=== PATIENT | female | born 1975 | race Caucasian/White ===

== ENCOUNTER 2017-08-02 00:35 | Emergency (ER) | payer OTHER ==
[~2017-08-02] VITALS: Ht 162.6 cm; Wt 72.6 kg
[2017-08-02] MEDS: HYDROMORPHONE 1MG/1ML INJ IV STA (01:41)
[2017-08-02] MEDS: PANTOPRAZOLE 40 MG 10ML VIAL IV STA (01:41)
[2017-08-02] MEDS: SODIUM CHLORIDE 0.9% 1000ML 1,000 ML IV STA (01:42)
[2017-08-02 01:43] LABS: INR 0.99; PROTHROMBIN TIME 12.3 seconds (11.9-14.5)
[2017-08-02 01:44] LABS: PARTIAL THROMBOPLASTIN TIME 30.9 seconds (23.8-35.5)
[2017-08-02 01:48] LABS: BILIRUBIN,URINE NEGATIVE (NEGATIVE); CLARITY,URINE SL CLOUDY (CLEAR); COLOR,URINE YELLOW (YELLOW); KETONES,URINE NEGATIVE (NEGATIVE); LEUKOCYTE ESTERASE ,URINE 1+ (NEGATIVE); NITRITE,URINE NEGATIVE (NEGATIVE); PROTEIN,URINE DIPSTICK 1+ (NEGATIVE); URINE UROBILINOGEN 0.2 mg/dL (0.2 - 1)
[2017-08-02 01:51] LABS: ALANINE AMINOTRANSFERASE 8 IU/L (0-55); ALKALINE PHOSPHATASE 107 IU/L (40-150); ANION GAP 16.9 mmol/L (8-16); BLOOD UREA NITROGEN 15 mg/dL (7-26); BUN/CREATININE RATIO 15 (6-25); CALCIUM 9.6 mg/dL (8.4-10.2); CARBON DIOXIDE 22 mmol/L (22-29); CHLORIDE 105 mmol/L (98-107); CREATINE KINASE 44 IU/L (29-168); CREATININE, SERUM 0.99 mg/dL (0.57-1.11); EST GLOMERULAR FILTRATION RATE > 60 ML/MIN (60-); GLUCOSE 89 mg/dL (74-118); MAGNESIUM 1.9 MG/DL (1.3-2.1); POTASSIUM 3.9 mmol/L (3.5-5.1); SODIUM 140 mmol/L (136-145)
[2017-08-02 01:58] LABS: BASOPHILS # (AUTO) 0.1 (0.0-0.1); BASOPHILS % 0.6 % (0.0-1.0); EOSINOPHILS # (AUTO) 0.7 (0.0-0.4); EOSINOPHILS % 5.2 % (0.0-6.0); HEMATOCRIT 45.6 % (34.2-44.1); HEMOGLOBIN 15.6 g/dL (12.0-16.0); LYMPHOCYTES # (AUTO) 4.2 (1.0-3.2); LYMPHOCYTES % 31.2 % (18.0-39.1); MEAN CORPUSCULAR HGB CONC 34.2 g/dL (31-35); MEAN CORPUSCULAR VOLUME 90.7 fL (81-99); MONOCYTES # (AUTO) 0.9 (0.2-0.8); MONOCYTES % 6.7 % (4.4-11.3); NEUTROPHILS # (AUTO) 7.5 (2.1-6.9); NEUTROPHILS % 55.5 % (38.7-80.0); PLATELET COUNT 198 x10e3/uL (140-360); RED BLOOD COUNT 5.03 x10e6/uL (3.6-5.1); RED CELL DISTRIBUTION WIDTH 13.2 % (11.7-14.4)
[2017-08-02 02:03] LABS: BACTERIA,URINE RARE /HPF; EPITHELIAL CELLS,URINE MANY /LPF; RBC,URINE 0-5 /HPF (0-5); TRANSITIONAL EPI CELLS,URINE FEW; WBC,URINE (MAN) 21-50 /HPF (0-5)
[2017-08-02 02:48] LABS: CLARITY,URINE CLEAR (CLEAR); COLOR,URINE YELLOW (YELLOW)
[2017-08-02 02:49] LABS: BILIRUBIN,URINE NEGATIVE (NEGATIVE); KETONES,URINE NEGATIVE (NEGATIVE); LEUKOCYTE ESTERASE ,URINE TRACE (NEGATIVE); NITRITE,URINE NEGATIVE (NEGATIVE); PROTEIN,URINE DIPSTICK TRACE (NEGATIVE); URINE UROBILINOGEN 0.2 mg/dL (0.2 - 1)
[2017-08-02 02:50] LABS: AMPHETAMINES SCREEN,URINE NEGATIVE (NEGATIVE); BENZODIAZEPINES SCREEN,URINE POSITIVE (NEGATIVE); PHENCYCLIDINE SCREEN,URINE NEGATIVE (NEGATIVE)
[2017-08-02 03:02] LABS: BACTERIA,URINE RARE /HPF; EPITHELIAL CELLS,URINE RARE /LPF; RBC,URINE 0-5 /HPF (0-5); WBC,URINE (MAN) 0-5 /HPF (0-5)
--- NOTE | 2017-08-02 03:36 | Diagnostic Imaging Report ---
EXAM: CT Abdomen and Pelvis WITHOUT contrast INDICATION: Flank pain, renal stone. COMPARISON: None. TECHNIQUE: Abdomen and pelvis were scanned utilizing a multidetector helical scanner from the lung base to the pubic symphysis without administration of IV contrast. Absence of intravenous contrast decreases sensitivity for detection of focal lesions and vascular pathology. Coronal and sagittal reformations were obtained. Stone protocol is performed. IV CONTRAST: None. ORAL CONTRAST: None RADIATION DOSE: Total DLP: 594.59 mGy*cm Estimated effective dose: (DLP x 0.015 x size factor) mSv COMPLICATIONS: None FINDINGS: LINES and TUBES: None. LOWER THORAX: Multiple calcified granulomas are noted in the right lung base HEPATOBILIARY: No focal hepatic lesions. No biliary ductal dilation. GALLBLADDER: There are cholecystectomy clips. SPLEEN: No splenomegaly. PANCREAS: No focal masses or ductal dilatation. ADRENALS: No adrenal nodules KIDNEYS/URETERS: No hydronephrosis. No cystic or solid mass lesions. Multiple small stones noted in the bilateral renal collecting systems, the largest measuring 4 mm in the right upper renal collecting system. GI TRACT: No abnormal distention, wall thickening, or evidence of bowel obstruction. There are diverticula within the colon without evidence of diverticulitis. There are post surgical changes of appendectomy. Postsurgical changes noted in the epigastrium compatible with bariatric surgery. PELVIC ORGANS/BLADDER: There are postop changes of hysterectomy and bilateral oophorectomies. LYMPH NODES: No lymphadenopathy. VESSELS: There is mild atherosclerotic disease in the aorta and major arterial branches. PERITONEUM / RETROPERITONEUM: No free air or fluid. BONES: Unremarkable. SOFT TISSUES: Unremarkable. IMPRESSION: 1. Bilateral nephrolithiasis without evidence of hydronephrosis. Signed by: Dr. Wellington Rivas M.D. on 08/02/2017 3:32 AM
== END 2017-08-02 04:59 | disposition home or self-care (01) ==
LOC: ER 00:35
DX: S39.012A Strain of muscle, fascia and tendon of lower back, initial encounter (principal); M27.2 Inflammatory conditions of jaws; G89.29 Other chronic pain; K21.9 Gastro-esophageal reflux disease without esophagitis; F41.8 Other specified anxiety disorders; G62.9 Polyneuropathy, unspecified; Z79.891 Long term (current) use of opiate analgesic; Z88.2 Allergy status to sulfonamides; Z88.1 Allergy status to other antibiotic agents; Z88.8 Allergy status to other drugs, medicaments and biological substances; X58.XXXA Exposure to other specified factors, initial encounter
CPT/HCPCS: 36415; 74176; 80053; 80307; 81001; 82550; 82553; 83735; 84484; 85025; 85610; 85730; 87086; 99284; J1170; J7030

== ENCOUNTER 2019-06-20 13:37 | Emergency (ER) | payer OTHER ==
[~2019-06-20] VITALS: Ht 162.6 cm; Wt 101.2 kg
--- OUTSIDE RECORDS SUMMARY | 2019-06-20 13:44 | XMS REPORT | Summary of Care ---
Author Author [facility] - [facility] Organization [facility] - Health Address Unknown Phone Unavailable Care Team Providers Care Glaze Handler Name Role Phone Pcp, Patient Does Not Have A PCP Reason for Visit * Reason Comments Pain * Auth/Cert Referred By Contact Referred To Contact Status Reason Specialty Diagnoses / Procedures [facility] [address] [place] [id number] Emergency Medicine Encounter Details Care Team Description Date Type Department Rebeka Velazquez FNP [address] [place] [phone] 11/05/2018 Emergency [facility] [address] [place] [id number] Allergies Comments Active Allergy Reactions Severity Noted Date Avocado Hives 07/27/2018 Venlafaxine Hcl Other - See 05/04/2015 comments Erythromycin Rash 05/04/2015 Tapentadol Hallucination 05/04/2015 s Sulfa (Sulfonamide Rash 05/04/2015 Antibiotics) Tramadol Hallucination 05/04/2015 s Vancomycin Other - See 05/04/2015 comments Bupropion Hcl Other - See 05/04/2015 comments Hydrocodone Bitartrate Rash 07/26/2018 Bupropion Hcl (Smoking Rash 07/26/2018 Deter) documented as of this encounter (statuses as of 11/05/2018) Medications End Date Status Medication Sig Dispensed Refills Start Date Active pantoprazole (PROTONIX) Take 40 mg by 0 40 mg EC tablet mouth 2 (two) times daily. Active losartan-hydrochlorothiaz Take 1 Tab by 0 destiny (HYZAAR) 50-12.5 mg mouth daily. per tablet Active SERTraline (ZOLOFT) 100 Take 100 mg 0 mg tablet by mouth daily. Active gabapentin (NEURONTIN) Take 600 mg 0 600 mg tablet by mouth 4 (four) times daily. Active oxyCODONE (OXYCONTIN) 15 Take by 0 mg TR12 mouth. Active oxyCODONE (OXYCONTIN) 15 Take by 0 mg TR12 mouth. Active Biotin (APPEAREX) 2,500 Take 2 Tabs 0 mcg Tab by mouth daily. Active busPIRone 10 mg tablet Take 10 mg by 0 mouth 3 (three) times daily. Active cyclobenzaprine HCl Take by 0 (FLEXERIL ORAL) mouth. Active atorvastatin calcium Take by 0 (LIPITOR ORAL) mouth. Active aripiprazole (ABILIFY Take by 0 ORAL) mouth. Active ondansetron (ZOFRAN ODT Take by 0 ORAL) mouth. Active zolpidem tartrate (AMBIEN Take by 0 ORAL) mouth. Active diazepam (VALIUM ORAL) Take by 0 mouth. Active hydromorphone HCl Take by 0 (DILAUDID ORAL) mouth. documented as of this encounter (statuses as of 11/05/2018) Active Problems Problem Noted Date Abdominal pain 07/26/2018 Dysphagia 07/26/2018 GERD (gastroesophageal reflux disease) 07/26/2018 Anxiety 07/26/2018 Depression 07/26/2018 HTN (hypertension) 07/26/2018 Obesity (BMI 30-39.9) 07/26/2018 documented as of this encounter (statuses as of 11/05/2018) Social History Date Tobacco Use Types Packs/Day Years Used Current Every Day Smoker Cigarettes 1 30 Drinks/Week oz/Week Comments Alcohol Use 0 Standard drinks or equivalent 0.0 Not Asked Sex Assigned at Date Recorded Not on file Industry Job Start Date Occupation Not on file Not on file Not on file Travel End Travel History Travel Start No recent travel history available. documented as of this encounter Last Filed Vital Signs Reading Time Taken Comments Vital Sign 136/95 11/05/2018 2:58 PM CDT Blood Pressure 102 11/05/2018 2:58 PM CDT Pulse 36.1 C (96.9 F) 11/05/2018 2:58 PM CDT Temperature 18 11/05/2018 2:58 PM CDT Respiratory Rate 96% 11/05/2018 2:58 PM CDT Oxygen Saturation - - Inhaled Oxygen Concentration 84.4 kg (186 lb) 11/05/2018 2:57 PM CDT Weight - - Height 31.93 07/26/2018 1:45 PM CDT Body Mass Index documented in this encounter Plan of Treatment Health Maintenance Due Date Last Done Comments PNEUMOCOCCAL 0-64 YEARS 07/29/1979 COMBINED SERIES (1 of 1 - PPSV23) DTaP,Tdap,and Td Vaccines 1992 (1 - Tdap) PAP SMEAR 1994 MAMMOGRAM 2013 INFLUENZA VACCINE 12/09/2018 02/27/2017 documented as of this encounter Results Not on filedocumented in this encounter Insurance Type Payer Benefit Subscriber ID Effective Phone Address Plan / Dates Group [id number] [id number] Present documented as of this encounter
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
--- OUTSIDE RECORDS SUMMARY | 2019-06-20 13:45 | XMS REPORT | Summary of Care ---
Author Author [facility] - Health Organization [facility] - Health Address Unknown Phone Unavailable Care Team Providers Care Private Sector Executive Name Role Phone Stephanie Sumner MD PCP Reason for Referral * (Routine) Referred By Contact Referred To Contact Status Reason Specialty Diagnoses / Procedures Cash Durbin MD [address] [place] [address] New Request IM-GASTROENTEROL Diagnoses OGY Dysphagia, unspecified type P rocedures Discharge Follow-Up: Specialty Service IM-GASTROENTEROLOG Y; 2 Weeks * (Routine) Referred By Contact Referred To Contact Status Reason Specialty Diagnoses / Procedures Aziza Garcia, CLOUD CONSULTANT [address] [place] [address] Stephanie Sumner MD [address] [place] [address] New Request Diagnoses Dysphagia, unspecified type P rocedures Discharge Follow-up: PCP STEPHANIE SUMNER; 2 Weeks * Radiology Services (STAT) Referred By Contact Referred To Contact Status Reason Specialty Diagnoses / Procedures Pam Gonzales, CARLY [address] [place] [id number] New Request Diagnostic Diagnoses Radiology Other chest pain P rocedures XR NECK SOFT TISSUE * Radiology Services (STAT) Referred By Contact Referred To Contact Status Reason Specialty Diagnoses / Procedures Pam Gonzales, CARLY [address] [place] [phone] New Request Diagnostic Diagnoses Radiology Other chest pain P rocedures Chest 2 Views * Radiology Services (STAT) Referred By Contact Referred To Contact Status Reason Specialty Diagnoses / Procedures Pam Gonzales, CARLY [address] [place] [id number] New Request Diagnostic Diagnoses Radiology Other chest pain P rocedures XR NECK SOFT TISSUE * Radiology Services (STAT) Referred By Contact Referred To Contact Status Reason Specialty Diagnoses / Procedures Pam Gonzales, CARLY [address] [address] New Request Diagnostic Diagnoses Radiology Other chest pain P rocedures Chest 2 Views Reason for Visit * Reason Comments Abdominal Pain * Auth/Cert Referred By Contact Referred To Contact Status Reason Specialty Diagnoses / Procedures [facility] Emergency Dept [address] [place] [id number] Emergency Medicine Encounter Details Care Team Description Date Type Department Pam Gonzales, CARLY [address] [place] [address] [phone] Spencer Esquivel MD [address] [place] [address] Dysphagia 11/17/2018 [facility] - Medicine[facility]Surgery [facility] 7B 11/19/2018 [address] [place] [address] Allergies Comments Active Allergy Reactions Severity Noted Date Avocado Hives 07/27/2018 Venlafaxine Hcl Other - See 05/04/2015 comments Erythromycin Rash 05/04/2015 Tapentadol Hallucination 05/04/2015 s Sulfa (Sulfonamide Rash 05/04/2015 Antibiotics) Ketorolac Rash 11/05/2018 Tramadol Hallucination 05/04/2015 s Vancomycin Other - See 05/04/2015 comments Bupropion Hcl Other - See 05/04/2015 comments Hydrocodone Bitartrate Rash 07/26/2018 Bupropion Hcl (Smoking Rash 07/26/2018 Deter) documented as of this encounter (statuses as of 11/19/2018) Medications End Date Status Medication Sig Dispensed [...] HCl Take by 0 (DILAUDID ORAL) mouth. 11/21/2018 Active fluconazole 200 mg Take 1 tablet 1 tablet 0 tabletIndications: by mouth 9 Dysphagia, unspecified daily for 1 type dose. 11/26/2018 Active sucralfate 100 mg/mL Take 10 mL by 280 mL 0 suspensionIndications: mouth before 9 Dysphagia, unspecified meals and at type bedtime for 7 days. 11/19/2018 Discontinued oxyCODONE (OXYCONTIN) 15 Take by 0 mg TR12 mouth. documented as of this encounter (statuses as of 11/19/2018) Active Problems Problem Noted Date Abdominal pain 07/26/2018 Dysphagia 07/26/2018 GERD (gastroesophageal reflux disease) 07/26/2018 Anxiety 07/26/2018 Depression 07/26/2018 HTN (hypertension) 07/26/2018 Obesity (BMI 30-39.9) 07/26/2018 documented as of this encounter (statuses as of 11/19/2018) Social History Date Tobacco Use Types Packs/Day [...] Signs Reading Time Taken Comments Vital Sign 117/75 11/19/2018 11:34 AM CDT Blood Pressure 67 11/19/2018 11:34 AM CDT Pulse 36.7 C (98 F) 11/19/2018 11:34 AM CDT Temperature 18 11/19/2018 11:34 AM CDT Respiratory Rate 99% 11/19/2018 11:34 AM CDT Oxygen Saturation - - Inhaled Oxygen Concentration 97.5 kg (215 lb) 11/17/2018 2:58 PM CDT Weight 162.6 cm (5' 4") 11/17/2018 2:58 PM CDT Height 36.9 11/17/2018 2:58 PM CDT Body Mass Index documented in this encounter Progress Notes * Yelena Taylor FNP - 11/19/2018 12:50 PM CDT Gastroenterology Progress Note Subjective: Nadiya Gustafson is 43 year old female who was admitted with dysphagia and sensatio n of foreign body in esophagus. S/P EGD with no evidence of foreign body or food bolus. Gastritis and esophagitis seen. She is resting in bed. Tolerating diet well. C/o some nausea. Denies any further complaints. Plans to DC home soon. Objective: BP 117/75 | Pulse 67 | Temp 36.7 C (98 F) (Skin) | Resp 18 | Ht 5' 4" (1 .626 m) | Wt 215 lb (97.5 kg) | SpO2 99% | BMI 36.90 kg/m Physical Exam: Physical Exam Constitutional: She is oriented to person, place, and time. She appears well-dev eloped and well-nourished. HENT: Head: Normocephalic and atraumatic. Eyes: Conjunctivae are normal. No scleral icterus. Cardiovascular: Normal rate. Pulmonary/Chest: Effort normal. Abdominal: Soft. Bowel sounds are normal. She exhibits no distension. There is n o tenderness. Musculoskeletal: Normal range of motion. Neurological: She is alert and oriented to person, place, and time. Skin: Skin is warm and dry. Psychiatric: She has a normal mood and affect. Her behavior is normal. I/O: Intake/Output Summary (Last 24 hours) at 11/19/2018 1250 Last data filed at 11/19/2018 0800 Gross per 24 hour Intake 720 ml Output Net 720 ml Labs/Diagnostic Data/ Imaging: Recent Results (from the past 48 hour(s)) Basic Metabolic Panel (NA, K, CL, CO2, GLUCOSE, BUN, CREATININE, CA) Collection Time: 11/17/18 3:34 PM Result Value Ref Range NA 138 135 - 145 mmol/L K 4.8 3.5 - 5.0 mmol/L CL 101 98 - 108 mmol/L CO2 TOTAL 27 23 - 31 mmol/L AGAP 10 2 - 16 BUN 12 7 - 23 mg/dL GLUCOSE 82 70 - 110 mg/dL CREATININE 0.80 0.50 - 1.04 mg/dL CALCIUM 9.8 8.6 - 10.6 mg/dL eGFR Calculation (Non-) 77.6 mL/min/1.73m2 eGFR Calculation () 94.0 mL/min/1.73m2 Troponin I Collection Time: 11/17/18 3:34 PM Result Value Ref Range TROPONIN I 0.000 <=0.034 ng/mL aPTT Collection Time: 11/17/18 3:34 PM Result Value Ref Range APTT Patient 29 26 - 36 Seconds Prothrombin Time (PT) / INR Collection Time: 11/17/18 3:34 PM Result Value Ref Range PROTIME PATIENT 10.0 (L) 10.1 - 12.6 Seconds INR 0.9 CBC WITH DIFFERENTIAL Collection Time: 11/17/18 3:34 PM Result Value Ref Range WBC 11.85 (H) 4.30 - 11.10 10*3/L RBC 4.75 3.93 - 5.25 10*6/L HGB 15.1 (H) 11.6 - 15.0 g/dL HCT 43.0 35.7 - 45.2 % MCV 90.5 80.6 - 95.5 fL MCH 31.8 25.9 - 32.8 pg MCHC 35.1 31.6 - 35.1 g/dL RDW-SD 40.8 39.0 - 49.9 fL RDW-CV 12.4 12.0 - 15.5 % PLT 214 166 - 358 10*3/L MPV 9.9 9.5 - 12.9 fL NRBC/100 WBC 0.0 0.0 - 10.0 /100 WBCs NRBC x10^3 <0.01 10*3/L GRAN MAT (NEUT) % 62.8 % IMM GRAN % 0.30 % LYMPH % 26.1 % MONO % 7.0 % EOS % 3.2 % BASO % 0.6 % GRAN MAT x10^3(ANC) 7.44 (H) 1.88 - 7.09 10*3/uL IMM GRAN x10^3 0.04 0.00 - 0.06 10*3/uL LYMPH x10^3 3.09 1.32 - 3.29 10*3/uL MONO x10^3 0.83 0.33 - 0.92 10*3/uL EOS x10^3 0.38 0.03 - 0.39 10*3/uL BASO x10^3 0.07 0.01 - 0.07 10*3/uL Chest 2 Views Result Date: 11/17/2018 No acute cardiopulmonary process. No radiopaque foreign body identified. Xr Neck Soft Tissue Result Date: 11/17/2018 No radiopaque foreign body identified. Soft tissue thickening in the base of the epiglottis and in the aryepiglottic folds. This could be related to swallowing motion, but supraglottitis could be in the differential. RL: [id number] AFC: [id number] Assessment/Plan: 1. Dysphagia - s/p EGD with gastritis and possible candidal esophagitis - f/u on biopsy results - PPI - GERD diet as tolerated 2. N/V - improved - PRN antiemetics OK to DC from GI point of view on PPI. Follow up in [address] Durbin. * Latonya Willard SW - 11/19/2018 12:28 PM CDT Care Management Social Functional Assessment Patient Name: Nadiya Gustafson Age: [age] year old Sex: female N Previous admit date: N/A Current diagnosis and co-morbidities: Dysphagia Chest pain Readmission Questions: Was patient discharged from any acute care hospital within the last 30 days: No Social Functional Assessment: Primary language spoken/preferred: Citizen Of [place] Mental Status: Alert & Oriented to Person,Place & Time Information given by: Self Patient's support system: Spouse Name and number of support system: Woody Gustafson [phone] Primary Magazine Designer: Self MPOA: Yes Name and relation to patient (e.g. Luz Taylor, daughter): Woody Gustafson [phone] spouse Living Arrangement: Home Persons living in home: Self;Spouse Barriers to returning home: None Baseline functional status- ambulation: Independent Functional status-baseline personal care: Independent Baseline functional status- driving: Independent Baseline functional status- grocery shopping: Independent Functional status-baseline housekeeping: Independent Functional status-baseline meal prep: Independent Current functional status same as prior: Yes Do you have a PCP?: Yes Name of PCP: Dr. Sumner [employer] Health Care Agency: No Provider Services: No DME Company: No Equipment: None Hemodialysis: No Funding Resources: [facility] where meds are filled: Other Other pharmacy: [facility] Anticipated services prior to disharge: Continue Medical Eval Expected mode of discharge transportation: Personal vehicle Additional Recommendations for DC: vehicle parked in truck Additional info required for discharge planning: No needs identified Recommended discharge plan: Home PLAN: Patient to return home when medically ready. Her vehicle parked in lot. Spouse is retired SFA Complete: Social Functional Assessment complete: Yes Alcohol Use Screening (AUDIT-C) Did patient elect to have resources provided: No Role of Care Management explained. Latonya Willard PAPER MAKING MACHINE OPERATOR Traveling Repair Accountant [phone] office [phone] cell * Maxim Espinoza RN - 11/18/2018 3:12 PM CDT CARE MANAGEMENT ADMISSION CHANGED TO OBSERVATION After reviewing this case with the [facility] [employer] and UR Committee it has been de termined that this case does not meet medical necessity guidelines for an inpati ent admission. I concur that this case should be changed to outpatient observati on. Maxim Espinoza RN,BSN Utilization Review F: [phone] * Fiorella Gomez MD - 11/18/2018 12:52 PM CDT CLS Progress Note Date of Service: 11/18/2018 12:52 Chief Complaint: Abdominal pain Dysphagia SUBJECTIVE and ROS General: no fever CV: no chest pain Respiratory: no shortness of breath GI: no abdominal pain, difficulty swallowing : no tenderness Skin: no itching PHYSICAL EXAM: Vitals: 11/18/18 0400 11/18/18 0611 11/18/18 0651 11/18/18 1055 BP: 127/85 (!) 139/95 119/78 109/76 Pulse: 66 67 66 69 Resp: 20 16 17 18 Temp: 36 C (96.8 F) 35.8 C (96.5 F) 36.7 C (98 F) TempSrc: Tympanic Skin Skin SpO2: 98% 98% 97% Weight: Height: O2 Sat: SpO2 readings for the past 24 hrs: SpO2 11/17/18 1458 98 % 11/17/18 1500 98 % 11/17/18 1515 95 % 11/17/18 1923 96 % 11/17/18 1955 96 % 11/17/18 2000 96 % 11/17/18 2005 94 % 11/17/18 2100 99 % 11/18/18 0000 95 % 11/18/18 0400 98 % 11/18/18 0651 98 % 11/18/18 1055 97 % Intake/Output Summary (Last 24 hours) at 11/18/2018 1252 Last data filed at 11/18/2018 1000 Gross per 24 hour Intake 865 ml Output Net 865 ml General: alert and oriented; no apparent distress, no confusion HEENT: pupils equal, round; extraocular movements intact; oropharynx clear; mois t mucous membranes Lungs: clear to auscultation bilaterally, no crackles, no wheezes, cough is stro ng and effective Cardio: regular rate and rhythm, no murmurs, no gallops Abdomen: soft; non-tender; non-distended; normoactive bowel sounds Extremities: no cyanosis, clubbing or edema, no deformities LABS/IMAGING - reviewed, pertinent results as below: Recent Results (from the past 48 hour(s)) Basic Metabolic Panel (NA, K, CL, CO2, GLUCOSE, BUN, CREATININE, CA) Collection Time: 11/17/18 3:34 PM Result Value Ref Range NA 138 135 - 145 mmol/L K 4.8 3.5 - 5.0 mmol/L CL 101 98 - 108 mmol/L CO2 TOTAL 27 23 - 31 mmol/L AGAP 10 2 - 16 BUN 12 7 - 23 mg/dL GLUCOSE 82 70 - 110 mg/dL CREATININE 0.80 0.50 - 1.04 mg/dL CALCIUM 9.8 8.6 - 10.6 mg/dL eGFR Calculation (Non-) 77.6 mL/min/1.73m2 eGFR Calculation () 94.0 mL/min/1.73m2 Troponin I Collection Time: 11/17/18 3:34 PM Result Value Ref Range TROPONIN I 0.000 <=0.034 ng/mL aPTT Collection Time: 11/17/18 3:34 PM Result Value Ref Range APTT Patient 29 26 - 36 Seconds Prothrombin Time (PT) / INR Collection Time: 11/17/18 3:34 PM Result Value Ref Range PROTIME PATIENT 10.0 (L) 10.1 - 12.6 Seconds INR 0.9 CBC WITH DIFFERENTIAL Collection Time: 11/17/18 3:34 PM Result Value Ref Range WBC 11.85 (H) 4.30 - 11.10 10*3/L RBC 4.75 3.93 - 5.25 10*6/L HGB 15.1 (H) 11.6 - 15.0 g/dL HCT 43.0 35.7 - 45.2 % MCV 90.5 80.6 - 95.5 fL MCH 31.8 25.9 - 32.8 pg MCHC 35.1 31.6 - 35.1 g/dL RDW-SD 40.8 39.0 - 49.9 fL RDW-CV 12.4 12.0 - 15.5 % PLT 214 166 - 358 10*3/L MPV 9.9 9.5 - 12.9 fL NRBC/100 WBC 0.0 0.0 - 10.0 /100 WBCs NRBC x10^3 <0.01 10*3/L GRAN MAT (NEUT) % 62.8 % IMM GRAN % 0.30 % LYMPH % 26.1 % MONO % 7.0 % EOS % 3.2 % BASO % 0.6 % GRAN MAT x10^3(ANC) 7.44 (H) 1.88 - 7.09 10*3/uL IMM GRAN x10^3 0.04 0.00 - 0.06 10*3/uL LYMPH x10^3 3.09 1.32 - 3.29 10*3/uL MONO x10^3 0.83 0.33 - 0.92 10*3/uL EOS x10^3 0.38 0.03 - 0.39 10*3/uL BASO x10^3 0.07 0.01 - 0.07 10*3/uL Chest 2 Views Result Date: 11/17/2018 No acute cardiopulmonary process. No radiopaque foreign body identified. Xr Neck Soft Tissue Result Date: 11/17/2018 No radiopaque foreign body identified. Soft tissue thickening in the base of the epiglottis and in the aryepiglottic folds. This could be related to swallowing motion, but supraglottitis could be in the differential. RL: [id number] AFC: [id number] CURRENT MEDICATIONS - reviewed. Current Facility-Administered Medications Medication Dose Route Frequency Last Rate Last Dose HYDROmorphone (DILAUDID) injection 2 mg 2 mg Slow IV Push Q3HPRN ARIPiprazole (ABILIFY) tablet 10 mg 10 mg Oral DAILY 10 mg at 11/18/18 08 15 atorvastatin (LIPITOR) tablet 20 mg 20 mg Oral QHS busPIRone (BUSPAR) tablet 10 mg 10 mg Oral TID 10 mg at 11/18/18 0815 fluconazole (DIFLUCAN) tablet 200 mg 200 mg Oral DAILY 200 mg at 11/18/18 0816 gabapentin (NEURONTIN) tablet 600 mg 600 mg Oral QID 600 mg at 11/18/18 1 119 NaCl 0.9% (NS) IV infusion 1,000 mL 1,000 mL IV Infusion CONTINUOUS 125 mL/ hr at 11/18/18 0134 1,000 mL at 11/18/18 0134 ondansetron (ZOFRAN (PF)) injection 4 mg 4 mg Slow IV Push Q6HPRN oxyCODONE CR (oxyCONTIN CR) 12 hr tablet 20 mg 20 mg Oral Q12H 20 mg at 0 11/18/18 0816 pantoprazole (PROTONIX) EC tablet 40 mg 40 mg Oral BID 40 mg at 11/18/18 0815 SERTraline (ZOLOFT) tablet 100 mg 100 mg Oral DAILY 100 mg at 11/18/18 08 15 sucralfate (CARAFATE) 100 mg/mL suspension 1,000 mg 1 g Oral AC+HS 1,000 mg at 11/18/18 1119 ASSESSMENT/PLAN Nadiya Gustafson is a 43 year old female admitted to the hospital with: Dysphagia Esophagitis Obesity Chronic pain syndrome PLAN: S/P EGD. GI recommendation will be followed Will advance diet and watch patient response Biopsy is pending Low caloric diet Dilaudid increased DVT prophylaxis BS 100-180 Fiorella Gomez MD [phone] documented in this encounter Plan of Treatment Date/Time Name Type Priority Associated Diagnoses 11/17/2018 7:46 PM CDT SURGICAL PATHOLOGY EXAM LAB STAT Order Schedule Name Type Priority Associated Diagnoses ONCE for 1 Occurrences starting 11/17/2018, 1 completed SURGICAL PATHOLOGY EXAM LAB Routine Health Maintenance Due Date Last Done Comments PNEUMOCOCCAL 0-64 YEARS 07/29/1979 COMBINED SERIES (1 of 1 - PPSV23) DTaP,Tdap,and Td Vaccines 1992 (1 - Tdap) PAP SMEAR 1994 MAMMOGRAM 2013 INFLUENZA VACCINE 12/09/2018 02/27/2017 documented as of this encounter Procedures Comments Procedure Name Priority Date/Time Associated Diagnosis ESOPHAGOGASTRODUODENOSCOP Level 1 A 11/17/2018 POSSIBLE CANDIDIA, NO Y (within 2 7:28 PM CDT FOREIGN BODY, S/P GASTRIC hours) SLEEVE, GASTRITIS EGD (ENDO) Routine 11/17/2018 7:27 PM CDT XR NECK SOFT TISSUE STAT 11/17/2018 Other chest pain 5:51 PM CDT XR CHEST 2 VW STAT 11/17/2018 Other chest pain 5:51 PM CDT CBC WITH DIFFERENTIAL STAT 11/17/2018 Other chest pain 3:34 PM CDT ACTIVATED PARTIAL STAT 11/17/2018 Other chest pain THRMPLAS FRANK 3:34 PM CDT PROTHROMBIN TIME / INR STAT 11/17/2018 Other chest pain 3:34 PM CDT CBC WITH DIFF Routine 11/17/2018 Other chest pain 3:34 PM CDT BASIC METABOLIC PANEL STAT 11/17/2018 Other chest pain (NA, K, CL, CO2, GLUCOSE, 3:34 PM CDT BUN, CREATININE, CA) TROPONIN I STAT 11/17/2018 Other chest pain 3:34 PM CDT EKG-12 LEAD STAT 11/17/2018 3:33 PM CDT documented in this encounter Results * XR NECK SOFT TISSUE (11/17/2018 5:51 PM CDT) Specimen Impressions Performed At No radiopaque foreign body identified. PACS/VR/DOSE Soft tissue thickening in the base of the epiglottis and in the aryepiglottic folds. This could be related to swallowing motion, but supraglottitis could be in the differential. RL: 460 AFC: [id number] Narrative Performed At Ordering physician: PMA JOHNSON PACS/VR/DOSE INDICATION: Swallowed foreign body COMPARISON: None FINDINGS: AP and lateral soft tissue views of neck. No radiopaque foreign body is appreciated. There is apparent thickening of the base of the epiglottis and the aryepiglottic folds. Procedure Note [facility], Radiant Results Inft User - 11/17/2018 9:23 PM CDT Ordering physician: PAM JOHNSON INDICATION: Swallowed foreign body COMPARISON: None FINDINGS: AP and lateral soft tissue views of neck. No radiopaque foreign body is appreciated. There is apparent thickening of the base of the epiglottis and the aryepiglottic folds. IMPRESSION No radiopaque foreign body identified. Soft tissue thickening in the base of the epiglottis and in the aryepiglottic folds. This could be related to swallowing motion, but supraglottitis could be in the differential. RL: 460 AFC: [id number] Performing Organization Address City/State/Zipcode Phone Number PACS/VR/DOSE * Chest 2 Views (11/17/2018 5:51 PM CDT) Specimen Impressions Performed At No acute cardiopulmonary process. No radiopaque foreign body identified. PACS/VR/DOSE Narrative Performed At * * * * * * * * ORIGINAL REPORT * * * * * * * * PACS/VR/DOSE XR CHEST 2 VW HISTORY: chest pain; Potential swallowed F/B COMPARISON: None available. FINDINGS: Cardiomediastinal silhouette is of normal size and morphology. Trachea is not abnormally deviated. Lungs are adequately inflated. Linear opacities in the right perihilar region and left lung base likely represent atelectasis. No confluent consolidation is identified. No radiopaque foreign body is identified. Cholecystectomy clips are noted over the right upper quadrant. Nonspecific gas is noted in the small bowel within the upper abdomen. Procedure Note [facility], Radiant Results Inft User - 11/17/2018 6:03 PM CDT * * * * * * * * ORIGINAL REPORT * * * * * * * * XR CHEST 2 VW HISTORY: chest pain; Potential swallowed F/B COMPARISON: None available. FINDINGS: Cardiomediastinal silhouette is of normal size and morphology. Trachea is not abnormally deviated. Lungs are adequately inflated. Linear opacities in the right perihilar region and left lung base likely represent atelectasis. No confluent consolidation is identified. No radiopaque foreign body is identified. Cholecystectomy clips are noted over the right upper quadrant. Nonspecific gas is noted in the small bowel within the upper abdomen. IMPRESSION No acute cardiopulmonary process. No radiopaque foreign body identified. Performing Organization Address City/State/Zipcode Phone Number PACS/VR/DOSE * CBC WITH DIFFERENTIAL (11/17/2018 3:34 PM CDT) WBC 11.85 (H) 4.30 - 11.10 [facility]L [facility] RBC 4.75 3.93 - 5.25 10*6/L [facility] HGB 15.1 (H) 11.6 - 15.0 g/dL [facility] HCT 43.0 35.7 - 45.2 % [facility] MCV 90.5 80.6 - 95.5 fL [facility] MCH 31.8 25.9 - 32.8 pg [facility] MCHC 35.1 31.6 - 35.1 g/dL [facility] RDW-SD 40.8 39.0 - 49.9 fL [facility] RDW-CV 12.4 12.0 - 15.5 % [facility] PLT 214 166 - 358 10*3/L [facility] MPV 9.9 9.5 - 12.9 fL [facility] NRBC/100 WBC 0.0 0.0 - 10.0 /100 WBCs [facility] NRBC x10^3 <0.01 10*3/L [facility] GRAN MAT (NEUT) 62.8 % [facility] % [facility] IMM GRAN % 0.30 % [facility] LYMPH % 26.1 % [facility] MONO % 7.0 % [facility] EOS % 3.2 % [facility] BASO % 0.6 % [facility] GRAN MAT 7.44 (H) 1.88 - 7.09 10*3/uL [facility] x10^3(ANC) [facility] IMM GRAN x10^3 0.04 0.00 - 0.06 10*3/uL [facility] LYMPH x10^3 3.09 1.32 - 3.29 10*3/uL [facility] MONO x10^3 0.83 0.33 - 0.92 10*3/uL [facility] EOS x10^3 0.38 0.03 - 0.39 10*3/uL [facility] BASO x10^3 0.07 0.01 - 0.07 10*3/uL [facility] Specimen Blood - LINE, VENOUS Performing Organization Address City/State/Zipcode Phone Number [facility] CLIA: [id number], [address] [place] [address] [facility] * Prothrombin Time (PT) / INR (11/17/2018 3:34 PM CDT) PROTIME PATIENT 10.0 (L) 10.1 - 12.6 Seconds [facility] INR 0.9Comment: Normal INR <1.1; [facility] Warfarin Therapeutic range 2.0 [facility] to 3.0 or 2.5 to 3.5, [facility] depending upon the indications. Specimen Blood - LINE, VENOUS Performing Organization Address [facility] Phone Number [facility] CLIA: [id number], [address] [place] [address] [facility] * aPTT (11/17/2018 3:34 PM CDT) Pathologist [facility] APTT Patient 29 26 - 36 Seconds [facility] Specimen Blood - LINE, VENOUS Performing Organization Address [facility] Phone Number [facility] CLIA: [id number], [address] [place] [address] [facility] * Troponin I (11/17/2018 3:34 PM CDT) [facility] TROPONIN I 0.000 <=0.034 ng/mL [facility] Specimen Blood - LINE, VENOUS Narrative Performed At Equal or Less than 0.034 ng/ml---Normal [facility] Note: Cardiac troponin begins to rise 3-4 hours after the onset of ischemia. [facility] Repeat in 4-6 hours if the sample was drawn within 3-4 hours of the onset of the [place] symptom and found normal. Between 0.035 and 0.120 ng/mL--- Borderline. Questionable myocardial injury or necrosis Note: Serial measurement may be necessary to confirm or exclude the diagnosis of myocardial injury or necrosis; Clinical correlation (symptoms, EKGs, imaging studies, and others) required; Repeat in 4-6 hours if clinically indicated. Equal or Higher than 0.121 ng/mL---Abnormal. Myocardial Injury or Necrosis Likely Biotin has been reported to cause a negative bias, interpret results relative to patient's use of biotin. Performing Organization Address [facility] [facility] Phone Number [facility] CLIA: [id number], [address] [place] [address] [facility] * Basic Metabolic Panel (NA, K, CL, CO2, GLUCOSE, BUN, CREATININE, CA) (11/17/2018 3:34 PM CDT) NA 138 135 - 145 mmol/L [facility] K 4.8Comment: Slight hemolysis 3.5 - 5.0 mmol/L [facility] CL 101 98 - 108 mmol/L [facility] CO2 TOTAL 27 23 - 31 mmol/L [facility] AGAP 10 2 - 16 [facility] BUN 12Comment: Slight hemolysis 7 - 23 mg/dL [facility] GLUCOSE 82 70 - 110 mg/dL [facility] CREATININE 0.80 0.50 - 1.04 mg/dL [facility] CALCIUM 9.8 8.6 - 10.6 mg/dL [facility] eGFR 77.6 mL/min/1.73m2 [facility] Calculation [facility] eGFR 94.0 mL/min/1.73m2 [facility] Calculation [facility] ([facility]) Specimen Blood - LINE, VENOUS Narrative Performed At Association of Glomerular Filtration Rate (GFR) and Staging of Kidney Disease* [facility] + + + + [facility] | GFR (mL/min/1.73 m2)| With Kidney Damage|Without Kidney Damage CAMPUS + + + + |>90|Stage one| Normal + + + + |60-89|Stage two| Decreased GFR + + + + |30-59|Stage three| Stage three + + + + |15-29|Stage four | Stage four + + + + |<15 (or dialysis)|Stage five | Stage five + + + + *Each stage assumes the associated GFR level has been in effect for at least three months.Stages 1 to 5, with or without kidney disease, indicate chronic kidney disease. Notes: Determination of stages one and two (with eGFR >59mL/min/1.73 m2) requires estimation of kidney damage for at least three months as defined by structural or functional abnormalities of the kidney, manifested by either: Pathological abnormalities or Markers of kidney damage (including abnormalities in the composition of the blood or urine or abnormalities in imaging tests). Performing Organization Address City/State/Zipcode Phone Number [facility] CLIA: [id number], [address] [place] [address] [facility] documented in this encounter Visit Diagnoses Diagnosis Chest pain, unspecified type Dysphagia, unspecified type documented in this encounter Administered Medications Action Date Dose Rate Site Medication Order MAR Action 11/19/2018 8:08 AM CDT 10 mg ARIPiprazole (ABILIFY) tablet 10 mg Given 10 mg, Oral, DAILY, First dose on Mon11/18/18 at 0900, Until Discontinued 10 mg Given 11/18/2018 8:15 AM CDT 11/18/2018 8:35 PM CDT 20 mg atorvastatin (LIPITOR) tablet 20 mg Given 20 mg, Oral, QHS, First dose on Mon11/18/18 at 2100, Until Discontinued 11/19/2018 8:08 AM CDT 10 mg busPIRone (BUSPAR) tablet 10 mg Given 10 mg, Oral, TID, First dose on [facility] 11/17/18 at 2000, Until Discontinued, Routine 10 mg Given 11/18/2018 8:35 PM CDT 10 mg Given 11/18/2018 2:40 PM CDT 11/19/2018 8:08 AM CDT 200 mg fluconazole (DIFLUCAN) tablet 200 mg Given 200 mg, Oral, DAILY, 3 doses, First dose on Mon11/18/18 at 0900, Last dose on Mon11/20/18 at 0900, YOLANDA, Reason for Anti-Infective: Documented Infection, Documented Infection Site: Skin / Soft Tissue, Duration of Therapy: Other (see Comments) 200 mg Given 11/18/2018 8:16 AM CDT 11/19/2018 12:58 PM CDT 600 mg gabapentin (NEURONTIN) tablet 600 mg Given 600 mg, Oral, QID, First dose on [facility] 11/17/18 at 2000, Until Discontinued, Routine 600 mg Given 11/19/2018 8:08 AM CDT 600 mg Given 11/18/2018 8:35 PM CDT 11/19/2018 8:08 AM CDT 2 mg HYDROmorphone (DILAUDID) injection 2 mg Given 2 mg, Slow IV Push, Q3HPRN, Starting Mon11/19/18 at 0315, Until Mon11/20/18 at 0314, Routine, Pain (scale 7-10), Use approved by (Faculty): CLC PROVIDER 2 mg Given 11/19/2018 3:17 AM CDT 11/18/2018 1:34 AM CDT 1,000 mL 125 mL/hr NaCl 0.9% (NS) IV infusion 1,000 mL New Bag at 125 mL/hr, IV Infusion, CONTINUOUS, Starting 11/17/18 at 1745, Until Discontinued, Routine 11/18/2018 8:11 PM CDT 4 mg ondansetron (ZOFRAN (PF)) injection 4 mg Given 4 mg, Slow IV Push, Q6HPRN, Starting 11/17/18 at 1740, Until Discontinued, Routine, Nausea and Vomiting (N/V) 11/19/2018 8:08 AM CDT 20 mg oxyCODONE CR (oxyCONTIN CR) 12 hr tablet Given 20 mg 20 mg, Oral, Q12H, First dose on 11/17/18 at 2000, Until Discontinued, 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 Restricted medication: RAMONA BRANNON EMRAN 20 mg Given 11/18/2018 8:35 PM CDT 20 mg Given 11/18/2018 8:16 AM CDT 11/19/2018 8:08 AM CDT 40 mg pantoprazole (PROTONIX) EC tablet 40 mg Given 40 mg, Oral, BID, First dose on 11/17/18 at 2000, Until Discontinued, Routine 40 mg Given 11/18/2018 8:35 PM CDT 40 mg Given 11/18/2018 8:15 AM CDT 11/19/2018 8:08 AM CDT 100 mg SERTraline (ZOLOFT) tablet 100 mg Given 100 mg, Oral, DAILY, First dose on 11/18/18 at 0900, Until Discontinued, Routine 100 mg Given 11/18/2018 8:15 AM CDT 11/19/2018 12:58 PM CDT 1,000 mg sucralfate (CARAFATE) 100 mg/mL Given suspension 1,000 mg 1,000 mg (1 g), Oral, AC+HS, First dose on 11/17/18 at 2100, Until Discontinued, Routine 1,000 mg Given 11/19/2018 8:08 AM CDT 1,000 mg Given 11/18/2018 8:35 PM CDT Action Date Dose Rate Site Medication Order MAR Action 11/17/2018 3:45 PM CDT 20 mg famotidine (PEPCID (PF)) injection 20 mg Given 20 mg, Slow IV Push, ONCE, 1 dose, 11/17/18 at 1645, YOLANDA 11/17/2018 4:59 PM CDT 25 mcg FENTanyl PF (SUBLIMAZE (PF)) injection Given 25 mcg 25 mcg, Slow IV Push, ONCE, 1 dose, 11/17/18 at 1800, STAT 11/17/2018 6:27 PM CDT 1 mg HYDROmorphone (DILAUDID) injection 1 mg Given 1 mg, Slow IV Push, Q4HPRN, Starting 11/17/18 at 1741, Until 11/17/18 at 1903, Routine, Pain (scale 7-10), Use approved by (Faculty): CLC PROVIDER 11/17/2018 10:19 PM CDT 1 mg HYDROmorphone (DILAUDID) injection 1 mg Given 1 mg, Slow IV Push, Q4HPRN, Starting 11/17/18 at 2230, Until 11/18/18 at 0118, Routine, Pain (scale 7-10), Use approved by (Faculty): CLC PROVIDER 11/18/2018 11:20 AM CDT 1 mg HYDROmorphone (DILAUDID) injection 1 mg Given 1 mg, Slow IV Push, Q3HPRN, Starting 11/18/18 at 0130, Until 11/18/18 at 1251, Routine, Pain (scale 7-10), Use approved by (Faculty): CLC PROVIDER 1 mg Given 11/18/2018 8:16 AM CDT 1 mg Given 11/18/2018 4:50 AM CDT 11/19/2018 12:17 AM CDT 2 mg HYDROmorphone (DILAUDID) injection 2 mg Given 2 mg, Slow IV Push, Q3HPRN, Starting 11/18/18 at 1250, Until 11/19/18 at 0129, Routine, Pain (scale 7-10), Use approved by (Faculty): CLC PROVIDER 2 mg Given 11/18/2018 9:05 PM CDT 2 mg Given 11/18/2018 5:57 PM CDT 11/17/2018 3:45 PM CDT 1,000 mL 999 mL/hr NaCl 0.9% (NS) bolus infusion 1,000 mL New Bag at 999 mL/hr, 1,000 mL, IV Infusion, ONCE, 1 dose, 11/17/18 at 1545, YOLANDA 11/17/2018 3:45 PM CDT 4 mg ondansetron (ZOFRAN (PF)) injection 4 mg Given 4 mg, Slow IV Push, ONCE, 1 dose, 11/17/18 at 1645, YOLANDA documented in this encounter Insurance Type Payer Benefit Subscriber ID Effective Phone Address Plan / Dates Group [id number] 2018- [employer] Present documented as of this encounter
--- OUTSIDE RECORDS SUMMARY | 2019-06-20 13:45 | XMS REPORT | Summary of Care ---
Author Author [facility] Organization [facility] Address Unknown Phone Unavailable Care Team Providers Care Barmaid Name Role Phone Stephanie Campa MD PCP Reason for Visit * Reason Comments Dental Problem * Auth/Cert Referred By Contact Referred To Contact Status Reason Specialty Diagnoses / Procedures [facility] Emergency Dept [address] [place] [address] Emergency Medicine Encounter Details Care Team Description Date Type Department Taina Yates, HERMAN [address] [facility] [address] [place] [address] Dental caries (Primary Dx); Chronic dental infection 11/05/2018 Emergency [facility] Department [address] [place] [address] Allergies Comments Active Allergy Reactions Severity Noted [...] HCl Take by 0 (DILAUDID ORAL) mouth. 11/15/2018 Active amoxicillin-clavulanate Take 1 tablet 20 tablet 0 875-125 mg per by mouth 9 tabletIndications: every 12 Chronic dental infection (twelve) hours for 10 days. documented as of this encounter (statuses as [...] Signs Reading Time Taken Comments Vital Sign 137/86 11/05/2018 7:30 PM CDT Blood Pressure 75 11/05/2018 7:30 PM CDT Pulse 36.7 C (98 F) 11/05/2018 7:30 PM CDT Temperature 16 11/05/2018 7:30 PM CDT Respiratory Rate 97% 11/05/2018 7:30 PM CDT Oxygen Saturation - - Inhaled Oxygen Concentration 100.2 kg (221 lb) 11/05/2018 5:27 PM CDT Weight 162.6 cm (5' 4") 11/05/2018 5:27 PM CDT Height 37.93 11/05/2018 5:27 PM CDT Body Mass Index documented in this encounter Discharge Instructions * Instructions* Cuauhtemoc Sharp, RN - 11/05/2018 Pt to take prescribed meds as directed. Patient to f/u with Maxofacial surgeon, patient verbalized understanding. * Attachments The following attachments cannot be sent through Care Everywhere.* Dental Cavity ([place]) * Tooth Decay, Understanding ([place]) * Abscess, Antibiotic Treatment Only ([place]) documented in this encounter Plan of Treatment Health Maintenance Due Date Last Done Comments PNEUMOCOCCAL 0-64 YEARS 07/29/1979 COMBINED SERIES (1 of 1 - PPSV23) DTaP,Tdap,and Td Vaccines 1992 (1 - Tdap) PAP SMEAR 1994 MAMMOGRAM 2013 INFLUENZA VACCINE 12/09/2018 02/27/2017 documented as of this encounter Procedures Comments Procedure Name Priority Date/Time Associated Diagnosis EXTRA TUBE URINE CULTURE STAT 11/05/2018 6:04 PM CDT URINALYSIS STAT 11/05/2018 Dental caries 6:04 PM CDT CBC WITH DIFFERENTIAL STAT 11/05/2018 Dental caries 5:55 PM CDT EXTRA TUBE LT. BLUE STAT 11/05/2018 5:55 PM CDT CBC WITH DIFF Routine 11/05/2018 Dental caries 5:55 PM CDT BASIC METABOLIC PANEL STAT 11/05/2018 Dental caries (NA, K, CL, CO2, GLUCOSE, 5:55 PM CDT BUN, CREATININE, CA) documented in this encounter Results * EXTRA TUBE URINE CULTURE (11/05/2018 6:04 PM CDT) Specimen Urine - URINE, CLEAN CATCH Performing Organization Address City/State/Zipcode Phone Number [facility] CLIA: [id number], [address] [place] [address] [facility] * Urinalysis (11/05/2018 6:04 PM CDT) APPEARANCE Clear Clear [facility] COLOR Straw (A) Yellow [facility] PH 7.0 4.8 - 8.0 [facility] SP GRAVITY 1.004 1.003 - 1.030 [facility] GLU U QUAL Normal Normal [facility] BLOOD Negative Negative [facility] KETONES Negative Negative [facility] PROTEIN Negative Negative [facility] UROBILIN Normal Normal [facility] BILIRUBIN Negative Negative [facility] NITRITE Negative Negative [facility] LEUK ANGELI 75/uL (A) Negative [facility] RBC/HPF 2 0 - 3 HPF [facility] WBC/HPF 7 (H) 0 - 5 HPF [facility] BACTERIA Negative Negative [facility] SQ EPITH 2 <=2 HPF [facility] Specimen Urine - URINE, CLEAN CATCH Performing Organization Address City/[facility]/Zipcode Phone Number [facility] CLIA: [id number], [address] [place] [address] [facility] * EXTRA TUBE LT. BLUE (11/05/2018 5:55 PM CDT) Specimen Blood Performing Organization Address City/[facility] Phone Number [facility] CLIA: [id number], [address] [place] [address] [facility] * CBC WITH DIFFERENTIAL (11/05/2018 5:55 PM CDT) WBC 12.40 (H) 4.30 - 11.10 [facility] 10*3/L [facility] RBC 4.48 3.93 - 5.25 10*6/L [facility] HGB 14.4 11.6 - 15.0 g/dL [facility] HCT 41.7 35.7 - 45.2 % [facility] MCV 93.1 80.6 - 95.5 fL [facility] MCH 32.1 25.9 - 32.8 pg [facility] MCHC 34.5 31.6 - 35.1 g/dL [facility] RDW-SD 42.6 39.0 - 49.9 fL [facility] RDW-CV 12.8 12.0 - 15.5 % [facility] PLT 188 166 - 358 10*3/L [facility] MPV 9.7 9.5 - 12.9 fL [facility] NRBC/100 WBC 0.0 0.0 - 10.0 /100 WBCs [facility] NRBC x10^3 <0.01 10*3/L [facility] GRAN MAT (NEUT) 60.2 % [facility] % [facility] IMM GRAN % 0.20 % [facility] LYMPH % 28.9 % [facility] MONO % 7.6 % [facility] EOS % 2.7 % [facility] BASO % 0.4 % [facility] GRAN MAT 7.47 (H) 1.88 - 7.09 10*3/uL [facility] x10^3(ANC) [facility] IMM GRAN x10^3 0.03 0.00 - 0.06 10*3/uL [facility] LYMPH x10^3 3.58 (H) 1.32 - 3.29 10*3/uL [facility] MONO x10^3 0.94 (H) 0.33 - 0.92 10*3/uL [facility] EOS x10^3 0.33 0.03 - 0.39 10*3/uL [facility] BASO x10^3 0.05 0.01 - 0.07 10*3/uL [facility] Specimen Blood - ARM, RIGHT Performing Organization Address City/State/Zipcode Phone Number [facility] CLIA: [id number], [address] [place] [address] [facility] * Basic Metabolic Panel (NA, K, CL, CO2, GLUCOSE, BUN, CREATININE, CA) (11/05/2018 5:55 PM CDT) NA 140 135 - 145 mmol/L [facility] K 4.2 3.5 - 5.0 mmol/L [facility] CL 105 98 - 108 mmol/L [facility] CO2 TOTAL 27 23 - 31 mmol/L [facility] AGAP 8 2 - 16 [facility] BUN 10 7 - 23 mg/dL [facility] GLUCOSE 83 70 - 110 mg/dL [facility] CREATININE 0.85 0.50 - 1.04 mg/dL [facility] CALCIUM 9.6 8.6 - 10.6 mg/dL [facility] eGFR 72.3 mL/min/1.73m2 [facility] Calculation [facility] ([facility]) eGFR 87.7 mL/min/1.73m2 [facility] Calculation [facility] ([facility]) Specimen Blood - ARM, RIGHT Narrative Performed At Association of Glomerular Filtration Rate (GFR) and Staging of Kidney Disease* [facility] + + + + [facility] | GFR (mL/min/1.73 m2)| With Kidney Damage|Without [...] tests). Performing Organization Address City/State/Zipcode Phone Number [facility] CLIA: [id number], [address] [place] [address] [facility] documented in this encounter Visit Diagnoses Diagnosis Dental caries - Primary Unspecified dental caries Chronic dental infection Chronic periodontitis, unspecified documented in this encounter Administered Medications Action Date Dose Rate Site Medication Order MAR Action 11/05/2018 6:04 PM CDT 600 mg clindamycin in d5w (CLEOCIN) 600 mg/50 Given mL Piggyback 600 mg 600 mg, IV Piggyback, ONCE, 1 dose, Mon11/05/18 at 1845, 50 mL, Reason for Anti-Infective: Empiric Therapy for Suspected Infection, Empiric Therapy Site: [facility], Duration of therapy: 72 hours, production team member approving Restricted medication: TAINA YATES 11/05/2018 7:10 PM CDT 12.5 mcg FENTanyl PF (SUBLIMAZE (PF)) injection Given 12.5 mcg 12.5 mcg, Slow IV Push, ONCE, 1 dose, Mon11/05/18 at 2015, STAT 11/05/2018 6:03 PM CDT 1 mg HYDROmorphone (DILAUDID) injection 1 mg Given 1 mg, Slow IV Push, ONCE, 1 dose, Mon11/05/18 at 1845, YOLANDA, Use approved by (Faculty): CLC PROVIDER 11/05/2018 6:03 PM CDT 1,000 mL 999 mL/hr NaCl 0.9% (NS) bolus infusion 1,000 mL New Bag at 999 mL/hr, 1,000 mL, IV Infusion, ONCE, 1 dose, Mon11/05/18 at 1745, YOLANDA documented in this encounter Insurance Type Payer Benefit Subscriber ID Effective Phone Address Plan / Dates Group [id number] 2018- [place] Present documented as of this encounter
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
--- OUTSIDE RECORDS SUMMARY | 2019-06-20 13:46 | XMS REPORT ---
Author Author Admin, Makaweli Organization Unknown Address Unknown Phone Unavailable PROBLEMS Condition Status Date Provider Notes Screening for lipid disorder active Andrea Meeks Encounter for therapeutic drug monitoring active Andrea Clemente Constantino DEPRESSIVE DISORDER, MAJOR, RECURRENT EPISODE, PARTIAL REMISSION active GeoavnyChyna Meeks DEPRESSIVE DISORDER, UNSPECIFIED completed - Andrea Clemente Constantino ANXIETY DISORDER, UNSPECIFIED active Chyna Jennings ENCOUNTERS Date Type Provider Location Encounter Diagnosis - Ambulatory Encounter Andrea Valderramaijos GeovanyChyna Bautista [facility] UNK - Ambulatory Encounter Andrea Valderramaijrenée Clemente Constantino [facility] UNK - Ambulatory Encounter Andrea Valderramaijrenée Clemente Constantino [facility] UNK - Ambulatory Encounter Andrea Valderramaijrenée Clemente Constantino [facility] UNK - Ambulatory Encounter Andrea Clemente Constantino Cooper [facility] Encounter for therapeutic drug monitoringScreening for lipid disorder - Ambulatory Encounter Andrea Valderramaijos GeovanyChyna Lee [facility] UNK - Ambulatory Encounter Andrea Valderramaijos GeovanyChyna Meeks [facility] UNK - Ambulatory Encounter Andrea Valderramaijos GeovanyChyna Bautista [facility] UNK - Ambulatory Encounter Andrea Clemente Constantino GeovanyChyna Meeks [facility] UNK - Ambulatory Encounter Andrea Meeks [facility] UNK - Ambulatory Encounter Andrea Meeks [facility] UNK - Ambulatory Encounter Andrea Bautista [facility] UNK - Ambulatory Encounter Andrea Bautista [facility] UNK - Ambulatory Encounter Andrea Meeks [facility] UNK - Ambulatory Encounter Andrea Rivers [facility] UNK - Ambulatory Encounter Elise Bueno [facility] UNK - Ambulatory Encounter Andrea Bautista [facility] UNK - Ambulatory Encounter Andrea Meeks [facility] UNK - Ambulatory Encounter Andrea Ochoa [facility] UNK - Ambulatory Encounter Andrea Sullivan [facility] UNK - Ambulatory Encounter Andrea Meeks [facility] UNK - Ambulatory Encounter Andrea Bautista [facility] DEPRESSIVE DISORDER, UNSPECIFIED - Ambulatory Encounter Andrea Cooper [facility] UNK - Ambulatory Encounter Chyna Jennings [facility] UNK - Ambulatory Encounter Andrea Meeks [facility]K - Ambulatory Encounter Andrea Valderramaijrenée Clemente Constantino Hitch[facility] UNK - Ambulatory Encounter Andrea Valderramaijos Andrea Valderramaijos [facility] UNK - Ambulatory Encounter Andrea Valderramaijos GeovanyChyna Meeks [facility] UNK - Ambulatory Encounter Andrea Valderramaijrenée Valderramaijos Elsy Rivers [facility] DEPRESSIVE DISORDER, MAJOR, RECURRENT EPISODE, PARTIAL REMISSION - Ambulatory Encounter Chyna Jassoabecandace Jennings [facility] UNK - Ambulatory Encounter Elsy Rivers [facility] UNK - Ambulatory Encounter Chyna Jassoabel Jennings Stormy Lee [facility] UNK - Ambulatory Encounter Chyna Jassoabecandace Rayooz [facility] ANXIETY DISORDER, UNSPECIFIEDDEPRESSIVE DISORDER, UNSPECIFIED - Ambulatory Encounter Jenniffer Soto [facility] UNK VITAL SIGNS No [...] 26 y/o son. Not homeless. Born in [facility]. City: [place]. State: [place]. Pt lives in [place], in a home with son (26) and . Unemployed. Highest education level: obtained GED after dropping out senior year. 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 Supported by [...] " home/family situation, assessment Pt lives in [place], in a home with son (26) and [...] 26 y/o son. Not homeless. Born in [facility]. City: [place]. State: [place]. Pt lives in [place], in a home with son (26) and . Unemployed. Highest education level: obtained GED after dropping out senior year. 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 Supported by [...] 36) Not homeless. Born in [place]. City: [place]. State: [place]. pt lives in [place], in a home with son (26) and . Unemployed. Highest education level: obtained GED. Pt shared, she enjoys going to the beach and swimming Chyna Jennings " home/family situation, assessment pt lives in [place], in a home with son (26) and [...] assessment, motor activity normal gait, normal posture Anrdea Meeks " behavior (mental status exam) appropriate, [...] status assessment, sensorium alert, attentive, clear Geovany Ocnstantino " affect (mental status exam) congruent, euthymic, [...] " mood (mental status exam) anxious, sad Geovayn Constantino " mental status assessment, speech activity [...] With Differential/Platelet Est Patient Exp Problem - 59798 Est Patient Exp Problem - 19746 Est Patient Exp Problem - 89916 Est Patient Exp Problem - 09140 Est Patient Exp Problem - 90236 Est Patient Detailed - 69561 Est Patient Exp Problem - 35314 Est Patient Exp Problem - 21424 Psychotherapy 45 (38-52*) min - 86233 (with patient and/or family member) Diagnostic evaluation with medical - 85457 Psychotherapy 45 (38-52*) min - 23549 (with patient and/or family member) Diagnostic evaluation (no medical) - 97968 HISTORY OF PROCEDURES Procedure Date Procedure Name Provider Procedure Notes Status Psychotherapy 45 (38-52*) min - 70567 (with patient and/or family member) Chyna Jennings completed Diagnostic evaluation with medical - 48673 Andrea Meeks completed Psychotherapy 45 (38-52*) min - 72417 (with patient and/or family member) Chyna Jennings completed Diagnostic evaluation (no medical) - 82129 Chyna Jennings completed GOALS No Information Available HEALTH CONCERNS No Information Available
--- OUTSIDE RECORDS SUMMARY | 2019-06-20 13:46 | XMS REPORT ---
[facility] Address Unknown Phone Unavailable Care Team Providers Care Superintendent Production Name Role Phone Bailey MORENO Unavailable Unavailable Payers Payer Name Policy Type Policy Number Effective Date Expiration Date Problems This patient has no known problems. Allergies, Adverse Reactions, Alerts Allergy Name Allergy Type Status Severity Reaction(s) Onset Date Inactive Date Treating Clinician Comments lithium DA Active SV 2019-03-04 00:00:00 oxycodone DA Active SV 2018-02-02 00:00:00 NSAIDS (Non-Steroidal Anti-Inflamma DA Active U 2017-12-19 00:00:00 Sulfa (Sulfonamide Antibiotics) DA Active U 2017-12-19 00:00:00 erythromycin base DA Active U 2017-12-19 00:00:00 tramadol DA Active U 2017-12-19 00:00:00 venlafaxine DA Active U 2017-12-19 00:00:00 bupropion DA Active U 2017-12-19 00:00:00 vancomycin DA Active U 2017-12-19 00:00:00 tapentadol DA Active U 2017-12-19 00:00:00 morphine DA Active KS 2017-12-19 00:00:00 NSAIDS (Non-Steroidal Anti-Inflamma DA Active U 2017-10-10 00:00:00 Sulfa (Sulfonamide Antibiotics) DA Active U 2017-10-10 00:00:00 morphine DA Active KS 2017-10-10 00:00:00 erythromycin base DA Active U 2017-10-10 00:00:00 tramadol DA Active U 2017-10-10 00:00:00 venlafaxine DA Active U 2017-10-10 00:00:00 bupropion DA Active U 2017-10-10 00:00:00 vancomycin DA Active U 2017-10-10 00:00:00 tapentadol DA Active U 2017-10-10 00:00:00 Medications This patient has no known medications. Encounters Start Date/Time End Date/Time Encounter Type Admission Type Attending [facility] Facility Care Department Encounter ID 2019-06-06 16:31:00 2019-06-06 16:31:00 Emergency E MHNE MHNE [id number] 2019-05-31 10:43:00 2019-05-31 10:43:00 Emergency E MHNE MHNE 7505 2019-05-07 11:12:00 2019-05-07 11:12:00 Emergency E MHNE MHNE 7504 2018-08-13 11:17:00 2018-08-13 11:17:00 Emergency E MHNE MHNE [id number] Results Test Description Test Time Test Comments Text Results Atomic Results Result Comments PROTHROMBIN TIME 2018-06-25 22:57:00 PROTHROMBIN TIME PATIENT (test code=PTP) 11.2 SECONDS 9.3-12.9 INTERNATIONAL NORMAL RATIO (test code=INR) 1.0 0.8-1.2 TARGET INR BY INDICATION Indication INR1. Prophylaxis of venous thrombosis 2.0 - 3.0 (orthopedic surgery), Prophylaxis of venous thrombosis (other than high-risk surgery), Treatment of Deep Vein Thrombosis/Pulmonary Embolism, Prevention of systemic embolism - Tissue heart valves, Acute Myocardial Infarction (to prevent systemic embolism), Valvular heart disease, Atrial Fibrillation, Bileaflet mechanical valve in aortic position.2. Mechanical prosthetic valves (high risk), 2.5 - 3.5 Presence of Lupus Anticoagulant or Antiphospholipid Antibodies, Prevention of systemic embolism - Acute Myocardial Infarction (to prevent recurrent infarct). THROMBOPLASTIN TIME [id number] 22:57:00* Test Item Value Reference Range Comments THROMBOPLASTIN TIME PARTIAL (test code=PTT) 37.0 Seconds 25.0-39.5 Therapeutic Range: 61.8-83.8 Sec Effective 05/08/2013 BASIC METABOLIC [id number] 22:52:00* Test Item Value Reference Range Comments SODIUM (test code=NA) 138 mEq/L 134-147 POTASSIUM (test code=K) 3.9 mEq/L 3.4-5.0 CHLORIDE (test code=CL) 108 mEq/L 100-108 CARBON DIOXIDE (test code=CO2) 25 mEq/L 21-33 ANION GAP (test code=GAP) 9 0-20 GLUCOSE (test code=GLU) 85 mg/dL 70-110 BLOOD UREA NITROGEN (test code=BUN) 10 mg/dL 7-18 GLOMERULAR FILTRATION RATE (test code=GFR) 68.0 95-105 Units of measure=ml/min/1.73 m2 CREATININE (test code=CREAT) 0.9 mg/dL 0.6-1.3 CALCIUM (test code=CA) 9.1 mg/dL 8.0-10.5 [id number] 22:52:00* Test Item Value Reference Range Comments TROPONIN-I (test code=TROPI) < 0.015 ng/mL 0.000-0.045 Negative: <=0.045 Positive: >=0.046 Correlation with serial results, other cardiac markers andclinical findings is necessary to determine the clinicalsignificance of this result. Results using different methodologies should not be comparedto one another as quantitative results may vary by method. CBC W/O [id number] 22:37:00* Test Item Value Reference Range Comments WHITE BLOOD CELL (test code=WBC) 12.81 x10 3/uL 4.5-11.0 RED BLOOD CELL (test code=RBC) 4.84 x10 6/uL 3.54-5.02 HEMOGLOBIN (test code=HGB) 14.7 g/dL 11.0-15.0 HEMATOCRIT (test code=HCT) 43.8 % 33.0-45.0 MEAN CELL VOLUME (test code=MCV) 90.5 fL 81.0-99.0 MEAN CELL HGB (test code=MCH) 30.4 pg 27.0-33.0 MEAN CELL HGB CONCETRATION (test code=MCHC) 33.6 g/dL 33.0-37.0 RED CELL DISTRIBUTION WIDTH CV (test code=RDW) 12.0 % 11.5-14.5 RED CELL DISTRIBUTION WIDTH SD (test code=RDW-SD) 39.6 fL 37.0-54.0 PLATELET COUNT (test code=PLT) 206 x10 3/uL 150-400 MEAN PLATELET VOLUME (test code=MPV) 9.9 fL 7.0-9.0 - CT HEAD/BRAIN W/O [id number] 20:41:00 Name: MEGGAN KEYES : 1975 Age/S: 42 / F [address] [facility] Unit #: [id number] Loc: [place] [address] Phys: Ty Rain MD Acct: [id number] Dis Date: Status: REG ER PHONE #: [phone] Exam Date: 06/25/20181927 FAX #: [phone] Reason: studdering speech, recent fall with head strike Report Has Been Amended EXAMS: CPT CODE: [id number] CT HEAD/BRAIN W/O CONT 84533 Addendum - 06/25/2018 SIGNED 06/25/2018 ADDENDUM: [id number] CT/CTHDBRWO Addendum CT imaging performed at this location utilizes radiation dose optimization techniques which include one or more of the following: Automated exposure control Adjustment of the MAA and/or KUB according to patient size Use of degenerative reconstruction technique at 2041 Reported and signed by: Mmae Hernandez M.D. Report Study: - CT HEAD/BRAIN W/O CONT 06/25/2018 6:38 PM Ordering Physician: Ty Rain MD Clinical Indication: Difficulty speaking. Recent fall with head strike. Comparison: MRI of the brain dated 05/11/[address] brain without contrast dated May 10, 2018 TECHNIQUE: CT images are obtained from the foramen magnum to the vertex on a multidetector CT. Sagittal and coronal reformats are acquired. CT radiation dose DLP: 420 mGy-cm. FINDINGS: Ventricles, sulci and basal cisterns are within normal limits for age. The joy-white junction is intact. No encephalomalacic changes are seen. There is no evidence for intracranial mass, mass effect or extra-axial fluid collection. There is no evidence for intracranial hemorrhage. The skull is intact. Visualized paranasal sinuses are clear. Mastoid air cells are clear. Orbital structures are grossly unremarkable. PAGE 1 Signed Report (CONTINUED) Name: MEGGAN KEYES : 1975 Age/S: 42 / F [address] [place] [address] Unit #: [id number] Loc: [place] [address] Phys: Ty Rain MD Acct: [id number] Dis Date: Status: REG ER PHONE #: [phone] Exam Date: 06/25/20181927 FAX #: [phone] Reason: studdering speech, recent fall with head strike Report Has Been Amended EXAMS: CPT CODE: [id number] CT HEAD/BRAIN W/O CONT 68274 <Continued> IMPRESSION: Normal computed tomography scan of the brain without contrast. SL: JOSÉ ANTONIO at 194 Reported and signed by: Mame Hernandez M.D. CC: Stephanie Campa MD; Ty Rain MD Technologist:RT Ladonna(R) CTDI: DLP: Trnscb Date/Time: 06/25/2018 (1940) Georgiana Orig Print D/T: S: 06/25/2018 (1943) CTDI: DLP: PAGE 2 Signed Report - CT HEAD/BRAIN W/O [id number] 19:41:00 Name: MEGGAN KEYES : 1975 Age/S: 42 / F [address] [place] [address] Unit #: [id number] Loc: [place] [address] Phys: Ty Rain MD Acct: [id number] Dis Date: Status: REG ER PHONE #: [phone] Exam Date: 06/25/20181927 FAX #: [phone] Reason: studdering speech, recent fall with head strike EXAMS: CPT CODE: [id number] CT HEAD/BRAIN W/O CONT 45826 Study: - CT HEAD/BRAIN W/O CONT 06/25/2018 6:38 PM Ordering Physician: Ty Rain MD Clinical Indication: Difficulty speaking. Recent fall with head strike. Comparison: MRI of the brain dated 05/11/[address] brain without contrast dated May 10, 2018 TECHNIQUE: CT images are obtained from the foramen magnum to the vertex on a multidetector CT. Sagittal and coronal reformats are acquired. CT radiation dose DLP: 420 mGy-cm. FINDINGS: Ventricles, sulci and basal cisterns are within normal limits for age. The joy-white junction is intact. No encephalomalacic changes are seen. There is no evidence for intracranial mass, mass effect or extra-axial fluid collection. There is no evidence for intracranial hemorrhage. The skull is intact. Visualized paranasal sinuses are clear. Mastoid air cells are clear. Orbital structures are grossly unremarkable. IMPRESSION: Normal computed tomography scan of the brain without contrast. SL: JOSÉ ANTONIO at 1940 Reported and signed by: Mame Hernandez M.D. CC: Stephanie Campa MD; Ty Rain MD Technologist:Fracisco Walden, RT(R) CTDI: DLP: Trnscb Date/Time: 06/25/2018 (1940) [email or web address] Orig Print D/T: S: 06/25/2018 (1943) CTDI : DLP: PAGE 1 Signed Report - XR CHEST 1 [id number] 19:24:00 FAX: Stephanie Campa MD [phone] [place]: St: REG FAX: Ty Rain MD [phone] Name: MEGGAN KEYES [place] : 1975 Age/S: 42/F [address] [place] [address] Unit #: [id number] Loc: [place] [address] Phys: Ty Rain MD Acct: [id number] Dis Date: Status: REG ER PHONE #: [phone] Exam Date: 06/25/2018 190 FAX #: [phone] Reason: studdering speech, re cent fall with head strike EXAMS: CPT CODE: [id number] XR CHEST 1 V 76053 Clinical Indication: studdering speech, recent fall with head st rike Comparison: Chest x-ray March 13, 2018 FINDINGS: The frontal chest radiograph shows normal lung volumes. No inte rstitial or airspace opacities are seen. No pleural effusions are present . No pneumothorax is seen. The heart is normal in size. The trach ea is midline. There are no clinically significant osseous abnorm alities noted. IMPRESSION: No chest radiographic eviden ce of acute cardiopulmonary disease. SL: [id number] at 1924 Reported and signed by: Piter Rosenthal M.D. CC: Stephanie Campa MD; Ty Rain MD Technologist: Kelly lebron, RT(R) Trnscrd Date/Time/By: 06/25/2018 (0 944) : By: Francis.LNV Orig Print D/T: S: 06/25/2018 (1926) PAGE 1 Signed Report - MRI BRAIN WO/W [id number] 13:11:00 FAX: Stephanie Campa MD [phone] [place]: St: [facility] FAX: Andrea Mobley I [phone] FAX: Latonya Millan [phone] Name: BABARTIMOJACKLIBBY Braden [facility] : 1975 Age/S: 42/F [address] [place] [address] Unit #: [id number] Loc: [place] [place] [address] Phys: Latonya Rodriguez MD Acct: [id number] Dis Date: Status: ADM IN PHONE #: [phone] Exam Date: 05/11/2018 1235 FAX #: [phone] Reason: transient word finding difficulty EXAMS: CPT CODE: [id number] MR I BRAIN WO/W CONT 67607 Study: - MRI BRAIN WO/W CONT 05/11/2018 11:22 AM Patient Name: MEGGAN KEYES MR : [id number] : 1975; Age: 42 years y/o Female Ordering Phys ician: Latonya Cohen MD Clinical Indication: transient word finding difficulty Comparison: May 10, 2018 CT head TECHNIQUE: TECHNIQUE: Multiplanar precontrast and postcontrast MRI of the brain was performed on a 1.5 Belkis magnet. Contrast: Dotarem 18 mL FINDINGS: BRAIN PARENCHYMA: Gen eral: The brain volume and ventricle size are appropriate for age. Ventricles: Normal size and appearance. Enhancement: No abnormal enhancement. Acute Findings: No evidence of acute intracranial hem orrhage, mass, mass effect, midline shift, or extra-axial fluid collection . Diffusion Weighted Images: No evidence of restricted diffusion t o suggest acute or subacute ischemia. Gradient Images: No ab normal hypointense signal to suggest old hemorrhage. Midline Structures: The pituitary gland, corpus callosum, and remaining midline s tructures are normal. VASCULATURE: Arterial: The major intracranial arterial flow voids are present. Venous: The dural venous si nus flow voids are grossly normal. PARANASAL SINUSES: The visualiz ed portions of the paranasal sinuses PAGE 1 Signed Re port (CONTINUED) FAX: Stephanie Campa MD [place]: St: ADM FAX: Andrea Mobley I [phone] FAX : Latonya Millan [phone] Name: MEGGAN KEYES [facility] : 1975 Age/S: 42/F [address] [place] [address] Unit #: [id number] Loc: [place] [address] Phys: Latonya Rodriguez MD Acct: [id number] Dis Date: Status: ADM IN PHONE #: [phone] Exam Date: 05/11 1235 FAX #: [phone] Reason: transient word finding difficulty EXAMS: CPT CODE: [id number] MRI BRAIN WO/W CONT 705 53 <Continued> are clear. MASTOIDS: Clear. SOFT TISSUES AND ORBITS: The visualized portions are normal. IMPRESSION: Normal precontrast and postcontrast MRI of the brain without stroke, hemorrhage, mass, or mass effect. SL: [id number] at 1311 Reported and signed by: Bon Johnson M.D. CC: Stephanie Campa MD; Andrea Stacy MD; Latonya Cohen MD Technologist: Landon Monaco RT(R)(CT)(MR) Trnprrd Date/Time/By: 05/11/2018 (9081) : By: [email or web address] Orig Print D/T: S: 05/11/2018 (2830) PAGE 2 Signed Report [id number] 15:12:00* Test Item Value Reference Range Comments GLUBED (test code=GLUBED) 88 MG/DL 70-110 Performed by certified utility operator at [facility] BASIC METABOLIC [id number] 13:36:00* Test Item Value Reference Range Comments SODIUM (test code=NA) 138 mEq/L 134-147 POTASSIUM (test code=K) 3.8 mEq/L 3.4-5.0 CHLORIDE (test code=CL) 106 mEq/L 100-108 CARBON DIOXIDE (test code=CO2) 27 mEq/L 21-33 ANION GAP (test code=GAP) 9 0-20 GLUCOSE (test code=GLU) 86 mg/dL 70-110 BLOOD UREA NITROGEN (test code=BUN) 10 mg/dL 7-18 GLOMERULAR FILTRATION RATE (test code=GFR) 68.0 95-105 Units of measure=ml/min/1.73 m2 CREATININE (test code=CREAT) 0.9 mg/dL 0.6-1.3 CALCIUM (test code=CA) 8.8 mg/dL 8.0-10.5 [id number] 13:36:00* Test Item Value Reference Range Comments TROPONIN-I (test code=TROPI) < 0.015 ng/mL 0.000-0.045 Negative: <=0.045 Positive: >=0.046 Correlation with serial results, other cardiac markers andclinical findings is necessary to determine the clinicalsignificance of this result. Results using different methodologies should not be comparedto one another as quantitative results may vary by method. PROTHROMBIN [id number] 13:20:00* Test Item Value Reference Range Comments PROTHROMBIN TIME PATIENT (test code=PTP) 11.8 SECONDS 9.3-12.9 INTERNATIONAL NORMAL RATIO (test code=INR) 1.1 0.8-1.2 TARGET INR BY INDICATION Indication INR1. Prophylaxis of venous thrombosis 2.0 - 3.0 (orthopedic surgery), Prophylaxis of venous thrombosis (other than high-risk surgery), Treatment of Deep Vein Thrombosis/Pulmonary Embolism, Prevention of systemic embolism - Tissue heart valves, Acute Myocardial Infarction (to prevent systemic embolism), Valvular heart disease, Atrial Fibrillation, Bileaflet mechanical valve in aortic position.2. Mechanical prosthetic valves (high risk), 2.5 - 3.5 Presence of Lupus Anticoagulant or Antiphospholipid Antibodies, Prevention of systemic embolism - Acute Myocardial Infarction (to prevent recurrent infarct). THROMBOPLASTIN TIME [id number] 13:20:00* Test Item Value Reference Range Comments THROMBOPLASTIN TIME PARTIAL (test code=PTT) 37.0 Seconds 25.0-39.5 Therapeutic Range: 61.8-83.8 Sec Effective 05/08/2013 - CT HEAD/BRAIN W/O [id number] 13:19:00 Name[facility] [place] [place] [facility] 1975 Age/S: 42 / F [address] [place] [address] Unit #: [id number] Loc: [place] [address] Phys: Jun Mendez Acct: [id number] Dis Date: Status: REG ER PHONE #: [phone] Exam Date: 05/10/2018 1305 FAX #: [phone] Reason: CODE NEURO - EXPRESSIVE APHASIA INTERMIT, LKW 0 EXAMS: CPT CODE: [id number] CT HEAD/BRAIN W/O CONT 14033 STUDY: - CT HEAD/BRAIN W/O CONT 05/10/2018 12:56 PM Ordering Physician: Jun Mendez DO Patient Name: MEGGAN KEYES MR: [id number] : 1975; Age: 42 years y/o Female Clinical Indication: CODE NEURO - EXPRESSIVE APHASIA INTERMIT, LKW 0800 Comparison: March 13, 2018 TECHNIQUE: Multiple contiguous transaxial noncontrast CT images were obtained through the head. Coronal and sagittal reformatted images were prepared. DOSE: CT imaging performed at this location utilizes radiation dose optimization technique which includes one or more of the followin) Automated exposure control; 2) Adjustment of the mA and/or kV according to patient's size; 3) Use of iterative reconstruction techniques. DLP (mGy- cm): 420 FINDINGS: The brain volume is appropriate for age. No evidence of acute intracranial hemorrhage, mass lesion, mass effect, midline shift, or extra-axial fluid collection. The lateral ventricles, third ventricle, fourth ventricle, and basilar c isterns are appropriate for degree of atrophy present. The visualized portions of the paranasal sinuses are clear. Mastoids are clear. IMPRESSION: No acute intracranial abnormality. If there is further concern for intracranial pa thology or acute stroke, further assessment with an MRI of the brain vannessa uld be considered. Code Neuro findings were communicated to Jun Mendez DO on 05/10/2018 1:17 PM. PAGE 1 Signed Report (CONTINUED) Name: LINK KEYES [facility] : 1975 Age/S: 42 / F [address] [place] [address] Unit #: [id number] Loc: [place] [address] Phys: Jun Mendez DO Acct: [id number] Dis Date: Status: REG ER PHONE #: [phone] Exam Date: 05/10/2018 1304 FAX #: [phone] Reason: CODE NEURO - EXPRESSIVE APHASIA INTERMIT, LKW 0 EXAMS: CPT CODE: [id number] CT HEAD/BRAIN W/O CONT 73457 <Continued> SL: [id number] at 1319 Reported and signed by: Ramon Garcia D.O. CC: Stephanie Campa MD; Jun Mendez DO Technologist:RT Raimundo(R)(CT); Lima Gaytan CTDI: DLP: Trnscb Date/Time: 05/10/2018 (4152) [email or web address] Orig Print D/T: S: 05/10/2018 (0748) CTDI: DLP: PAGE 2 Signed Report PROTHROMBIN [id number] 13:18:00* Test Item Value Reference Range Comments PROTHROMBIN TIME PATIENT (test code=PTP) 11.8 SECONDS 9.3-12.9 INTERNATIONAL NORMAL RATIO (test code=INR) 1.1 0.8-1.2 TARGET INR BY INDICATION Indication INR1. Prophylaxis of venous thrombosis 2.0 - 3.0 (orthopedic surgery), Prophylaxis of venous thrombosis (other than high-risk surgery), Treatment of Deep Vein Thrombosis/Pulmonary Embolism, Prevention of systemic embolism - Tissue heart valves, Acute Myocardial Infarction (to prevent systemic embolism), Valvular heart disease, Atrial Fibrillation, Bileaflet mechanical valve in aortic position.2. Mechanical prosthetic valves (high risk), 2.5 - 3.5 Presence of Lupus Anticoagulant or Antiphospholipid Antibodies, Prevention of systemic embolism - Acute Myocardial Infarction (to prevent recurrent infarct). THROMBOPLASTIN TIME [id number] 13:18:00* Test Item Value Reference Range Comments THROMBOPLASTIN TIME PARTIAL (test code=PTT) Seconds 25.0-39.5 CBC W/O [id number] 13:13:00* Test Item Value Reference Range Comments WHITE BLOOD CELL (test code=WBC) 10.41 x10 3/uL 4.5-11.0 RED BLOOD CELL (test code=RBC) 5.31 x10 6/uL 3.54-5.02 HEMOGLOBIN (test code=HGB) 16.5 g/dL 11.0-15.0 HEMATOCRIT (test code=HCT) 48.6 % 33.0-45.0 MEAN CELL VOLUME (test code=MCV) 91.5 fL 81.0-99.0 MEAN CELL HGB (test code=MCH) 31.1 pg 27.0-33.0 MEAN CELL HGB CONCETRATION (test code=MCHC) 34.0 g/dL 33.0-37.0 RED CELL DISTRIBUTION WIDTH CV (test code=RDW) 12.4 % 11.5-14.5 RED CELL DISTRIBUTION WIDTH SD (test code=RDW-SD) 41.2 fL 37.0-54.0 PLATELET COUNT (test code=PLT) 243 x10 3/uL 150-400 MEAN PLATELET VOLUME (test code=MPV) 9.6 fL 7.0-9.0 CT ABDOMEN/PELVIS WO [place] [address] Patient Name: MEGGAN KEYES MR #: [id number] : 1975 Age/Sex: 42/F Req #: [id number] Adm Physician: Ordered by: ANTONIA MORENO MD Report #: [id number] Location: ER Room/Bed: Procedure: [id number] CT/CT ABDOMEN/PELVIS WO Exam Da te: 08/02/17 Exam Time: 0141 REPORT STATUS: Sig rj EXAM: CT Abdomen and Pelvis WITHOUT contrast INDICATION: Flank pain, renal stone. COMPARISON: None. TECHNIQUE: Abdomen and pelvis were scanned ut ilizing a multidetector helical scanner from the lung base to the pubic symphy sis without administration of IV contrast. Absence of intravenous contrast dec reases sensitivity for detection of focal lesions and vascular pathology. Judah nal and sagittal reformations were obtained. Stone protocol is performed. IV CONTRAST: None. ORAL CONTRAST: None RAD IATION DOSE: Total DLP: 594.59 mGy*cm Estimated effective dose: ( DLP x 0.015 x size factor) mSv COMPLICATIONS: None FINDINGS: LINES and TUBES: None. LOWER THORAX: Multiple calcified granulomas are noted in the right lung base HEPATOBILIARY: No focal hepatic lesions. No biliary ductal dilation. GALLBLADDER: There are cholecystectomy clips. SPLEEN: No splenomegaly. PANCREAS: No focal masses or ductal d ilatation. ADRENALS: No adrenal nodules KIDNEYS/URETERS: No hyd ronephrosis. No cystic or solid mass lesions. Multiple small stones noted in the bilateral renal collecting systems, the largest measuring 4 mm in the righ t upper renal collecting system. GI TRACT: No abnormal distention, wall thi ckening, or evidence of bowel obstruction. There are diverticula within the c olon without evidence of diverticulitis. There are post surgical changes of a ppendectomy. Postsurgical changes noted in the epigastrium compatible with bar iatric surgery. PELVIC ORGANS/BLADDER: There are postop changes of hysterec carlos and bilateral oophorectomies. LYMPH NODES: No lymphadenopathy. VESSELS: There is mild atherosclerotic disease in the aorta and major arterial branches. PERITONEUM / RETROPERITONEUM: No free air or fluid. BONES: Unremarkable. SOFT TISSUES: Unremarkable. IMPRESSION: 1 . Bilateral nephrolithiasis without evidence of hydronephrosis. Signed by: Dr. Wellington Rivas M.D. on 08/02/2017 3:32 AM Dictated By: WELLINGTON BARRIENTOS MD 1 Tra nscribed By: RADHA on 08/02/17331 COPY TO: ANTONIA MORENO MD
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
--- OUTSIDE RECORDS SUMMARY | 2019-06-20 13:47 | XMS REPORT | Summary of Care ---
Author Author [facility] - Health Organization [facility] - Health Address Unknown Phone Unavailable Care Team Providers Care Greenhouse Instructor Name Role Phone Wil Bustamante PCP Encounter Details Care Team Description Date Type Department Doctor Unassigned, [place] [address] [place] [id number] 05/02/2019 Orders Only [address] [address] Allergies Comments Active Allergy Reactions Severity Noted Date Avocado Hives High 07/27/2018 Venlafaxine Hcl Rash High 05/04/2015 Erythromycin Rash High 05/04/2015 [place] Rash 03/10/2019 Tapentadol Hallucination High 05/04/2015 s Sulfa (Sulfonamide Rash High 05/04/2015 Antibiotics) Ketorolac Hallucination High 11/05/2018 s Tramadol Hallucination High 05/04/2015 s Vancomycin Rash High 05/04/2015 Bupropion Hcl Rash High 05/04/2015 Hydrocodone Bitartrate Rash High 07/26/2018 Bupropion Hcl (Smoking Rash High 07/26/2018 Deter) documented as of this encounter (statuses as of 05/22/2019) Medications End Date Status Medication Sig Dispensed Refills Start Date Active pantoprazole (PROTONIX) Take 40 mg by 0 40 mg EC tablet mouth 2 (two) times daily. Active SERTraline (ZOLOFT) 100 Take 100 mg 0 mg tablet by mouth daily. Active gabapentin (NEURONTIN) Take 800 mg 0 600 mg tablet by mouth 4 (four) times daily. Active Biotin (APPEAREX) 2,500 Take 2 Tabs 0 mcg Tab by mouth daily. Active busPIRone 10 mg tablet Take 10 mg by 0 mouth 3 (three) times daily. Active ondansetron (ZOFRAN ODT Take 8 mg by 0 ORAL) mouth 3 (three) times daily as needed for Nausea and Vomiting (N/V). Active zolpidem tartrate (AMBIEN Take 10 mg by 0 ORAL) mouth. Active oxyCODONE CR (OXYCONTIN) Take 40 mg by 0 40 mg 12 hr tablet mouth every 12 (twelve) hours. Active brexpiprazole (REXULTI) 1 Take 3 mg by 0 mg Tab mouth daily. Active clonazePAM (KLONOPIN) 1 Take 2 mg by 0 mg tablet mouth daily. Active morphine IR 15 mg tablet Take 15 mg by 0 mouth as needed for Pain (scale 7-10) (every 6 hours PRN). Active lisinopril 10 mg tablet Take 10 mg by 0 mouth daily. Active vilazodone (VIIBRYD) 40 Take 40 mg by 0 mg tablet mouth daily. Active topiramate (TROKENDI XR) Take by 0 50 mg Cp24 mouth. Active HYDROcodone-acetaminophen Take 1 tablet 5 tablet 0 10-325 mg by mouth 9 tabletIndications: every 6 (six) Abdominal pain, hours as unspecified abdominal needed for location Pain (scale 4-6). documented as of this encounter (statuses as of 05/22/2019) Active Problems Problem Noted Date Nausea & vomiting 03/09/2019 Vomiting 03/08/2019 Hematemesis 03/08/2019 Abdominal pain 07/26/2018 Dysphagia 07/26/2018 GERD (gastroesophageal reflux disease) 07/26/2018 Anxiety 07/26/2018 Depression 07/26/2018 HTN (hypertension) 07/26/2018 Obesity (BMI 30-39.9) 07/26/2018 documented as of this encounter (statuses as of 05/22/2019) Immunizations Name Administration Dates Next Due Influenza Virus Vaccine - 02/07/2018 Whole Influenza Virus Vaccine 03/10/2019 Quad .5 mL IM 6+ MO documented as of this encounter Social History Date Tobacco Use Types Packs/Day Years Used Current Some Day Smoker Cigarettes 1 30 Smokeless Tobacco: Never Used Comments: quit january 20, 2019 Drinks/Week oz/Week Comments Alcohol Use 0 Standard drinks or equivalent 4-5 Glasses of wine 4.0 - 5.0 Yes Education Answer Date Recorded What is the highest level of school you have Associate degree: academic 03/08/2019 completed or the highest degree you have received? program Food Insecurity Answer Date Recorded Within the past 12 months, you worried that your Never true 03/08/2019 food would run out before you got money to buy more. Within the past 12 months, the food you bought Never true 03/08/2019 just didn't last and you didn't have money to get more. Transportation Needs Answer Date Recorded In the past 12 months, has lack of transportation No 03/08/2019 kept you from medical appointments or from getting medications? In the past 12 months, has lack of transportation No 03/08/2019 kept you from meetings, work, or getting things needed for daily living? Sex Assigned at Date Recorded Not on file Industry Job Start Date Occupation Not on file Not on file Not on file Travel End Travel History Travel Start No recent travel history available. 

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
--- OUTSIDE RECORDS SUMMARY | 2019-06-20 13:48 | XMS REPORT ---
Author Author Admin, [place] Organization Unknown Address Unknown Phone Unavailable PROBLEMS [...] Encounter Diagnosis - Ambulatory Encounter Andrea Meeks [facility] UNK - Ambulatory Encounter Andrea Bautista [facility] UNK - Ambulatory Encounter Myla Dickerson [facility] UNK - Ambulatory Encounter Elsy Rivers [facility] UNK - Ambulatory Encounter Andrea Meeks [facility] UNK - Ambulatory Encounter Andrea Rivers [facility] UNK - Ambulatory Encounter Andrea Bautista [facility] INSOMNIA DISORDER, OTHER SPECIFIED - Ambulatory Encounter Andrea Meeks Link[facility]izabeth [facility] UNK - Ambulatory Encounter Andrea Knightza [facility] UNK - Amb[facility] - [facility] - [facility] - Ambulatory Encounter Andrea Cooper [facility] Encounter for therapeutic drug monitoringScreening for lipid disorder - Ambulatory Encounter Andrea [facility] UNK - Ambulatory Encounter [facility]K - Ambulatory Encounter Andrea Bautista [facility] UNK - Ambulatory Encounter [facility] UNK - Ambulatory Encounter [facility] UNK - Ambulatory Encounter [facility] UNK - Ambulatory Encounter Andrea Bautista [facility] UNK - Ambulatory Encounter Andrea Bautista [facility] UNK - Ambulatory Encounter [facility] UNK - Ambulatory Encounter Andrea Rivers [facility] UNK - Ambulatory Encounter Elise Bueno [facility] UNK - Ambulatory Encounter Andrea Bautista [facility] UNK - Ambulatory Encounter GeovanyChyna Meeks [facility] UNK - Ambulatory [facility] En[facility] GeovanyChyna Sullivan [facility] UNK - Ambulatory Encounter Andrea Meeks [facility] UNK - Ambulatory Encounter GeovanyChyna Bautista [facility] DEPRESSIVE DISORDER, UNSPECIFIED - Ambulatory Encounter GeovanyChyna Cooper [facility] UNK - Ambulatory Encounter Chyna Jennings [facility] UNK - [facility]K - Ambulatory Encounter Andrea Hitchcock [facility] UNK - Ambulatory Encounter Andrea Meeks [facility] UNK - Ambulatory Encounter Andrea Meeks [facility] UNK - Ambulatory Encounter Andrea Rivers [facility] DEPRESSIVE DISORDER, MAJOR, RECURRENT EPISODE, PARTIAL REMISSION - Ambulatory Encounter [facility] - Ambulatory Encounter Elsy Rivers [facility] UNK - Ambulatory Encounter Chyna Lee [facility] UNK - Ambulatory Encounter Chyna Barbosa [facility] ANXIETY DISORDER, UNSPECIFIEDDEPRESSIVE DISORDER, UNSPECIFIED - Ambulatory Encounter Jenniffer Soto [facility] UNK VITAL SIGNS Date Observation Value Provider method used to obtain blood pressure automatic Tomas Bautista " Blood Pressure Position 01 sitting Tomas Bautista " blood pressure, site #1 left arm Tomas Bautista " blood pressure, diastolic 86 mm[Hg] Tomas Bautista " blood pressure, systolic 126 mm[Hg] Tomas Knightza " pulse rate E&M 84 /min Tomas Bautista " weight E&M 228 lbs. Tomas Fentongoza " weight in kilograms E&M 103.64 kg Tomas Bautista " height E&M 64 [in_i] Tomas Bautista " height in centimeters E&M 162.56 cm Tomas Bautista method used to obtain blood pressure automatic Tomas Fentongoza " Blood Pressure Position 01 sitting Tomas Bautista " blood pressure, site #1 left arm Tomas Bautista " blood pressure, diastolic 85 mm[Hg] Tomas Fentongoza " blood pressure, systolic 126 mm[Hg] Tomas Fentongoza " pulse rate E&M 83 /min Tomas Fentongoza " weight E&M 224.40 lbs. Tomas Fentongoza " weight in kilograms E&M 102 kg Tomas Knightza " height E&M 64 [in_i] Tomas Fentongoza " height in centimeters E&M 162.56 cm Tomas Bautista method used to obtain blood pressure automatic Tomas Fentongoza " Blood Pressure Position 01 sitting Tomas Lily " blood pressure, site #1 left arm Tomas Lily " blood pressure, diastolic 86 mm[Hg] Tomas Knightza " blood pressure, systolic 138 mm[Hg] Tomas Fentongoza " pulse rate E&M 94 /min Tomas Fentongoza " weight E&M 217 lbs. Tomas Fentongoza " weight in kilograms E&M 98.64 kg Tomas Knightza " height E&M 64 [in_i] Tomas Bautista [...] " blood pressure, systolic 102 mm[Hg] Tomas Bautista " pulse rate E&M 98 /min Tomas Knightza " weight E&M 215 lbs. Tomas Knightza " weight in kilograms E&M 97.73 kg Tomas Bautista " height E&M 64 [in_i] Tomas Knightza " height in centimeters E&M 162.56 cm Tomas Knightza method used to obtain blood pressure automatic Tomas Fentongoza " Blood Pressure Position 01 sitting Tomas Bautista " blood pressure, site #1 left arm Tomas Bautista " blood pressure, diastolic 75 mm[Hg] Tomas Bautista " blood pressure, systolic 113 mm[Hg] Tomas Bautista " pulse rate E&M 82 /min Tomas Bautista " weight E&M 215 lbs. Tomas Bautista " weight in kilograms E&M 97.73 kg Tomas Bautista " height E&M 64 [in_i] Tomas Bautista " height in centimeters E&M 162.56 cm Tomas Bautista method used to obtain blood pressure automatic Elsycindy Rivers " Blood Pressure Position 01 sitting Elsycindy Rivers " blood pressure, site #1 left arm Elsycindy Rivers " blood pressure, diastolic 90 mm[Hg] Elsy [...] arm Tomas Bautista " blood pressure, diastolic 91 mm[Hg] [...] used to obtain blood pressure automatic Elsy Rivers " Blood Pressure Position 01 sitting Elsy Rivers " blood pressure, site #1 left arm Elsy Rivers " blood pressure, diastolic 107 mm[Hg] Elsy Silvestre " blood pressure, systolic 143 mm[Hg] Elsy Silvestre " pulse rate E&M 98 /min Elsy Rivers " weight E&M 192.80 lbs. Elsy Silvestre " weight in kilograms E&M 87.64 kg Elsy Silvestre " height in centimeters E&M 162.56 cm Elsy Silvestre " height E&M 64 [in_i] Elsy Silvestre ALLERGIES Allergy Name Onset Date Reaction Criticality [...] Interpretation Location blood glucose, random 92 mg/dL GeovanyChyna Meeks HISTORY OF IMMUNIZATIONS No Information Available HISTORY OF MEDICATION USE Medication Instructions Dates Provider Comments ATIVAN 2 MG ORAL TABLET Take 1 tablet by mouth daily as needed for anxiety. Andrea Clemente Constantino ROZEREM 8 MG ORAL TABLET Take 1 tablet by mouth at bedtime as needed for sleep. Andrea Clemente Constantino LUNESTA 2 MG ORAL TABLET Take 1 tablet by mouth at bedtime as needed for sleep. - Andrea Clemente Constnatino VALIUM 10 MG ORAL TABLET Take 1 tablet by mouth daily as needed for anxiety. - Andrea Clemente Constantino VIIBRYD 40 MG ORAL TABLET Take 1 [...] son. Not homeless. Born in [place]. City: [place]. State: [place]. Pt lives in [place], in a home with son (26) and . Unemployed. Highest education level: obtained GED after dropping out senior year. 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 Supported by . Pt shared, she enjoys going to the [place] and swimming. Arrested after marital issues with [...] " home/family situation, assessment Pt lives in [place], in a home with son (26) and [...] son. Not homeless. Born in [place]. City: [place]. State: [place]. Pt lives in [place], in a home with son (26) and . Unemployed. Highest education level: obtained GED after dropping out senior year. 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 Supported by [...] sister (41, 38) Not homeless. Born in [facility]. City: [place]. State: [place]. pt lives in [place], in a home with son (26) and . Unemployed. Highest education level: obtained GED. Pt shared, she enjoys going to the beach and swimming Chyna Jennings" home/family situation, assessment pt lives in [place], in a home with son (26) and [...] status assessment, process able to abstract, goal-directed, Andrea Meeks" mental status assessment, sensorium alert, attentive, clear Andrea Meeks" affect (mental status exam) congruent, normal intensity, normal range Andrea Meeks" mood (mental status exam) anxious, sad, worried Andrea Meeks" mental status assessment, speech activity normal flow, normal pace, normal pressure, normal rate, normal tone, normal volume, spontaneous, - Andrea Meeks" mental status assessment, motor activity normal gait, normal posture Geovany Constantino " behavior (mental status exam) appropriate, cooperative, eye contact varied, polite, responsive, tearful, Andrea Meeks " mental appearance (mental status exam) adequate hygiene, appropriate dress, looks like stated age, neat, casual, tainted blonde hair, tearful, make up appropriate, tearful Andrea Meeks mental status assessment, judgment good Myla Correiaarnau De Loukanis " insight (mental status exam) good Myla Corre[place] " Mental Status Exam: intelligence adequate fund of information, intact memory processes, oriented to person, oriented to place, oriented to time, oriented to situation, oriented to reality Myla [place] " hallucinations none Myla Percresencionau [place]is " thought content (mental status exam) (E&M) lucid Myla Masoodcresencionau [place]is " mental status assessment, process able to abstract, goal-directed, Myla Masoodcresencionamaciel De Loukanis " mental status assessment, sensorium alert, attentive, clear Myla [place] " affect (mental status exam) congruent, normal intensity, normal range Myla [place] " mood (mental status exam) anxious, sad, worried Myla [place] " mental status assessment, speech activity normal flow, normal pace, normal pressure, normal rate, normal tone, normal volume, spontaneous, - Myla [place] " mental status assessment, motor activity normal gait, normal posture Myla [place] " behavior (mental status exam) appropriate, cooperative, eye contact varied, polite, responsive, tearful, Myla [place] " mental appearance (mental status exam) adequate hygiene, appropriate dress, looks like stated age, neat, casual, tainted blonde hair, tearful, make up appropriate. Myla [place] mental status assessment, judgment good Andrea Meeks" [...] Constantino " mood (mental status exam) anxious, sad, worried Geovany Constantino " mental status assessment, speech activity normal flow, normal pace, normal pressure, normal rate, normal tone, normal volume, spontaneous, - Geovany Constantino " mental status assessment, motor activity normal gait, normal posture Geovany Constantino " behavior (mental status exam) appropriate, cooperative, good eye contact, polite, responsive, tearful, sits in chair Geovany Constantino " mental appearance (mental status [...] polite, responsive, tearful, sits in chair Andrea Clemente Constantino " mental appearance (mental status exam) adequate hygiene, appropriate dress, looks like stated age, neat, casual, tainted blonde hair, glasses Geovany Constantino mental status assessment, judgment good Andrea Meeks " insight (mental status exam) good Andrea Meeks " Mental Status Exam: intelligence adequate fund of information, intact memory processes, oriented to person, oriented to place, oriented to time, oriented to situation, oriented to reality Andrea Valderramaijos " hallucinations none GeovanyChyna Moreos " thought [...] oriented to situation, oriented to reality Andrea Valderramaijos " hallucinations none Andrea Valderramaijos " thought [...] exam) congruent, normal intensity, normal range, constricted Andrea Moreos " mood (mental status exam) [...] " insight (mental status exam) good Andrea Clemente Constantino " Mental Status Exam: intelligence adequate [...] " mood (mental status exam) anxious, worried Andrea Moreos " mental status assessment, [...] " insight (mental status exam) good Andrea Clemente Constantino " Mental Status Exam: intelligence adequate [...] congruent, euthymic, normal intensity, normal range Andrea Meeks " mood (mental status exam) anxious Andrea [...] adequate hygiene, appropriate dress, looks like stated alessandra, marietta Jennings mental status assessment, judgment good [...] With Differential/Platelet Est Patient Exp Problem - 34659 Family Psychotherapy w/ Patient - 45035 Est Patient Exp Problem - 48433 Est Patient Exp Problem - 92985 Est Patient Exp Problem - 34292 Est Patient Exp Problem - 58562 Est Patient Exp Problem - 80060 Est Patient Exp Problem - 23733 Est Patient Detailed - 87921 Est Patient Exp Problem - 51950 Est Patient Exp Problem - 86872 Psychotherapy 45 (38-52*) min - 83012 (with patient and/or family member) Diagnostic evaluation with medical - 71050 Psychotherapy 45 (38-52*) min - 57645 (with patient and/or family member) Diagnostic evaluation (no medical) - 39106 HISTORY OF PROCEDURES Procedure Date Procedure Name Provider Procedure Notes Status Family Psychotherapy w/ Patient - 60030 Myla Dickerson completed Psychotherapy 45 (38-52*) min - 95350 (with patient and/or family member) Chyna Jennings completed Diagnostic evaluation with medical - 56660 Andrea Meeks completed Psychotherapy 45 (38-52*) min - 42681 (with patient and/or family member) Chyna Jennings completed Diagnostic evaluation (no medical) - 43997 Chyna Jennings completed GOALS No Information Available HEALTH CONCERNS No Information Available
[2019-06-20] MEDS ORDERED: ONDANSETRON HCL INJ 2MG/ML 2ML 2 MG/ML VIAL IV STA (13:54)
[2019-06-20] MEDS ORDERED: SODIUM CHLORIDE 0.9% 1000ML 1,000 ML IV STA (13:54)
[2019-06-20 14:25] LABS: BASOPHILS # (AUTO) 0.1 (0.0-0.1); BASOPHILS % 0.5 % (0.0-1.0); EOSINOPHILS # (AUTO) 0.5 (0.0-0.4); EOSINOPHILS % 4.4 % (0.0-6.0); HEMATOCRIT 42.5 % (34.2-44.1); HEMOGLOBIN 14.3 g/dL (12.0-16.0); LYMPHOCYTES # (AUTO) 2.7 (1.0-3.2); LYMPHOCYTES % 25.8 % (18.0-39.1); MEAN CORPUSCULAR HEMOGLOBIN 31.6 pg (28-32); MEAN CORPUSCULAR HGB CONC 33.6 g/dL (31-35); MEAN CORPUSCULAR VOLUME 93.8 fL (81-99); MONOCYTES # (AUTO) 0.9 (0.2-0.8); MONOCYTES % 8.5 % (4.4-11.3); NEUTROPHILS # (AUTO) 6.3 (2.1-6.9); NEUTROPHILS % 60.6 % (38.7-80.0); PLATELET COUNT 206 x10e3/uL (140-360); RED BLOOD COUNT 4.53 x10e6/uL (3.6-5.1); RED CELL DISTRIBUTION WIDTH 13.4 % (11.7-14.4)
[2019-06-20 14:33] LABS: BILIRUBIN,URINE NEGATIVE (NEGATIVE); CLARITY,URINE CLEAR (CLEAR); COLOR,URINE YELLOW (YELLOW); KETONES,URINE NEGATIVE (NEGATIVE); LEUKOCYTE ESTERASE ,URINE TRACE (NEGATIVE); NITRITE,URINE NEGATIVE (NEGATIVE); PROTEIN,URINE DIPSTICK NEGATIVE (NEGATIVE); URINE UROBILINOGEN 0.2 mg/dL (0.2 - 1)
[2019-06-20] MEDS ORDERED: PANTOPRAZOLE 40 MG 10ML VIAL IV NR (14:45)
[2019-06-20 14:52] LABS: BACTERIA,URINE RARE /HPF; EPITHELIAL CELLS,URINE MODERATE /LPF; WBC,URINE (MAN) 0-5 /HPF (0-5)
[2019-06-20 14:52] LABS: ALBUMIN 4.2 g/dL (3.5-5.0); ALBUMIN/GLOBULIN RATIO 1.1 (0.8-2.0); ANION GAP 10.7 mmol/L (8-16); CALCIUM 9.9 mg/dL (8.4-10.2); CREATININE, SERUM 1.04 mg/dL (0.57-1.11); POTASSIUM 3.7 mmol/L (3.5-5.1)
[2019-06-20] MEDS ORDERED: DIATRIZOATE MEGL/DIATRIZOA SOD 30 ML BTL PO ONE (15:04)
[2019-06-20] MEDS ORDERED: IOPAMIDOL 370 MG/ML 200 ML INFUS..BTL INJ ONE (15:04)
[2019-06-20] MEDS ORDERED: SODIUM CHLORIDE 0.9% 50ML 50 ML ONE (15:04)
--- NOTE | 2019-06-20 15:51 | Diagnostic Imaging Report ---
EXAM: CT Abdomen and Pelvis WITH contrast INDICATION: Abdominal pain COMPARISON: None. TECHNIQUE: Abdomen and pelvis were scanned utilizing a multidetector helical scanner from the lung base to the pubic symphysis after administration of IV contrast. Coronal and sagittal reformations were obtained. Routine protocol was performed. Scan was performed when during portal venous phase. IV CONTRAST: 100 mL of Isovue 370 ORAL CONTRAST: Water COMPLICATIONS: None RADIATION DOSE: Total DLP: 870 mGy*cm Estimated effective dose: (DLP x 0.015 x size factor) mSv CTDIvol has been reviewed. It is below the limits set by the Radiation Protocol Committee (RPC). Dose modulation, iterative reconstruction, and/or weight based adjustment of the mA/kV was utilized to reduce the radiation dose to as low as reasonably achievable. FINDINGS: LINES and TUBES: None. LOWER THORAX: Small calcified pulmonary granulomas and thoracic lymph nodes. No pleural effusion. HEPATOBILIARY: Mild fatty infiltration of the liver. No focal hepatic lesions. No biliary ductal dilation. GALLBLADDER: Surgically absent. SPLEEN: No splenomegaly. PANCREAS: No focal masses or ductal dilatation. ADRENALS: No adrenal nodules KIDNEYS/URETERS: Kidneys enhance symmetrically. No hydronephrosis. No cystic or solid mass lesions. Several small bilateral intrarenal calculi, largest 4 mm. GI TRACT: No abnormal distention, wall thickening, or evidence of bowel obstruction. Gastric sleeve surgical change. Appendix is surgically absent. PELVIC ORGANS/BLADDER: The uterus is surgically absent. The urinary bladder is partially decompressed. LYMPH NODES: No lymphadenopathy. VESSELS: There is mild atherosclerotic disease in the aorta and major arterial branches. PERITONEUM / RETROPERITONEUM: No free air or fluid. BONES: Unremarkable. SOFT TISSUES: Right gluteal muscular lipoma. IMPRESSION: 1. No acute abdominal or pelvic abnormality. 2. Gastric sleeve surgical change with appropriate appearance. 3. Small bilateral nonobstructing intrarenal calculi. Signed by: Virgilio Gabriel MD on 06/20/2019 3:48 PM
[2019-06-20 16:12] VITALS: BP 129/54
== END 2019-06-20 16:22 | disposition home or self-care (01) ==
LOC: ER 13:37
DX: R10.13 Epigastric pain (principal); R10.12 Left upper quadrant pain; R11.2 Nausea with vomiting, unspecified; I10 Essential (primary) hypertension; E78.5 Hyperlipidemia, unspecified; Z87.19 Personal history of other diseases of the digestive system
CPT/HCPCS: 36415; 74177; 80053; 81001; 83690; 85025; 99284; C9113; J2405; J7030; Q9967

== ENCOUNTER 2019-08-19 05:15 | Inpatient (IN) | payer OTHER ==
[2019-08-15 10:42] LABS: BASOPHILS % 0.4 % (0.0-1.0); EOSINOPHILS # (AUTO) 0.3 (0.0-0.4); EOSINOPHILS % 2.5 % (0.0-6.0); HEMATOCRIT 46.7 % (34.2-44.1); HEMOGLOBIN 15.8 g/dL (12.0-16.0); LYMPHOCYTES # (AUTO) 2.8 (1.0-3.2); LYMPHOCYTES % 24.8 % (18.0-39.1); MEAN CORPUSCULAR HEMOGLOBIN 31.3 pg (28-32); MEAN CORPUSCULAR HGB CONC 33.8 g/dL (31-35); MEAN CORPUSCULAR VOLUME 92.7 fL (81-99); MONOCYTES # (AUTO) 0.9 (0.2-0.8); MONOCYTES % 7.5 % (4.4-11.3); NEUTROPHILS # (AUTO) 7.3 (2.1-6.9); NEUTROPHILS % 64.4 % (38.7-80.0); PLATELET COUNT 188 x10e3/uL (140-360); RED BLOOD COUNT 5.04 x10e6/uL (3.6-5.1); RED CELL DISTRIBUTION WIDTH 13.1 % (11.7-14.4)
--- NOTE | 2019-08-15 11:12 | Diagnostic Imaging Report ---
EXAMINATION: CHEST 2 VIEWS INDICATION: Pre-operative COMPARISON: None FINDINGS: LINES/TUBES:None LUNGS:The lungs are well-inflated. No focal consolidation or pulmonary edema. PLEURA:No pleural effusion or pneumothorax. MEDIASTINUM:The cardiomediastinal silhouette appears normal in size and shape. BONES/SOFT TISSUES:No acute osseous injury. ABDOMEN:No free air under the diaphragm. Status post cholecystectomy. IMPRESSION: No focal pneumonia or pulmonary edema. Signed by: Maribell Pelaez MD on 08/15/2019 11:08 AM
[~2019-08-19] VITALS: Ht 162.6 cm; Wt 102.1 kg
[~2019-08-19 05:15] MED LIST: AMBIEN10 MG PO; ATIVAN0.5 MG PO; BUSPIRONE HCL5 MG PO; DILAUDID2 MG PO; GABAPENTIN400 MG PO; LISINOPRIL10 MG PO; OXYCONTIN20 MG PO; PANTOPRAZOLE SO40 MG PO; REXULTI3 MG PO; VYBRID PO
--- OUTSIDE RECORDS SUMMARY | 2019-08-19 05:25 | XMS REPORT | Clinical Summary ---
Author Author [facility] Organization [place] [facility] Address Unknown Phone Unavailable Care Team Providers Care Correspondence Coordinator Name Role Phone Wil Bustamante MD PCP Allergies Comments Active Allergy Reactions Severity Noted Date Venlafaxine 08/28/2017 Erythromycin 08/28/2017 Morphine 08/28/2017 Nsaids (Non-Steroidal 08/28/2017 Anti-Inflammatory Drug) Tapentadol 08/28/2017 Sulfa (Sulfonamide 08/28/2017 Antibiotics) Tramadol 08/28/2017 Vancomycin 08/28/2017 Bupropion Hcl 08/28/2017 Bupropion Hcl (Smoking 08/28/2017 Deter) Medications End Date Status Medication Sig Dispensed Refills Start Date Active busPIRone (BUSPAR) 10 MG Take 1 tablet 0 08/25 / tablet by mouth 2 8 (two) times a day. Active hydromorPHONE (DILAUDID) Take 1 tablet 0 08/25 8 MG tablet by mouth 8 every 4 (four) hours as needed. Active sertraline (ZOLOFT) 100 Take 100 mg 3 08/24/ 201 MG tablet by mouth 8 daily. Active zolpidem (AMBIEN) 10 mg Take 10 mg by 0 08/23/ tablet mouth nightly 8 as needed. Active oxyCODone (OxyCONTIN) 40 Take 40 mg by 0 MG 12 hr tablet mouth every 12 (twelve) hours. Active pantoprazole (PROTONIX) Take 40 mg by 0 40 MG EC tablet mouth daily. Active gabapentin (NEURONTIN) Take 600 mg 0 600 mg tablet by mouth 3 (three) times a day. 08/30/2018 sennosides-docusate Take 1 tablet 30 tablet 0 05/2 sodium (SENOKOT-S) 8.6-50 by mouth 2 8 mg per tablet (two) times a day as needed for constipation. Active Problems Problem Noted Date Left upper quadrant pain 08/28/2017 Social History Date Tobacco Use Types Packs/Day Years Used Never Smoker Smokeless Tobacco: Never Used Sex Assigned at Date Recorded Not on file Industry Job Start Date Occupation Not on file Not on file Not on file Travel End Travel History Travel Start No recent travel history available. 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
--- OUTSIDE RECORDS SUMMARY | 2019-08-19 05:27 | XMS REPORT ---
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 Physics Technician Name Role Phone Wil Bustamante CP Unavailable Allergies No Known Allergies Problems Problem Type Condition Code Onset Dates Condition Statu s Problem Granuloma and granuloma-like lesions of oral mucosa K1 3.4 Active Problem Other specified abnormal immunological findings in ser um R76.8 Active Problem Osteomyelitis, unspecified M86.9 A ctive Problem Pain in right shoulder M25.511 Activ e Problem Infection and inflammatory r eaction due to internal fixation device of spine, subsequent encounter T84.63XD Active Problem Epigastric pain R10.13 Active Problem Adjustment disorder with anxiety F43.22 Active Problem Encounter for screening mammogram for ma lignant neoplasm of breast Z12.31 Active Problem Methicillin susceptible Stap hylococcus aureus infection as the cause of diseases classified elsewhere B95.61 Active Problem 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 0 Active Problem Other chronic pain G89.29 Active Problem Other depressive episodes F32.8 Ac tive Problem Insomnia, unspecified G47.00 Active Problem Abnormal immunological finding in serum, unspecified R 76.9 Active Medications No Known Medications Results No Known Results Summary Purpose [employer] Submission
--- OUTSIDE RECORDS SUMMARY | 2019-08-19 05:27 | XMS REPORT ---
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 Survey Workers Supervisor Name Role Phone Wil Bustamante Unavailable Allergies, Adverse Reactions, Alerts Substance Reaction Event Type NSAIDS cant take anything with NSAIDS d/t gastr ic sleeve Drug Allergy Erythromycin rash Drug Allergy Sulfa rash Drug Allergy Tapentadol HCl headaches and hallucinations Drug Allerg y Zyban rash Drug Allergy Wellbutrin rash Drug Allergy Vancomycin HCl rash Drug Allergy Tramadol HCl headaches and hallucinations Drug Allerg y Effexor rash Drug Allergy Problems Problem Type Condition Code Onset Dates Condition Statu s Assessment Gastro-esophageal reflux disease with esophagitis K21. 0 Active Assessment Insomnia, unspecified G47.00 Active Problem Gastro-esophageal reflux disease with esophagitis K21. 0 Active Assessment Other depressive episodes F32.8 Ac tive Problem Personal history of nicotine dependence Z87.891 Active Problem Abnormal results of liver function studies R94.5 Active Problem Other chronic pain G89.29 Active Problem Insomnia, unspecified G47.00 Active Problem Other depressive episodes F32.8 Ac tive Problem Cough R05 Active Problem Osteomyelitis, unspecified M86.9 A ctive Problem Calculus of kidney N20.0 Active Problem Granuloma and granuloma-like lesions of oral mucosa K1 3.4 Active Problem Radiculopathy, lumbar region M54.16 Active Problem Acute embolism and thrombosi s of unspecified deep veins of unspecified lower extremity I82.409 Active Problem Bariatric surgery status Z98.84 Act keila Problem Other abnormality of red blood cells R71.8 Active Problem Encounter for general adult medical exam ination with abnormal findings Z00.01 Active Problem Encounter for screening mammogram for ma lignant neoplasm of breast Z12.31 Active Problem Other specified abnormal immunological findings in ser um R76.8 Active Problem Secondary polycythemia D75.1 Activ e Problem Abnormal immunological finding in serum, unspecified R 76.9 Active Problem Radiculopathy, cervical region M54.12 Active Problem Radiculopathy, cervical region M54.12 Active Problem Essential (primary) hypertension I10 Active Problem Carpal tunnel syndrome, unspecified upper limb G56.00 Active Problem Infection and inflammatory r eaction due to internal fixation device of spine, subsequent encounter T84.63XD Active Problem Methicillin susceptible Stap hylococcus aureus infection as the cause of diseases classified elsewhere B95.61 Active Problem Adjustment disorder with anxiety F43.22 Active Problem 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 Problem Acute bronchitis, unspecified J20.9 Active Problem Shortness of breath R06.02 Active Problem Pain in right shoulder M25.511 Activ e Problem Epigastric pain R10.13 Active Medications Medication Code System Code Instructions Start Date End Date Status Dosage Zofran ODT [facility] 30714407230 8 MG Orally every 8 hours as needed for nausea Dec 02, 2016 Active as directed Biotin [facility] 13508898687 5000 MCG Orally Once a day A ctive 1 capsule Chewable [facility] 48057368134 Orally Act keila not defined Gabapentin [facility] 54870769849 600 MG Orally Three times a day Feb 082014 Active 1 tablet Sertraline HCl [facility] 81374270517 100 MG Orally daily A ctive take 1 tablet daily OxyContin [facility] [address]-04 40 MG Orally every 12 hrs Active 1 tablet Zolpidem Tartrate [facility] 98017991971 10 mg Orally Once a day Active 1 tablet at bedtime as needed Clonazepam [facility] 64473745740 0.5 MG Orally once a day as needed Active 1 tablet Ativan [facility] 12197167739 2 MG Orally as directed Acti ve 1 tablet as needed Pantoprazole Sodium [facility] 21856957918 40 mg Orally daily Active take 1 tablet daily Multivitamins [facility] 25405948255 Orally twice a day (bid) Active 1 tablet Dilaudid [facility] [address]-16 Active not defin ed Chantix [facility] [address]-68 1MG Orally Twice a day Act keila TAKE 1 TABLET TWICE A DAY OxyCODONE HCl ER [facility] [address]-42 15 MG Orally as needed (prn) Active 1 tablet Vital Signs Date/Time: May 04, 2017 BMI 32.45 Index Weight 195 lbs Blood Pressure Systolic 120 mm Hg Respiratory Rate 16 /min Cardiac Monitoring Heart Rate 71 /min Temperature 98.0 F Blood Pressure Diastolic 80 mm Hg Results No Known Results Summary Purpose [employer] Submission
--- OUTSIDE RECORDS SUMMARY | 2019-08-19 05:27 | XMS REPORT ---
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 Carbide Tool Die Maker Name Role Phone Wil Bustamante CP Unavailable [...]
--- OUTSIDE RECORDS SUMMARY | 2019-08-19 05:27 | XMS REPORT ---
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 Cook Specialty Foreign Food Name Role Phone Wil Bustamante CP Unavailable [...]
--- OUTSIDE RECORDS SUMMARY | 2019-08-19 05:27 | XMS REPORT ---
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 Name Role Phone Wil Bustamante CP Unavailable Allergies No Known Allergies Problems Problem Type Condition Code Onset Dates Condition Statu s Problem Abnormal immunological finding in serum, unspecified R 76.9 Active Problem Osteomyelitis, unspecified M86.9 A ctive Problem Granuloma and granuloma-like lesions of oral mucosa K1 3.4 Active Problem Infection and inflammatory r eaction due to internal fixation device of spine, subsequent encounter T84.63XD Active Problem Methicillin susceptible Stap hylococcus aureus infection as the cause of diseases classified elsewhere B95.61 Active Problem Pain in right shoulder M25.511 Activ e Problem Encounter for screening mammogram for ma lignant neoplasm of breast Z12.31 Active Problem Other specified abnormal immunological findings in ser um R76.8 Active Problem 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 0 Active Problem Other chronic pain G89.29 Active Problem Other depressive episodes F32.8 Ac tive Medications No Known Medications Results No Known Results Summary Purpose [employer] Submission
--- OUTSIDE RECORDS SUMMARY | 2019-08-19 05:27 | XMS REPORT | Continuity of Care Document ---
Author Author Delphine Hitsbook MEGGAN Hines Kartela Address Unknown Phone Unavailable Care Team Providers Care Manager Provider Relations Name Role Phone [employer] Unavailable Un available Problems Problem Status Onset Date Classification Date Reported Comments Source Nausea & vomiting Active 03/09/2019 05/22/2019 [facility] Vomiting Active 03/08/2019 05/22/2019 [facility] Hematemesis Active 03/08/2019 05/22/2019 [facility] Abdominal pain Active 07/26/2018 05/22/2019 [facility] Dysphagia Active 07/26/2018 05/22/2019 [facility] GERD (gastroesophageal reflux disease) Active 07/26/2018 05/22/2019 [facility] Anxiety Active 07/26/2018 05/22/2019 [facility] Depression Active 07/26/2018 05/22/2019 [facility] HTN (hypertension) Active 07/26/2018 05/22/2019 [facility] Obesity (BMI 30-39.9) Active 07/26/2018 05/22/2019 [facility] Granuloma and granuloma-like lesions of oral mucosa Active Problem 07/19/2019 [facility] Other specified abnormal immunological f indings in serum Active Prob deepa 07/19/2019 [facility] Osteomyelitis, unspecified Act keila Problem 01/2020 [facility] Pain in right shoulder Active Problem 03/20/2019 [facility] Infection and inflammatory reaction due to internal fixation device of spine, subsequent encounter Active Problem 07/19/2019 [facility] Epigastric pain Active Problem 03/20/2019 [facility] Adjustment disorder with anxiety Active Problem 01/2020 [facility] Encounter for screening mammogram for ma lignant neoplasm of breast Active Prob deepa 07/19/2019 [facility] Methicillin susceptible Staphylococcus a ureus infection as the cause of diseases classified elsewhere Active Problem 07/19/2019 [facility] Alveolitis of jaws Active Problem 07/19/2019 [facility] Abnormal results of liver function studies Active Problem 07/19/2019 [facility] Personal history of nicotine dependence Active Problem 07/19/2019 [facility] Gastro-esophageal reflux disease with esophagitis Active Problem 07/19/2019 [facility] Other chronic pain Active Problem 07/19/2019 [facility] Other depressive episodes Acti ve Problem 01/2020 [facility] Insomnia, unspecified Active Problem 07/19/2019 [facility] Abnormal immunological finding in serum, unspecified Active Problem 07/19/2019 [facility] Radiculopathy, cervical region Active Problem 01/2020 [facility] Carpal tunnel syndrome, unspecified upper limb Active Problem 07/19/2019 [facility] Other abnormality of red blood cells Active Problem 01/2020 [facility] Essential (primary) hypertension Active Problem 01/2020 [facility] Carpal tunnel syndrome, bilateral upper limbs Active Problem 07/19/2019 [facility] Transient cerebral ischemic attack, unspecified Active Problem 07/19/2019 [facility] Aphasia Active Problem 07/19/2019 [facility] Secondary polycythemia Active Problem 07/19/2019 [facility] Encounter for general adult medical exam ination with abnormal findings Active Prob deepa 07/19/2019 [facility] Other visual disturbances Acti ve Problem 01/2020 [facility] Other intervertebral disc displacement, lumbar region Active Problem 07/19/2019 [facility] Shortness of breath Active Problem 03/20/2019 [facility] Cough Active Problem 03/20/2019 [facility] Acute bronchitis, unspecified Active Problem 02/2019 [facility] Bariatric surgery status Active Problem 07/19/2019 [facility] Acute embolism and thrombosis of unspeci fied deep veins of unspecified lower extremity Active Problem 07/19/2019 [facility] Radiculopathy, lumbar region A ctive Problem 01/2020 [facility] Calculus of kidney Active Problem 07/19/2019 [facility] Chronic pain syndrome Active Problem 01/23/2016 [facility] HTN Active Problem 01/23/2016 [facility] Encounter for gynecological examination (general) (routine) without abnormal findings Active Problem 01/23/2016 [facility] Bronchitis, not specified as acute or chronic Active Problem 01/23/2016 [facility] Fibromyalgia Active Problem 01/23/2016 [facility] MIRA Positive - Other and unspecified non specific immunological findings Active Prob deepa 01/23/2016 [facility] Nonspecific elevation of levels of trans aminase or lactic acid dehydrogenase (LDH) Active Problem 01/23/2016 [facility] Pain in joint, multiple sites Active Problem [facility] mouth ulcer Other and unspecified diseas es of the oral soft tissues Active Prob deepa 01/23/2016 [facility] Nausea Active Problem 01/23/2016 [facility] Right upper quadrant pain Acti ve Problem [facility] Hepatomegaly, not elsewhere classified Active Diagnosis 07/22/2015 [facility] Unspecified open wound of right little f lv without damage to nail, sequela Active Problem 07/19/2019 [facility] Acute vaginitis Active Problem 03/20/2019 [facility] Nondisplaced unspecified fracture of lef t lesser toe(s), initial encounter for closed fracture Active Problem 07/19/2019 [facility] Dental caries Active 11/06/2018 [facility] Chronic dental infection Active 11/06/2018 [facility] Chest pain, unspecified type A ctive 11/19/2018 [facility] Dysphagia, unspecified type Ac tive 11/19/2018 [facility] Medications Medication Details Route Status Patient Instructions Ordering Provider Order Date Source HYDROcodone-acetaminophen 10-325 mg tablet Take 1 tablet by mouth every 6 (six) hours as needed for Pain (scale 4-6). Oral Active 03/10/2019 [facility] fluconazole 200 mg tablet Take 1 tablet by mouth daily for 1 dose. Oral Active 11/20/2018 [facility] oxyCODONE (OXYCONTIN) 15 mg TR12 Take by mouth. Oral No Longer Active 11/19/2018 [facility] sucralfate 100 mg/mL suspension Take 10 mL by mouth before meals and at bedtime for 7 days. Oral Active 11/19/2018 [facility] amoxicillin-clavulanate 875-125 mg per tablet Take 1 tablet by mouth every 12 (twelve) hours for 10 days. Oral Active 11/05/2018 [facility] BusPIRone HCl 1 tablet Orally Active 7.5 MG Orally Twice a d ay Amer 06/05/2017 [facility] Clindamycin HCl 1 capsule Orally Active 300 MG Orally every 8 h rs Amer 06/05/2017 [facility] Lidocaine Viscous 1 teaspoon Mouth/Throat Active 2 % Mouth/Throat every six to eight hours Amer 03/29/2017 [facility] Zofran ODT as directed Orally Active 8 MG Orally every 8 shakila rs as needed for nausea Amer 12/02/2016 [facility] Keflex 1 capsule Orally Active 500 MG Orally Twice a d ay Amer 03/21/2016 [facility] Zofran 1 tablet Orally Active 8 MG Orally every 8 shakila rs as needed Johnny 06/12/2015 [facility] Chantix 1 tablet Orally Active 1 MG Orally Twice a day Amer 05/04/2015 [facility] Amoxicillin 1 tablet Orally Active 500 mg Orally every 12 hrs Nseir 04/13/2015 [facility] ProAir HFA 2 puffs as needed Inhalation Active 108 (90 Base) MCG/ACT Inhalation every 4-6 hrs as needed for persistant cough Nseir 03/27/2015 [facility] Gabapentin 1 tablet Orally Active 400 MG Orally Three janel es a day Amer 02/19/2015 [facility] Gabapentin 1 tablet Orally Active 600 MG Orally four time s a day Amer 02/19/2015 [facility] Gabapentin 1 tablet Orally Active 600 MG Orally Three janel es a day Johnny 02/19/2015 [facility] Gabapentin 1 tablet Orally Active 300 MG Orally Three janel es a day Amer 02/19/2015 [facility] Losartan Potassium-HCTZ 1 tabl et Orally Active 50-12.5 MG Orally Once a day Amer 12/30/2014 [facility] Zolpidem Tartrate 1 tablet at bedtime as needed Orally Active 10 mg Orally Once a day [facility] OxyCODONE HCl ER 1 tablet Orally Active 15 MG Orally as needed (prn) [facility] Biotin 1 capsule Orally Active 5000 MCG Orally Once a day [facility] Pantoprazole Sodium 1 tablet Orally Active 40 MG Orally Once a day [facility] Dilaudid not defined NA Active [facility] Clonazepam 1 tablet Orally Active 0.5 MG Orally as needed (prn) [facility] OxyContin 1 tablet Orally Active 20 MG Orally every 12 h rs [facility] Chewable [facility] not de fined Orally Active Orally [facility] Sertraline HCl take 1 tablet d aily Orally Active 100 MG Orally daily [facility] Zolpidem Tartrate 1 tablet at bedtime as needed Orally Active 10 MG Orally Once a day [facility] Pantoprazole Sodium TAKE 1 TAB LET DAILY NA Active 40 MG [facility] Multivitamins 1 tablet Orally Active Orally twice a day (bid ) [facility] Clonazepam 1 tablet Orally Active 0.5 MG Orally bid as ne eded for anxiety [facility] Sertraline HCl take 1 tablet d aily Orally Active 100 MG Orally daily [facility] OxyContin 1 tablet Orally Active 30 MG Orally every 12 h rs [facility] Multivitamins 1 tablet Orally Active Orally twice a day (bid ) [facility] Pantoprazole Sodium take 1 tab let daily Orally Active 40 mg Orally daily [facility] Chewable [facility] not de fined Orally Active Orally [facility] Biotin 1 capsule Orally Active 5000 MCG Orally Once a day [facility] Chantix TAKE 1 TABLET TWICE A DAY NA Active 1M G [facility] OxyContin 1 tablet Orally Active 40 MG Orally every 12 h rs [facility] Ativan 1 tablet as needed Orally Active 2 MG Orally as directed [facility] Dilaudid not defined NA Active [facility] Chantix TAKE 1 TABLET TWICE A DAY Orally Active 1MG Orally Twice a day [facility] BusPIRone HCl 1 tablet Orally Active 7.5 MG Orally Twice a d ay [facility] OxyContin 1 tablet Orally Active 40 MG Orally every 12 h rs [facility] Zoloft 1 tablet Orally Active 50 mg Orally Once a day [facility] OxyCODONE HCl ER 1 tablet Orally Active 15 MG Orally every 12 h rs [facility] Progesterone Unknown Externally Active 1000 MG/60GM Externally [facility] Oxycodone HCl 1 tablet as need ed Orally Active 15 MG Orally twice a day (bid) [facility] OxyContin 1 tablet Orally Active 15 MG Orally every [address] [facility] Motrin Unknown Orally Active [address] [facility] ProAir HFA INHALE 2 PUFFS BY M OUTH EVERY 4 TO 6 HOUR NEEDED FOR PERSISTANT COUGH FOR 30 DAYS NA Active 108 (90 Base) MCG/ACT [facility] Progesterone Unknown Externally Active 1000 MG/60GM Externally [facility] Sertraline HCl TAKE 1 TABLET D AILY NA Active 50 MG [facility] Sertraline HCl TAKE 1 TABLET D AILY NA Active [address] [facility] Losartan Potassium-HCTZ TAKE 1 TABLET DAILY NA Active 50 /12.[address] [facility] Amoxicillin 1 capsule Orally Active 500 MG Orally every [address] [facility] Sertraline HCl 1 tablet by mouth Active 100MG by mouth daily [facility] pantoprazole (PROTONIX) 40 mg EC tablet Take 40 mg by mouth 2 (two) times daily. Oral Active [facility] losartan-hydrochlorothiazide (HYZAAR) 50 -12.5 mg per tablet Take 1 Tab by mouth daily. Ora l Active [facility] SERTraline (ZOLOFT) 100 mg tablet Take 100 mg by mouth daily. Oral Active [facility] gabapentin (NEURONTIN) 600 mg tablet Take 800 mg by mouth 4 (four) times daily. Oral Active [facility] oxyCODONE (OXYCONTIN) 15 mg TR12 Take by mouth. Oral Active [facility] Biotin (APPEAREX) 2,500 mcg Tab Take 2 Tabs by mouth daily. Oral Active [facility] busPIRone 10 mg tablet Take 10 mg by mouth 3 (three) times daily. Oral Active [facility] cyclobenzaprine HCl (FLEXERIL ORAL) Take by mouth. Oral Active [facility] atorvastatin calcium (LIPITOR ORAL) Take by mouth. Oral Active [facility] aripiprazole (ABILIFY ORAL) Ta ke by mouth. Oral Active [facility] h ondansetron (ZOFRAN ODT ORAL) Take 8 mg by mouth 3 (three) times daily as needed for Nausea and Vomiting (N/V). [facility] zolpidem tartrate (AMBIEN ORAL) Take 10 mg by mouth. Oral Active [facility] diazepam (VALIUM ORAL) Take b y mouth. Oral [facility] hydromorphone HCl (DILAUDID ORAL) Take by mouth. Oral Active [facility] oxyCODONE CR (OXYCONTIN) 40 mg 12 hr tablet Take 40 mg by mouth every 12 (twelve) hours. Oral Active [facility] brexpiprazole (REXULTI) 1 mg Tab Take 3 mg by mouth daily. Oral Active [facility] clonazePAM (KLONOPIN) 1 mg tablet Take 2 mg by mouth daily. Oral Active [facility] morphine IR 15 mg tablet Take 15 mg by mouth as needed for Pain (scale 7-10) (every 6 hours PRN). Oral Active [facility] lisinopril 10 mg tablet Take 1 0 mg by mouth daily. Oral Active [facility] vilazodone (VIIBRYD) 40 mg tablet Take 40 mg by mouth daily. Oral Active [facility] topiramate (TROKENDI XR) 50 mg Cp24 Take by mouth. Oral Active [facility] Allergies, Adverse Reactions, Alerts Substance Category Reaction Severity Reaction type Status Date Reported Comments Source Erythromycin Rash High Propensity to adverse leyda ctions Active 05/04/2015 [facility] Venlafaxine Hcl Other - See comments Propensity to adverse reactions Active 05/04/2015 [facility] Tapentadol Hallucinations High Propensity to adverse leyda ctions Active 05/04/2015 [facility] Sulfa (Sulfonamide Antibiotics) Rash High Pr opensity to adverse reactions Active 05/04/2015 [facility] Tramadol [place] llucinations High Propensity to adverse leyda ctions Active 05/04/2015 [facility] Vancomycin Rash High Propensity to adverse leyda ctions Active 05/04/2015 [facility] Bupropion Hcl Rash High Propensity to adverse leyda ctions Active 05/04/2015 [facility] Morphine Adverse Reaction rash Adverse Reaction Active 02/22/2016 [facility] NSAIDS Adverse Reaction cant take anything with NSAIDS d/t gastric sleeve Adverse Reaction Active 05/04/2017 [facility] Sulfa Adverse Reaction rash Adverse Reaction Active 05/04/2017 [facility] Tapentadol HCl Adverse Reaction headaches and hallucinations Adverse Reaction Active 08/25/2017 [facility] Zyban Adverse Reaction rash Adverse Reaction Active 08/25/2017 [facility] Wellbutrin Adverse Reaction rash Adverse Reaction Active 08/25/2017 [facility] Vancomycin HCl Adverse Reaction rash Adverse Reaction Active 08/25/2017 [facility] Tramadol HCl Adverse Reaction headaches and hallucinations Adverse Reaction Active 08/25/2017 [facility] Effexor Adverse Reaction rash Adverse Reaction Active 08/25/2017 [facility] Hydrocodone Bitartrate Rash High Propensity to adverse leyda ctions Active 07/26/2018 [facility] Bupropion Hcl (Smoking Deter) Rash High Propensity to adverse reactions Active 07/26/2018 [facility] Avocado Hiv es Propensity to adverse reacti ons Active 07/27/2018 [facility] Ketorolac H allucinations High Propensity to adverse leyda ctions Active 11/05/2018 [facility] Maguayo Germain h Propensity to adverse reacti ons Active 03/10/2019 [facility] Immunizations Immunization Date Given Site Status Last Updated Comments Source Influenza Virus Vaccine Quad .5 mL IM 6+ MO 03/10/2019 completed [facility] Influenza Virus Vaccine - Whole 02/07/2018 completed [facility] Results Order Name Results Value Reference Range Date Interpretation Comments Source Chest 2 Views <p> </p><p>No ac eagle cardiopulmonary process. No radiopaque foreign body identified.</p><p> </p><p> </p> No acute cardiopulmonary process. No radiopaque foreign body identified. 11/17/2018 [facility] Chest 2 Views <p>* * * * * * * * ORIGINAL REPORT * * * * * * * *</p><p>XR CHEST 2 VW</p><p> </p><p>HISTORY: chest pain; Potential swallowed F/B</p><p> </p><p>COMPARISON: None available.</p><p> </p><p>FINDINGS :</p><p> </p><p>Cardiomediastinal silhouette is of normal size and morphology. Trachea is</p><p>not abnormally deviated.</p><p> </p><p>Lungs are adequately inflated. Linear opacities in the right perihilar</p><p>region and left lung bas e likely represent atelectasis. No confluent</p><p>consolidation is identified.</p><p> </p><p>No radiopaque foreign body is identified. Cholecystectomy clips are noted</p><p>over the right upper quadrant. Nonspecific gas is noted in the small bowel</p><p>within the upper abdomen.</p><p> </p> * * * * * * * * ORIGINAL REPORT * * * * * * * *XR CHEST 2 VW HISTORY: chest pain; Potential swallowed F/B COMPARISON: None available. FINDINGS: Cardiomediastinal silhouette is of normal size and morphology. Trachea isnot abnormally deviated. Lungs are adequately inflated. Linear opacities in the right perihilarregion and left lung base likely represent atelectasis. No confluentconsolidation is ident ified. No radiopaque foreign body is identified. Cholecystectomy clips are notedover the right upper quadrant. Nonspecific gas is noted in the small bowelwithin the upper abdomen. 11/17/2018 [facility] Chest 2 Views <p styleCode="he ader">[facility], Radiant Results Inft User - 11/17/2018 6:03 PM CDT</p><p><span>* * * * * * * * ORIGINAL REPORT * * * * * * * *</span>
<span>XR CHEST 2 VW</span>

<span>HISTORY: chest pain; Potential swallowed F/B</span>

<span>COMPARISON: None available.</span>

<span>FINDINGS:&am p;lt;/span>

<span>Cardiomediastinal silhouette is of normal size and morphology. Trachea </span><span>is</span>
<span>not abnormally deviated.</span>

<span>Lungs are adequately inflated. Linear opacities in the right perihilar</span>
<span>region and left lung base likely represent atelectasis. No confluent</span>
<span>consolidation is identified.</span>

<span>No radiopaque foreign body is identified. Cholecystectomy clips are </span><span>noted</span>
<span>over the right upper quadrant. Nonspecific gas is noted in the small </span><span>bowel</span>
<span>within the upper abdomen.</span>

<span>IMPRESSION</span>

<span>No acute cardiopulmonary process. No radiopaque foreign body identified.</span>

</p> [facility], Radiant Results Inft User - 2018 6:03 PM CDT* * * * * * * * [...] cardiopulmonary process. No radiopaque foreign body identified. 11/17/2018 [facility] h Troponin I TROPONIN I 0.000 <=0.034 11/17/2018 [facility] Troponin I <p>Equal or Less th an 0.034 ng/ml---Normal</p><p>Note: Cardiac troponin begins to rise 3-4 hours after the onset of ischemia. Repeat in 4-6 hours if the sample was drawn within 3-4 hours of the onset of the symptom and found normal. </p><p> </p><p>Between 0.035 and 0.120 ng/mL--- Borderline. Questionable myocardial injury or necrosis</p><p>Note: Serial measurement may be necessary to confirm or exclude the diagnosis of myocardial injury or necrosis; Clinical correlation (symptoms, EKGs, imaging studies, and others) required; Repeat in 4-6 hours if clinically indicated.</p><p> </p><p>Equal or Higher than 0.121 ng/mL---Abnormal. Myocardial Injury or Necrosis Likely </p><p>Biotin has been reported to cause a negative bias, interpret results relative to patient's use of biotin. </p><p></p> Equal or Less than 0.034 ng/ml---NormalNote: Cardiac troponin begins to rise 3-4 hours after the onset of ischemia. Repeat in 4-6 hours if the sample was drawn within 3-4 hours of the onset of the symptom and found normal. Between 0.035 and 0.120 ng/mL--- Borderline. Questionable myocardial injury or necrosisNote: Serial measurement may be necessary to confirm or exclude the diagnosis of myocardial injury or necrosis; Clinical correlation (symptoms, EKGs, imaging studies, and others) required; Repeat in 4-6 hours if clinically indicated. Equal or Higher than 0.121 ng/mL---Abnormal. Myocardial Injury or Necrosis Likely Biotin has been reported to cause a negative bias, interpret results relative to patient's use of biotin. 11/17/2018 [facility] Troponin I Lab Interpretation Elsy l 11/17/2018 [facility] Basic Metabolic Panel (NA, K, CL, CO2, G LUCOSE, BUN, CREATININE, CA) NA 138 135 - 145 11/17/2018 [facility] Basic Metabolic Panel (NA, K, CL, CO2, G LUCOSE, BUN, CREATININE, CA) K 4.8 3.5 - 5 11/17/2018 Slight hemolysis [facility] Basic Metabolic Panel (NA, K, CL, CO2, G LUCOSE, BUN, CREATININE, CA) CL 101 98 - 108 11/17/2018 [facility] Basic Metabolic Panel (NA, K, CL, CO2, G LUCOSE, BUN, CREATININE, CA) CO2 TOTAL 27 23 - 31 11/17/2018 [facility] Basic Metabolic Panel (NA, K, CL, CO2, G LUCOSE, BUN, CREATININE, CA) AGAP 10 2 - 16 11/17/2018 [facility] Basic Metabolic Panel (NA, K, CL, CO2, G LUCOSE, BUN, CREATININE, CA) BUN 12 7 - 23 11/17/2018 Slight hemolysis [facility] Basic Metabolic Panel (NA, K, CL, CO2, G LUCOSE, BUN, CREATININE, CA) GLUCOSE 82 70 - 110 11/17/2018 [facility] Basic Metabolic Panel (NA, K, CL, CO2, G LUCOSE, BUN, CREATININE, CA) CREATININE 0.80 0.5 - 1.04 11/17/2018 [facility] Basic Metabolic Panel (NA, K, CL, CO2, G LUCOSE, BUN, CREATININE, CA) CALCIUM 9.8 8.6 - 10.6 11/17/2018 [facility] Basic Metabolic Panel (NA, K, CL, CO2, G LUCOSE, BUN, CREATININE, CA) eGFR Calculation (Non-) 77.6 mL/min/1.73m2 11/17/2018 [facility] Basic Metabolic Panel (NA, K, CL, CO2, G LUCOSE, BUN, CREATININE, CA) eGFR Calculation () 94.0 mL/min/1.73m2 11/17/2018 [facility] Basic Metabolic Panel (NA, K, CL, CO2, G LUCOSE, BUN, CREATININE, CA) <p>Association of Glomerular Filtration Rate (GFR) and Staging of Kidney Disease*</p><p>+ + + -------+</p><p>| GFR (mL/min/1.73 m2)| With Kidney Damage|Without Kidney Damage</p><p>+ + + -----+</p><p>|>90|Stage one| Normal</p><p>+ + + -----+</p><p>|60-89|Stage two| Decreased GFR </p><p>+ + + + </p><p>|30-59|Stage three| Stage three </p><p>+ + + + </p><p>|15-29|Stage four | Stage four</p&am p;gt;<p>+ + + +</p><p>|<15 (or dialysis)|Stage five | Stage five</p>& lt;p>+ + + +</ p><p>*Each stage assumes the associated GFR level has been in effect for at least three months.Stages 1 to 5, with or without kidney disease, indicate chronic kidney disease.</p><p>Notes: Determination of stages one and two (with eGFR >59mL/min/1.73 m2) requires estimation of kidney damage for at least three months as defined by structural or functional abnormalities of the kidney, manifested by either:</p><p>Pathological abnormalities or Markers of kidney damage (including abnormalities in the composition of the blood or urine or abnormalities in imaging tests). </p> Association of Glomerular Filtration Rat e (GFR) and Staging of Kidney Disease*+ + + +| GFR (mL/min/1.73 m2)| With Kidney Damage|Without Kidney Damage+ + + +| >90|Stage one| Normal+ + + +| 60-89|Stage two| Decreased GFR + + + +|30-59| Stage three| Stage three + + + +|15-29| Stage four | Stage four+ + + +|+- + + +*Each stage assumes the associated GFR level has been in effect for at least three months.Stages 1 to 5, with or without kidney disease, indicate chronic kidney disease.Notes: Determination of stages one and two (with eGFR >59mL/min/1.73 m2) requires estimation of kidney damage for at least three months as defined by structural or functional abnormalities of the kidney, manifested by either:Pathological abnormalities or Markers of kidney damage (including abnormalities in the composition of the blood or urine or abnormalities in imaging tests). 11/17/2018 [facility] aPTT <td ID="[id number] ez8Dkfm">APTT Patient</td><td>29</td><td>26 - 36 Seconds</td><td>[facility]</td><td ID="[id number]"/> 29 26 - 36 11/17/2018 [facility] aPTT Lab Interpretation Normal 11/17/2018 [facility] Prothrombin Time (PT) / INR <t d ID="[id number]">PROTIME PATIENT</td><td><span style="flagData">10.0</span><span style="flagData"> (L)</span></td><td>10.1 - 12.6 Seconds</td><td>[facility]</td><td ID="[id number]"/> 10.0 10.1 - 12.6 11/17/2018 [facility] Prothrombin Time (PT) / INR <t d ID="[id number]">INR</td><td><span>0.9</span><span style="allIndent"><span style="cellHeader">Comment: </span><span ID="[id number]">Normal INR <1.1; Warfarin Therapeutic range 2.0 to 3.0 or 2.5 to 3.5, depending upon the indications.</span></span></td><td> </td><td>[facility]</td><td ID="[id number]"/> 0.9 11/17/2018 Normal INR <1.1; Warfarin Therapeutic range 2.0 to 3.0 or 2.5 to 3.5, depending upon the indications. [facility] Prothrombin Time (PT) / INR Lab Inte rpretation Abnormal 11/17/2018 [facility] CBC WITH DIFFERENTIAL <td ID="[id number]">WBC</td><td><span style="flagData">11.85</span><span style="flagData"> (H)</span></td><td>4.30 - 11.10 10*3/L</td><td>[facility]</td><td ID="[id number]"/> 11.85 4.30 - 11.68889 11/17/2018 [facility] CBC WITH DIFFERENTIAL <td ID="[id number]">RBC</td><td>4.75</td><td>3.93 - 5.25 10*6/L</td>< td>[facility]</td><td ID="[id number]"/> 4.75 3.93 - 5.72354 11/17/2018 [facility] CBC WITH DIFFERENTIAL <td ID="[id number]">HGB</td><td><span style="flagData">15.1</span><span style="flagData"> (H)</span></td><td>11.6 - 15.0 g/dL</td><td>[facility]</td><td ID="[id number]"/> 15.1 11.6 - 15 11/17/2018 [facility] CBC WITH DIFFERENTIAL <td ID="[id number]">HCT</td><td>43.0</td><td>35.7 - 45.2 %</td><td>[facility]</td><td ID="[id number]"/> 43.0 35.7 - 45.2 11/17/2018 [facility] CBC WITH DIFFERENTIAL <td ID="[id number]">MCV</td><td>90.5</td><td>80.6 - 95.5 fL</td><td>[facility]</td><td ID="[id number]"/> 90.5 80.6 - 95.5 11/17/2018 [facility] CBC WITH DIFFERENTIAL <td ID="[id number]">MCH</td><td>31.8</td><td>25.9 - 32.8 pg</td><td>[facility]</td><td ID="[id number]"/> 31.8 25.9 - 32.8 11/17/2018 [facility] CBC WITH DIFFERENTIAL <td ID="[id number]">MCHC</td><td>35.1</td><td>31.6 - 35.1 g/dL</td><td>[facility]</td><td ID="[id number]"/> 35.1 31.6 - 35.1 11/17/2018 [facility] CBC WITH DIFFERENTIAL <td ID="[id number]">RDW-SD</td><td>40.8</td><td>39.0 - 49.9 fL</td><td>[facility]</td><td ID="[id number]"/> 40.8 39 - 49.9 11/17/2018 [facility] CBC WITH DIFFERENTIAL <td ID="[id number]">RDW-CV</td><td>12.4</td><td>12.0 - 15.5 %</td><td>[facility]</td><td ID="[id number]"/> 12.4 12 - 15.5 11/17/2018 [facility] CBC WITH DIFFERENTIAL <td ID="[id number]">PLT</td><td>214</td><td>166 - 358 10*3/L</td><td >[facility]</td><td ID="[id number]"/> 214 166 - [id number] 11/17/2018 [facility] CBC WITH DIFFERENTIAL <td ID="[id number]">MPV</td><td>9.9</td><td>9.5 - 12.9 fL</td><td>[facility]</td><td ID="[id number]"/> 9.9 9.5 - 12.9 11/17/2018 [facility] CBC WITH DIFFERENTIAL NRBC/100 WBC 0.0 0.0 - 10.0100 11/17/2018 [facility] CBC WITH DIFFERENTIAL NRBC x10^3 <0.01 10*3/L 11/17/2018 [facility] CBC WITH DIFFERENTIAL <td ID="[id number]">GRAN MAT (NEUT) %</td><td>62.8</td><td>%</td><td>[facility]</td><td ID="[id number]"/> 62.8 11/17/2018 [facility] CBC WITH DIFFERENTIAL IMM GRAN % 0.30 11/17/2018 [facility] CBC WITH DIFFERENTIAL <td ID="[id number]">LYMPH %</td><td>26.1</td><td>%</td><td>[facility]</td><td ID="[id number]"/> 26.1 11/17/2018 [facility] CBC WITH DIFFERENTIAL <td ID="[id number]">MONO %</td><td>7.0</td><td>%</td><td>[facility]</td><td ID="[id number]"/> 7.0 11/17/2018 [facility] CBC WITH DIFFERENTIAL <td ID="[id number]">EOS %</td><td>3.2</td><td>%</td><td>[facility]</td><td ID="[id number]"/> 3.2 11/17/2018 [facility] CBC WITH DIFFERENTIAL <td ID="[id number]">BASO %</td><td>0.6</td><td>%</td><td>[facility]</td><td ID="[id number]"/> 0.6 11/17/2018 [facility] CBC WITH DIFFERENTIAL GRAN MAT x10^3 (ANC) 7.44 1.88 - 7.09 11/17/2018 [facility] CBC WITH DIFFERENTIAL IMM GRAN x10^3 0.04 0 - 0.06 11/17/2018 [facility] CBC WITH DIFFERENTIAL <td ID="[id number]">LYMPH x10^3</td><td>3.09</td><td>1.32 - 3.29 10*3/uL</td><td>[facility]</td><td ID="[id number]"/> 3.09 1.32 - 3.29 11/17/2018 [facility] CBC WITH DIFFERENTIAL <td ID="[id number]">MONO x10^3</td><td>0.83</td><td>0.33 - 0.92 10*3/uL</td><td>[facility]</td><td ID="[id number]"/> 0.83 0.33 - 0.92 11/17/2018 [facility] CBC WITH DIFFERENTIAL <td ID="[id number]">EOS x10^3</td><td>0.38</td><td>0.03 - 0.39 10*3/uL</td><td>[facility]</td><td ID="[id number]"/> 0.38 0.03 - 0.39 11/17/2018 [facility] CBC WITH DIFFERENTIAL <td ID="[id number]">BASO x10^3</td><td>0.07</td><td>0.01 - 0.07 10*3/uL</td><td>[facility]</td><td ID="[id number]"/> 0.07 0.01 - 0.07 11/17/2018 [facility] CBC WITH DIFFERENTIAL Lab Interpreta tion Abnormal 11/17/2018 [facility] Urinalysis APPEARANCE Clear Clear 11/05/2018 [facility] Urinalysis COLOR Straw Yellow 11/05/2018 [facility] Urinalysis PH 7.0 4.8 - 8.0 11/05/2018 [facility] Urinalysis SP GRAVITY 1.004 1.003 - 1.030 11/05/2018 [facility] Urinalysis GLU U QUAL Normal Normal 11/05/2018 [facility] Urinalysis BLOOD Negative Negative 11/05/2018 [facility] Urinalysis KETONES Negative Negative 11/05/2018 [facility] Urinalysis <td ID="[id number]">PROTEIN</td><td>Negative</td><td>Negative</td><td> [facility]</td><td ID="[id number]"/> Negative Negative 11/05/2018 [facility] Urinalysis UROBILIN Normal Normal 11/05/2018 [facility] Urinalysis BILIRUBIN Negative Negative 11/05/2018 [facility] Urinalysis NITRITE Negative Negative 11/05/2018 [facility] Urinalysis LEUK ANGELI 75/uL Negative 11/05/2018 [facility] Urinalysis RBC/HPF 2 0 - 3 11/05/2018 [facility] Urinalysis WBC/HPF 7 0 - 5 11/05/2018 [facility] Urinalysis BACTERIA Negative Negative 11/05/2018 [facility] Urinalysis SQ EPITH 2 <=2 HPF 11/05/2018 [facility] Urinalysis Lab Interpretation Abnor mal 11/05/2018 [facility] Basic Metabolic Panel (NA, K, CL, CO2, G LUCOSE, BUN, CREATININE, CA) NA 140 135 - 145 11/05/2018 [facility] Basic Metabolic Panel (NA, K, CL, CO2, G LUCOSE, BUN, CREATININE, CA) K 4.2 3.5 - 5 11/05/2018 [facility] Basic Metabolic Panel (NA, K, CL, CO2, G LUCOSE, BUN, CREATININE, CA) CL 105 98 - 108 11/05/2018 [facility] Basic Metabolic Panel (NA, K, CL, CO2, G LUCOSE, BUN, CREATININE, CA) CO2 TOTAL 27 23 - 31 11/05/2018 [facility] Basic Metabolic Panel (NA, K, CL, CO2, G LUCOSE, BUN, CREATININE, CA) AGAP 8 2 - 16 11/05/2018 [facility] Basic Metabolic Panel (NA, K, CL, CO2, G LUCOSE, BUN, CREATININE, CA) BUN 10 7 - 23 11/05/2018 [facility] Basic Metabolic Panel (NA, K, CL, CO2, G LUCOSE, BUN, CREATININE, CA) GLUCOSE 83 70 - 110 11/05/2018 [facility] Basic Metabolic Panel (NA, K, CL, CO2, G LUCOSE, BUN, CREATININE, CA) CREATININE 0.85 0.5 - 1.04 11/05/2018 [facility] Basic Metabolic Panel (NA, K, CL, CO2, G LUCOSE, BUN, CREATININE, CA) CALCIUM 9.6 8.6 - 10.6 11/05/2018 [facility] Basic Metabolic Panel (NA, K, CL, CO2, G LUCOSE, BUN, CREATININE, CA) eGFR Calculation (Non-) 72.3 mL/min/1.73m2 11/05/2018 [facility] Basic Metabolic Panel (NA, K, CL, CO2, G LUCOSE, BUN, CREATININE, CA) eGFR Calculation () 87.7 mL/min/1.73m2 11/05/2018 [facility] Basic Metabolic Panel (NA, K, CL, CO2, G LUCOSE, BUN, CREATININE, CA) <p>Association of Glomerular Filtration Rate (GFR) and Staging of Kidney Disease*</p><p>+ + + -------+</p><p>| GFR (mL/min/1.73 m2)| With Kidney Damage|Without Kidney Damage</p><p>+ + + -----+</p><p>|>90|Stage one| Normal</p><p>+ + + -----+</p><p>|60-89|Stage two| Decreased GFR </p><p>+ + + + </p><p>|30-59|Stage three| Stage three </p><p>+ + + + </p><p>|15-29|Stage four | Stage four</p&am p;gt;<p>+ + + +</p><p>|<15 (or dialysis)|Stage five | Stage five</p>& lt;p>+ + + +</ p><p>*Each stage assumes the associated GFR level has been in effect for at least three months.Stages 1 to 5, with or without kidney disease, indicate chronic kidney disease.</p><p>Notes: Determination of stages one and two (with eGFR >59mL/min/1.73 m2) requires estimation of kidney damage for at least three months as defined by structural or functional abnormalities of the kidney, manifested by either:</p><p>Pathological abnormalities or Markers of kidney damage (including abnormalities in the composition of the blood or urine or abnormalities in imaging tests). </p> Association of Glomerular Filtration Rat e (GFR) and Staging of Kidney Disease*+ + + +| GFR (mL/min/1.73 m2)| With Kidney Damage|Without Kidney Damage+ + + +| >90|Stage one| Normal+ + + +| 60-89|Stage two| Decreased GFR + + + +|30-59| Stage three| Stage three + + + +|15-29| Stage four | Stage four+ + + +|+- + + +*Each stage assumes the associated GFR level has been in effect for at least three months.Stages 1 to 5, with or without kidney disease, indicate chronic kidney disease.Notes: Determination of stages one and two (with eGFR >59mL/min/1.73 m2) requires estimation of kidney damage for at least three months as defined by structural or functional abnormalities of the kidney, manifested by either:Pathological abnormalities or Markers of kidney damage (including abnormalities in the composition of the blood or urine or abnormalities in imaging tests). 11/05/2018 [facility] CBC WITH DIFFERENTIAL <td ID="[id number]">WBC</td><td><span style="flagData">12.40</span><span style="flagData"> (H)</span></td><td>4.30 - 11.10 10*3/L</td><td>[facility]</td><td ID="[id number]"/> 12.40 4.30 - 11.49571 11/05/2018 [facility] CBC WITH DIFFERENTIAL <td ID="[id number]">RBC</td><td>4.48</td><td>3.93 - 5.25 10*6/L</td>< td>[facility]</td><td ID="[id number]"/> 4.48 3.93 - 5.16633 11/05/2018 [facility] CBC WITH DIFFERENTIAL <td ID="[id number]">HGB</td><td>14.4</td><td>11.6 - 15.0 g/dL</td><td>[facility]</td><td ID="[id number]"/> 14.4 11.6 - 15 11/05/2018 [facility] CBC WITH DIFFERENTIAL <td ID="[id number]">HCT</td><td>41.7</td><td>35.7 - 45.2 %</td><td>[facility]</td><td ID="[id number]"/> 41.7 35.7 - 45.2 11/05/2018 [facility] CBC WITH DIFFERENTIAL <td ID="[id number]">MCV</td><td>93.1</td><td>80.6 - 95.5 fL</td><td>[facility]</td><td ID="[id number]"/> 93.1 80.6 - 95.5 11/05/2018 [facility] CBC WITH DIFFERENTIAL <td ID="[id number]">MCH</td><td>32.1</td><td>25.9 - 32.8 pg</td><td>[facility]</td><td ID="[id number]"/> 32.1 25.9 - 32.8 11/05/2018 [facility] CBC WITH DIFFERENTIAL <td ID="[id number]">MCHC</td><td>34.5</td><td>31.6 - 35.1 g/dL</td><td>[facility]</td><td ID="[id number]"/> 34.5 31.6 - 35.1 11/05/2018 [facility] CBC WITH DIFFERENTIAL <td ID="[id number]">RDW-SD</td><td>42.6</td><td>39.0 - 49.9 fL</td><td>[facility]</td><td ID="[id number]"/> 42.6 39 - 49.9 11/05/2018 [facility] CBC WITH DIFFERENTIAL <td ID="[id number]">RDW-CV</td><td>12.8</td><td>12.0 - 15.5 %</td><td>[facility]</td><td ID="[id number]"/> 12.8 12 - 15.5 11/05/2018 [facility] CBC WITH DIFFERENTIAL <td ID="[id number]">PLT</td><td>188</td><td>166 - 358 10*3/L</td><td >[facility]</td><td ID="[id number]"/> 188 166 - 572712 11/05/2018 [facility] CBC WITH DIFFERENTIAL <td ID="[id number]">MPV</td><td>9.7</td><td>9.5 - 12.9 fL</td><td>[facility]</td><td ID="[id number]"/> 9.7 9.5 - 12.9 11/05/2018 [facility] CBC WITH DIFFERENTIAL NRBC/100 WBC 0.0 0.0 - 10.0100 11/05/2018 [facility] CBC WITH DIFFERENTIAL NRBC x10^3 <0.01 10*3/L 11/05/2018 [facility] CBC WITH DIFFERENTIAL <td ID="[id number]">GRAN MAT (NEUT) %</td><td>60.2</td><td>%</td><td>[facility]</td><td ID="[id number]"/> 60.2 11/05/2018 [facility] CBC WITH DIFFERENTIAL IMM GRAN % 0.20 11/05/2018 [facility] CBC WITH DIFFERENTIAL <td ID="[id number]">LYMPH %</td><td>28.9</td><td>%</td><td>[facility]</td><td ID="[id number]"/> 28.9 11/05/2018 [facility] CBC WITH DIFFERENTIAL <td ID="[id number]">MONO %</td><td>7.6</td><td>%</td><td>[facility]</td><td ID="[id number]"/> 7.6 11/05/2018 [facility] CBC WITH DIFFERENTIAL <td ID="[id number]">EOS %</td><td>2.7</td><td>%</td><td>[facility]</td><td ID="[id number]"/> 2.7 11/05/2018 [facility] CBC WITH DIFFERENTIAL <td ID="[id number]">BASO %</td><td>0.4</td><td>%</td><td>[facility]</td><td ID="[id number]"/> 0.4 11/05/2018 [facility] CBC WITH DIFFERENTIAL GRAN MAT x10^3 (ANC) 7.47 1.88 - 7.09 11/05/2018 [facility]alt [facility] CBC WITH DIFFERENTIAL IMM GRAN x10^3 0.03 0 - 0.06 11/05/2018 [facility] CBC WITH DIFFERENTIAL <td ID="[id number]">LYMPH x10^3</td><td><span style="flagData">3.58</span><span style="flagData"> (H)</span></td><td>1.32 - 3.29 10*3/uL</td><td>[facility]</td><td ID="[id number]"/> 3.58 1.32 - 3.29 11/05/2018 [facility] CBC WITH DIFFERENTIAL <td ID="[id number]">MONO x10^3</td><td><span style="flagData">0.94</span><span style="flagData"> (H)</span></td><td>0.33 - 0.92 10*3/uL</td><td>[facility]</td><td ID="[id number]"/> 0.94 0.33 - 0.92 11/05/2018 [facility] CBC WITH DIFFERENTIAL <td ID="[id number]">EOS x10^3</td><td>0.33</td><td>0.03 - 0.39 10*3/uL</td><td>[facility]</td><td ID="[id number]"/> 0.33 0.03 - 0.39 11/05/2018 [facility] CBC WITH DIFFERENTIAL <td ID="[id number]">BASO x10^3</td><td>0.05</td><td>0.01 - 0.07 10*3/uL</td><td>[facility]</td><td ID="[id number]"/> 0.05 0.01 - 0.07 11/05/2018 [facility] CBC WITH DIFFERENTIAL Lab Interpreta tion Abnormal 11/05/2018 [facility] Pathology Reports No Data Provided for This Section Diagnostic Reports Report Value Date Source XR NECK SOFT TISSUE No radiop aque foreign body identified. Soft tissue thickening in the base of the epiglottis and in thearyepiglottic folds. This could be related to swallowing motion, butsupraglottitis could be in the differential. RL: 460 AFC: [id number] physician: PAM JOHNSON INDICATION: Swallowed foreign body COMPARISON: None FINDINGS: AP and lateral soft tissue views of neck. No radiopaque foreignbody is appreciated. There is apparent thickening of the base of theepiglottis and the aryepiglottic folds. [facility] Inft User - 11/17/2018 9:23 PM CDTOrdering physician: PAM JOHNSON INDICATION: Swallowed foreign body [...] could be in the differential. RL: 460 AF: [id number] 11/18/2018 [facility] Consultation Notes No Data Provided for This Section Discharge Summaries No Data Provided for This Section History and Physicals No Data Provided for This Section Vital Signs Vital Sign Value Date Comments Source Systolic (mm Hg) 117 11/19/2018 [facility] Diastolic (mm Hg) 75 11/19/2018 [facility] Heart Rate 67 11/19/2018 [facility] Temperature Oral (F) 36.67 Lucia 11/19/2018 [facility] Respitory Rate 18 11/19/2018 [facility] Height 162.6 cm 11/17/2018 [facility] Weight 97.523 11/17/2018 [facility] Systolic (mm Hg) 137 11/06/2018 [facility] Diastolic (mm Hg) 86 11/06/2018 [facility] Heart Rate 75 11/06/2018 [facility] Temperature Oral (F) 36.67 Lucia 11/06/2018 [facility] Respitory Rate 16 11/06/2018 [facility] Height 162.6 cm 11/05/2018 [facility] Weight 100.245 11/05/2018 [facility] Systolic (mm Hg) 136 11/05/2018 [facility] Diastolic (mm Hg) 95 11/05/2018 [facility] Heart Rate 102 11/05/2018 [facility] Temperature Oral (F) 36.06 Lucia 11/05/2018 [facility] Respitory Rate 18 11/05/2018 [facility] Weight 84.369 11/05/2018 [facility] Weight 191 08/25/2017 [facility] Systolic (mm Hg) 122 08/25/2017 [facility] Respitory Rate 16 08/25/2017 [facility] Heart Rate 99 08/25/2017 [facility] Temperature Oral (F) 97.8 F 08/25/2017 [facility] Diastolic (mm Hg) 80 08/25/2017 [facility] Weight 194 07/21/2017 [facility] Systolic (mm Hg) 122 07/21/2017 [facility] Respitory Rate 16 07/21/2017 [facility] Heart Rate 77 07/21/2017 [facility] Temperature Oral (F) 98.1 F 07/21/2017 [facility] Diastolic (mm Hg) 80 07/21/2017 [facility] Weight 198 06/05/2017 [facility] Systolic (mm Hg) 120 06/05/2017 [facility] Respitory Rate 16 06/05/2017 [facility] Heart Rate 73 06/05/2017 [facility] Temperature Oral (F) 98.0 F 06/05/2017 [facility] Diastolic (mm Hg) 80 06/05/2017 [facility] Weight 195 05/04/2017 [facility] Systolic (mm Hg) 120 05/04/2017 [facility] Respitory Rate 16 05/04/2017 [facility] Heart Rate 71 05/04/2017 [facility] Temperature Oral (F) 98.0 F 05/04/2017 [facility] Diastolic (mm Hg) 80 05/04/2017 [facility] Weight 198 03/14/2017 [facility] Systolic (mm Hg) 120 03/14/2017 [facility] Respitory Rate 16 03/14/2017 [facility] Heart Rate 72 03/14/2017 [facility] Temperature Oral (F) 98.5 F 03/14/2017 [facility] Diastolic (mm Hg) 70 03/14/2017 [facility] Weight 201 12/02/2016 [facility] Systolic (mm Hg) 112 12/02/2016 [facility] Respitory Rate 16 12/02/2016 [facility] Heart Rate 77 12/02/2016 [facility] Temperature Oral (F) 97.9 F 12/02/2016 [facility] Diastolic (mm Hg) 64 12/02/2016 [facility] Weight 195 08/22/2016 [facility] Systolic (mm Hg) 110 08/22/2016 [facility] Respitory Rate 16 08/22/2016 [facility] Heart Rate 81 08/22/2016 [facility] Temperature Oral (F) 98.1 F 08/22/2016 [facility] Diastolic (mm Hg) 75 08/22/2016 [facility] Weight 191 08/05/2016 [facility] Systolic (mm Hg) 120 08/05/2016 [facility] Respitory Rate 16 08/05/2016 [facility] Heart Rate 74 08/05/2016 [facility] Temperature Oral (F) 97.9 F 08/05/2016 [facility] Diastolic (mm Hg) 85 08/05/2016 [facility] Weight 177 05/05/2016 [facility] Systolic (mm Hg) 115 05/05/2016 [facility] Respitory Rate 16 05/05/2016 [facility] Heart Rate 72 05/05/2016 [facility] Temperature Oral (F) 97.9 F 05/05/2016 [facility] Diastolic (mm Hg) 81 05/05/2016 [facility] Weight 178 04/18/2016 [facility] Systolic (mm Hg) 122 04/18/2016 [facility] Respitory Rate 16 04/18/2016 [facility] Heart Rate 62 04/18/2016 [facility] Temperature Oral (F) 97.5 F 04/18/2016 [facility] Diastolic (mm Hg) 82 04/18/2016 [facility] Weight 188 03/21/2016 [facility] Systolic (mm Hg) 127 03/21/2016 [facility] Respitory Rate 16 03/21/2016 [facility] Heart Rate 67 03/21/2016 [facility] Temperature Oral (F) 98.1 F 03/21/2016 [facility] Diastolic (mm Hg) 92 03/21/2016 [facility] Weight 189.6 02/22/2016 [facility] Systolic (mm Hg) 113 02/22/2016 [facility] Respitory Rate 16 02/22/2016 [facility] Heart Rate 66 02/22/2016 [facility] Temperature Oral (F) 98.2 F 02/22/2016 [facility] [facility] Diastolic (mm Hg) 86 02/22/2016 [facility] Weight 194 02/03/2016 [facility] Systolic (mm Hg) 118 02/03/2016 [facility] Respitory Rate 16 02/03/2016 [facility] Heart Rate 90 02/03/2016 [facility] Temperature Oral (F) 98.6 F 02/03/2016 [facility] Diastolic (mm Hg) 80 02/03/2016 [facility] Weight 222 11/04/2015 [facility] Height 65 0 11/04/2015 [facility] Systolic (mm Hg) 112 11/04/2015 [facility] Respitory Rate 16 11/04/2015 [facility] Heart Rate 79 11/04/2015 [facility] Temperature Oral (F) 96.8 F 11/04/2015 [facility] Diastolic (mm Hg) 84 11/04/2015 [facility] Weight 225 07/16/2015 [facility] Height 65 0 07/16/2015 [facility] Systolic (mm Hg) 120 07/16/2015 [facility] Respitory Rate 16 07/16/2015 [facility] Heart Rate 79 07/16/2015 [facility] Temperature Oral (F) 97.8 F 07/16/2015 [facility] Diastolic (mm Hg) 82 07/16/2015 [facility] Weight 230 07/14/2015 [facility] Height 65 0 07/14/2015 [facility] Systolic (mm Hg) 125 07/14/2015 [facility] Respitory Rate 16 07/14/2015 [facility] Heart Rate 84 07/14/2015 [facility] Temperature Oral (F) 98.2 F 07/14/2015 [facility] Diastolic (mm Hg) 81 07/14/2015 [facility] Weight 225 06/12/2015 [facility] Height 65 0 06/12/2015 [facility] Systolic (mm Hg) 128 06/12/2015 [facility] Respitory Rate 16 06/12/2015 [facility] Heart Rate 99 06/12/2015 [facility] Temperature Oral (F) 97.9 F 06/12/2015 [facility] Diastolic (mm Hg) 86 06/12/2015 [facility] Encounters Location Location Details Encounter Type Encounter Number Reason For Visit Attending Provider ADM Date DC Date Status Source [facility] Referred by Dr Bustamante disease of oral soft tissue [id number] 11/24/2014 11/24/2014 [facility] by [facility] Bustamante disease of oral soft tissue [id number] 11/24/2014 11/24/2014 [facility] Bustamante disease of oral soft tissue [id number] 11/24/2014 11/24/2014 [facility] Bustamante disease of oral soft tissue [id number] 11/24/2014 11/24/2014 [facility] Bustamante disease of oral soft tissue [id number] 11/24/2014 11/24/2014 [facility] Bustamante disease of oral soft tissue [id number] 11/24/2014 11/24/2014 [facility] by [facility] Bustamante disease of oral soft tissue [id number] 11/24/2014 11/24/2014 [facility] by [facility] Bustamante disease of oral soft tissue [id number] 11/24/2014 11/24/2014 [facility] by [facility] Bustamante disease of oral soft tissue [id number] 11/24/2014 11/24/2014 [facility] by [facility] Bustamante disease of oral soft tissue [id number] 11/24/2014 11/24/2014 [facility] Bustamante disease of oral soft tissue [id number] 11/24/2014 11/24/2014 [facility] Bustamante disease of oral soft tissue [id number] 11/24/2014 11/24/2014 [facility] by [facility] Bustamante disease of oral soft tissue [id number] 11/24/2014 11/24/2014 [facility] by [facility] Bustamante disease of oral soft tissue [id number] 11/24/2014 11/24/2014 [facility] Bustamante disease of oral soft tissue [id number] 11/24/2014 11/24/2014 [facility] by [facility] Bustamante disease of oral soft tissue [id number] 11/24/2014 11/24/2014 [facility] Bustamante disease of oral soft tissue [id number] 11/24/2014 11/24/2014 [facility] by [facility] Bustamante disease of oral soft tissue [id number] 11/24/2014 11/24/2014 [facility] Bustamante disease of oral soft tissue [id number] 11/24/2014 11/24/2014 [facility] Bustamante disease of oral soft tissue [id number] 11/24/2014 11/24/2014 [facility] Bustamante disease of oral soft tissue [id number] 11/24/2014 11/24/2014 [facility] Bustamante disease of oral soft tissue [id number] 11/24/2014 11/24/2014 [facility] by [facility] Bustamante disease of oral soft tissue [id number] 11/24/2014 11/24/2014 [facility] by [facility] Bustamante disease of oral soft tissue [id number] 11/24/2014 11/24/2014 [facility] Bust[facility] disease of oral soft tissue [id number] 11/24/2014 11/24/2014 [facility] Bust[facility] disease of oral soft tissue [id number] 11/24/2014 11/24/2014 [facility] Bust[facility]ante disease of oral soft tissue [id number] 11/24/2014 11/24/2014 [facility]erred by [facility] Bust[facility]ante disease of oral soft tissue [id number] 11/24/2014 11/24/2014 [facility]erred by [facility] Bustamante disease of oral soft tissue [id number] 11/24/2014 11/24/2014 [facility]erred by [facility] Bust[facility]ante disease of oral soft tissue [id number] 11/24/2014 11/24/2014 [facility]erred by [facility] Bustamante disease of oral soft tissue [id number] 11/24/2014 11/24/2014 [facility]erred by [facility] Bust[facility] disease of oral soft tissue [id number] 11/24/2014 11/24/2014 [facility]erred by [facility] Bustamante disease of oral soft tissue [id number] 11/24/2014 11/24/2014 [facility]erred by [facility] Bust[facility]ante disease of oral soft tissue [id number] 11/24/2014 11/24/2014 [facility]erred by [facility] Bust[facility]ante disease of oral soft tissue [id number] 11/24/2014 11/24/2014 [facility]erred by Dr Bust[facility] disease of oral soft tissue [id number] 11/24/2014 11/24/2014 [facility] Needs referral [id number] 11/25/19 15 11/24/2014 [facility] Needs referral [id number] 11/25/19 15 11/24/2014 [facility] Needs referral [id number] 11/25/19 15 11/24/2014 [facility] Needs referral [id number] 11/25/19 15 11/24/2014 [facility] Needs referral [id number] 11/25/19 15 11/24/2014 [facility] Needs referral [id number] 11/25/19 15 11/24/2014 [facility] Needs referral [id number] 11/25/19 15 11/24/2014 [facility] Needs referral [id number] 11/25/19 15 11/24/2014 [facility] Needs referral [id number] 11/25/19 15 11/24/2014 [facility] Needs referral [id number] 11/25/19 15 11/24/2014 [facility] Needs referral [id number] 11/25/19 15 11/24/2014 [facility] Needs referral [id number] 11/25/19 15 11/24/2014 [facility] Needs referral [id number] 11/25/19 15 11/24/2014 [facility] Needs referral [id number] 11/25/19 15 11/24/2014 [facility] Needs referral [id number] 11/25/19 15 11/24/2014 [facility] Needs referral [id number] 11/25/19 15 11/24/2014 [facility] Needs referral [id number] 11/25/19 15 11/24/2014 [facility] Needs referral [id number] 11/25/19 15 11/24/2014 [facility] Needs referral [id number] 11/25/19 15 11/24/2014 [facility] Needs referral [id number] 11/25/19 15 11/24/2014 [facility] Needs referral [id number] 11/25/19 15 11/24/2014 [facility] Needs referral [id number] 11/25/19 15 11/24/2014 [facility] Needs referral [id number] 11/25/19 15 11/24/2014 [facility] Needs referral [id number] 11/25/19 15 11/24/2014 [facility] Needs referral [id number] 11/25/19 15 11/24/2014 [facility] Needs referral [id number] 11/25/19 15 11/24/2014 [facility] Needs referral [id number] 11/25/19 15 11/24/2014 [facility] Needs referral [id number] 11/25/19 15 11/24/2014 [facility] Needs referral [id number] 11/25/19 15 11/24/2014 [facility] Needs referral [id number] 11/25/19 15 11/24/2014 [facility] Needs referral [id number] 11/25/19 15 11/24/2014 [facility] Needs referral [id number] 11/25/19 15 11/24/2014 [facility] Needs referral [id number] 11/25/19 15 11/24/2014 [facility] Needs referral [id number] 11/25/19 15 11/24/2014 [facility] Needs referral [id number] 11/25/19 15 11/24/2014 [facility] Needs referral [id number] 11/25/1911/24/2014 [facility] talk about referrals [id number] 11/28/2014 11/28/2014 [facility] talk about referrals [id number] 11/28/2014 11/28/2014 [facility] talk about referrals [id number] 11/28/2014 11/28/2014 [facility] talk about referrals [id number] 11/28/2014 11/28/2014 [facility] talk about referrals [id number] 11/28/2014 11/28/2014 [facility] talk about referrals [id number] 11/28/2014 11/28/2014 [facility] talk about referrals [id number] 11/28/2014 11/28/2014 [facility] talk about referrals [id number] 11/28/2014 11/28/2014 [facility] talk about referrals [id number] 11/28/2014 11/28/2014 [facility] talk about referrals [id number] 11/28/2014 11/28/2014 [facility] talk about referrals [id number] 11/28/2014 11/28/2014 [facility] talk about referrals [id number] 11/28/2014 11/28/2014 [facility] talk about referrals [id number] 11/28/2014 11/28/2014 [facility] talk about referrals [id number] 11/28/2014 11/28/2014 [facility] talk about referrals [id number] 11/28/2014 11/28/2014 [facility] talk about referrals [id number] 11/28/2014 11/28/2014 [facility] talk about referrals [id number] 11/28/2014 11/28/2014 [facility] talk about referrals [id number] 11/28/2014 11/28/2014 [facility] talk about referrals [id number] 11/28/2014 11/28/2014 [facility] talk about referrals [id number] 11/28/2014 11/28/2014 [facility] talk about referrals [id number] 11/28/2014 11/28/2014 [facility] talk about referrals [id number] 11/28/2014 11/28/2014 [facility] talk about referrals [id number] 11/28/2014 11/28/2014 [facility] talk about referrals [id number] 11/28/2014 11/28/2014 [facility] talk about referrals [id number] 11/28/2014 11/28/2014 [facility] talk about referrals [id number] 11/28/2014 11/28/2014 [facility] talk about referrals [id number] 11/28/2014 11/28/2014 [facility] talk about referrals [id number] 11/28/2014 11/28/2014 [facility] talk about referrals [id number] 11/28/2014 11/28/2014 [facility] talk about referrals [id number] 11/28/2014 11/28/2014 [facility] talk about referrals [id number] 11/28/2014 11/28/2014 [facility] talk about referrals [id number] 11/28/2014 11/28/2014 [facility] talk about referrals [id number] 11/28/2014 11/28/2014 [facility] talk about referrals [id number] 11/28/2014 11/28/2014 [facility] talk about referrals [id number] 11/28/2014 11/28/2014 [facility] talk about referrals [id number] 11/28/2014 11/28/2014 [facility] Approval On (Percocet 10-325 MG Tablet) Urgent [id number] 11/28/2014 11/28/2014 [facility] Approval On (Percocet 10-325 MG Tablet) Urgent [id number] 11/28/2014 11/28/2014 [facility]val On (Percocet 10-325 MG Tablet) Urgent [id number] 11/28/2014 11/28/2014 [facility] Approval On (Percocet 10-325 MG Tablet) Urgent [id number] 11/28/2014 11/28/2014 [facility] Approval On (Percocet 10-325 MG Tablet) Urgent [id number] 11/28/2014 11/28/2014 [facility]val On (Percocet 10-325 MG Tablet) Urgent [id number] 11/28/2014 11/28/2014 [facility] Approval On (Percocet 10-325 MG Tablet) Urgent [id number] 11/28/2014 11/28/2014 [facility]val On (Percocet 10-325 MG Tablet) Urgent [id number] 11/28/2014 11/28/2014 [facility]val On (Percocet 10-325 MG Tablet) Urgent [id number] 11/28/2014 11/28/2014 [facility] Approval On (Percocet 10-325 MG Tablet) Urgent [id number] 11/28/2014 11/28/2014 [facility]val On (Percocet 10-325 MG Tablet) Urgent [id number] 11/28/2014 11/28/2014 [facility]val On (Percocet 10-325 MG Tablet) Urgent [id number] 11/28/2014 11/28/2014 [facility]val On (Percocet 10-325 MG Tablet) Urgent [id number] 11/28/2014 11/28/2014 [facility]val On (Percocet 10-325 MG Tablet) Urgent [id number] 11/28/2014 11/28/2014 [facility]val On (Percocet 10-325 MG Tablet) Urgent [id number] 11/28/2014 11/28/2014 [facility] On (Percocet 10-325 MG Tablet) Urgent [id number] 11/28/2014 11/28/2014 [facility]val On (Percocet 10-325 MG Tablet) Urgent [id number] 11/28/2014 11/28/2014 [facility]val On (Percocet 10-325 MG Tablet) Urgent [id number] 11/28/2014 11/28/2014 [facility]val On (Percocet 10-325 MG Tablet) Urgent [id number] 11/28/2014 11/28/2014 [facility]val On (Percocet 10-325 MG Tablet) Urgent [id number] 11/28/2014 11/28/2014 [facility]val On (Percocet 10-325 MG Tablet) Urgent [id number] 11/28/2014 11/28/2014 [facility]val On (Percocet 10-325 MG Tablet) Urgent [id number] 11/28/2014 11/28/2014 [facility]val On (Percocet 10-325 MG Tablet) Urgent [id number] 11/28/2014 11/28/2014 [facility] On (Percocet 10-325 MG Tablet) Urgent [id number] 11/28/2014 11/28/2014 [facility]val On (Percocet 10-325 MG Tablet) Urgent [id number] 11/28/2014 11/28/2014 [facility] On (Percocet 10-325 MG Tablet) Urgent [id number] 11/28/2014 11/28/2014 [facility] On (Percocet 10-325 MG Tablet) Urgent [id number] 11/28/2014 11/28/2014 [facility] On (Percocet 10-325 MG Tablet) Urgent [id number] 11/28/2014 11/28/2014 [facility] On (Percocet 10-325 MG Tablet) Urgent [id number] 11/28/2014 11/28/2014 [facility] On (Percocet 10-325 MG Tablet) Urgent [id number] 11/28/2014 11/28/2014 [facility] On (Percocet 10-325 MG Tablet) Urgent [id number] 11/28/2014 11/28/2014 [facility] On (Percocet 10-325 MG Tablet) Urgent [id number] 11/28/2014 11/28/2014 [facility] On (Percocet 10-325 MG Tablet) Urgent [id number] 11/28/2014 11/28/2014 [facility] On (Percocet 10-325 MG Tablet) Urgent [id number] 11/28/2014 11/28/2014 [facility] Approval On (Percocet 10-325 MG Tablet) Urgent [id number] 11/28/2014 11/28/2014 [facility] Approval On (Percocet 10-325 MG Tablet) Urgent [id number] 11/28/2014 11/28/2014 [facility] Medical Records [id number] 12/19/19 15 12/18/2014 [facility] Records [id number] 12/19/1912/18/2014 [facility] Records [id number] 12/19/19 15 12/18/2014 [facility] Records [id number] 12/19/19 15 12/18/2014 [facility] [id number] 12/19/19 15 12/18/2014 [facility] [id number] 12/19/19 15 12/18/2014 [facility] [id number] 12/19/19 15 12/18/2014 [facility] [id number] 12/19/19 15 12/18/2014 [facility] [id number] 12/19/19 15 12/18/2014 [facility] [id number] 12/19/19 15 12/18/2014 [facility] [id number] 12/19/19 15 12/18/2014 [facility] [id number] 12/19/19 15 12/18/2014 [facility] [id number] 12/19/19 15 12/18/2014 [facility] [id number] 12/19/19 15 12/18/2014 [facility] [id number] 12/19/19 15 12/18/2014 [facility] [id number] 12/19/19 15 12/18/2014 [facility] [id number] 12/19/19 15 12/18/2014 [facility] [id number] 12/19/19 15 12/18/2014 [facility] [id number] 12/19/19 15 12/18/2014 [facility] [id number] 12/19/19 15 12/18/2014 [facility] [id number] 12/19/19 15 12/18/2014 [facility] [id number] 12/19/19 15 12/18/2014 [facility] [id number] 12/19/19 15 12/18/2014 [facility] [id number] 12/19/19 15 12/18/2014 [facility] [id number] 12/19/19 15 12/18/2014 [facility] [id number] 12/19/19 15 12/18/2014 [facility] [id number] 12/19/19 15 12/18/2014 [facility] [id number] 12/19/19 15 12/18/2014 [facility] [id number] 12/19/19 15 12/18/2014 [facility] [id number] 12/19/19 15 12/18/2014 [facility] [id number] 12/19/19 15 12/18/2014 [facility] [id number] 12/19/19 15 12/18/2014 [facility] [id number] 12/19/19 15 12/18/2014 [facility] [id number] 12/19/19 15 12/18/2014 [facility] [id number] 12/19/19 15 12/18/2014 [facility] [id number] 12/19/19 15 12/18/2014 [facility] Infection in face [id number] 12/18/2014 12/18/2014 [facility]fection in face [id number] 12/18/2014 12/18/2014 [facility] in face [id number] 12/18/2014 12/18/2014 [facility]fection in face [id number] 12/18/2014 12/18/2014 [facility]fection in face [id number] 12/18/2014 12/18/2014 [facility]fection in face [id number] 12/18/2014 12/18/2014 [facility]fection in face [id number] 12/18/2014 12/18/2014 [facility]fection in face [id number] 12/18/2014 12/18/2014 [facility] Infection in face [id number] 12/18/2014 12/18/2014 [facility]fection in face [id number] 12/18/2014 12/18/2014 [facility]fection in face [id number] 12/18/2014 12/18/2014 [facility]fection in face [id number] 12/18/2014 12/18/2014 [facility]fection in face [id number] 12/18/2014 12/18/2014 [facility]fection in face [id number] 12/18/2014 12/18/2014 [facility]fection in face [id number] 12/18/2014 12/18/2014 [facility]fection in face [id number] 12/18/2014 12/18/2014 [facility]fection in face [id number] 12/18/2014 12/18/2014 [facility] Infection in face [id number] 12/18/2014 12/18/2014 [facility] Infection in face [id number] 12/18/2014 12/18/2014 [facility]fection in face [id number] 12/18/2014 12/18/2014 [facility] Infection in face [id number] 12/18/2014 12/18/2014 [facility] Infection in face [id number] 12/18/2014 12/18/2014 [facility] Infection in face [id number] 12/18/2014 12/18/2014 [facility]fection in face [id number] 12/18/2014 12/18/2014 [facility]fection in face [id number] 12/18/2014 12/18/2014 [facility]fection in face [id number] 12/18/2014 12/18/2014 [facility]fection in face [id number] 12/18/2014 12/18/2014 [facility]fection in face [id number] 12/18/2014 12/18/2014 [facility]fection in face [id number] 12/18/2014 12/18/2014 [facility]fection in face [id number] 12/18/2014 12/18/2014 [facility]fection in face [id number] 12/18/2014 12/18/2014 [facility]fection in face [id number] 12/18/2014 12/18/2014 [facility]fection in face [id number] 12/18/2014 12/18/2014 [facility]fection in face [id number] 12/18/2014 12/18/2014 [facility]fection in face [id number] 12/18/2014 12/18/2014 [facility]fection in face [id number] 12/18/2014 12/18/2014 [facility] Walk in: Mouth ulcers [id number] 01/08/20 15 01/07/2015 [facility]: Mouth ulcers [id number] 01/08/20 15 01/07/2015 [facility] in: Mouth ulcers [id number] 01/08/20 15 01/07/2015 [facility]: Mouth ulcers [id number] 01/08/20 15 01/07/2015 [facility]: Mouth ulcers [id number] 01/08/20 15 01/07/2015 [facility] in: Mouth ulcers [id number] 01/08/20 15 01/07/2015 [facility] in: Mouth ulcers [id number] 01/08/20 15 01/07/2015 [facility] in: Mouth ulcers [id number] 01/08/20 15 01/07/2015 [facility] in: Mouth ulcers [id number] 01/08/20 15 01/07/2015 [facility] in: Mouth ulcers [id number] 01/08/20 15 01/07/2015 [facility] in: Mouth ulcers [id number] 01/08/20 15 01/07/2015 [facility] in: Mouth ulcers [id number] 01/08/20 15 01/07/2015 [facility] in: Mouth ulcers [id number] 01/08/20 15 01/07/2015 [facility] in: Mouth ulcers [id number] 01/08/20 15 01/07/2015 [facility] in: Mouth ulcers [id number] 01/08/20 15 01/07/2015 [facility] in: Mouth ulcers [id number] 01/08/20 15 01/07/2015 [facility] in: Mouth ulcers [id number] 01/08/20 15 01/07/2015 [facility] in: Mouth ulcers [id number] 01/08/20 15 01/07/2015 [facility] in: Mouth ulcers [id number] 01/08/20 15 01/07/2015 [facility] in: Mouth ulcers [id number] 01/08/20 15 01/07/2015 [facility] in: Mouth ulcers [id number] 01/08/20 15 01/07/2015 [facility] in: Mouth ulcers [id number] 01/08/20 15 01/07/2015 [facility] in: Mouth ulcers [id number] 01/08/20 15 01/07/2015 [facility] in: Mouth ulcers [id number] 01/08/20 15 01/07/2015 [facility] in: Mouth ulcers [id number] 01/08/20 15 01/07/2015 [facility] in: Mouth ulcers [id number] 01/08/20 15 01/07/2015 [facility] in: Mouth ulcers [id number] 01/08/20 15 01/07/2015 [facility] in: Mouth ulcers [id number] 01/08/20 15 01/07/2015 [facility] in: Mouth ulcers [id number] 01/08/20 15 01/07/2015 [facility] in: Mouth ulcers [id number] 01/08/20 15 01/07/2015 [facility] in: Mouth ulcers [id number] 01/08/20 15 01/07/2015 [facility] in: Mouth ulcers [id number] 01/08/20 15 01/07/2015 [facility] in: Mouth ulcers [id number] 01/08/20 15 01/07/2015 [facility] in: Mouth ulcers [id number] 01/08/20 15 01/07/2015 [facility]: Mouth ulcers [id number] 01/08/20 15 01/07/2015 [facility]: Mouth ulcers [id number] 01/08/20 15 01/07/2015 [facility] [id number] 01/08/20 15 01/07/2015 [facility] [id number] 01/08/20 15 01/07/2015 [facility] [id number] 01/08/20 15 01/07/2015 [facility] [id number] 01/08/20 15 01/07/2015 [facility] [id number] 01/08/20 15 01/07/2015 [facility] [id number] 01/08/20 15 01/07/2015 [facility] [id number] 01/08/20 15 01/07/2015 [facility] [id number] 01/08/20 15 01/07/2015 [facility] [id number] 01/08/20 15 01/07/2015 [facility] [id number] 01/08/20 15 01/07/2015 [facility] [id number] 01/08/20 15 01/07/2015 [facility] [id number] 01/08/20 15 01/07/2015 [facility] [id number] 01/08/20 15 01/07/2015 [facility] [id number] 01/08/20 15 01/07/2015 [facility] [id number] 01/08/20 15 01/07/2015 [facility] [id number] 01/08/20 15 01/07/2015 [facility] [id number] 01/08/20 15 01/07/2015 [facility] [id number] 01/08/20 15 01/07/2015 [facility] [id number] 01/08/20 15 01/07/2015 [facility] [id number] 01/08/20 15 01/07/2015 [facility] [id number] 01/08/20 15 01/07/2015 [facility] [id number] 01/08/20 15 01/07/2015 [facility] [id number] 01/08/20 15 01/07/2015 [facility] [id number] 01/08/20 15 01/07/2015 [facility] [id number] 01/08/20 15 01/07/2015 [facility] [id number] 01/08/20 15 01/07/2015 [facility] [id number] 01/08/20 15 01/07/2015 [facility] [id number] 01/08/20 15 01/07/2015 [facility] [id number] 01/08/20 15 01/07/2015 [facility] [id number] 01/08/20 15 01/07/2015 [facility] [id number] 01/08/20 15 01/07/2015 [facility] [id number] 01/08/20 15 01/07/2015 [facility] [id number] 01/08/20 15 01/07/2015 [facility] [id number] 01/08/20 15 01/07/2015 [facility] [id number] 01/08/20 15 01/07/2015 [facility] [id number] 01/08/20 15 01/07/2015 [facility] Jo Ann Oconnell [id number] 01/08/2015 01/08/2015 [facility] Dr[facility] Jo Ann Oconnell [id number] 01/08/2015 01/08/2015 [facility] - [facility] Jo Ann Oconnell [id number] 01/08/2015 01/08/2015 [facility] - Dr[facility] Jo Ann Oconnell [id number] 01/08/2015 01/08/2015 [facility] - [facility] Jo Ann Oconnell [id number] 01/08/2015 01/08/2015 [facility] - Dr[facility] Jo Ann Oconnell [id number] 01/08/2015 01/08/2015 [facility] - Dr[facility] Jo Ann Oconnell [id number] 01/08/2015 01/08/2015 [facility] - [facility] Jo Ann Oconnell [id number] 01/08/2015 01/08/2015 [facility] - [facility] Jo Ann Oconnell [id number] 01/08/2015 01/08/2015 [facility] - [facility] Jo Ann Oconnell [id number] 01/08/2015 01/08/2015 [facility] - [facility] Jo Ann Oconnell [id number] 01/08/2015 01/08/2015 [facility] - Dr[facility] Jo Ann Oconnell [id number] 01/08/2015 01/08/2015 [facility] - [facility] Jo Ann Oconnell [id number] 01/08/2015 01/08/2015 [facility] - Dr[facility] Jo Ann Oconnell [id number] 01/08/2015 01/08/2015 [facility] - [facility] Jo Ann Oconnell [id number] 01/08/2015 01/08/2015 [facility] - [facility] Jo Ann Oconnell [id number] 01/08/2015 01/08/2015 [facility] - [facility] Jo Ann Oconnell [id number] 01/08/2015 01/08/2015 [facility] - [facility] Jo Ann Oconnell [id number] 01/08/2015 01/08/2015 [facility] - [facility] Jo Ann Oconnell [id number] 01/08/2015 01/08/2015 [facility] - [facility] Jo Ann Oconnell [id number] 01/08/2015 01/08/2015 [facility] - [facility] Jo Ann Oconnell [id number] 01/08/2015 01/08/2015 [facility] - [facility] Jo Ann Oconnell [id number] 01/08/2015 01/08/2015 [facility] - [facility] Jo Ann Oconnell [id number] 01/08/2015 01/08/2015 [facility] - [facility] Jo Ann Oconnell [id number] 01/08/2015 01/08/2015 [facility] - [facility] Jo Ann Oconnell [id number] 01/08/2015 01/08/2015 [facility] - [facility] Jo Ann Oconnell [id number] 01/08/2015 01/08/2015 [facility] - [facility] Jo Ann Oconnell [id number] 01/08/2015 01/08/2015 [facility] - [facility] Jo Ann Oconnell [id number] 01/08/2015 01/08/2015 [facility] - [facility] Jo Ann Oconnell [id number] 01/08/2015 01/08/2015 [facility] - [facility] Jo Ann Oconnell [id number] 01/08/2015 01/08/2015 [facility] - [facility] Jo Ann Oconnell [id number] 01/08/2015 01/08/2015 [facility] - [facility] Jo Ann Oconnell [id number] 01/08/2015 01/08/2015 [facility] - [facility] Jo Ann Oconnell [id number] 01/08/2015 01/08/2015 [facility] - [facility]. Jo Ann Oconnell [id number] 01/08/2015 01/08/2015 [facility] - Dr. J oAnn Oconnell [id number] 01/08/2015 01/08/2015 [facility] - [facility] Jo Ann Oconnell [id number] 01/08/2015 01/08/2015 [facility] f/u [id number] 01/15/20 15 01/14/2015 [facility] [id number] 01/15/20 15 01/14/2015 [facility] [id number] 01/15/20 15 01/14/2015 [facility] [id number] 01/15/20 15 01/14/2015 [facility]/u [id number] 01/15/20 15 01/14/2015 [facility] [id number] 01/15/20 15 01/14/2015 [facility] [id number] 01/15/20 15 01/14/2015 [facility] [id number] 01/15/20 15 01/14/2015 [facility] [id number] 01/15/20 15 01/14/2015 [facility] [id number] 01/15/20 15 01/14/2015 [facility] [id number] 01/15/20 15 01/14/2015 [facility] [id number] 01/15/20 15 01/14/2015 [facility] [id number] 01/15/20 15 01/14/2015 [facility]/u [id number] 01/15/20 15 01/14/2015 [facility] [id number] 01/15/20 15 01/14/2015 [facility] [id number] 01/15/20 15 01/14/2015 [facility]/u [id number] 01/15/20 15 01/14/2015 [facility] [id number] 01/15/20 15 01/14/2015 [facility] [id number] 01/15/20 15 01/14/2015 [facility] [id number] 01/15/20 15 01/14/2015 [facility] [id number] 01/15/20 15 01/14/2015 [facility] [id number] 01/15/20 15 01/14/2015 [facility] [id number] 01/15/20 15 01/14/2015 [facility] [id number] 01/15/20 15 01/14/2015 [facility] [id number] 01/15/20 15 01/14/2015 [facility] f/u [id number] 01/15/20 15 01/14/2015 [facility] f/u [id number] 01/15/20 15 01/14/2015 [facility] f/u [id number] 01/15/20 15 01/14/2015 [facility] f/u [id number] 01/15/20 15 01/14/2015 [facility] f/u [id number] 01/15/20 15 01/14/2015 [facility] f/u [id number] 01/15/20 15 01/14/2015 [facility] f/u [id number] 01/15/20 15 01/14/2015 [facility] f/u [id number] 01/15/20 15 01/14/2015 [facility] f/u [id number] 01/15/20 15 01/14/2015 [facility] f/u [id number] 01/15/20 15 01/14/2015 [facility] f/u [id number] 01/15/20 15 01/14/2015 [facility] Mammo / Breast US Order [id number] 01/19/2015 01/19/2015 [facility]ammo / Breast US Order [id number] 01/19/2015 01/19/2015 [facility] Mammo / Breast US Order [id number] 01/19/2015 01/19/2015 [facility] Mammo / Breast US Order [id number] 01/19/2015 01/19/2015 [facility] Mammo / Breast US Order [id number] 01/19/2015 01/19/2015 [facility] Mammo / Breast US Order [id number] 01/19/2015 01/19/2015 [facility] Mammo / Breast US Order [id number] 01/19/2015 01/19/2015 [facility] Mammo / Breast US Order [id number] 01/19/2015 01/19/2015 [facility] Mammo / Breast US Order [id number] 01/19/2015 01/19/2015 [facility] Mammo / Breast US Order [id number] 01/19/2015 01/19/2015 [facility] Mammo / Breast US Order [id number] 01/19/2015 01/19/2015 [facility] Mammo / Breast US Order [id number] 01/19/2015 01/19/2015 [facility] Mammo / Breast US Order [id number] 01/19/2015 01/19/2015 [facility] Mammo / Breast US Order [id number] 01/19/2015 01/19/2015 [facility] Mammo / Breast US Order [id number] 01/19/2015 01/19/2015 [facility] Mammo / Breast US Order [id number] 01/19/2015 01/19/2015 [facility] Mammo / Breast US Order [id number] 01/19/2015 01/19/2015 [facility] Mammo / Breast US Order [id number] 01/19/2015 01/19/2015 [facility] Mammo / Breast US Order [id number] 01/19/2015 01/19/2015 [facility] Mammo / Breast US Order [id number] 01/19/2015 01/19/2015 [facility] Mammo / Breast US Order [id number] 01/19/2015 01/19/2015 [facility]ammo / Breast US Order [id number] 01/19/2015 01/19/2015 [facility] Mammo / Breast US Order [id number] 01/19/2015 01/19/2015 [facility] Mammo / Breast US Order [id number] 01/19/2015 01/19/2015 [facility] Mammo / Breast US Order [id number] 01/19/2015 01/19/2015 [facility] Mammo / Breast US Order [id number] 01/19/2015 01/19/2015 [facility] Mammo / Breast US Order [id number] 01/19/2015 01/19/2015 [facility] Mammo / Breast US Order [id number] 01/19/2015 01/19/2015 [facility] Mammo / Breast US Order [id number] 01/19/2015 01/19/2015 [facility] Mammo / Breast US Order [id number] 01/19/2015 01/19/2015 [facility]ammo / Breast US Order [id number] 01/19/2015 01/19/2015 [facility] Mammo / Breast US Order [id number] 01/19/2015 01/19/2015 [facility] Mammo / Breast US Order [id number] 01/19/2015 01/19/2015 [facility] Mammo / Breast US Order [id number] 01/19/2015 01/19/2015 [facility] Mammo / Breast US Order [id number] 01/19/2015 01/19/2015 [facility] Mammo / Breast US Order [id number] 01/19/2015 01/19/2015 [facility] 4 week follow up [id number] 02/05/20 15 02/04/2015 [facility] 4 week follow up [id number] 02/05/20 15 02/04/2015 [facility] 4 week follow up [id number] 02/05/20 15 02/04/2015 [facility] 4 week follow up [id number] 02/05/20 15 02/04/2015 [facility] 4 week follow up [id number] 02/05/20 15 02/04/2015 [facility] 4 week follow up [id number] 02/05/20 15 02/04/2015 [facility] 4 week follow up [id number] 02/05/20 15 02/04/2015 [facility] 4 week follow up [id number] 02/05/20 15 02/04/2015 [facility] 4 week follow up [id number] 02/05/20 15 02/04/2015 [facility] 4 week follow up [id number] 02/05/20 15 02/04/2015 [facility] 4 week follow up [id number] 02/05/20 15 02/04/2015 [facility] 4 week follow up [id number] 02/05/20 15 02/04/2015 [facility] 4 week follow up [id number] 02/05/20 15 02/04/2015 [facility] 4 week follow up [id number] 02/05/20 15 02/04/2015 [facility] 4 week follow up [id number] 02/05/20 15 02/04/2015 [facility] 4 week follow up [id number] 02/05/20 15 02/04/2015 [facility] 4 week follow up [id number] 02/05/20 15 02/04/2015 [facility] 4 week follow up [id number] 02/05/20 15 02/04/2015 [facility] 4 week follow up [id number] 02/05/20 15 02/04/2015 [facility] 4 week follow up [id number] 02/05/20 15 02/04/2015 [facility] 4 week follow up [id number] 02/05/20 15 02/04/2015 [facility] 4 week follow up [id number] 02/05/20 15 02/04/2015 [facility] 4 week follow up [id number] 02/05/20 15 02/04/2015 [facility] 4 week follow up [id number] 02/05/20 15 02/04/2015 [facility] 4 week follow up [id number] 02/05/20 15 02/04/2015 [facility] 4 week follow up [id number] 02/05/20 15 02/04/2015 [facility] 4 week follow up [id number] 02/05/20 15 02/04/2015 [facility] 4 week follow up [id number] 02/05/20 15 02/04/2015 [facility] 4 week follow up [id number] 02/05/20 15 02/04/2015 [facility] 4 week follow up [id number] 02/05/20 15 02/04/2015 [facility] 4 week follow up [id number] 02/05/20 15 02/04/2015 [facility] 4 week follow up [id number] 02/05/20 15 02/04/2015 [facility] 4 week follow up [id number] 02/05/20 15 02/04/2015 [facility] 4 week follow up [id number] 02/05/20 15 02/04/2015 [facility] 4 week follow up [id number] 02/05/20 15 02/04/2015 [facility] 4 week follow up [id number] 02/05/20 15 02/04/2015 [facility] Referral Questions [id number] 02/06/20 15 02/05/2015 [facility] Referral Questions [id number] 02/06/20 15 02/05/2015 [facility] Referral Questions [id number] 02/06/20 15 02/05/2015 [facility] Referral Questions [id number] 02/06/20 15 02/05/2015 [facility] Referral Questions [id number] 02/06/20 15 02/05/2015 [facility] Referral Questions [id number] 02/06/20 15 02/05/2015 [facility] Referral Questions [id number] 02/06/20 15 02/05/2015 [facility] Referral Questions [id number] 02/06/20 15 02/05/2015 [facility] Referral Questions [id number] 02/06/20 15 02/05/2015 [facility] Referral Questions [id number] 02/06/20 15 02/05/2015 [facility] Referral Questions [id number] 02/06/20 15 02/05/2015 [facility] Referral Questions [id number] 02/06/20 15 02/05/2015 [facility] Referral Questions [id number] 02/06/20 15 02/05/2015 [facility] Referral Questions [id number] 02/06/20 15 02/05/2015 [facility] Referral Questions [id number] 02/06/20 15 02/05/2015 [facility] Referral Questions [id number] 02/06/20 15 02/05/2015 [facility] Referral Questions [id number] 02/06/20 15 02/05/2015 [facility] Referral Questions [id number] 02/06/20 15 02/05/2015 [facility] Referral Questions [id number] 02/06/20 15 02/05/2015 [facility] Referral Questions [id number] 02/06/20 15 02/05/2015 [facility] Referral Questions [id number] 02/06/20 15 02/05/2015 [facility] Referral Questions [id number] 02/06/20 15 02/05/2015 [facility] Referral Questions [id number] 02/06/20 15 02/05/2015 [facility] Referral Questions [id number] 02/06/20 15 02/05/2015 [facility] Referral Questions [id number] 02/06/20 15 02/05/2015 [facility] Referral Questions [id number] 02/06/20 15 02/05/2015 [facility] Referral Questions [id number] 02/06/20 15 02/05/2015 [facility] Referral Questions [id number] 02/06/20 15 02/05/2015 [facility] Referral Questions [id number] 02/06/20 15 02/05/2015 [facility] Referral Questions [id number] 02/06/20 15 02/05/2015 [facility] Referral Questions [id number] 02/06/20 15 02/05/2015 [facility] Referral Questions [id number] 02/06/20 15 02/05/2015 [facility] Referral Questions [id number] 02/06/20 15 02/05/2015 [facility] Referral Questions [id number] 02/06/20 15 02/05/2015 [facility] Referral Questions [id number] 02/06/20 15 02/05/2015 [facility] Referral Questions [id number] 02/06/20 15 02/05/2015 [facility] Medication/Referral [id number] 02/09/2015 02/09/2015 [facility] Medication/Referral [id number] 02/09/2015 02/09/2015 [facility] Medication/Referral [id number] 02/09/2015 02/09/2015 [facility] Medication/Referral [id number] 02/09/2015 02/09/2015 [facility] Medication/Referral [id number] 02/09/2015 02/09/2015 [facility] Medication/Referral [id number] 02/09/2015 02/09/2015 [facility] Medication/Referral [id number] 02/09/2015 02/09/2015 [facility] Medication/Referral [id number] 02/09/2015 02/09/2015 [facility] Medication/Referral [id number] 02/09/2015 02/09/2015 [facility] Medication/Referral [id number] 02/09/2015 02/09/2015 [facility] Medication/Referral [id number] 02/09/2015 02/09/2015 [facility] Medication/Referral [id number] 02/09/2015 02/09/2015 [facility] Medication/Referral [id number] 02/09/2015 02/09/2015 [facility] Medication/Referral [id number] 02/09/2015 02/09/2015 [facility] Medication/Referral [id number] 02/09/2015 02/09/2015 [facility] Medication/Referral [id number] 02/09/2015 02/09/2015 [facility] Medication/Referral [id number] 02/09/2015 02/09/2015 [facility] Medication/Referral [id number] 02/09/2015 02/09/2015 [facility] Medication/Referral [id number] 02/09/2015 02/09/2015 [facility] Medication/Referral [id number] 02/09/2015 02/09/2015 [facility] Medication/Referral [id number] 02/09/2015 02/09/2015 [facility] Medication/Referral [id number] 02/09/2015 02/09/2015 [facility] Medication/Referral [id number] 02/09/2015 02/09/2015 [facility] Medication/Referral [id number] 02/09/2015 02/09/2015 [facility] Medication/Referral [id number] 02/09/2015 02/09/2015 [facility] Medication/Referral [id number] 02/09/2015 02/09/2015 [facility] Medication/Referral [id number] 02/09/2015 02/09/2015 [facility] Medication/Referral [id number] 02/09/2015 02/09/2015 [facility] Medication/Referral [id number] 02/09/2015 02/09/2015 [facility] Medication/Referral [id number] 02/09/2015 02/09/2015 [facility] Medication/Referral [id number] 02/09/2015 02/09/2015 [facility] Medication/Referral [id number] 02/09/2015 02/09/2015 [facility] Medication/Referral [id number] 02/09/2015 02/09/2015 [facility] Medication/Referral [id number] 02/09/2015 02/09/2015 [facility] Medication/Referral [id number] 02/09/2015 02/09/2015 [facility] Medication/Referral [id number] 02/09/2015 02/09/2015 [facility] 4 Wk Follow-Up [id number] 02/20/20 15 02/19/2015 [facility] 4 Wk Follow-Up [id number] 02/20/20 15 02/19/2015 [facility] 4 Wk Follow-Up [id number] 02/20/20 15 02/19/2015 [facility] 4 Wk Follow-Up [id number] 02/20/20 15 02/19/2015 [facility] 4 Wk Follow-Up [id number] 02/20/20 15 02/19/2015 [facility] 4 Wk Follow-Up [id number] 02/20/20 15 02/19/2015 [facility] 4 Wk Follow-Up [id number] 02/20/20 15 02/19/2015 [facility] 4 Wk Follow-Up [id number] 02/20/20 15 02/19/2015 [facility] 4 Wk Follow-Up [id number] 02/20/20 15 02/19/2015 [facility] 4 Wk Follow-Up [id number] 02/20/20 15 02/19/2015 [facility] 4 Wk Follow-Up [id number] 02/20/20 15 02/19/2015 [facility] Follow-Up [id number] 02/20/20 15 02/19/2015 [facility] Follow-Up [id number] 02/20/20 15 02/19/2015 [facility] Follow-Up [id number] 02/20/20 15 02/19/2015 [facility] Follow-Up [id number] 02/20/20 15 02/19/2015 [facility] Follow-Up [id number] 02/20/20 15 02/19/2015 [facility] Follow[facility]Up [id number] 02/20/20 15 02/19/2015 [facility] Follow[facility]Up [id number] 02/20/20 15 02/19/2015 [facility] Follow-Up [id number] 02/20/20 15 02/19/2015 [facility] Follow-Up [id number] 02/20/20 15 02/19/2015 [facility] Follow-Up [id number] 02/20/20 15 02/19/2015 [facility] Follow-Up [id number] 02/20/20 15 02/19/2015 [facility] Follow-Up [id number] 02/20/20 15 02/19/2015 [facility] Follow-Up [id number] 02/20/20 15 02/19/2015 [facility] Follow-Up [id number] 02/20/20 15 02/19/2015 [facility] Follow-Up [id number] 02/20/20 15 02/19/2015 [facility] Follow-Up [id number] 02/20/20 15 02/19/2015 [facility] Follow-Up [id number] 02/20/20 15 02/19/2015 [facility] Follow-Up [id number] 02/20/20 15 02/19/2015 [facility] Follow-Up [id number] 02/20/20 15 02/19/2015 [facility] Follow-Up [id number] 02/20/20 15 02/19/2015 [facility] Follow-Up [id number] 02/20/20 15 02/19/2015 [facility] Follow-Up [id number] 02/20/20 15 02/19/2015 [facility] Follow-Up [id number] 02/20/20 15 02/19/2015 [facility] Follow-Up [id number] 02/20/20 15 02/19/2015 [facility] 4 Wk Follow-Up [id number] 02/20/20 15 02/19/2015 [facility] bacterial in bone [id number] 02/26/2015 02/26/2015 [facility] bacterial in bone [id number] 02/26/2015 02/26/2015 [facility] bacterial in bone [id number] 02/26/2015 02/26/2015 [facility] bone [id number] 02/26/2015 02/26/2015 [facility] bacterial in bone [id number] 02/26/2015 02/26/2015 [facility] bacterial in bone [id number] 02/26/2015 02/26/2015 [facility] bone [id number] 02/26/2015 02/26/2015 [facility] bacterial in bone [id number] 02/26/2015 02/26/2015 [facility] bacterial in bone [id number] 02/26/2015 02/26/2015 [facility] bacterial in bone [id number] 02/26/2015 02/26/2015 [facility] in bone [id number] 02/26/2015 02/26/2015 [facility] in bone [id number] 02/26/2015 02/26/2015 [facility] bacterial in bone [id number] 02/26/2015 02/26/2015 [facility] bone [id number] 02/26/2015 02/26/2015 [facility] in bone [id number] 02/26/2015 02/26/2015 [facility] in bone [id number] 02/26/2015 02/26/2015 [facility] bacterial in bone [id number] 02/26/2015 02/26/2015 [facility] in bone [id number] 02/26/2015 02/26/2015 [facility] in bone [id number]-[id number] 02/26/2015 02/26/2015 [facility] in bone [id number] 02/26/2015 02/26/2015 [facility] bacterial in bone [id number] 02/26/2015 02/26/2015 [facility] in bone [id number] 02/26/2015 02/26/2015 [facility] bone [id number] 02/26/2015 02/26/2015 [facility] bone [id number] 02/26/2015 02/26/2015 [facility] bone [id number] 02/26/2015 02/26/2015 [facility] bacterial in bone [id number] 02/26/2015 02/26/2015 [facility] bacterial in bone [id number] 02/26/2015 02/26/2015 [facility] in bone [id number] 02/26/2015 02/26/2015 [facility] in bone [id number] 02/26/2015 02/26/2015 [facility] bacterial in bone [id number] 02/26/2015 02/26/2015 [facility] in bone [id number] 02/26/2015 02/26/2015 [facility] in bone [id number] 02/26/2015 02/26/2015 [facility] in bone [id number] 02/26/2015 02/26/2015 [facility] in bone [id number] 02/26/2015 02/26/2015 [facility] in bone [id number] 02/26/2015 02/26/2015 [facility] in bone [id number] 02/26/2015 02/26/2015 [facility] Unknown [id number] 02/27/20 15 02/26/2015 [facility] [id number] 02/27/20 15 02/26/2015 [facility] [id number] 02/27/20 15 02/26/2015 [facility] [id number] 02/27/20 15 02/26/2015 [facility] [id number] 02/27/20 15 02/26/2015 [facility] [id number] 02/27/20 15 02/26/2015 [facility] [id number] 02/27/20 15 02/26/2015 [facility] [id number] 02/27/20 15 02/26/2015 [facility] [id number] 02/27/20 15 02/26/2015 [facility] [id number] 02/27/20 15 02/26/2015 [facility] [id number] 02/27/20 15 02/26/2015 [facility] [id number] 02/27/20 15 02/26/2015 [facility] [id number] 02/27/20 15 02/26/2015 [facility] [id number] 02/27/20 15 02/26/2015 [facility] [id number] 02/27/20 15 02/26/2015 [facility] [id number] 02/27/20 15 02/26/2015 [facility] [id number] 02/27/20 15 02/26/2015 [facility] [id number] 02/27/20 15 02/26/2015 [facility] [id number] 02/27/20 15 02/26/2015 [facility] [id number] 02/27/20 15 02/26/2015 [facility] [id number] 02/27/20 15 02/26/2015 [facility] [id number] 02/27/20 15 02/26/2015 [facility] [id number] 02/27/20 15 02/26/2015 [facility] [id number] 02/27/20 15 02/26/2015 [facility] [id number] 02/27/20 15 02/26/2015 [facility] [id number] 02/27/20 15 02/26/2015 [facility] [id number] 02/27/20 15 02/26/2015 [facility] [id number] 02/27/20 15 02/26/2015 [facility] [id number] 02/27/20 15 02/26/2015 [facility] [id number] 02/27/20 15 02/26/2015 [facility] [id number] 02/27/20 15 02/26/2015 [facility] [id number] 02/27/20 15 02/26/2015 [facility] [id number] 02/27/20 15 02/26/2015 [facility] [id number] 02/27/20 15 02/26/2015 [facility] [id number] 02/27/20 15 02/26/2015 [facility] [id number] 02/27/20 15 02/26/2015 [facility] Infusion [id number] 02/27/20 15 02/26/2015 [facility] Infusion [id number] 02/27/20 15 02/26/2015 [facility] Infusion [id number] 02/27/20 15 02/26/2015 [facility] Infusion [id number] 02/27/20 15 02/26/2015 [facility] Infusion [id number] 02/27/20 15 02/26/2015 [facility] Infusion [id number] 02/27/20 15 02/26/2015 [facility] Infusion [id number] 02/27/20 15 02/26/2015 [facility] Infusion [id number] 02/27/20 15 02/26/2015 [facility] Infusion [id number] 02/27/20 15 02/26/2015 [facility] Infusion [id number] 02/27/20 15 02/26/2015 [facility] Infusion [id number] 02/27/20 15 02/26/2015 [facility] Infusion [id number] 02/27/20 15 02/26/2015 [facility] Infusion [id number] 02/27/20 15 02/26/2015 [facility] Infusion [id number] 02/27/20 15 02/26/2015 [facility] Infusion [id number] 02/27/20 15 02/26/2015 [facility] Infusion [id number] 02/27/20 15 02/26/2015 [facility] Infusion [id number] 02/27/20 15 02/26/2015 [facility] Infusion [id number] 02/27/20 15 02/26/2015 [facility] Infusion [id number] 02/27/20 15 02/26/2015 [facility] Infusion [id number] 02/27/20 15 02/26/2015 [facility] Infusion [id number] 02/27/20 15 02/26/2015 [facility] Infusion [id number] 02/27/20 15 02/26/2015 [facility] Infusion [id number] 02/27/20 15 02/26/2015 [facility] Infusion [id number] 02/27/20 15 02/26/2015 [facility] Infusion [id number] 02/27/20 15 02/26/2015 [facility] Infusion [id number] 02/27/20 15 02/26/2015 [facility] Infusion [id number] 02/27/20 15 02/26/2015 [facility] Infusion [id number] 02/27/20 15 02/26/2015 [facility] Infusion [id number] 02/27/20 15 02/26/2015 [facility] Infusion [id number] 02/27/20 15 02/26/2015 [facility] Infusion [id number] 02/27/20 15 02/26/2015 [facility] Infusion [id number] 02/27/20 15 02/26/2015 [facility] Infusion [id number] 02/27/20 15 02/26/2015 [facility] Infusion [id number] 02/27/20 15 02/26/2015 [facility] Infusion [id number] 02/27/20 15 02/26/2015 [facility] Infusion [id number] 02/27/20 15 02/26/2015 [facility] IV MEDS ORDER [id number] 03/02/20 15 03/02/2015 [facility] ORDER [id number] 03/02/20 15 03/02/2015 [facility] ORDER [id number] 03/02/20 15 03/02/2015 [facility] ORDER [id number] 03/02/20 15 03/02/2015 [facility] ORDER [id number] 03/02/20 15 03/02/2015 [facility] ORDER [id number] 03/02/20 15 03/02/2015 [facility] ORDER [id number] 03/02/20 15 03/02/2015 [facility] ORDER [id number] 03/02/20 15 03/02/2015 [facility] ORDER [id number] 03/02/20 15 03/02/2015 [facility] ORDER [id number] 03/02/20 15 03/02/2015 [facility] ORDER [id number] 03/02/20 15 03/02/2015 [facility] ORDER [id number] 03/02/20 15 03/02/2015 [facility] ORDER [id number] 03/02/20 15 03/02/2015 [facility] ORDER [id number] 03/02/20 15 03/02/2015 [facility] ORDER [id number] 03/02/20 15 03/02/2015 [facility] ORDER [id number] 03/02/20 15 03/02/2015 [facility] ORDER [id number] 03/02/20 15 03/02/2015 [facility] ORDER [id number] 03/02/20 15 03/02/2015 [facility] ORDER [id number] 03/02/20 15 03/02/2015 [facility] ORDER [id number] 03/02/20 15 03/02/2015 [facility] ORDER [id number] 03/02/20 15 03/02/2015 [facility] ORDER [id number] 03/02/20 15 03/02/2015 [facility] ORDER [id number] 03/02/20 15 03/02/2015 [facility] ORDER [id number] 03/02/20 15 03/02/2015 [facility] ORDER [id number] 03/02/20 15 03/02/2015 [facility] ORDER [id number] 03/02/20 15 03/02/2015 [facility] ORDER [id number] 03/02/20 15 03/02/2015 [facility] MED[facility] ORDER [id number] 03/02/20 15 03/02/2015 [facility] ORDER [id number] 03/02/20 15 03/02/2015 [facility] ORDER [id number] 03/02/20 15 03/02/2015 [facility] ORDER [id number] 03/02/20 15 03/02/2015 [facility] ORDER [id number] 03/02/20 15 03/02/2015 [facility] ORDER [id number] 03/02/20 15 03/02/2015 [facility] ORDER [id number] 03/02/20 15 03/02/2015 [facility] ORDER [id number] 03/02/20 15 03/02/2015 [facility] ORDER [id number] 03/02/20 15 03/02/2015 [facility] Medication Refill Request [id number] 03/02/2015 03/02/2015 [facility] Medication Refill Request [id number] 03/02/2015 03/02/2015 [facility] Specialties Medication Refill Request [id number] 03/02/2015 03/02/2015 [facility] Medication Refill Request [id number] 03/02/2015 03/02/2015 [facility] Medication Refill Request [id number] 03/02/2015 03/02/2015 [facility] Specialties Medication Refill Request [id number] 03/02/2015 03/02/2015 [facility]ication Refill Request [id number] 03/02/2015 03/02/2015 [facility] Medication Refill Request [id number] 03/02/2015 03/02/2015 [facility] Medication Refill Request [id number] 03/02/2015 03/02/2015 [facility] Medication Refill Request [id number] 03/02/2015 03/02/2015 [facility] Medication Refill Request [id number] 03/02/2015 03/02/2015 [facility] Medication Refill Request [id number] 03/02/2015 03/02/2015 [facility] Medication Refill Request [id number] 03/02/2015 03/02/2015 [facility] Medication Refill Request [id number] 03/02/2015 03/02/2015 [facility] Medication Refill Request [id number] 03/02/2015 03/02/2015 [facility] Medication Refill Request [id number] 03/02/2015 03/02/2015 [facility] Medication Refill Request [id number] 03/02/2015 03/02/2015 [facility] Medication Refill Request [id number] 03/02/2015 03/02/2015 [facility] Medication Refill Request [id number] 03/02/2015 03/02/2015 [facility] Medication Refill Request [id number] 03/02/2015 03/02/2015 [facility] Specialties Medication Refill Request [id number] 03/02/2015 03/02/2015 [facility] Medication Refill Request [id number] 03/02/2015 03/02/2015 [facility] Specialties Medication Refill Request [id number] 03/02/2015 03/02/2015 [facility] Specialties Medication Refill Request [id number] 03/02/2015 03/02/2015 [facility] Med[facility] Refill Request [id number] 03/02/2015 03/02/2015 [facility] Specialties Medication Refill Request [id number] 03/02/2015 03/02/2015 [facility] Specialties Medication Refill Request [id number] 03/02/2015 03/02/2015 [facility] Specialties Medication Refill Request [id number] 03/02/2015 03/02/2015 [facility] Specialties Medication Refill Request [id number] 03/02/2015 03/02/2015 [facility] Refill Request [id number] 03/02/2015 03/02/2015 [facility] Refill Request [id number] 03/02/2015 03/02/2015 [facility] Refill Request [id number] 03/02/2015 03/02/2015 [facility] Request [id number] 03/02/2015 03/02/2015 [facility] Request [id number] 03/02/2015 03/02/2015 [facility] Request [id number] 03/02/2015 03/02/2015 [facility] Request [id number] 03/02/2015 03/02/2015 [facility] Unknown [id number] 03/04/20 15 03/04/2015 [facility] [id number] 03/04/20 15 03/04/2015 [facility] [id number] 03/04/20 15 03/04/2015 [facility] [id number] 03/04/20 15 03/04/2015 [facility] [id number] 03/04/20 15 03/04/2015 [facility] [id number] 03/04/20 15 03/04/2015 [facility] [id number] 03/04/20 15 03/04/2015 [facility] [id number] 03/04/20 15 03/04/2015 [facility] [id number] 03/04/20 15 03/04/2015 [facility] [id number] 03/04/20 15 03/04/2015 [facility] [id number] 03/04/20 15 03/04/2015 [facility] [id number] 03/04/20 15 03/04/2015 [facility] [id number] 03/04/20 15 03/04/2015 [facility] [id number] 03/04/20 15 03/04/2015 [facility] [id number] 03/04/20 15 03/04/2015 [facility] [id number] 03/04/20 15 03/04/2015 [facility] [id number] 03/04/20 15 03/04/2015 [facility] [id number] 03/04/20 15 03/04/2015 [facility] [id number] 03/04/20 15 03/04/2015 [facility] [id number] 03/04/20 15 03/04/2015 [facility] [id number] 03/04/20 15 03/04/2015 [facility] [id number] 03/04/20 15 03/04/2015 [facility] [id number] 03/04/20 15 03/04/2015 [facility] [id number] 03/04/20 15 03/04/2015 [facility] [id number] 03/04/20 15 03/04/2015 [facility] [id number] 03/04/20 15 03/04/2015 [facility] [id number] 03/04/20 15 03/04/2015 [facility] [id number] 03/04/20 15 03/04/2015 [facility] [id number] 03/04/20 15 03/04/2015 [facility] [id number] 03/04/20 15 03/04/2015 [facility] [id number] 03/04/20 15 03/04/2015 [facility] [id number] 03/04/20 15 03/04/2015 [facility] [id number] 03/04/20 15 03/04/2015 [facility] [id number] 03/04/20 15 03/04/2015 [facility] [id number] 03/04/20 15 03/04/2015 [facility] [id number] 03/04/20 15 03/04/2015 [facility]/ IV [facility] [phone] [id number] 03/16/2015 03/16/2015 [facility] [phone] [id number] 03/16/2015 03/16/2015 [facility] [phone] [id number] 03/16/2015 03/16/2015 [facility] [phone] [id number] 03/16/2015 03/16/2015 [facility] [phone] [id number] 03/16/2015 03/16/2015 [facility] [phone] [id number] 03/16/2015 03/16/2015 [facility] [phone] [id number] 03/16/2015 03/16/2015 [facility] [phone] [id number] 03/16/2015 03/16/2015 [facility] IV FROM [facility] [phone] [id number] 03/16/2015 03/16/2015 [facility] IV FROM [facility] [phone] [id number] 03/16/2015 03/16/2015 [facility] IV [facility] [phone] [id number] 03/16/2015 03/16/2015 [facility] [phone] [id number] 03/16/2015 03/16/2015 [facility] IV FROM [facility] [phone] [id number] 03/16/2015 03/16/2015 [facility] IV [facility] [phone] [id number] 03/16/2015 03/16/2015 [facility] [phone] [id number] 03/16/2015 03/16/2015 [facility] IV [facility] [phone] [id number] 03/16/2015 03/16/2015 [facility] [phone] [id number] 03/16/2015 03/16/2015 [facility] [phone] [id number] 03/16/2015 03/16/2015 [facility] [phone] [id number] 03/16/2015 03/16/2015 [facility] [phone] [id number] 03/16/2015 03/16/2015 [facility] [phone] [id number] 03/16/2015 03/16/2015 [facility] [phone] [id number] 03/16/2015 03/16/2015 [facility] [phone] [id number] 03/16/2015 03/16/2015 [facility] [phone] [id number] 03/16/2015 03/16/2015 [facility] [phone] [id number] 03/16/2015 03/16/2015 [facility] [phone] [id number] 03/16/2015 03/16/2015 [facility] [phone] [id number] 03/16/2015 03/16/2015 [facility] IV [facility] [phone] [id number] 03/16/2015 03/16/2015 [facility] [phone] [id number] 03/16/2015 03/16/2015 [facility] [phone] [id number] 03/16/2015 03/16/2015 [facility] [phone] [id number] 03/16/2015 03/16/2015 [facility] [phone] [id number] 03/16/2015 03/16/2015 [facility] [phone] [id number] 03/16/2015 03/16/2015 [facility] [phone] [id number] 03/16/2015 03/16/2015 [facility] [phone] [id number] 03/16/2015 03/16/2015 [facility] IV [facility] [phone] [id number] 03/16/2015 03/16/2015 [facility] Possible Bronchitis [id number] 03/27/20 15 03/27/2015 [facility] Possible Bronchitis [id number] 03/27/20 15 03/27/2015 [facility] Possible Bronchitis [id number] 03/27/20 15 03/27/2015 [facility] Possible Bronchitis [id number] 03/27/20 15 03/27/2015 [facility] Possible Bronchitis [id number] 03/27/20 15 03/27/2015 [facility] Possible Bronchitis [id number] 03/27/20 15 03/27/2015 [facility] Possible Bronchitis [id number] 03/27/20 15 03/27/2015 [facility] Possible Bronchitis [id number] 03/27/20 15 03/27/2015 [facility] Possible Bronchitis [id number] 03/27/20 15 03/27/2015 [facility] Possible Bronchitis [id number] 03/27/20 15 03/27/2015 [facility] Possible Bronchitis [id number] 03/27/20 15 03/27/2015 [facility] Possible Bronchitis [id number] 03/27/20 15 03/27/2015 [facility] Possible Bronchitis [id number] 03/27/20 15 03/27/2015 [facility] Possible Bronchitis [id number] 03/27/20 15 03/27/2015 [facility] Possible Bronchitis [id number] 03/27/20 15 03/27/2015 [facility] Possible Bronchitis [id number] 03/27/20 15 03/27/2015 [facility] Possible Bronchitis [id number] 03/27/20 15 03/27/2015 [facility] Possible Bronchitis [id number] 03/27/20 15 03/27/2015 [facility] Possible Bronchitis [id number] 03/27/20 15 03/27/2015 [facility] Possible Bronchitis [id number] 03/27/20 15 03/27/2015 [facility] Possible Bronchitis [id number] 03/27/20 15 03/27/2015 [facility] Possible Bronchitis [id number] 03/27/20 15 03/27/2015 [facility] Possible Bronchitis [id number] 03/27/20 15 03/27/2015 [facility] Possible Bronchitis [id number] 03/27/20 15 03/27/2015 [facility] Possible Bronchitis [id number] 03/27/20 15 03/27/2015 [facility] Possible Bronchitis [id number] 03/27/20 15 03/27/2015 [facility] Possible Bronchitis [id number] 03/27/20 15 03/27/2015 [facility] Possible Bronchitis [id number] 03/27/20 15 03/27/2015 [facility] Possible Bronchitis [id number] 03/27/20 15 03/27/2015 [facility] Possible Bronchitis [id number] 03/27/20 15 03/27/2015 [facility] Possible Bronchitis [id number] 03/27/20 15 03/27/2015 [facility] Possible Bronchitis [id number] 03/27/20 15 03/27/2015 [facility] Possible Bronchitis [id number] 03/27/20 15 03/27/2015 [facility] Possible Bronchitis [id number] 03/27/20 15 03/27/2015 [facility] Possible Bronchitis [id number] 03/27/20 15 03/27/2015 [facility] Possible Bronchitis [id number] 03/27/20 15 03/27/2015 [facility] PT PICC LINE HURT [id number] 04/06/20 15 04/06/2015 [facility] PT PICC LINE HURT [id number] 04/06/20 15 04/06/2015 [facility] PT PICC LINE HURT [id number] 04/06/20 15 04/06/2015 [facility] PT PICC LINE HURT [id number] 04/06/20 15 04/06/2015 [facility] PT PICC LINE HURT [id number] 04/06/20 15 04/06/2015 [facility] PT PICC LINE HURT [id number] 04/06/20 15 04/06/2015 [facility] PICC LINE HURT [id number] 04/06/20 15 04/06/2015 [facility] PT PICC LINE HURT [id number] 04/06/20 15 04/06/2015 [facility] PT PICC LINE HURT [id number] 04/06/20 15 04/06/2015 [facility] PICC LINE HURT [id number] 04/06/20 15 04/06/2015 [facility] PICC LINE HURT [id number] 04/06/20 15 04/06/2015 [facility] PICC LINE HURT [id number] 04/06/20 15 04/06/2015 [facility] PICC LINE HURT [id number] 04/06/20 15 04/06/2015 [facility] PICC LINE HURT [id number] 04/06/20 15 04/06/2015 [facility] PT PICC LINE HURT [id number] 04/06/20 15 04/06/2015 [facility] PT PICC LINE HURT [id number] 04/06/20 15 04/06/2015 [facility] PICC LINE HURT [id number] 04/06/20 15 04/06/2015 [facility] PICC LINE HURT [id number] 04/06/20 15 04/06/2015 [facility] PT PICC LINE HURT [id number] 04/06/20 15 04/06/2015 [facility] PT PICC LINE HURT [id number] 04/06/20 15 04/06/2015 [facility] PT PICC LINE HURT [id number] 04/06/20 15 04/06/2015 [facility] Medication Refill Request [id number] 04/06/2015 04/06/2015 [facility]ication Refill Request [id number] 04/06/2015 04/06/2015 [facility] Medication Refill Request [id number] 04/06/2015 04/06/2015 [facility] Medication Refill Request [id number] 04/06/2015 04/06/2015 [facility] Medication Refill Request [id number] 04/06/2015 04/06/2015 [facility] Medication Refill Request [id number] 04/06/2015 04/06/2015 [facility] Medication Refill Request [id number] 04/06/2015 04/06/2015 [facility] Medication Refill Request [id number] 04/06/2015 04/06/2015 [facility] Medication Refill Request [id number] 04/06/2015 04/06/2015 [facility] Medication Refill Request [id number] 04/06/2015 04/06/2015 [facility] Medication Refill Request [id number] 04/06/2015 04/06/2015 [facility] Medication Refill Request [id number] 04/06/2015 04/06/2015 [facility] Medication Refill Request [id number] 04/06/2015 04/06/2015 [facility] Refill Request [id number] 04/06/2015 04/06/2015 [facility]ication Refill Request [id number] 04/06/2015 04/06/2015 [facility]ication Refill Request [id number] 04/06/2015 04/06/2015 [facility]ication Refill Request [id number] 04/06/2015 04/06/2015 [facility]ication Refill Request [id number] 04/06/2015 04/06/2015 [facility]ication Refill Request [id number] 04/06/2015 04/06/2015 [facility]ication Refill Request [id number] 04/06/2015 04/06/2015 [facility] Medication Refill Request [id number] 04/06/2015 04/06/2015 [facility] PT PICC LINE HURT [id number] 04/06/20 15 04/06/2015 [facility] PICC LINE [facility]URT [id number] 04/06/20 15 04/06/2015 [facility] PICC LINE [facility]UR[facility] [id number] 04/06/20 15 04/06/2015 [facility] PICC LINE HUR[facility] [id number] 04/06/20 15 04/06/2015 [facility] PICC LINE HURT [id number] 04/06/20 15 04/06/2015 [facility] PICC LINE HURT [id number] 04/06/20 15 04/06/2015 [facility] PICC LINE HURT [id number] 04/06/20 15 04/06/2015 [facility] PICC LINE [facility]URT [id number] 04/06/20 15 04/06/2015 [facility] PICC LINE HUR[facility] [id number] 04/06/20 15 04/06/2015 [facility] PICC LINE [facility]URT [id number] 04/06/20 15 04/06/2015 [facility] PICC LINE HURT [id number] 04/06/20 15 04/06/2015 [facility] PICC LINE HURT [id number] 04/06/20 15 04/06/2015 [facility] PICC LINE HURT [id number] 04/06/20 15 04/06/2015 [facility] PICC LINE HURT [id number] 04/06/20 15 04/06/2015 [facility] PICC LINE HURT [id number] 04/06/20 15 04/06/2015 [facility] Medication Refill Request [id number] 04/06/2015 04/06/2015 [facility] Refill Request [id number] 04/06/2015 04/06/2015 [facility] Medication Refill Request [id number] 04/06/2015 04/06/2015 [facility] Medication Refill Request [id number] 04/06/2015 04/06/2015 [facility] Medication Refill Request [id number] 04/06/2015 04/06/2015 [facility]ication Refill Request [id number] 04/06/2015 04/06/2015 [facility] Medication Refill Request [id number] 04/06/2015 04/06/2015 [facility] Medication Refill Request [id number] 04/06/2015 04/06/2015 [facility] Medication Refill Request [id number] 04/06/2015 04/06/2015 [facility] Refill Request [id number] 04/06/2015 04/06/2015 [facility] Refill Request [id number] 04/06/2015 04/06/2015 [facility] Refill Request [id number] 04/06/2015 04/06/2015 [facility] Refill Request [id number] 04/06/2015 04/06/2015 [facility] Ref[facility] Request [id number] 04/06/2015 04/06/2015 [facility] Refill Request [id number] 04/06/2015 04/06/2015 [facility] called pt to check on [id number] 04/09/2015 04/09/2015 [facility] called pt to check on [id number] 04/09/2015 04/09/2015 [facility] called pt to check on [id number] 04/09/2015 04/09/2015 [facility] called pt to check on [id number] 04/09/2015 04/09/2015 [facility] called pt to check on [id number] 04/09/2015 04/09/2015 [facility] called pt to check on [id number] 04/09/2015 04/09/2015 [facility] called pt to check on [id number] 04/09/2015 04/09/2015 [facility] called pt to check on [id number] 04/09/2015 04/09/2015 [facility] called pt to check on [id number] 04/09/2015 04/09/2015 [facility] called pt to check on [id number] 04/09/2015 04/09/2015 [facility] called pt to check on [id number] 04/09/2015 04/09/2015 [facility] called pt to check on [id number] 04/09/2015 04/09/2015 [facility] called pt to check on [id number] 04/09/2015 04/09/2015 [facility] called pt to check on [id number] 04/09/2015 04/09/2015 [facility] called pt to check on [id number] 04/09/2015 04/09/2015 [facility] called pt to check on [id number] 04/09/2015 04/09/2015 [facility] called pt to check on [id number] 04/09/2015 04/09/2015 [facility] called pt to check on [id number] 04/09/2015 04/09/2015 [facility] called pt to check on [id number] 04/09/2015 04/09/2015 [facility] called pt to check on [id number] 04/09/2015 04/09/2015 [facility] called pt to check on [id number] 04/09/2015 04/09/2015 [facility] called pt to check on [id number] 04/09/2015 04/09/2015 [facility] called pt to check on [id number] 04/09/2015 04/09/2015 [facility] called pt to check on [id number] 04/09/2015 04/09/2015 [facility] called pt to check on [id number] 04/09/2015 04/09/2015 [facility] called pt to check on [id number] 04/09/2015 04/09/2015 [facility] called pt to check on [id number] 04/09/2015 04/09/2015 [facility] called pt to check on [id number] 04/09/2015 04/09/2015 [facility] called pt to check on [id number] 04/09/2015 04/09/2015 [facility] called pt to check on [id number] 04/09/2015 04/09/2015 [facility] called pt to check on [id number] 04/09/2015 04/09/2015 [facility] called pt to check on [id number] 04/09/2015 04/09/2015 [facility] called pt to check on [id number] 04/09/2015 04/09/2015 [facility] called pt to check on [id number] 04/09/2015 04/09/2015 [facility] called pt to check on [id number] 04/09/2015 04/09/2015 [facility] called pt to check on [id number] 04/09/2015 04/09/2015 [facility] Unknown [id number] 04/12/19 16 04/12/2015 [facility] Unknown [id number] 04/12/19 16 04/12/2015 [facility] Unknown [id number] 04/12/19 16 04/12/2015 [facility] Unknown [id number] 04/12/19 16 04/12/2015 [facility] Unknown [id number] 04/12/19 16 04/12/2015 [facility] [id number] 04/12/19 16 04/12/2015 [facility] [id number] 04/12/19 16 04/12/2015 [facility] [id number] 04/12/19 16 04/12/2015 [facility] Unknown [id number] 04/12/19 16 04/12/2015 [facility] Unknown [id number] 04/12/19 16 04/12/2015 [facility] Unknown [id number] 04/12/19 16 04/12/2015 [facility] [id number] 04/12/19 16 04/12/2015 [facility] [id number] 04/12/19 16 04/12/2015 [facility] [id number] 04/12/19 16 04/12/2015 [facility] [id number] 04/12/19 16 04/12/2015 [facility] [id number] 04/12/19 16 04/12/2015 [facility] [id number] 04/12/19 16 04/12/2015 [facility] Unknown [id number] 04/12/19 16 04/12/2015 [facility] [id number] 04/12/19 16 04/12/2015 [facility] [id number] 04/12/19 16 04/12/2015 [facility] [id number] 04/12/19 16 04/12/2015 [facility] [id number] 04/12/19 16 04/12/2015 [facility] [id number] 04/12/19 16 04/12/2015 [facility] Unknown [id number] 04/12/19 16 04/12/2015 [facility] Unknown [id number] 04/12/19 16 04/12/2015 [facility] Unknown [id number] 04/12/19 16 04/12/2015 [facility] [id number] 04/12/19 16 04/12/2015 [facility] [id number] 04/12/19 16 04/12/2015 [facility] [id number] 04/12/19 16 04/12/2015 [facility] [id number] 04/12/19 16 04/12/2015 [facility] [id number] 04/12/19 16 04/12/2015 [facility] [id number] 04/12/19 16 04/12/2015 [facility] Unknown [id number] 04/12/19 16 04/12/2015 [facility] Unknown [id number] 04/12/19 16 04/12/2015 [facility] [id number] 04/12/19 16 04/12/2015 [facility] [id number] 04/12/19 16 04/12/2015 [facility] / after iv Last dose 1.1.16 [id number] 04/13/2015 04/13/2015 [facility] / after iv Last dose 1.1.16 [id number] 04/13/2015 04/13/2015 [facility] / after iv Last dose 1.1.16 [id number] 04/13/2015 04/13/2015 [facility] / after iv Last dose 1.1.16 [id number] 04/13/2015 04/13/2015 [facility] / after iv Last dose 1.1.16 [id number] 04/13/2015 04/13/2015 [facility] / after iv Last dose 1.1.16 [id number] 04/13/2015 04/13/2015 [facility] / after iv Last dose 1.1.16 [id number] 04/13/2015 04/13/2015 [facility] / after iv Last dose 1.1.16 [id number] 04/13/2015 04/13/2015 [facility] / after iv Last dose 1.1.16 [id number] 04/13/2015 04/13/2015 [facility] / after iv Last dose 1.1.16 [id number] 04/13/2015 04/13/2015 [facility] / after iv Last dose 1.1.16 [id number] 04/13/2015 04/13/2015 [facility] / after iv Last dose 1.1.16 [id number] 04/13/2015 04/13/2015 [facility] / after iv Last dose 1.1.16 [id number] 04/13/2015 04/13/2015 [facility] / after iv Last dose 1.1.16 [id number] 04/13/2015 04/13/2015 [facility] / after iv Last dose 1.1.16 [id number] 04/13/2015 04/13/2015 [facility] / after iv Last dose 1.1.16 [id number] 04/13/2015 04/13/2015 [facility] / after iv Last dose 1.1.16 [id number] 04/13/2015 04/13/2015 [facility] / after iv Last dose 1.1.16 [id number] 04/13/2015 04/13/2015 [facility] / after iv Last dose 1.1.16 [id number] 04/13/2015 04/13/2015 [facility] / after iv Last dose 1.1.16 [id number] 04/13/2015 04/13/2015 [facility] / after iv Last dose 1.1.16 [id number] 04/13/2015 04/13/2015 [facility] / after iv Last dose 1.1.16 [id number] 04/13/2015 04/13/2015 [facility] / after iv Last dose 1.1.16 [id number] 04/13/2015 04/13/2015 [facility] / after iv Last dose 1.1.16 [id number] 04/13/2015 04/13/2015 [facility] / after iv Last dose 1.1.16 [id number] 04/13/2015 04/13/2015 [facility] / after iv Last dose 1.1.16 [id number] 04/13/2015 04/13/2015 [facility] / after iv Last dose 1.1.16 [id number] 04/13/2015 04/13/2015 [facility] / after iv Last dose 1.1.16 [id number] 04/13/2015 04/13/2015 [facility] / after iv Last dose 1.1.16 [id number] 04/13/2015 04/13/2015 [facility] / after iv Last dose 1.1.16 [id number] 04/13/2015 04/13/2015 [facility] / after iv Last dose 1.1.16 [id number] 04/13/2015 04/13/2015 [facility] / after iv Last dose 1.1.16 [id number] 04/13/2015 04/13/2015 [facility] / after iv Last dose 1.1.16 [id number] 04/13/2015 04/13/2015 [facility] / after iv Last dose 1.1.16 [id number] 04/13/2015 04/13/2015 [facility] / after iv Last dose 1.1.16 [id number] 04/13/2015 04/13/2015 [facility] / after iv Last dose 1.1.16 [id number] 04/13/2015 04/13/2015 [facility] ! - Referral - Dr. Bruno <Pending Authorization> [id number] 04/20/2015 04/20/2015 [facility] ! - Referral - Dr. Bruno <Pending Authorization> [id number] 04/20/2015 04/20/2015 [facility] ! - Referral - Dr. Bruno <Pending Authorization> [id number] 04/20/2015 04/20/2015 [facility] ! - Referral - Dr. Bruno <Pending Authorization> [id number] 04/20/2015 04/20/2015 [facility] ! - Referral - Dr. Bruno <Pending Authorization> [id number] 04/20/2015 04/20/2015 [facility] ! - Referral - Dr. Bruno <Pending Authorization> [id number] 04/20/2015 04/20/2015 [facility] ! - Referral - Dr. Bruno <Pending Authorization> [id number] 04/20/2015 04/20/2015 [facility] ! - Referral - Dr. Bruno <Pending Authorization> [id number] 04/20/2015 04/20/2015 [facility] ! - Referral - Dr. Bruno <Pending Authorization> [id number] 04/20/2015 04/20/2015 [facility] ! - Referral - Dr. Bruno <Pending Authorization> [id number] 04/20/2015 04/20/2015 [facility] ! - Referral - Dr. Bruno <Pending Authorization> [id number] 04/20/2015 04/20/2015 [facility] ! - Referral - Dr. Bruno <Pending Authorization> [id number] 04/20/2015 04/20/2015 [facility] ! - Referral - Dr. Bruno <Pending Authorization> [id number] 04/20/2015 04/20/2015 [facility] ! - Referral - Dr. Bruno <Pending Authorization> [id number] 04/20/2015 04/20/2015 [facility] ! - Referral - Dr. Bruno <Pending Authorization> [id number] 04/20/2015 04/20/2015 [facility] ! - Referral - Dr. Bruno <Pending Authorization> [id number] 04/20/2015 04/20/2015 [facility] ! - Referral - Dr. Bruno <Pending Authorization> [id number] 04/20/2015 04/20/2015 [facility] ! - Referral - Dr. Bruno <Pending Authorization> [id number] 04/20/2015 04/20/2015 [facility] ! - Referral - Dr. Bruno <Pending Authorization> [id number] 04/20/2015 04/20/2015 [facility] ! - Referral - Dr. Bruno <Pending Authorization> [id number] 04/20/2015 04/20/2015 [facility] ! - Referral - Dr. Bruno <Pending Authorization> [id number] 04/20/2015 04/20/2015 [facility] ! - Referral - Dr. Bruno <Pending Authorization> [id number] 04/20/2015 04/20/2015 [facility] ! - Referral - Dr. Bruno <Pending Authorization> [id number] 04/20/2015 04/20/2015 [facility] ! - Referral - Dr. Bruno <Pending Authorization> [id number] 04/20/2015 04/20/2015 [facility] ! - Referral - Dr. Bruno <Pending Authorization> [id number] 04/20/2015 04/20/2015 [facility] ! - Referral - Dr. Bruno <Pending Authorization> [id number] 04/20/2015 04/20/2015 [facility] ! - Referral - Dr. Bruno <Pending Authorization> [id number] 04/20/2015 04/20/2015 [facility] ! - Referral - Dr. Bruno <Pending Authorization> [id number] 04/20/2015 04/20/2015 [facility] ! - Referral - Dr. Bruno <Pending Authorization> [id number] 04/20/2015 04/20/2015 [facility] ! - Referral - Dr[facility] Bruno <Pending Authorization> [id number] 04/20/2015 04/20/2015 [facility] ! - Referral - Dr[facility] Bruno <Pending Authorization> [id number] 04/20/2015 04/20/2015 [facility] ! - Referral - Dr[facility] Bruno <Pending Authorization> [id number] 04/20/2015 04/20/2015 [facility] ! - Referral - Dr. Bruno <Pending Authorization> [id number] 04/20/2015 04/20/2015 [facility] ! - Referral - Dr. Bruno <Pending Authorization> [id number] 04/20/2015 04/20/2015 [facility] ! - Referral - Dr. Bruno <Pending Authorization> [id number] 04/20/2015 04/20/2015 [facility] ! - Referral - Dr. Bruno <Pending Authorization> [id number] 04/20/2015 04/20/2015 [facility] Medication Refill Request [id number] 04/29/2015 04/29/2015 [facility] Medication Refill Request [id number] 04/29/2015 04/29/2015 [facility] Medication Refill Request [id number] 04/29/2015 04/29/2015 [facility] Medication Refill Request [id number] 04/29/2015 04/29/2015 [facility] Medication Refill Request [id number] 04/29/2015 04/29/2015 [facility] Medication Refill Request [id number] 04/29/2015 04/29/2015 [facility] Medication Refill Request [id number] 04/29/2015 04/29/2015 [facility] Medication Refill Request [id number] 04/29/2015 04/29/2015 [facility] Medication Refill Request [id number] 04/29/2015 04/29/2015 [facility] Medication Refill Request [id number] 04/29/2015 04/29/2015 [facility] Medication Refill Request [id number] 04/29/2015 04/29/2015 [facility] Medication Refill Request [id number] 04/29/2015 04/29/2015 [facility] Medication Refill Request [id number] 04/29/2015 04/29/2015 [facility] Medication Refill Request [id number] 04/29/2015 04/29/2015 [facility] Medication Refill Request [id number] 04/29/2015 04/29/2015 [facility] Medication Refill Request [id number] 04/29/2015 04/29/2015 [facility] Medication Refill Request [id number] 04/29/2015 04/29/2015 [facility] Medication Refill Request [id number] 04/29/2015 04/29/2015 [facility] Medication Refill Request [id number] 04/29/2015 04/29/2015 [facility] Medication Refill Request [id number] 04/29/2015 04/29/2015 [facility] Medication Refill Request [id number] 04/29/2015 04/29/2015 [facility] Medication Refill Request [id number] 04/29/2015 04/29/2015 [facility] Medication Refill Request [id number] 04/29/2015 04/29/2015 [facility] Medication Refill Request [id number] 04/29/2015 04/29/2015 [facility] Medication Refill Request [id number] 04/29/2015 04/29/2015 [facility] Medication Refill Request [id number] 04/29/2015 04/29/2015 [facility] Medication Refill Request [id number] 04/29/2015 04/29/2015 [facility] Medication Refill Request [id number] 04/29/2015 04/29/2015 [facility] Medication Refill Request [id number] 04/29/2015 04/29/2015 [facility] Medication Refill Request [id number] 04/29/2015 04/29/2015 [facility] Medication Refill Request [id number] 04/29/2015 04/29/2015 [facility] Medication Refill Request [id number] 04/29/2015 04/29/2015 [facility] Medication Refill Request [id number] 04/29/2015 04/29/2015 [facility] Medication Refill Request [id number] 04/29/2015 04/29/2015 [facility] Medication Refill Request [id number] 04/29/2015 04/29/2015 [facility] Refill Request [id number] 04/29/2015 04/29/2015 [facility] Request [id number] 05/04/2015 05/04/2015 [facility] Request [id number] 05/04/2015 05/04/2015 [facility] Request [id number] 05/04/2015 05/04/2015 [facility] Request [id number] 05/04/2015 05/04/2015 [facility] Request [id number] 05/04/2015 05/04/2015 [facility] Request [id number] 05/04/2015 05/04/2015 [facility] Request [id number] 05/04/2015 05/04/2015 [facility] Request [id number] 05/04/2015 05/04/2015 [facility] Request [id number] 05/04/2015 05/04/2015 [facility] Request [id number] 05/04/2015 05/04/2015 [facility] Request [id number] 05/04/2015 05/04/2015 [facility] Request [id number] 05/04/2015 05/04/2015 [facility] Request [id number] 05/04/2015 05/04/2015 [facility] Request [id number] 05/04/2015 05/04/2015 [facility] Request [id number] 05/04/2015 05/04/2015 [facility] Request [id number] 05/04/2015 05/04/2015 [facility] Request [id number] 05/04/2015 05/04/2015 [facility] Request [id number] 05/04/2015 05/04/2015 [facility] Request [id number] 05/04/2015 05/04/2015 [facility] Request [id number] 05/04/2015 05/04/2015 [facility] Request [id number] 05/04/2015 05/04/2015 [facility] Medication Request [id number] 05/04/2015 05/04/2015 [facility] Request [id number] 05/04/2015 05/04/2015 [facility] Request [id number] 05/04/2015 05/04/2015 [facility] Request [id number] 05/04/2015 05/04/2015 [facility] Request [id number] 05/04/2015 05/04/2015 [facility] Request [id number] 05/04/2015 05/04/2015 [facility] Request [id number] 05/04/2015 05/04/2015 [facility] Request [id number] 05/04/2015 05/04/2015 [facility] Request [id number] 05/04/2015 05/04/2015 [facility] Request [id number] 05/04/2015 05/04/2015 [facility] Request [id number] 05/04/2015 05/04/2015 [facility] Request [id number] 05/04/2015 05/04/2015 [facility] Request [id number] 05/04/2015 05/04/2015 [facility]ication Request [id number] 05/04/2015 05/04/2015 [facility] Request [id number] 05/04/2015 05/04/2015 [facility] Request [id number] 05/27/2015 05/27/2015 [facility] Request [id number] 05/27/2015 05/27/2015 [facility] Request [id number] 05/27/2015 05/27/2015 [facility] Request [id number] 05/27/2015 05/27/2015 [facility] Request [id number] 05/27/2015 05/27/2015 [facility] Request [id number] 05/27/2015 05/27/2015 [facility] Request [id number] 05/27/2015 05/27/2015 [facility] Request [id number] 05/27/2015 05/27/2015 [facility] Request [id number] 05/27/2015 05/27/2015 [facility] Request [id number] 05/27/2015 05/27/2015 [facility] Request [id number] 05/27/2015 05/27/2015 [facility] Request [id number] 05/27/2015 05/27/2015 [facility] Request [id number] 05/27/2015 05/27/2015 [facility] Request [id number] 05/27/2015 05/27/2015 [facility] Request [id number] 05/27/2015 05/27/2015 [facility] Request [id number] 05/27/2015 05/27/2015 [facility] Request [id number] 05/27/2015 05/27/2015 [facility] Request [id number] 05/27/2015 05/27/2015 [facility] Request [id number] 05/27/2015 05/27/2015 [facility] Request [id number] 05/27/2015 05/27/2015 [facility] Request [id number] 05/27/2015 05/27/2015 [facility] Request [id number] 05/27/2015 05/27/2015 [facility] Request [id number] 05/27/2015 05/27/2015 [facility] Request [id number] 05/27/2015 05/27/2015 [facility] Request [id number] 05/27/2015 05/27/2015 [facility] Request [id number] 05/27/2015 05/27/2015 [facility] Request [id number] 05/27/2015 05/27/2015 [facility] Request [id number] 05/27/2015 05/27/2015 [facility] Request [id number] 05/27/2015 05/27/2015 [facility] Request [id number] 05/27/2015 05/27/2015 [facility] Request [id number] 05/27/2015 05/27/2015 [facility] Request [id number] 05/27/2015 05/27/2015 [facility] Request [id number] 05/27/2015 05/27/2015 [facility] [id number] 06/11/19 16 06/11/2015 [facility] [id number] 06/11/19 16 06/11/2015 [facility] [id number] 06/11/19 16 06/11/2015 [facility] [id number] 06/11/19 16 06/11/2015 [facility] [id number] 06/11/19 16 06/11/2015 [facility] [id number] 06/11/19 16 06/11/2015 [facility] [id number] 06/11/19 16 06/11/2015 [facility] [id number] 06/11/19 16 06/11/2015 [facility] [id number] 06/11/19 16 06/11/2015 [facility] [id number] 06/11/19 16 06/11/2015 [facility] [id number] 06/11/19 16 06/11/2015 [facility] [id number] 06/11/19 16 06/11/2015 [facility] Ref[facility] [id number] 06/11/19 16 06/11/2015 [facility] [id number] 06/11/19 16 06/11/2015 [facility] [id number] 06/11/19 16 06/11/2015 [facility] [id number] 06/11/19 16 06/11/2015 [facility] [id number] 06/11/19 16 06/11/2015 [facility] [id number] 06/11/19 16 06/11/2015 [facility] [id number] 06/11/19 16 06/11/2015 [facility] [id number] 06/11/19 16 06/11/2015 [facility] Ref[facility] [id number] 06/11/19 16 06/11/2015 [facility] [id number] 06/11/19 16 06/11/2015 [facility] Ref[facility] [id number] 06/11/19 16 06/11/2015 [facility] [id number] 06/11/19 16 06/11/2015 [facility] Refill [id number] 06/11/19 16 06/11/2015 [facility] Ref[facility] [id number] 06/11/19 16 06/11/2015 [facility] [id number] 06/11/19 16 06/11/2015 [facility] [id number] 06/11/19 16 06/11/2015 [facility] Ref[facility] [id number] 06/11/19 16 06/11/2015 [facility] Ref[facility] [id number] 06/11/19 16 06/11/2015 [facility] Ref[facility] [id number] 06/11/19 16 06/11/2015 [facility] [id number] 06/11/19 16 06/11/2015 [facility] Medication Refills [id number] 06/12/2015 06/12/2015 [facility] Medication Refills [id number] 06/12/2015 06/12/2015 [facility] Medication Refills [id number] 06/12/2015 06/12/2015 [facility] Medication Refills [id number] 06/12/2015 06/12/2015 [facility] Medication Refills [id number] 06/12/2015 06/12/2015 [facility] Medication Refills [id number] 06/12/2015 06/12/2015 [facility] Medication Refills [id number] 06/12/2015 06/12/2015 [facility] Medication Refills [id number] 06/12/2015 06/12/2015 [facility] Medication Refills [id number] 06/12/2015 06/12/2015 [facility] Medication Refills [id number] 06/12/2015 06/12/2015 [facility] Medication Refills [id number] 06/12/2015 06/12/2015 [facility] Medication Refills [id number] 06/12/2015 06/12/2015 [facility] Medication Refills [id number] 06/12/2015 06/12/2015 [facility] Medication Refills [id number] 06/12/2015 06/12/2015 [facility] Medication Refills [id number] 06/12/2015 06/12/2015 [facility] Medication Refills [id number] 06/12/2015 06/12/2015 [facility] Medication Refills [id number] 06/12/2015 06/12/2015 [facility] Medication Refills [id number] 06/12/2015 06/12/2015 [facility] Medication Refills [id number] 06/12/2015 06/12/2015 [facility] Medication Refills [id number] 06/12/2015 06/12/2015 [facility] Refills [id number] 06/12/2015 06/12/2015 [facility] Refills [id number] 06/12/2015 06/12/2015 [facility] Refills [id number] 06/12/2015 06/12/2015 [facility] Refills [id number] 06/12/2015 06/12/2015 [facility] Refills [id number] 06/12/2015 06/12/2015 [facility] Medication Refills [id number] 06/12/2015 06/12/2015 [facility] Refills [id number] 06/12/2015 06/12/2015 [facility] Refills [id number] 06/12/2015 06/12/2015 [facility] Med[facility] Refills [id number] 06/12/2015 06/12/2015 [facility] Med[facility] Refills [id number] 06/12/2015 06/12/2015 [facility] Medication Refills [id number] 06/12/2015 06/12/2015 [facility] Other [id number] 06/16/19 16 06/16/2015 [facility] Other [id number] 06/16/19 16 06/16/2015 [facility] Other [id number] 06/16/19 16 06/16/2015 [facility] Other [id number] 06/16/19 16 06/16/2015 [facility] Other [id number] 06/16/19 16 06/16/2015 [facility] Other [id number] 06/16/19 16 06/16/2015 [facility] Other [id number] 06/16/19 16 06/16/2015 [facility] Other [id number] 06/16/19 16 06/16/2015 [facility] Other [id number] 06/16/19 16 06/16/2015 [facility] Other [id number] 06/16/19 16 06/16/2015 [facility] Other [id number] 06/16/19 16 06/16/2015 [facility] Other [id number] 06/16/19 16 06/16/2015 [facility] Other [id number] 06/16/19 16 06/16/2015 [facility] Other [id number] 06/16/19 16 06/16/2015 [facility] Other [id number] 06/16/19 16 06/16/2015 [facility] Other [id number] 06/16/19 16 06/16/2015 [facility] Other [id number] 06/16/19 16 06/16/2015 [facility] Other [id number] 06/16/19 16 06/16/2015 [facility] Other [id number] 06/16/19 16 06/16/2015 [facility] Other [id number] 06/16/19 16 06/16/2015 [facility] Other [id number] 06/16/19 16 06/16/2015 [facility] Other [id number] 06/16/19 16 06/16/2015 [facility] Other [id number] 06/16/19 16 06/16/2015 [facility] Other [id number] 06/16/19 16 06/16/2015 [facility] Other [id number] 06/16/19 16 06/16/2015 [facility] Other [id number] 06/16/19 16 06/16/2015 [facility] Other [id number] 06/16/19 16 06/16/2015 [facility] Other [id number] 06/16/19 16 06/16/2015 [facility] Other [id number] 06/16/19 16 06/16/2015 [facility] Other [id number] 06/16/19 16 06/16/2015 [facility] Appt for 09/11/15 [id number] 06/24/19 16 06/24/2015 [facility] Appt for 09/11/15 [id number] 06/24/19 16 06/24/2015 [facility]t for 09/11/15 [id number] 06/24/19 16 06/24/2015 [facility]t for 09/11/15 [id number] 06/24/19 16 06/24/2015 [facility]t for 09/11/15 [id number] 06/24/19 16 06/24/2015 [facility] for 09/11/15 [id number] 06/24/19 16 06/24/2015 [facility] for 09/11/15 [id number] 06/24/19 16 06/24/2015 [facility]t for 09/11/15 [id number] 06/24/19 16 06/24/2015 [facility]t for 09/11/15 [id number] 06/24/19 16 06/24/2015 [facility] Appt for 09/11/15 [id number] 06/24/19 16 06/24/2015 [facility] Appt for 09/11/15 [id number] 06/24/19 16 06/24/2015 [facility] Appt for 09/11/15 [id number] 06/24/19 16 06/24/2015 [facility]t for 09/11/15 [id number] 06/24/19 16 06/24/2015 [facility]t for 09/11/15 [id number] 06/24/19 16 06/24/2015 [facility]t for 09/11/15 [id number] 06/24/19 16 06/24/2015 [facility] Appt for 09/11/15 [id number] 06/24/19 16 06/24/2015 [facility]t for 09/11/15 [id number] 06/24/19 16 06/24/2015 [facility] Appt for 09/11/15 [id number] 06/24/19 16 06/24/2015 [facility] for 09/11/15 [id number] 06/24/19 16 06/24/2015 [facility] for 09/11/15 [id number] 06/24/19 16 06/24/2015 [facility] for 09/11/15 [id number] 06/24/19 16 06/24/2015 [facility] for 09/11/15 [id number] 06/24/19 16 06/24/2015 [facility] Appt for 09/11/15 [id number] 06/24/19 16 06/24/2015 [facility] for 09/11/15 [id number] 06/24/19 16 06/24/2015 [facility] for 09/11/15 [id number] 06/24/19 16 06/24/2015 [facility] for 09/11/15 [id number] 06/24/19 16 06/24/2015 [facility] for 09/11/15 [id number] 06/24/19 16 06/24/2015 [facility] for 09/11/15 [id number] 06/24/19 16 06/24/2015 [facility] for 09/11/15 [id number] 06/24/19 16 06/24/2015 [facility] Refill? [id number] 07/06/19 16 07/06/2015 [facility] Refill? [id number] 07/06/19 16 07/06/2015 [facility] Refill? [id number] 07/06/19 16 07/06/2015 [facility] Refill? [id number] 07/06/19 16 07/06/2015 [facility] Refill? [id number] 07/06/19 16 07/06/2015 [facility] Refill? [id number] 07/06/19 16 07/06/2015 [facility] Refill? [id number] 07/06/19 16 07/06/2015 [facility] Refill? [id number] 07/06/19 16 07/06/2015 [facility] Refill? [id number] 07/06/19 16 07/06/2015 [facility] Refill? [id number] 07/06/19 16 07/06/2015 [facility] Refill? [id number] 07/06/19 16 07/06/2015 [facility] Refill? [id number] 07/06/19 16 07/06/2015 [facility] Refill? [id number] 07/06/19 16 07/06/2015 [facility] Refill? [id number] 07/06/19 16 07/06/2015 [facility] Refill? [id number] 07/06/19 16 07/06/2015 [facility] Refill? [id number] 07/06/19 16 07/06/2015 [facility] Refill? [id number] 07/06/19 16 07/06/2015 [facility] Refill? [id number] 07/06/19 16 07/06/2015 [facility] Refill? [id number] 07/06/19 16 07/06/2015 [facility] Refill? [id number] 07/06/19 16 07/06/2015 [facility] Refill? [id number] 07/06/19 16 07/06/2015 [facility] Refill? [id number] 07/06/19 16 07/06/2015 [facility] Refill? [id number] 07/06/19 16 07/06/2015 [facility] Refill? [id number] 07/06/19 16 07/06/2015 [facility] Refill? [id number] 07/06/19 16 07/06/2015 [facility] Refill? [id number] 07/06/19 16 07/06/2015 [facility] Refill? [id number] 07/06/19 16 07/06/2015 [facility] Ref[facility]? [id number] 07/06/19 16 07/06/2015 [facility] 3 month follow up [id number] 07/14/19 16 07/14/2015 [facility] 3 month follow up [id number] 07/14/19 16 07/14/2015 [facility] 3 month follow up [id number] 07/14/19 16 07/14/2015 [facility] 3 month follow up [id number] 07/14/19 16 07/14/2015 [facility] 3 month follow up [id number] 07/14/19 16 07/14/2015 [facility] 3 month follow up [id number] 07/14/19 16 07/14/2015 [facility] 3 month follow up [id number] 07/14/19 16 07/14/2015 [facility] 3 month follow up [id number] 07/14/19 16 07/14/2015 [facility] 3 month follow up [id number] 07/14/19 16 07/14/2015 [facility] 3 month follow up [id number] 07/14/19 16 07/14/2015 [facility] 3 month follow up [id number] 07/14/19 16 07/14/2015 [facility] 3 month follow up [id number] 07/14/19 16 07/14/2015 [facility] 3 month follow up [id number] 07/14/19 16 07/14/2015 [facility] 3 month follow up [id number] 07/14/19 16 07/14/2015 [facility] 3 month follow up [id number] 07/14/19 16 07/14/2015 [facility] 3 month follow up [id number] 07/14/19 16 07/14/2015 [facility] 3 month follow up [id number] 07/14/19 16 07/14/2015 [facility] 3 month follow up [id number] 07/14/19 16 07/14/2015 [facility] 3 month follow up [id number] 07/14/19 16 07/14/2015 [facility] retro referral [id number] 07/14/19 16 07/14/2015 [facility] [id number] 07/14/19 16 07/14/2015 [facility] [id number] 07/14/19 16 07/14/2015 [facility] [id number] 07/14/19 16 07/14/2015 [facility] [id number] 07/14/19 16 07/14/2015 [facility] [id number] 07/14/19 16 07/14/2015 [facility] [id number] 07/14/19 16 07/14/2015 [facility] [id number] 07/14/19 16 07/14/2015 [facility] [id number] 07/14/19 16 07/14/2015 [facility] [id number] 07/14/19 16 07/14/2015 [facility] [id number] 07/14/19 16 07/14/2015 [facility] [id number] 07/14/19 16 07/14/2015 [facility] [id number] 07/14/19 16 07/14/2015 [facility] [id number] 07/14/19 16 07/14/2015 [facility] [id number] 07/14/19 16 07/14/2015 [facility] [id number] 07/14/19 16 07/14/2015 [facility] 3 month follow up [id number] 07/14/19 16 07/14/2015 [facility] 3 month follow up [id number] 07/14/19 16 07/14/2015 [facility] 3 month follow up [id number] 07/14/19 16 07/14/2015 [facility] 3 month follow up [id number] 07/14/19 16 07/14/2015 [facility] 3 month follow up [id number] 07/14/19 16 07/14/2015 [facility] 3 month follow up [id number] 07/14/19 16 07/14/2015 [facility] 3 month follow up [id number] 07/14/19 16 07/14/2015 [facility] 3 month follow up [id number] 07/14/19 16 07/14/2015 [facility] [id number] 07/14/19 16 07/14/2015 [facility] [id number] 07/14/19 16 07/14/2015 [facility] [id number] 07/14/19 16 07/14/2015 [facility] [id number] 07/14/19 16 07/14/2015 [facility] [id number] 07/14/19 16 07/14/2015 [facility] [id number] 07/14/19 16 07/14/2015 [facility] [id number] 07/14/19 16 07/14/2015 [facility] [id number] 07/14/19 16 07/14/2015 [facility]u from hosp [facility] / [facility] [id number] 07/16/2015 07/16/2015 [facility]u from hosp [facility] / [facility] [id number] 07/16/2015 07/16/2015 [facility] from hosp [facility] / [facility] [id number] 07/16/2015 07/16/2015 [facility] from hosp [facility] / [facility] [id number] 07/16/2015 07/16/2015 [facility] from hosp [facility] / Large [facility] [id number] 07/16/2015 07/16/2015 [facility] from hosp [facility] / [facility] [id number] 07/16/2015 07/16/2015 [facility] from hosp [facility] / Large [facility] [id number] 07/16/2015 07/16/2015 [facility] from hosp [facility] / [facility] [id number] 07/16/2015 07/16/2015 [facility] from hosp [facility] / Large [facility] [id number] 07/16/2015 07/16/2015 [facility] from hosp [facility] / Large [facility] [id number] 07/16/2015 07/16/2015 [facility] from hosp [facility] / Large [facility] [id number] 07/16/2015 07/16/2015 [facility] from hosp [facility] / Large [facility] [id number] 07/16/2015 07/16/2015 [facility] from hosp [facility] / [facility] [id number] 07/16/2015 07/16/2015 [facility] from hosp [facility] / [facility] [id number] 07/16/2015 07/16/2015 [facility] from hosp [facility] / [facility] [id number] 07/16/2015 07/16/2015 [facility] hosp [facility] / [facility] [id number] 07/16/2015 07/16/2015 [facility] hosp [facility] / [facility] [id number] 07/16/2015 07/16/2015 [facility] from hosp [facility] / [facility] [id number] 07/16/2015 07/16/2015 [facility] from hosp [facility] / [facility] [id number] 07/16/2015 07/16/2015 [facility] from hosp [facility] / [facility] [id number] 07/16/2015 07/16/2015 [facility] from hosp [facility] / [facility] [id number] 07/16/2015 07/16/2015 [facility] from hosp [facility] / [facility] [id number] 07/16/2015 07/16/2015 [facility] hosp [facility] / [facility] [id number] 07/16/2015 07/16/2015 [facility] hosp [facility] / [facility] [id number] 07/16/2015 07/16/2015 [facility] from hosp [facility] [id number] 07/16/2015 07/16/2015 [facility] pt came by the office [id number] 08/06/19 16 08/06/2015 [facility] pt came by the office [id number] 08/06/19 16 08/06/2015 [facility] pt came by the office [id number] 08/06/19 16 08/06/2015 [facility] pt came by the office [id number] 08/06/19 16 08/06/2015 [facility] pt came by the office [id number] 08/06/19 16 08/06/2015 [facility] pt came by the office [id number] 08/06/19 16 08/06/2015 [facility] pt came by the office [id number] 08/06/19 16 08/06/2015 [facility] pt came by the office [id number] 08/06/19 16 08/06/2015 [facility] pt came by the office [id number] 08/06/19 16 08/06/2015 [facility] pt came by the office [id number] 08/06/19 16 08/06/2015 [facility] pt came by the office [id number] 08/06/19 16 08/06/2015 [facility] pt came by the office [id number] 08/06/19 16 08/06/2015 [facility] pt came by the office [id number] 08/06/19 16 08/06/2015 [facility] pt came by the office [id number] 08/06/19 16 08/06/2015 [facility] pt came by the office [id number] 08/06/19 16 08/06/2015 [facility] pt came by the office [id number] 08/06/19 16 08/06/2015 [facility] pt came by the office [id number] 08/06/19 16 08/06/2015 [facility] pt came by the office [id number] 08/06/19 16 08/06/2015 [facility] pt came by the office [id number] 08/06/19 16 08/06/2015 [facility] pt came by the office [id number] 08/06/19 16 08/06/2015 [facility] pt came by the office [id number] 08/06/19 16 08/06/2015 [facility] pt came by the office [id number] 08/06/19 16 08/06/2015 [facility] Referral needed by Monday, 09/17 [id number] 09/16/2015 09/16/2015 [facility] Referral needed by Monday, 09/17 [id number] 09/16/2015 09/16/2015 [facility] Referral needed by Monday, 09/17 [id number] 09/16/2015 09/16/2015 [facility] Referral needed by Monday, 09/17 [id number] 09/16/2015 09/16/2015 [facility] Referral needed by Monday, 09/17 [id number] 09/16/2015 09/16/2015 [facility] Referral needed by Monday, 09/17 [id number] 09/16/2015 09/16/2015 [facility] Referral needed by Monday, 09/17 [id number] 09/16/2015 09/16/2015 [facility] Referral needed by Monday, 09/17 [id number] 09/16/2015 09/16/2015 [facility] Referral needed by Monday, 09/17 [id number] 09/16/2015 09/16/2015 [facility] Referral needed by Monday, 09/17 [id number] 09/16/2015 09/16/2015 [facility] Referral needed by Monday, 09/17 [id number] 09/16/2015 09/16/2015 [facility] Referral needed by Monday, 09/17 [id number] 09/16/2015 09/16/2015 [facility] Referral needed by Monday, 09/17 [id number] 09/16/2015 09/16/2015 [facility] Referral needed by Monday, 09/17 [id number] 09/16/2015 09/16/2015 [facility] Referral needed by Monday, 09/17 [id number] 09/16/2015 09/16/2015 [facility] Referral needed by Monday, 09/17 [id number] 09/16/2015 09/16/2015 [facility] Referral needed by Monday, 09/17 [id number] 09/16/2015 09/16/2015 [facility] Referral needed by Monday, 09/17 [id number] 09/16/2015 09/16/2015 [facility] Referral needed by Monday, 09/17 [id number] 09/16/2015 09/16/2015 [facility] Referral needed by Monday, 09/17 [id number] 09/16/2015 09/16/2015 [facility] Referral needed by Monday, 09/17 [id number] 09/16/2015 09/16/2015 [facility] Ref[facility] Requests [id number] 09/24/19 16 09/24/2015 [facility] Ref[facility] Request[facility] [id number] 09/24/19 16 09/24/2015 [facility] Ref[facility] Requests [id number] 09/24/19 16 09/24/2015 [facility] Ref[facility] Request[facility] [id number] 09/24/19 16 09/24/2015 [facility] Ref[facility] Request[facility] [id number] 09/24/19 16 09/24/2015 [facility] Ref[facility] Request[facility] [id number] 09/24/19 16 09/24/2015 [facility] Ref[facility] Request[facility] [id number] 09/24/19 16 09/24/2015 [facility] Ref[facility] Request[facility] [id number] 09/24/19 16 09/24/2015 [facility] Ref[facility] Request[facility] [id number] 09/24/19 16 09/24/2015 [facility] Ref[facility] Request[facility] [id number] 09/24/19 16 09/24/2015 [facility] Ref[facility] Request[facility] [id number] 09/24/19 16 09/24/2015 [facility] Ref[facility] Request[facility] [id number] 09/24/19 16 09/24/2015 [facility] Ref[facility] Request[facility] [id number] 09/24/19 16 09/24/2015 [facility] Ref[facility] Requests [id number] 09/24/19 16 09/24/2015 [facility] Ref[facility] Requests [id number] 09/24/19 16 09/24/2015 [facility] Ref[facility] Requests [id number] 09/24/19 16 09/24/2015 [facility] Referral Requests [id number] 09/24/19 16 09/24/2015 [facility] Ref[facility] Requests [id number] 09/24/19 16 09/24/2015 [facility] to appt. [id number] 09/28/19 16 09/28/2015 [facility] to appt. [id number] 09/28/19 16 09/28/2015 [facility] to appt. [id number] 09/28/19 16 09/28/2015 [facility] to appt. [id number] 09/28/19 16 09/28/2015 [facility] to appt. [id number] 09/28/19 16 09/28/2015 [facility] to appt. [id number] 09/28/19 16 09/28/2015 [facility] to appt. [id number] 09/28/19 16 09/28/2015 [facility] to appt. [id number] 09/28/19 16 09/28/2015 [facility] to appt. [id number] 09/28/19 16 09/28/2015 [facility] to appt. [id number] 09/28/19 16 09/28/2015 [facility] to appt. [id number] 09/28/19 16 09/28/2015 [facility] to appt. [id number] 09/28/19 16 09/28/2015 [facility] to appt. [id number] 09/28/19 16 09/28/2015 [facility] to appt. [id number] 09/28/19 16 09/28/2015 [facility] to appt. [id number] 09/28/19 16 09/28/2015 [facility] to appt. [id number] 09/28/19 16 09/28/2015 [facility] to appt. [id number] 09/28/19 16 09/28/2015 [facility] to appt. [id number] 09/28/19 16 09/28/2015 [facility] to appt. [id number] 09/28/19 16 09/28/2015 [facility] to appt. [id number] 09/28/19 16 09/28/2015 [facility] Order [id number] 09/29/19 16 09/29/2015 [facility] Order [id number] 09/29/19 16 09/29/2015 [facility] Order [id number] 09/29/19 16 09/29/2015 [facility] Order [id number] 09/29/19 16 09/29/2015 [facility] Order [id number] 09/29/19 16 09/29/2015 [facility] Order [id number] 09/29/19 16 09/29/2015 [facility] Order [id number] 09/29/19 16 09/29/2015 [facility] Order [id number] 09/29/19 16 09/29/2015 [facility] Order [id number] 09/29/19 16 09/29/2015 [facility] Order [id number] 09/29/19 16 09/29/2015 [facility] Order [id number] 09/29/19 16 09/29/2015 [facility] Order [id number] 09/29/19 16 09/29/2015 [facility] Order [id number] 09/29/19 16 09/29/2015 [facility] Order [id number] 09/29/19 16 09/29/2015 [facility] Order [id number] 09/29/19 16 09/29/2015 [facility] Order [id number] 09/29/19 16 09/29/2015 [facility] Order [id number] 09/29/19 16 09/29/2015 [facility] referral notes [id number] 09/30/19 16 09/30/2015 [facility] [id number] 09/30/19 16 09/30/2015 [facility] notes [id number] 09/30/19 16 09/30/2015 [facility] notes [id number] 09/30/19 16 09/30/2015 [facility] notes [id number] 09/30/19 16 09/30/2015 [facility] notes [id number] 09/30/19 16 09/30/2015 [facility] notes [id number] 09/30/19 16 09/30/2015 [facility] notes [id number] 09/30/19 16 09/30/2015 [facility] notes [id number] 09/30/19 16 09/30/2015 [facility] referral notes [id number] 09/30/19 16 09/30/2015 [facility] referral notes [id number] 09/30/19 16 09/30/2015 [facility] referral notes [id number] 09/30/19 16 09/30/2015 [facility] referral notes [id number] 09/30/19 16 09/30/2015 [facility] referral notes [id number] 09/30/19 16 09/30/2015 [facility] referral notes [id number] 09/30/19 16 09/30/2015 [facility] referral notes [id number] 09/30/19 16 09/30/2015 [facility] referral notes [id number] 09/30/19 16 09/30/2015 [facility] referral notes [id number] 09/30/19 16 09/30/2015 [facility] referral notes [id number] 09/30/19 16 09/30/2015 [facility] Refill req. [id number] 10/20/19 16 10/20/2015 [facility] Refill req. [id number] 10/20/19 16 10/20/2015 [facility] Refill req. [id number] 10/20/19 16 10/20/2015 [facility] Refill req. [id number] 10/20/19 16 10/20/2015 [facility] Refill req. [id number] 10/20/19 16 10/20/2015 [facility] Refill req. [id number] 10/20/19 16 10/20/2015 [facility] Refill req. [id number] 10/20/19 16 10/20/2015 [facility] Refill req. [id number] 10/20/19 16 10/20/2015 [facility] Refill req. [id number] 10/20/19 16 10/20/2015 [facility] Refill req. [id number] 10/20/19 16 10/20/2015 [facility] Refill req. [id number] 10/20/19 16 10/20/2015 [facility] Refill req. [id number] 10/20/19 16 10/20/2015 [facility] Refill req. [id number] 10/20/19 16 10/20/2015 [facility] Refill req. [id number] 10/20/19 16 10/20/2015 [facility] Refill req. [id number] 10/20/19 16 10/20/2015 [facility] Refill req. [id number] 10/20/19 16 10/20/2015 [facility] f/u [id number] 11/04/2015 11/04/2015 [facility] f/u [id number] 11/04/2015 11/04/2015 [facility] f/u [id number] 11/04/2015 11/04/2015 [facility] f/u [id number] 11/04/2015 11/04/2015 [facility] f/u [id number] 11/04/2015 11/04/2015 [facility] f/u [id number] 11/04/2015 11/04/2015 [facility] f/u [id number] 11/04/2015 11/04/2015 [facility] f/u [id number] 11/04/2015 11/04/2015 [facility] f/u [id number] 11/04/2015 11/04/2015 [facility] f/u [id number] 11/04/2015 11/04/2015 [facility] f/u [id number] 11/04/2015 11/04/2015 [facility] f/u [id number] 11/04/2015 11/04/2015 [facility] f/u [id number] 11/04/2015 11/04/2015 [facility] f/u [id number] 11/04/2015 11/04/2015 [facility] needs C/B [id number] 11/04/19 16 11/04/2015 [facility] needs C/B [id number] 11/04/19 16 11/04/2015 [facility] C/B [id number] 11/04/19 16 11/04/2015 [facility] C/B [id number] 11/04/19 16 11/04/2015 [facility] C/B [id number] 11/04/19 16 11/04/2015 [facility] needs C/B [id number] 11/04/19 16 11/04/2015 [facility] C/B [id number] 11/04/19 16 11/04/2015 [facility] C/B [id number] 11/04/19 16 11/04/2015 [facility] C/B [id number] 11/04/19 16 11/04/2015 [facility] C/B [id number] 11/04/19 16 11/04/2015 [facility] C/B [id number] 11/04/19 16 11/04/2015 [facility] needs C/B [id number] 11/04/19 16 11/04/2015 [facility] needs C/B [id number] 11/04/19 16 11/04/2015 [facility] needs C/B [id number] 11/04/19 16 11/04/2015 [facility] needs C/B [id number] 11/04/19 16 11/04/2015 [facility] 8/3 referral rqsted [id number] 11/11/2015 11/11/2015 [facility] 8/3 referral rqsted [id number] 11/11/2015 11/11/2015 [facility] 8/3 referral rqsted [id number] 11/11/2015 11/11/2015 [facility] 8/3 referral rqsted [id number] 11/11/2015 11/11/2015 [facility] 8/3 referral rqsted [id number] 11/11/2015 11/11/2015 [facility] 8/3 referral rqsted [id number] 11/11/2015 11/11/2015 [facility] 8/3 referral rqsted [id number] 11/11/2015 11/11/2015 [facility] 8/3 referral rqsted [id number] 11/11/2015 11/11/2015 [facility] 8/3 referral rqsted [id number] 11/11/2015 11/11/2015 [facility] 8/3 referral rqsted [id number] 11/11/2015 11/11/2015 [facility] 8/3 referral rqsted [id number] 11/11/2015 11/11/2015 [facility] 8/3 referral rqsted [id number] 11/11/2015 11/11/2015 [facility] 8/3 referral rqsted [id number] 11/11/2015 11/11/2015 [facility] Unknown [id number] 11/18/19 16 11/18/2015 [facility] Unknown [id number] 11/18/19 16 11/18/2015 [facility] Unknown [id number] 11/18/19 16 11/18/2015 [facility] Unknown [id number] 11/18/19 16 11/18/2015 [facility] Unknown [id number] 11/18/19 16 11/18/2015 [facility] Unknown [id number] 11/18/19 16 11/18/2015 [facility] Unknown [id number] 11/18/19 16 11/18/2015 [facility] Unknown [id number] 11/18/19 16 11/18/2015 [facility] Unknown [id number] 11/18/19 16 11/18/2015 [facility] Unknown [id number] 11/18/19 16 11/18/2015 [facility] Unknown [id number] 11/18/19 16 11/18/2015 [facility] Unknown [id number] 11/18/19 16 11/18/2015 [facility] Low BP [id number] 12/15/19 16 12/15/2015 [facility] Low BP [id number] 12/15/19 16 12/15/2015 [facility] Low BP [id number] 12/15/19 16 12/15/2015 [facility] Low BP [id number] 12/15/19 16 12/15/2015 [facility] Low BP [id number] 12/15/19 16 12/15/2015 [facility] Low BP [id number] 12/15/19 16 12/15/2015 [facility] Low BP [id number] 12/15/19 16 12/15/2015 [facility] Low BP [id number] 12/15/19 16 12/15/2015 [facility] Low BP [id number] 12/15/19 16 12/15/2015 [facility] Low BP [id number] 12/15/19 16 12/15/2015 [facility] Low BP [id number] 12/15/19 16 12/15/2015 [facility] update referral [id number] 12/16/19 16 12/16/2015 [facility] update referral [id number] 12/16/19 16 12/16/2015 [facility] update referral [id number] 12/16/19 16 12/16/2015 [facility] update referral [id number] 12/16/19 16 12/16/2015 [facility] update referral [id number] 12/16/19 16 12/16/2015 [facility] update referral [id number] 12/16/19 16 12/16/2015 [facility] update referral [id number] 12/16/19 16 12/16/2015 [facility] update referral [id number] 12/16/19 16 12/16/2015 [facility] update referral [id number] 12/16/19 16 12/16/2015 [facility] update referral [id number] 12/16/19 16 12/16/2015 [facility] 01/07 pending auth [id number] 01/06/20 16 01/06/2016 [facility] 01/07 pending auth [id number] 01/06/20 16 01/06/2016 [facility] 01/07 pending auth [id number] 01/06/20 16 01/06/2016 [facility] 01/07 pending auth [id number] 01/06/20 16 01/06/2016 [facility] 01/07 pending auth [id number] 01/06/20 16 01/06/2016 [facility] 01/07 pending auth [id number] 01/06/20 16 01/06/2016 [facility] 01/07 pending auth [id number] 01/06/20 16 01/06/2016 [facility] 01/07 pending auth [id number] 01/06/20 16 01/06/2016 [facility] 01/07 pending auth [id number] 01/06/20 16 01/06/2016 [facility] cancel appt [id number] 01/13/20 16 01/13/2016 [facility] cancel appt [id number] 01/13/20 16 01/13/2016 [facility] cancel appt [id number] 01/13/20 16 01/13/2016 [facility] cancel appt [id number] 01/13/20 16 01/13/2016 [facility] cancel appt [id number] 01/13/20 16 01/13/2016 [facility] cancel appt [id number] 01/13/20 16 01/13/2016 [facility] cancel appt [id number] 01/13/20 16 01/13/2016 [facility] cancel appt [id number] 01/13/20 16 01/13/2016 [facility] 3 Month Follow Up [id number] 02/03/20 16 02/03/2016 [facility] 3 Month Follow Up [id number] 02/03/20 16 02/03/2016 [facility] 3 Month Follow Up [id number] 02/03/20 16 02/03/2016 [facility] 3 Month Follow Up [id number] 02/03/20 16 02/03/2016 [facility] 3 Month Follow Up [id number] 02/03/20 16 02/03/2016 [facility] 3 Month Follow Up [id number] 02/03/20 16 02/03/2016 [facility] 3 Month Follow Up [id number] 02/03/20 16 02/03/2016 [facility] f/u r/s from 01/13/16 Dr. Herman [id number] 02/22/2016 02/22/2016 [facility] f/u r/s from 01/13/16 Dr. Herman [id number] 02/22/2016 02/22/2016 [facility] f/u r/s from 01/13/16 Dr. Herman [id number] 02/22/2016 02/22/2016 [facility] f/u r/s from 01/13/16 Dr. Herman [id number] 02/22/2016 02/22/2016 [facility] Refill requests [id number] 03/11/20 16 03/11/2016 [facility] Refill requests [id number] 03/11/20 16 03/11/2016 [facility] Refill requests [id number] 03/11/20 16 03/11/2016 [facility] Refill requests [id number] 03/11/20 16 03/11/2016 [facility] Refill requests [id number] 03/11/20 16 03/11/2016 [facility] Refill requests [id number] 03/11/20 16 03/11/2016 [facility] Refill [id number] 03/21/20 16 03/21/2016 [facility] Refill [id number] 03/21/20 16 03/21/2016 [facility] Refill [id number] 03/21/20 16 03/21/2016 [facility] Refill [id number] 03/21/20 16 03/21/2016 [facility] Refill [id number] 03/21/20 16 03/21/2016 [facility] 4 wk f/u CT [id number] 03/21/20 16 03/21/2016 [facility] 4 wk f/u CT [id number] 03/21/20 16 03/21/2016 [facility] 4 wk f/u CT [id number] 03/21/20 16 03/21/2016 [facility] 4 wk f/u CT [id number] 03/21/20 16 03/21/2016 [facility] Unknown [id number] 03/30/20 16 03/30/2016 [facility] Unknown [id number] 03/30/20 16 03/30/2016 [facility] 4 wk f/u [id number] 04/18/19 17 04/18/2016 [facility] -Emergency Department Emergency [id number] Yaelbelle Velazquez TRANSMITTER ENGINEER 9 11/05/2018 [facility]LC-Emergency Department Emergency [id number] Florin Yates [facility] 201811/06/2018 [facility] Medicine/Surgery [facility] 7B Emergency [id number] Pam Johnson DNP 11/1711/19/2018 [facility] Orders Only [id number] No Doctor Unassigned 05/02/2019 [facility] Procedures Procedure Code Date Perfomer Comments Source AUTHORIZATION FOR RELEASE OF PHI [id number] 05/02/2019 Doctor Unassigned [facility] ESOPHAGOGASTRODUODENOSCOPY [facility]W 38441 11/18/2018 [facility] XR NECK SOFT TISSUE 33778 11/18/2018 [facility] BASIC METABOLIC PANEL (NA, K, CL, CO2, G LUCOSE, BUN, CREATININE, [place]) 137[address] 11/18/2018 [facility] CBC WITH DIFF [id number] 11/18/2018 [facility] CBC WITH DIFFERENTIAL [id number] 11/18/2018 [facility] TROPONIN I 37177 11/18/2018 [facility] PROTHROMBIN TIME / INR [id number] 11/18/2018 [facility] ACTIVATED PARTIAL THRMPLAS JANEL 75158 11/18/2018 [facility] EKG-12 LEAD 4135 11/18/2018 [facility] URINALYSIS 17727 11/06/2018 [facility] EXTRA TUBE URINE CULTURE 11574 11/06/2018 [facility] EXTRA TUBE LT. BLUE 24890 11/06/2018 [facility] Assessment and Plan No Data Provided for This Section Plan of Care Plan of Care Date Source INFLUENZA VACCINE 12/09/2018 [facility] SURGICAL PATHOLOGY EXAM LAB Routine ONCE for 1 Occurrences starting 11/17/2018, 1 completed 11/19/2018 [facility] SURGICAL PATHOLOGY EXAM LAB STAT 11/17/2018 7:46 PM CDT 11/19/2018 [facility] MAMMOGRAM 2013 [facility] Breast Cancer Screening (MAMMOGRAM) 2013 [facility] PAP SMEAR 1994 [facility] PAP SMEAR 1994 [facility] DTaP,Tdap,and Td Vaccines (1 - Tdap) 1992 [facility] DTaP,Tdap,and Td Vaccines (1 - Tdap) 1984 [facility] PNEUMOCOCCAL 0-64 YEARS COMBINED SERIES (1 of 1 - PPSV23) 07/29/1979 [facility] Social History Social History Date Source Tobacco UseTypesPacks/DayYears UsedDate Current Some Day Smoker Cigarettes 1 30 Smokeless Tobacco: Never Used Comments: quit january 20, 2019 Alcohol UseDrinks/Weekoz/WeekComments Yes 0 Standard drinks or equivalent4-5 Glass es of wine 4.0 - 5.0 EducationAnswerDate Recorded What is the highest level of school you have completed or the highest degree you have received? Associate degree: academic program 03/08/2019 Food InsecurityAnswerDate Recorded Within the past 12 months, you worried that your food would run out before you got money to buy more. Never true 03/08/2019 Within the past 12 months, the food you bought just didn't last and you didn't have money to get more. Never true 03/08/2019 Transportation NeedsAnswerDate Recorded In the past 12 months, has lack of transportation kept you from medical appointments or from getting medications? No 03/08/2019 In the past 12 months, has lack of transportation kept you from meetings, work, or getting things needed for daily living? No 03/08/2019 Sex Assigned at BirthDate Recorded Not on file Job Start DateOccupationIndustry Not on file Not on file Not on file Travel HistoryTravel StartTravel End No recent travel history available. 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 Patient is a: former smoker, How many packs did Pt smoke per day? .5, What age did you quit smoking? 40 11/04/2015 May 05, 2016 Home . lives with May 05, 2016 Do you have pets? yes. 2 dogs May 05, 2016 Home Smoke Detector yes. May 05, 2016 Marital Status: . May 05, 2016 Caffeine intake? normal. May 05, 2016 Use of recreational / street drugs? no. May 05, 2016 exercise: no. May 05, 2016 Alchohol: yes. Alcohol Intake Current Drinker, What type? Wine May 05, 2016 Travel outside [place]: no. May 05, 2016 Family HX of Skin Cancer no. May 05, 2016 Occup. exposure: none. May 05, 2016 05/05/2016 [facility] Family History No Data Provided for This Section Advance Directives No Data Provided for This Section Functional Status No Data Provided for This Section
--- OUTSIDE RECORDS SUMMARY | 2019-08-19 05:27 | XMS REPORT ---
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 0 Active Problem Abnormal results of liver function studies R94.5 Active Assessment Epigastric pain R10.13 Active Assessment Insomnia, unspecified G47.00 Active Problem Personal history of nicotine dependence Z87.891 Active Problem Gastro-esophageal reflux disease with esophagitis K21. 0 Active Problem Other chronic pain G89.29 Active Problem Other depressive episodes F32.8 Ac tive Problem Insomnia, unspecified G47.00 Active Problem Abnormal immunological finding in serum, unspecified R 76.9 Active Medications Medication Code System Code Instructions Start Date End Date Status Dosage Pantoprazole Sodium [facility] [address]-32 40 MG Orally Once a day Active 1 tablet Multivitamins [facility] [address] Orally twice a day (bid) Active 1 tablet Zolpidem Tartrate [facility] [address]-56 10 MG Orally Once a day Active 1 tablet at bedtime as needed Dilaudid [facility] [address]-21 Active not defin ed Gabapentin [facility] [address]-00 400 MG Orally Three times a day Feb 19, 2015 Active 1 tablet Biotin [facility] [address] 5000 MCG Orally Once a day A ctive 1 capsule Chewable [facility] [address]-26 Orally A ctive not defined Clonazepam [facility] [address]-62 0.5 MG Orally as needed (prn) Active 1 tablet OxyCODONE HCl ER [facility] [address]-13 15 MG Orally as needed (prn) Active 1 tablet Sertraline HCl [facility] [address]-81 100 MG Orally daily Active take 1 tablet daily Pantoprazole Sodium [facility] 64319060707 40MG Active TAKE 1 TABLET DAILY OxyContin [facility] [address]-15 20 MG Orally every 12 hrs Active 1 tablet Vital Signs Date/Time: August 22, 2016 BMI 32.45 Index Weight 195 lbs Blood Pressure Systolic 110 mm Hg Respiratory Rate 16 /min Cardiac Monitoring Heart Rate 81 /min Temperature 98.1 F Blood Pressure Diastolic 75 mm Hg Results No Known Results Summary Purpose [employer] Submission
--- OUTSIDE RECORDS SUMMARY | 2019-08-19 05:27 | XMS REPORT ---
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 Funeral Greeter Name Role Phone Wil Bustamante CP Unavailable Allergies No Known Allergies Problems Problem Type Condition Code Onset Dates Condition Statu s Problem Other chronic pain G89.29 Active Problem Abnormal results of liver function studies R94.5 Active Problem Other depressive episodes F32.8 Ac tive Problem Insomnia, unspecified G47.00 Active Problem Osteomyelitis, unspecified M86.9 A ctive Problem Granuloma and granuloma-like lesions of oral mucosa K1 3.4 Active Problem Abnormal immunological finding in serum, unspecified R 76.9 Active Problem Other specified abnormal immunological findings in ser um R76.8 Active Problem Encounter for screening mammogram for ma lignant neoplasm of breast Z12.31 Active Problem Adjustment disorder with anxiety F43.22 Active Problem Radiculopathy, cervical region M54.12 Active Problem Radiculopathy, cervical region M54.12 Active Problem 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 Problem Carpal tunnel syndrome, unspecified upper limb G56.00 Active Problem Other abnormality of red blood cells R71.8 Active Problem Essential (primary) hypertension I10 Active Problem Carpal tunnel syndrome, bilateral upper limbs G56.03 Active Problem Transient cerebral ischemic attack, unspecified G45.9 Active Problem Pain in right shoulder M25.511 Activ e Problem Methicillin susceptible Stap hylococcus aureus infection as the cause of diseases classified elsewhere B95.61 Active Problem Aphasia R47.01 Active Problem Infection and inflammatory r eaction due to internal fixation device of spine, subsequent encounter T84.63XD Active Problem Secondary polycythemia D75.1 Activ e Problem Encounter for general adult medical exam ination with abnormal findings Z00.01 Active Problem Other visual disturbances H53.8 Ac tive Problem Other intervertebral disc displacement, 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 0 Active Problem Shortness of breath R06.02 Active Problem Personal history of nicotine dependence Z87.891 Active Problem Cough R05 Active Assessment Insomnia, unspecified G47.00 Active Problem Epigastric pain R10.13 Active Problem Acute bronchitis, unspecified J20.9 Active Problem Bariatric surgery status Z98.84 Act keila Problem Acute embolism and thrombosi s of unspecified deep veins of unspecified lower extremity I82.409 Active Problem Radiculopathy, lumbar region M54.16 Active Problem Calculus of kidney N20.0 Active Medications Medication Code System Code Instructions Start Date End Date Status Dosage Zolpidem Tartrate [facility] 76598647544 10 mg Orally Once a day Active 1 tablet at bedtime as needed Results No Known Results Summary Purpose [employer] Submission
--- OUTSIDE RECORDS SUMMARY | 2019-08-19 05:27 | XMS REPORT ---
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 Critical Care Unit Manager Name Role Phone Wil Bustamante Unavailable Allergies, [...] Code Onset Dates Condition Statu s Problem Osteomyelitis, unspecified M86.9 A ctive Problem Other specified abnormal immunological findings in ser um R76.8 Active Problem Abnormal immunological finding in serum, unspecified R 76.9 Active Problem Pain in right shoulder M25.511 Activ e Problem Methicillin susceptible Stap hylococcus aureus infection as the cause of diseases classified elsewhere B95.61 Active Problem Epigastric pain R10.13 Active Problem Adjustment disorder with anxiety F43.22 Active Problem Encounter for screening mammogram for ma lignant neoplasm of breast Z12.31 Active Problem Infection and inflammatory r eaction due to internal fixation device of spine, subsequent encounter T84.63XD Active Problem 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 0 Active Problem Personal history of nicotine dependence Z87.891 Active Assessment Adjustment disorder with anxiety F43.22 Active Assessment Personal history of nicotine dependence Z87.891 Active Problem Other chronic pain G89.29 Active Problem Insomnia, unspecified G47.00 Active Problem Abnormal results of liver function studies R94.5 Active Problem Other depressive episodes F32.8 Ac tive Problem Gastro-esophageal reflux disease with esophagitis K21. 0 Active Problem Granuloma and granuloma-like lesions of oral mucosa K1 3.4 Active Medications Medication Code System Code Instructions Start Date End Date Status Dosage Clonazepam [facility] 72300006277 0.5 MG Orally once a day as needed Active 1 tablet Sertraline HCl [facility] 85146871697 100 MG Orally daily A ctive take 1 tablet daily OxyCODONE HCl ER [facility] [address]-05 15 MG Orally as needed (prn) Active 1 tablet Dilaudid [facility] [address]-63 Active not defin ed Zolpidem Tartrate [facility] 25744296553 10 MG Orally Once a day Active 1 tablet at bedtime as needed OxyContin [facility] 04141501152 30 MG Orally every 12 hrs Active 1 tablet Multivitamins [facility] 73126760162 Orally twice a day (bid) Active 1 tablet Pantoprazole Sodium [facility] 84994241449 40 MG Orally bid Active take 1 tablet daily Gabapentin [facility] 20935350237 600 MG Orally Three times a day Feb 082014 Active 1 tablet Chewable [facility] 24286957233 Orally Act keila not defined Biotin [facility] 63101546461 5000 MCG Orally Once a day A ctive 1 capsule Chantix [facility] 27622626626 1MG Active TAKE 1 TABLE T TWICE A DAY Zofran ODT [facility] 31331940190 8 MG Orally every 8 hours as needed for nausea Dec 02, 2016 Active as directed Vital Signs Date/Time: Dec 02, 2016 BMI 33.44 Index Weight 201 lbs Blood Pressure Systolic 112 mm Hg Respiratory Rate 16 /min Cardiac Monitoring Heart Rate 77 /min Temperature 97.9 F Blood Pressure Diastolic 64 mm Hg Results No Known Results Summary Purpose [employer] Submission
--- OUTSIDE RECORDS SUMMARY | 2019-08-19 05:27 | XMS REPORT ---
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 Trailers And Motor Homes Salesperson Name Role Phone Wil Bustamante CP Unavailable [...] Problem Adjustment disorder with anxiety F43.22 Active Assessment Adjustment disorder with anxiety F43.22 Active Assessment Pain in right shoulder M25.511 Activ e Assessment Insomnia, unspecified G47.00 Active Problem Insomnia, unspecified G47.00 Active Problem Personal history of nicotine dependence Z87.891 Active Problem Abnormal results of liver function studies R94.5 Active Problem Gastro-esophageal reflux disease with esophagitis K21. 0 Active Problem Other chronic pain G89.29 Active Problem Other depressive episodes F32.8 Ac tive Medications Medication Code System Code Instructions Start Date End Date Status Dosage OxyCODONE HCl ER [facility] [address]-73 15 MG Orally as needed (prn) Active 1 tablet Biotin [facility] 69780-[address] 5000 MCG Orally Once a day A ctive 1 capsule Pantoprazole Sodium [facility] [address]-30 40 MG Orally Once a day Active 1 tablet Dilaudid [facility] [address]-68 Active not defin ed Clonazepam [facility] [address]-20 0.5 MG Orally as needed (prn) Active 1 tablet OxyContin [facility] [address]-42 20 MG Orally every 12 hrs Active 1 tablet Chewable [facility] [address]-50 Orally A ctive not defined Sertraline HCl [facility] [address]-81 100 MG Orally daily Active take 1 tablet daily Zolpidem Tartrate [facility] [address]-84 10 MG Orally Once a day Active 1 tablet at bedtime as needed Pantoprazole Sodium [facility] 64100180021 40MG Active TAKE 1 TABLET DAILY Gabapentin [facility] [address]-18 400 MG Orally Three times a day Feb 19, 2015 Active 1 tablet Multivitamins [facility] 546[address] Orally twice a day (bid) Active 1 tablet Vital Signs Date/Time: August 05, 2016 BMI 31.78 Index Weight 191 lbs Blood Pressure Systolic 120 mm Hg Respiratory Rate 16 /min Cardiac Monitoring Heart Rate 74 /min Temperature 97.9 F Blood Pressure Diastolic 85 mm Hg Results No Known Results Summary Purpose [employer] Submission
--- OUTSIDE RECORDS SUMMARY | 2019-08-19 05:27 | XMS REPORT ---
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 0 Active Problem Granuloma and granuloma-like lesions of oral mucosa K1 3.4 Active Medications No Known Medications Results No Known Results Summary Purpose [employer] Submission
--- OUTSIDE RECORDS SUMMARY | 2019-08-19 05:27 | XMS REPORT ---
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 0 Active Problem Granuloma and granuloma-like lesions of oral mucosa K1 3.4 Active Medications Medication Code System Code Instructions Start Date End Date Status Dosage Zolpidem Tartrate [facility][NOTE 3] 21595821718 10 MG Orally Once a day Active 1 tablet at bedtime as needed Clonazepam ND 07231805073 0.5 MG Orally once a day as needed Active 1 tablet Results No Known Results Summary Purpose [employer] Submission
--- OUTSIDE RECORDS SUMMARY | 2019-08-19 05:27 | XMS REPORT ---
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 Yeast Distiller Name Role Phone Wil Bustamante Unavailable Allergies, Adverse Reactions, Alerts Substance Reaction Event Type Tapentadol HCl headaches and hallucinations Drug Allerg y Zyban rash Drug Allergy Wellbutrin rash Drug Allergy Vancomycin HCl rash Drug Allergy Tramadol HCl headaches and hallucinations Drug Allerg y Effexor rash Drug Allergy Problems Problem Type Condition Code Onset Dates Condition Statu s Problem Gastro-esophageal reflux disease with esophagitis K21. 0 Active Problem Abnormal results of liver function studies R94.5 Active Problem Personal history of nicotine dependence Z87.891 Active Problem Other chronic pain G89.29 Active Problem Insomnia, unspecified G47.00 Active Problem Other depressive episodes F32.8 Ac tive Problem Granuloma and granuloma-like lesions of oral mucosa K1 3.4 Active Problem Osteomyelitis, unspecified M86.9 A ctive Problem Abnormal immunological finding in serum, unspecified R 76.9 Active Problem Carpal tunnel syndrome, unspecified upper limb G56.00 Active Problem Essential (primary) hypertension I10 Active Problem Other specified abnormal immunological findings in ser um R76.8 Active Problem Other abnormality of red blood cells R71.8 Active Problem Secondary polycythemia D75.1 Activ e Problem Encounter for general adult medical exam ination with abnormal findings Z00.01 Active Problem Unspecified open wound of ri ght little finger without damage to nail, sequela S61.206S Active Problem Aphasia R47.01 Active Problem 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 Problem Adjustment disorder with anxiety F43.22 Active Problem Nondisplaced unspecified fra cture of left lesser toe(s), initial encounter for closed fracture S92.505A Active Problem Encounter for screening mammogram for ma lignant neoplasm of breast Z12.31 Active Problem Carpal tunnel syndrome, bilateral upper limbs G56.03 Active Problem Transient cerebral ischemic attack, unspecified G45.9 Active Problem Other intervertebral disc displacement, 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 Active Problem Other visual disturbances H53.8 Ac tive Assessment Calculus of kidney N20.0 Active Problem Radiculopathy, lumbar region M54.16 Active Assessment Radiculopathy, lumbar region M54.16 Active Problem Calculus of kidney N20.0 Active Problem Infection and inflammatory r eaction due to internal fixation device of spine, subsequent encounter T84.63XD Active Assessment Other depressive episodes F32.8 Ac tive Problem Methicillin susceptible Stap hylococcus aureus infection as the cause of diseases classified elsewhere B95.61 Active Problem Radiculopathy, cervical region M54.12 Active Problem Radiculopathy, cervical region M54.12 Active Problem Bariatric surgery status Z98.84 Act keila Problem Acute embolism and thrombosi s of unspecified deep veins of unspecified lower extremity I82.409 Active Medications Medication Code System Code Instructions Start Date End Date Status Dosage Pantoprazole Sodium [facility] 95606965989 40 mg Orally daily Active take 1 tablet daily Zofran ODT [facility] 12891363988 8 MG Orally every 8 hours as needed for nausea Dec 02, 2016 Active as directed Chewable [facility] 65668750726 Orally Act keila not defined Zolpidem Tartrate [facility] 52786185762 10 mg Orally Once a day Active 1 tablet at bedtime as needed Chantix [facility] [address]-38 1MG Orally Twice a day Act keila TAKE 1 TABLET TWICE A DAY OxyContin [facility] [address]-32 40 MG Orally every 12 hrs Active 1 tablet Sertraline HCl [facility] 81780582225 100MG by mouth daily Active 1 tablet Clonazepam [facility] 39798083217 0.5 MG Orally bid as needed for anxiety Active 1 tablet OxyCODONE HCl ER [facility] [address]-49 15 MG Orally as needed (prn) Active 1 tablet Gabapentin [facility] 62447791522 600 MG Orally four times a day Feb 19 15 Active 1 tablet BusPIRone HCl [facility] 96094948062 7.5 MG Orally Twice a day Active 1 tablet Dilaudid [facility] [address]-19 Active not defin ed Multivitamins [facility] 67219470084 Orally twice a day (bid) Active 1 tablet Biotin [facility] 88107221882 5000 MCG Orally Once a day A ctive 1 capsule Ativan [facility] 34309034491 2 MG Orally as directed Acti ve 1 tablet as needed Vital Signs Date/Time: August 25, 2017 BMI 31.78 Index Weight 191 lbs Blood Pressure Systolic 122 mm Hg Respiratory Rate 16 /min Cardiac Monitoring Heart Rate 99 /min Temperature 97.8 F Blood Pressure Diastolic 80 mm Hg Results No Known Results Summary Purpose [employer]ClinicalWorks Submission
--- OUTSIDE RECORDS SUMMARY | 2019-08-19 05:28 | XMS REPORT ---
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 Bass Singer Name Role Phone Wil Bustamante Unavailable Allergies No Known Allergies Problems Problem Type Condition Code Onset Dates Condition Statu s Problem Gastro-esophageal reflux disease with esophagitis K21. 0 Active Problem Personal history of nicotine dependence Z87.891 Active Problem Abnormal results of liver function studies R94.5 Active Problem Other chronic pain G89.29 Active Problem Insomnia, unspecified G47.00 Active Problem Shortness of breath R06.02 Active Problem Other depressive episodes F32.8 Ac tive Problem Cough R05 Active Problem Osteomyelitis, unspecified M86.9 A ctive Problem Calculus of kidney N20.0 Active Problem Bariatric surgery status Z98.84 Act keila Problem Radiculopathy, lumbar region M54.16 Active Problem Encounter for general adult medical exam ination with abnormal findings Z00.01 Active Problem Essential (primary) hypertension I10 Active Problem Other specified abnormal immunological findings in ser um R76.8 Active Problem Abnormal immunological finding in serum, unspecified R 76.9 Active Problem Other abnormality of red blood cells R71.8 Active Problem Granuloma and granuloma-like lesions of oral mucosa K1 3.4 Active Problem Radiculopathy, cervical region M54.12 Active Problem Acute embolism and thrombosi s of unspecified deep veins of unspecified lower extremity I82.409 Active Problem Carpal tunnel syndrome, unspecified upper limb G56.00 Active Problem Radiculopathy, cervical region M54.12 Active Problem 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 Problem Infection and inflammatory r eaction due to internal fixation device of spine, subsequent encounter T84.63XD Active Problem Encounter for screening mammogram for ma lignant neoplasm of breast Z12.31 Active Problem Adjustment disorder with anxiety F43.22 Active Problem Epigastric pain R10.13 Active Problem Acute bronchitis, unspecified J20.9 Active Problem Methicillin susceptible Stap hylococcus aureus infection as the cause of diseases classified elsewhere B95.61 Active Problem Pain in right shoulder M25.511 Activ e Medications Medication Code System Code Instructions Start Date End Date Status Dosage Lidocaine Viscous [facility] 46814541263 2 % Mouth/Throat every six to eight hours Mar 29, 2017 Apr 03, 2017 Active 1 teaspoon Results No Known Results Summary Purpose [employer]ClinicalWorks Submission
--- OUTSIDE RECORDS SUMMARY | 2019-08-19 05:28 | XMS REPORT ---
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 Problem Radiculopathy, cervical region M54.12 Active Problem Carpal tunnel syndrome, unspecified upper limb G56.00 Active Problem Infection and inflammatory r eaction due to internal fixation device of spine, subsequent encounter T84.63XD Active Problem Essential (primary) hypertension I10 Active Problem Encounter for general adult medical exam ination with abnormal findings Z00.01 Active Problem Other abnormality of red blood cells R71.8 Active Problem Aphasia R47.01 Active Problem Carpal tunnel syndrome, bilateral upper limbs G56.03 Active Problem Epigastric pain R10.13 Active Problem Pain in right shoulder M25.511 Activ e Problem Acute vaginitis N76.0 Active Problem Methicillin susceptible Stap hylococcus aureus infection as the cause of diseases classified elsewhere B95.61 Active Problem Transient cerebral ischemic attack, unspecified G45.9 Active Problem Secondary polycythemia D75.1 Activ e Problem Other visual disturbances H53.8 Ac tive Problem Other intervertebral disc displacement, 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 0 Active Problem Shortness of breath R06.02 Active Problem Acute embolism and thrombosi s of unspecified deep veins of unspecified lower extremity I82.409 Active Problem Radiculopathy, cervical region M54.12 Active Problem Calculus of kidney N20.0 Active Problem Bariatric surgery status Z98.84 Act keila Medications No Known Medications Results No Known Results Summary Purpose [employer]ClinicalWorks Submission
--- OUTSIDE RECORDS SUMMARY | 2019-08-19 05:28 | XMS REPORT ---
Author Author Nadiya Bustamante [facility] eClinicalWorks Address Unknown Phone Unavailable Care Team Providers Care Fullerette Name Role Phone Wil Bustamante Unavailable Encounters Encounter Location Date mth f/u [facility] Jan 14, 2015 Chantix Refill Request [facility] May 27, 2015 Medication Request [facility] May 04, 2015 Medication Refill Request [facility] Apr 29 16 Infusion [facility] Feb 26, 2015 Medication Refill Request [facility] Mar 02 15 Chantix Refill [facility] June 11, 2015 4 Wk Follow-Up [facility] Feb 19, 2015 bacterial in bone [facility] Feb 26, 2015 Referral Questions [facility] Feb 05, 2015 Medication/Referral [facility] Feb 09, 2015 Mammo / Breast US Order [facility] Jan 19, 2015 4 week follow up [facility] Feb 04, 2015 Unknown [facility] Feb 26, 2015 Approval On (Percocet 10-325 MG Tablet) Urgent [facility] Nov 28, 2014 Medical Records [facility] Dec 18, 2014 Infection in face [facility] Dec 18, 2014 Walk in: Mouth ulcers [facility] Jan 07, [address] Bustamante disease of oral soft tissue [facility] Nov 24, 2014 Needs referral [facility] Nov 24, 2014 talk about referrals [facility] Nov 28, 2014 IV MEDS ORDER [facility] Mar 02, 2015 Unknown [facility] Mar 04, 2015 referral [facility] Jan 07, 2015 Referral - Dr. Jo Ann Oconnell [facility] Jan 08, 2 015 Unknown [facility] Apr 12, 2015 called pt to check on [facility] Apr 09, 2015 FUP / after iv Last dose 1.1.16 [facility] Apr ! - Referral - Dr. Bruno <Pending Authorizat ion> [facility] Apr 20, 2015 FUP/ IV FROM [facility] [phone] [facility] Mar 16, 2015 Possible Bronchitis [facility] Mar 27, 2015 PT PICC LINE HURT [facility] Apr 06, 2015 Medication Refill Request [facility] Apr 06 15 Problems Problem Type Condition ICD-9 Code Onset Dates Condition Statu s Problem Other depressive episodes F32.8 Ac tive Problem Chronic pain syndrome 338.4 Active Problem HTN 401.9 Active Problem Essential (primary) hypertension I10 Active Problem Encounter for gynecological examination (general) (routine) without abnormal findings Z01.419 Active Problem Other specified abnormal immunological findings in ser um R76.8 Active Problem Bronchitis, not specified as acute or chronic J40 Active Problem Abnormal immunological finding in serum, unspecified R 76.9 Active Problem Fibromyalgia 729.1 Active Problem Osteomyelitis, unspecified M86.9 A ctive Problem Granuloma and granuloma-like lesions of oral mucosa K1 3.4 Active Problem Insomnia, unspecified G47.00 Active Problem Personal history of nicotine dependence Z87.891 Active Problem Abnormal results of liver function studies R94.5 Active Problem Other chronic pain G89.29 Active Problem MIRA Positive - Other and unspecified non specific immunological findings 795.79 Active Problem Nonspecific elevation of lev els of transaminase or lactic acid dehydrogenase (LDH) 790.4 Active Problem Gastro-esophageal reflux disease with esophagitis K21. 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 30 Apr 13, 2015 Home . lives with Apr 13, 2015 Do you have pets? yes. Apr 13, 2015 Home Smoke Detector yes. Apr 13, 2015 Marital Status: . Apr 13, 2015 Caffeine intake? normal. Apr 13, 2015 Use of recreational / street drugs? no. Apr 13, 2015 exercise: no. Apr 13, 2015 Alchohol: yes. Alcohol Intake Current Drinker, Wh at type? Wine Apr 13, 2015 Travel outside [place]: no. Apr 13, 2015 Family HX of Skin Cancer no. Apr 13, 2015 Occup. exposure: none. Apr 13, 2015 Summary Purpose eClinicalWorks Submission
--- OUTSIDE RECORDS SUMMARY | 2019-08-19 05:28 | XMS REPORT ---
Author Author Nadiya Bustamante [facility] eClinicalWorks Address Unknown Phone Unavailable Care Team Providers Care Crystal Report Developer Name Role Phone Wil Bustamante Unavailable Allergies, Adverse Reactions, Alerts Substance Reaction Event Type Erythromycin rash Drug Allergy Sulfa rash Drug Allergy Tapentadol HCl headaches and hallucinations Drug Allerg y Zyban rash Drug Allergy Wellbutrin rash Drug Allergy Vancomycin HCl rash Drug Allergy Tramadol HCl headaches and hallucinations Drug Allerg y Effexor rash Drug Allergy Encounters Encounter Location Date mth f/u [facility] Jan 14, 2015 Chantix Refill Request [facility] May 27, 2015 Medication Request [facility] May 04, 2015 Medication Refill Request [facility] Apr 29 16 Infusion [facility] Feb 26, 2015 Medication Refill Request [facility] Mar 02 15 Chantix Refill [facility] June 11, 2015 4 Wk Follow-Up [facility] Feb 19, 2015 Medication Refills [facility] June 12, 2015 bacterial in bone [facility] Feb 26, 2015 Referral Questions [facility] Feb 05, 2015 Medication/Referral [facility] Feb 09, 2015 Mammo / Breast US Order [facility] Jan 19, 2015 4 week follow up [facility] Feb 04, 2015 Unknown [facility] Feb 26, 2015 Approval On (Percocet 10-325 MG Tablet) Urgent [facility] Nov 28, 2014 Medical Records [facility] Dec 18, 2014 Infection in face [facility] Dec 18, 2014 Walk in: Mouth ulcers [facility] Jan 07, [address] Bustamante disease of oral soft tissue [facility] Nov 24, 2014 Needs referral [facility] Nov 24, 2014 talk about referrals [facility] Nov 28, 2014 IV MEDS ORDER [facility] Mar 02, 2015 Unknown [facility] Mar 04, 2015 referral [facility] Jan 07, 2015 Referral - Dr. Jo Ann Oconnell [facility] Jan 08, 2 015 Unknown [facility] Apr 12, 2015 called pt to check on [facility] Apr 09, 2015 FUP / after iv Last dose 1.1.16 [facility] Apr ! - Referral - Dr. Bruno <Pending Authorizat ion> [facility] Apr 20, 2015 FUP/ IV FROM [facility] [phone] [facility] Mar 16, 2015 Possible Bronchitis [facility] Mar 27, 2015 PT PICC LINE HURT [facility] Apr 06, 2015 Medication Refill Request [facility] Apr 06 15 Problems Problem Type Condition ICD-9 Code Onset Dates Condition Statu s Assessment Nausea R11.0 Active Assessment Gastro-esophageal reflux disease with esophagitis K21. 0 Active Problem MIRA Positive - Other and unspecified non specific immunological findings 795.79 Active Assessment Insomnia, unspecified G47.00 Active Problem Other depressive episodes F32.8 Ac tive Assessment Other depressive episodes F32.8 Ac tive Problem HTN 401.9 Active Problem Fibromyalgia 729.1 Active Problem Chronic pain syndrome 338.4 Active Problem Bronchitis, not specified as acute or chronic J40 Active Problem Essential (primary) hypertension I10 Active Problem Abnormal results of liver function studies R94.5 Active Problem Encounter for gynecological examination (general) (routine) without abnormal findings Z01.419 Active Problem Nausea R11.0 Active Assessment Essential (primary) hypertension I10 Active Problem Granuloma and granuloma-like lesions of oral mucosa K1 3.4 Active Problem Abnormal immunological finding in serum, unspecified R 76.9 Active Problem Other specified abnormal immunological findings in ser um R76.8 Active Problem Osteomyelitis, unspecified M86.9 A ctive Problem Personal history of nicotine dependence Z87.891 Active Problem Gastro-esophageal reflux disease with esophagitis K21. 0 Active Problem Other chronic pain G89.29 Active Problem Insomnia, unspecified G47.00 Active Problem Nonspecific elevation of lev els of transaminase or lactic acid dehydrogenase (LDH) 790.4 Active Problem Pain in joint, multiple sites 719.49 Active Problem mouth ulcer Other and unspecified diseas es of the oral soft tissues 528.9 Active Problem MIRA Positive - Other and unspecified non specific immunological findings 795.79 Active Medications Medication Code System Code Instructions Start Date End Date Status Dosage [facility] [address]-21 15 MG Orally every 12 hrs Active 1 tablet Zoloft MEDISPAN [address]-73 50 mg Orally Once a day A ctive 1 tablet Pro[facility] [address]-07 1000 MG/60GM Externally Active Unknown Clonazepam [facility] [address]-61 0.5 MG Orally as needed (prn) Active 1 tablet Gabapentin [facility] [address]-40 600 MG Orally Three times a day N 2014 Active 1 tablet Biotin [facility] 63680-[address]32 5000 MCG Orally Once a day Active 1 capsule Zolpidem Tartrate [facility] [address]-93 10 MG Orally Once a day Active 1 tablet at bedtime as needed Pantoprazole Sodium [facility] [address]-78 40 MG Orally Once a day Active 1 tablet Chantix [facility] [address]-72 1 MG Orally Twice a day May 04, 2015 Active 1 tablet Amoxicillin [facility] [address]-82 500 mg Orally every 12 hrs AprOctober 10, 2015 Active 1 tablet Losartan Potassium-HCTZ [facility] [address]-09 50-12.5 MG Orall y Once a day Dec 30, 2014 Active 1 tablet ProAir HFA [facility] [address]-70 108 (90 Base) MC G/ACT Inhalation every 4-6 hrs as needed for persistant cough Mar 27, 2015 Active 2 puffs as needed Oxycodone HCl [facility] [address]-96 15 MG Orally twice a day (bid) Active 1 tablet as needed Zofran [facility] [address]-42 8 MG Orally every 8 hours a s needed June 12, 2015 Active 1 tablet Social History Social History Element Qualifiers Date 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 30 June 12, 2015 Home . lives with June 12, 2015 Do you have pets? yes. June 12, 2015 Home Smoke Detector yes. June 12, 2015 Marital Status: . June 12, 2015 Caffeine intake? normal. June 12, 2015 Use of recreational / street drugs? no. Blue 2015 exercise: no. June 12, 2015 Alchohol: yes. Alcohol Intake Current Drinker, Wh at type? Wine June 12, 2015 Travel outside [place]: no. June 12, 2015 Family HX of Skin Cancer no. June 12, 2015 Occup. exposure: none. June 12, 2015 Vital Signs Date/Time: June 12, 2015 Weight 225 lbs Height 65 in Blood Pressure Systolic 128 mm Hg Respiratory Rate 16 /min Cardiac Monitoring Heart Rate 99 /min Temperature 97.9 F Blood Pressure Diastolic 86 mm Hg Summary Purpose eClinicalWorks Submission
--- OUTSIDE RECORDS SUMMARY | 2019-08-19 05:28 | XMS REPORT ---
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 Problem Acute embolism and thrombosi s of unspecified deep veins of unspecified lower extremity I82.409 Active Problem Radiculopathy, lumbar region M54.16 Active Problem Calculus of kidney N20.0 Active Medications Medication Code System Code Instructions Start Date End Date Status Dosage Pantoprazole Sodium [facility] 57841307868 40 mg Orally daily Active take 1 tablet daily OxyCODONE HCl ER [facility] [address]-85 15 MG Orally as needed (prn) Active 1 tablet Multivitamins [facility] 41944732095 Orally twice a day (bid) Active 1 tablet Clonazepam [facility] 19323550464 0.5 MG Orally once a day as needed Active 1 tablet Zofran ODT [facility] 40137416657 8 MG Orally every 8 hours as needed for nausea Dec 02, 2016 Active as directed Sertraline HCl [facility] 79440506276 100 MG Orally daily A ctive take 1 tablet daily Chewable [facility] 99898709560 Orally Act keila not defined Chantix [facility] [address]-41 1MG Orally Twice a day Act keila TAKE 1 TABLET TWICE A DAY OxyContin [facility] 52572154352 30 MG Orally every 12 hrs Active 1 tablet Gabapentin [facility] 00764802421 600 MG Orally Three times a day Feb 082014 Active 1 tablet Dilaudid [facility] [address]-48 Active not defin ed Ativan [facility] 53445098697 2 MG Orally as directed Acti ve 1 tablet as needed Zolpidem Tartrate [facility] 50894051834 10 mg Orally Once a day Active 1 tablet at bedtime as needed Biotin [facility] 48339493685 5000 MCG Orally Once a day A ctive 1 capsule Vital Signs Date/Time: Mar 14, 2017 BMI 32.95 Index Weight 198 lbs Blood Pressure Systolic 120 mm Hg Respiratory Rate 16 /min Cardiac Monitoring Heart Rate 72 /min Temperature 98.5 F Blood Pressure Diastolic 70 mm Hg Results No Known Results Summary Purpose eClinicalWorks Submission
--- OUTSIDE RECORDS SUMMARY | 2019-08-19 05:28 | XMS REPORT ---
Author Author Nadiya Bustamante [facility] eClinicalWorks Address Unknown Phone Unavailable Care Team Providers Care Social Work Specialist Name Role Phone Wil Bustamante Unavailable Encounters Encounter Location Date mth f/u [facility] Jan 14, 2015 Chantix Refill Request [facility] May 27, 2015 Medication Request [facility] May 04, 2015 Medication Refill Request [facility] Apr 29 16 Infusion [facility] Feb 26, 2015 Medication Refill Request [facility] Mar 02 15 4 Wk Follow-Up [facility] Feb 19, 2015 bacterial in bone [facility] Feb 26, 2015 Referral Questions [facility] Feb 05, 2015 Medication/Referral [facility] Feb 09, 2015 Mammo / Breast US Order [facility] Jan 19, 2015 4 week follow up [facility] Feb 04, 2015 Unknown [facility] Feb 26, 2015 Approval On (Percocet 10-325 MG Tablet) Urgent [facility] Nov 28, 2014 Medical Records [facility] Dec 18, 2014 Infection in face [facility] Dec 18, 2014 Walk in: Mouth ulcers [facility] Jan 07, [address] Bustamante disease of oral soft tissue [facility] Nov 24, 2014 Needs referral [facility] Nov 24, 2014 talk about referrals [facility] Nov 28, 2014 IV MEDS ORDER [facility] Mar 02, 2015 Unknown [facility] Mar 04, 2015 referral [facility] Jan 07, 2015 Referral - Dr. Jo Ann Oconnell [facility] Jan 08 015 Unknown [facility] Apr 12, 2015 called pt to check on [facility] Apr 09, 2015 FUP / after iv Last dose 1.1.16 [facility] Apr ! - Referral - Dr. 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
--- OUTSIDE RECORDS SUMMARY | 2019-08-19 05:28 | XMS REPORT ---
Author Author Nadiya Bustamante [facility] eClinicalWorks Address Unknown Phone Unavailable Care Team Providers Care Railway Yard Assistant Name Role Phone Wil Bustamante Unavailable Encounters Encounter Location Date mth f/u [facility] Jan 14, 2015 Medication Request [facility] May 04, 2015 Medication Refill Request [facility] Apr 29 16 Infusion [facility] Feb 26, 2015 Medication Refill Request [facility] Mar 02 15 4 Wk Follow-Up [facility] Feb 19, 2015 bacterial in bone [facility] Feb 26, 2015 Referral Questions [facility] Feb 05, 2015 Medication/Referral [facility] Feb 09, 2015 Mammo / Breast US Order [facility] Jan 19, 2015 4 week follow up [facility] Feb 04, 2015 Unknown [facility] Feb 26, 2015 Approval On (Percocet 10-325 MG Tablet) Urgent [facility] Nov 28, 2014 Medical Records [facility] Dec 18, 2014 Infection in face [facility] Dec 18, 2014 Walk in: Mouth ulcers [facility] Jan 07, [address] Bustamante disease of oral soft tissue [facility] Nov 24, 2014 Needs referral [facility] Nov 24, 2014 talk about referrals [facility] Nov 28, 2014 IV MEDS ORDER [facility] Mar 02, 2015 Unknown [facility] Mar 04, 2015 referral [facility] Jan 07, 2015 Referral - Dr. Jo Ann Oconnell [facility] Jan 08, 015 Unknown [facility] Apr 12, 2015 called pt to check on [facility] Apr 09, 2015 FUP / after iv Last dose 1.1.16 [facility] Apr ! - Referral - Dr. 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
--- OUTSIDE RECORDS SUMMARY | 2019-08-19 05:28 | XMS REPORT ---
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 Head Lineman Name Role Phone Wil Bustamante CP Unavailable [...] Z87.891 Active Problem Cough R05 Active Problem Epigastric pain R10.13 Active Problem Acute bronchitis, unspecified J20.9 Active Problem Bariatric surgery status Z98.84 Act keila Problem Acute embolism and thrombosi s of unspecified deep veins of unspecified lower extremity I82.409 Active Problem Radiculopathy, lumbar region M54.16 Active Problem Calculus of kidney N20.0 Active Medications No Known Medications Results No Known Results Summary Purpose eClinicalWorks Submission
--- OUTSIDE RECORDS SUMMARY | 2019-08-19 05:28 | XMS REPORT ---
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 Canteen Operator Name Role Phone Wil Bustamante CP Unavailable Allergies No Known Allergies Problems Problem Type Condition Code Onset Dates Condition Statu s Problem Other depressive episodes F32.8 Ac tive Problem Insomnia, unspecified G47.00 Active Problem Granuloma and granuloma-like lesions of [...] of spine, subsequent encounter T84.63XD Active Problem Carpal tunnel syndrome, unspecified upper limb G56.00 Active Problem Essential (primary) hypertension I10 Active Problem Methicillin susceptible Stap hylococcus aureus infection as the cause of diseases classified elsewhere B95.61 Active Problem Other abnormality of red blood cells R71.8 Active Problem Secondary polycythemia D75.1 Activ e Problem Encounter for general adult medical exam ination with abnormal findings Z00.01 Active Problem Unspecified open wound of ri ght little finger without damage to nail, sequela S61.206S Active Problem Aphasia R47.01 Active Problem Acute bronchitis, unspecified J20.9 Active Problem Epigastric pain R10.13 Active Problem Acute vaginitis N76.0 Active Problem Pain in right shoulder M25.511 Activ e Problem Other intervertebral disc displacement, 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 0 Active Problem Shortness of breath R06.02 Active Problem Personal history of nicotine dependence Z87.891 Active Problem Cough R05 Active Problem Radiculopathy, cervical region M54.12 Active Problem Radiculopathy, cervical region M54.12 Active Problem Bariatric surgery status Z98.84 Act keila Problem Acute embolism and thrombosi s of unspecified deep veins of unspecified lower extremity I82.409 Active Medications No Known Medications Results No Known Results Summary Purpose eClinicalWorks Submission
--- OUTSIDE RECORDS SUMMARY | 2019-08-19 05:28 | XMS REPORT ---
Author Author Nadiya Herman Organization eClinicalWorks Address Unknown Phone Unavailable Care Team Providers Care Application Coordinator Name Role Phone Rand Herman CP Unavailable Allergies No Known Allergies Problems [...]
--- OUTSIDE RECORDS SUMMARY | 2019-08-19 05:28 | XMS REPORT ---
Author Author Nadiya Bustamante [facility] eClinicalWorks Address Unknown Phone Unavailable Care Team Providers Care Radiation Therapy Technician Name Role Phone Wil Bustamante Unavailable Encounters Encounter Location Date mth f/u [facility] Jan 14, 2015 Medication Request [facility] May 04, 2015 Medication Refill Request [facility] Apr 29 16 Infusion [facility] Feb 26, 2015 Medication Refill Request [facility] Mar 02 15 4 Wk Follow-Up [facility] Feb 19, 2015 bacterial in bone [facility] Feb 26, 2015 Referral Questions [facility] Feb 05, 2015 Medication/Referral [facility] Feb 09, 2015 Mammo / Breast US Order [facility] Jan 19, 2015 4 week follow up [facility] Feb 04, 2015 Unknown [facility] Feb 26, 2015 Approval On (Percocet 10-325 MG Tablet) Urgent [facility] Nov 28, 2014 Medical Records [facility] Dec 18, 2014 Infection in face [facility] Dec 18, 2014 Walk in: Mouth ulcers [facility] Jan 07, [address] Bustamante disease of oral soft tissue [facility] Nov 24, 2014 Needs referral [facility] Nov 24, 2014 talk about referrals [facility] Nov 28, 2014 IV MEDS ORDER [facility] Mar 02, 2015 Unknown [facility] Mar 04, 2015 referral [facility] Jan 07, 2015 Referral - Dr. Jo Ann Oconnell [facility] Jan 08, 015 Unknown [facility] Apr 12, 2015 called pt to check on [facility] Apr 09, 2015 FUP / after iv Last dose 1.1.16 [facility] Apr ! - Referral - Dr. 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
--- OUTSIDE RECORDS SUMMARY | 2019-08-19 05:28 | XMS REPORT ---
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 Utility Porter Name Role Phone Wil Bustamante Unavailable Allergies [...] in right shoulder M25.511 Activ e Medications No Known Medications Results No Known Results Summary Purpose eClinicalWorks Submission
--- OUTSIDE RECORDS SUMMARY | 2019-08-19 05:28 | XMS REPORT ---
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 Field Appraiser Name Role Phone Wil Bustamante Unavailable Allergies No Known Allergies Problems Problem Type Condition Code Onset Dates Condition Statu s Problem Infection and inflammatory r eaction due to internal fixation device of spine, subsequent encounter T84.63XD Active Problem Gastro-esophageal reflux disease with esophagitis K21. 0 Active Problem Methicillin susceptible Stap hylococcus aureus infection as the cause of diseases classified elsewhere B95.61 Active Problem Abnormal results of liver function studies R94.5 Active Problem Pain in right shoulder M25.511 Activ e Problem Acute bronchitis, unspecified J20.9 Active Problem Epigastric pain R10.13 Active Problem Acute embolism and thrombosi s of unspecified deep veins of unspecified lower extremity I82.409 Active Problem Bariatric surgery status Z98.84 Act keila Problem Insomnia, unspecified G47.00 Active Problem Other chronic pain G89.29 Active Problem Radiculopathy, cervical region M54.12 Active Problem Personal history of nicotine dependence Z87.891 Active Problem Cough R05 Active Problem Shortness of breath R06.02 Active Problem Radiculopathy, lumbar region M54.16 Active Problem Calculus of kidney N20.0 Active Problem Osteomyelitis, unspecified M86.9 A ctive Problem Abnormal immunological finding in serum, unspecified R 76.9 Active Problem Other depressive episodes F32.8 Ac tive Problem Granuloma and granuloma-like lesions of oral mucosa K1 3.4 Active Problem Adjustment disorder with anxiety F43.22 Active Problem 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
--- OUTSIDE RECORDS SUMMARY | 2019-08-19 05:28 | XMS REPORT ---
Author Author Nadiya Herman Organization [employer]ClinicalWorks Address Unknown Phone Unavailable Care Team Providers Care Motor Vehicle Or Caravan Salesperson Name Role Phone Rand Herman CP Unavailable Allergies, Adverse Reactions, Alerts Substance Reaction Event Type Erythromycin rash Drug Allergy Sulfa rash Drug Allergy Tapentadol HCl headaches and hallucinations Drug Allerg y Zyban rash Drug Allergy Wellbutrin rash Drug Allergy Vancomycin HCl rash Drug Allergy Tramadol HCl headaches and hallucinations Drug Allerg y Effexor rash Drug Allergy Encounters Encounter Location Date mth f/u [facility] Jan 14, 2015 [facility] Refill Request [facility] May 27, 2015 Medication Request [facility] May 04, 2015 Medication Refill Request [facility] Apr 29 16 Other [facility] June 16, 2015 Infusion [facility] Feb 26, 2015 R/S Appt for 09/11/15 [facility] June 24, 2015 Medication Refill Request [facility] Mar 02 15 [facility] Refill [facility] June 11, 2015 4 Wk Follow-Up [facility] Feb 19, 2015 Medication Refills [facility] June 12, 2015 bacterial in bone [facility] Feb 26, 2015 Referral Questions [facility] Feb 05, 2015 Medication/Referral [facility] Feb 09, 2015 Refill? [facility] July 06, 2015 Mammo / Breast US Order [facility] Jan 19, 2015 3 month follow up [facility] July 14, 2015 4 week follow up [facility] Feb 04, 2015 Unknown [facility] Feb 26, 2015 Approval On (Percocet 10-325 MG Tablet) Urgent [facility] Nov 28, 2014 Medical Records [facility] Dec 18, 2014 Infection in face [facility] Dec 18, 2014 Walk in: Mouth ulcers [facility] Jan 07, [address] Bustamante disease of oral soft tissue [facility] Nov 24, 2014 Needs referral [facility] Nov 24, 2014 talk about referrals [facility] Nov 28, 2014 IV MEDS ORDER [facility] Mar 02, 2015 Unknown [facility] Mar 04, 2015 referral [facility] Jan 07, 2015 Referral - Dr. Jo Ann Oconnell [facility] Jan 08, 2 015 Unknown [facility] Apr 12, 2015 called pt to check on [facility] Apr 09, 2015 FUP / after iv Last dose 1.1.16 [facility] Apr ! - Referral - Dr. Bruno <Pending Authorizat ion> [facility] Apr 20, 2015 FUP/ [facility] [phone] [facility] Mar 16, 2015 Possible Bronchitis [facility] Mar 27, 2015 PT PICC LINE HURT [facility] Apr 06, 2015 Medication Refill Request [facility] Apr 06 15 Problems Problem Type Condition ICD-9 Code Onset Dates Condition Statu s Assessment Hepatomegaly, not elsewhere classified R16.0 Active Assessment Gastro-esophageal reflux disease with esophagitis K21. 0 Active Assessment Abnormal results of liver function studies R94.5 Active Assessment MIRA Positive - Other and uns pecified nonspecific immunological findings 795.79 Active Problem MIRA Positive - Other and unspecified non specific immunological findings 795.79 Active Assessment Abnormal immunological finding in serum, unspecified R 76.9 Active Problem Other depressive episodes F32.8 Ac tive Assessment Granuloma and granuloma-like lesions of oral mucosa K1 3.4 Active Problem HTN 401.9 Active Problem Fibromyalgia 729.1 Active Problem Chronic pain syndrome 338.4 Active Problem Bronchitis, not specified as acute or chronic J40 Active Problem Essential (primary) hypertension I10 Active Problem Abnormal results of liver function studies R94.5 Active Problem Encounter for gynecological examination (general) (routine) without abnormal findings Z01.419 Active Problem Nausea R11.0 Active Assessment Osteomyelitis, unspecified M86.9 A ctive Problem Granuloma [...] End Date Status Dosage OxyCODONE HCl ER [facility] [address]-08 15 MG Orally every 12 hrs Active 1 tablet Chantix [facility] [address]-75 1 MG Orally Twice a day May 04, 2015 Active 1 tablet Zofran [facility] [address]-59 8 MG Orally every 8 hours a s needed June 12, 2015 Active 1 tablet ProAir HFA [facility] [address]-30 108 (90 Base) MC G/ACT Inhalation every 4-6 hrs as needed for persistant cough Mar 27, 2015 Active 2 puffs as needed Oxycodone HCl [facility] [address]-66 15 MG Orally twice a day (bid) Active 1 tablet as needed Gabapentin [facility] [address]-22 600 MG Orally Three times a day N 2014 Active 1 tablet Progesterone [facility] [address]-59 1000 MG/60GM Externally Active Unknown Clonazepam [facility] [address]-25 0.5 MG Orally as needed (prn) Active 1 tablet Zoloft [facility] [address]-65 50 mg Orally Once a day A ctive 1 tablet Losartan Potassium-HCTZ [facility] [address]-64 50-12.5 MG Orall y Once a day Dec 30, 2014 Active 1 tablet Biotin [facility] 39846-33203 5000 MCG Orally Once a day Active 1 capsule Amoxicillin [facility] [address]-05 500 mg Orally every 12 hrs AprOctober 10, 2015 Active 1 tablet Pantoprazole Sodium [facility] [address]-47 40 MG Orally Once a day Active 1 tablet Zolpidem Tartrate [facility] [address]-26 10 MG Orally Once a day Active 1 tablet at bedtime as needed Social History Social History Element Qualifiers Date 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 30 July 14, 2015 Home . lives with July 14, 2015 Do you have pets? yes. July 14, 2015 Home Smoke Detector yes. July 14, 2015 Marital Status: . July 14, 2015 Caffeine intake? normal. July 14, 2015 Use of recreational / street drugs? no. Apri l 2015 exercise: no. July 14, 2015 Alchohol: yes. Alcohol Intake Current Drinker, Wh at type? Wine July 14, 2015 Travel outside [place]: no. July 14, 2015 Family HX of Skin Cancer no. July 14, 2015 Occup. exposure: none. July 14, 2015 Vital Signs Date/Time: July 14, 2015 Weight 230 lbs Height 65 in Blood Pressure Systolic 125 mm Hg Respiratory Rate 16 /min Cardiac Monitoring Heart Rate 84 /min Temperature 98.2 F Blood Pressure Diastolic 81 mm Hg Summary Purpose eClinicalWorks Submission
--- OUTSIDE RECORDS SUMMARY | 2019-08-19 05:28 | XMS REPORT ---
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 Apigee Developer Name Role Phone Wil Bustamante Unavailable [...] of diseases classified elsewhere B95.61 Active Assessment Insomnia, unspecified G47.00 Active Problem Aphasia R47.01 Active Problem Infection [...] Z87.891 Active Problem Cough R05 Active Assessment Cough R05 Active Problem Epigastric pain R10.13 Active Problem Acute bronchitis, unspecified J20.9 Active Assessment Adjustment disorder with anxiety F43.22 Active Problem Bariatric surgery status Z98.84 Act keila Assessment Shortness of breath R06.02 Active Problem Acute embolism and thrombosi s of unspecified deep veins of unspecified lower extremity I82.409 Active Problem Radiculopathy, lumbar region M54.16 Active Problem Calculus of kidney N20.0 Active Medications Medication Code System Code Instructions Start Date End Date Status Dosage Ativan [facility]] 76553495171 2 MG Orally as directed Acti ve 1 tablet as needed BusPIRone HCl [facility] [place]NOTE 2] 75736816891 7.5 MG Orally Twice a day Active 1 tablet Zolpidem Tartrate [facility] [place] 2] 31792755793 10 mg Orally Once a day Active 1 tablet at bedtime as needed OxyContin [facility] [place]NOTE 2] [address]-19 40 MG Orally every 12 hrs Active 1 tablet Dilaudid [facility] [place] 2] [address]-16 Active not defin ed Zofran ODT [facility] [place]NOTE 2] 31912079341 8 MG Orally every 8 hours as needed for nausea Dec 02, 2016 Active as directed Gabapentin [facility] [place]NOTE 2] 39868332564 600 MG Orally Three times a day Feb 082014 Active 1 tablet OxyCODONE HCl ER [facility] [place]NOTE 2] [address]-43 15 MG Orally as needed (prn) Active 1 tablet Sertraline HCl [facility] [place] 2] 79420538957 100 MG Orally daily A ctive take 1 tablet daily Multivitamins [facility] [place]NOTE 2] 98995871067 Orally twice a day (bid) Active 1 tablet Biotin [facility] [place]NOTE 2[facility] 92405466946 5000 MCG Orally Once a day A ctive 1 capsule Chantix [facility] [place]NOTE 2] [address]-20 1MG Orally Twice a day Act keila TAKE 1 TABLET TWICE A DAY Clonazepam [facility] [place]NOTE 2] 30076350062 0.5 MG Orally bid as needed for anxiety Active 1 tablet Pantoprazole Sodium [facility] [place]NOTE 2] 93236578802 40 mg Orally daily Active take 1 tablet daily Chewable [facility] [place]NOTE 2] 03111048349 Orally Act keila not defined Vital Signs Date/Time: July 21, 2017 BMI 32.28 Index Weight 194 lbs Blood Pressure Systolic 122 mm Hg Respiratory Rate 16 /min Cardiac Monitoring Heart Rate 77 /min Temperature 98.1 F Blood Pressure Diastolic 80 mm Hg Results No Known Results Summary Purpose eClinicalWorks Submission
--- OUTSIDE RECORDS SUMMARY | 2019-08-19 05:28 | XMS REPORT ---
Author Author Nadiya Bustamante [facility] eClinicalWorks Address Unknown Phone Unavailable Care Team Providers Care Remediation Technician Name Role Phone Wil Bustamante Unavailable Encounters Encounter Location Date mth f/u [facility] Jan 14, 2015 [facility] Refill Request [facility] May 27, 2015 Medication Request [facility] May 04, 2015 Medication Refill Request [facility] Apr 29 16 Other [facility] June 16, 2015 Infusion [facility] Feb 26, 2015 Medication Refill Request [facility] Mar 02 15 [facility] Refill [facility] June 11, 2015 4 Wk Follow-Up [facility] Feb 19, 2015 Medication Refills [facility] June 12, 2015 bacterial in bone [facility] Feb 26, 2015 Referral Questions [facility] Feb 05, 2015 Medication/Referral [facility] Feb 09, 2015 Mammo / Breast US Order [facility] Jan 19, 2015 4 week follow up [facility] Feb 04, 2015 Unknown [facility] Feb 26, 2015 Approval On (Percocet 10-325 MG Tablet) Urgent [facility] Nov 28, 2014 Medical Records [facility] Dec 18, 2014 Infection in face [facility] Dec 18, 2014 Walk in: Mouth ulcers [facility] Jan 07, [address] 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 Jo Ann Oconnell [facility] Jan 08, 2 015 Unknown [facility] Apr 12, 2015 called pt to check on [facility] Apr 09, 2015 FUP / after iv Last dose 1.1.16 [facility] Apr ! - Referral - Dr. Bruno <Pending Authorizat ion> [facility] Apr 20, 2015 FUP/ IV FROM [facility] [phone] [facility] Mar 16, 2015 Possible Bronchitis [facility] Mar 27, 2015 PT PICC LINE HURT [facility] Apr 06, 2015 Medication Refill Request [facility] Apr 06 15 Problems Problem Type Condition ICD-9 Code Onset Dates Condition Statu s Problem HTN 401.9 Active Problem Fibromyalgia 729.1 Active Problem Chronic pain syndrome 338.4 Active Problem Bronchitis, not specified as acute or chronic J40 Active Problem Abnormal results of liver function studies R94.5 Active Problem Essential (primary) hypertension I10 Active Problem Encounter for gynecological examination (general) (routine) without abnormal findings Z01.419 Active Problem Nausea R11.0 Active Problem Granuloma and granuloma-like lesions of [...] non specific immunological findings 795.79 Active Problem MIRA Positive - Other and unspecified non specific immunological findings 795.79 Active Problem Other depressive episodes F32.8 Ac tive Social History Social History Element Qualifiers Date 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 exposure: none. June 12, 2015 Summary Purpose eClinicalWorks Submission
--- OUTSIDE RECORDS SUMMARY | 2019-08-19 05:28 | XMS REPORT ---
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 Sap Director Name Role Phone Wil Bustamante CP Unavailable [...]
--- OUTSIDE RECORDS SUMMARY | 2019-08-19 05:28 | XMS REPORT ---
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 Cp Bleacher Operator Name Role Phone Wil Bustamante CP [...]
--- OUTSIDE RECORDS SUMMARY | 2019-08-19 05:28 | XMS REPORT ---
Author Author Nadiya Bustamante [facility] eClinicalWorks Address Unknown Phone Unavailable Care Team Providers Care Electric Lift Truck Driver Name Role Phone Wil Bustamante Unavailable Encounters Encounter Location Date mth f/u [facility] Jan 14, 2015 [facility] Refill Request [facility] May 27, 2015 Medication Request [facility] May 04, 2015 Medication Refill Request [facility] Apr 29 16 Other [facility] June 16, 2015 Infusion [facility] Feb 26, 2015 R/S Appt for 09/11/15 [facility] June 24, 2015 Medication Refill Request [facility] Mar 02 15 [facility] Refill [facility] June 11, 2015 4 Wk Follow-Up [facility] Feb 19, 2015 Medication Refills [facility] June 12, 2015 bacterial in bone [facility] Feb 26, 2015 3 month follow up [facility] July 14, 2015 Referral Questions [facility] Feb 05, 2015 Medication/Referral [facility] Feb 09, 2015 Refill? [facility] July 06, 2015 Mammo / Breast US Order [facility] Jan 19, 2015 f/u from hosp [facility] / Large Liver [facility] Jul 4 week follow up [facility] Feb 04, 2015 Unknown [facility] Feb 26, 2015 Approval On (Percocet 10-325 MG Tablet) Urgent [facility] Nov 28, 2014 Medical Records [facility] Dec 18, 2014 Infection in face [facility] Dec 18, 2014 Walk in: Mouth ulcers [facility] Jan 07, [address] Bustamante disease of oral soft tissue [facility] Nov 24, 2014 Needs referral [facility] Nov 24, 2014 talk about referrals [facility] Nov 28, 2014 IV MEDS ORDER [facility] Mar 02, 2015 Unknown [facility] Mar 04, 2015 referral [facility] Jan 07, 2015 retro referral [facility] July 14, 2015 Referral - Dr. Jo Ann Oconnell [facility] Jan 08, 2 015 Unknown [facility] Apr 12, 2015 called pt to check on [facility] Apr 09, 2015 FUP / after iv Last dose 1.1.16 [facility] Apr ! - Referral - Dr. Bruno <Pending Authorizat ion> [facility] Apr 20, 2015 FUP/ IV FROM [facility] [phone] [facility] Mar 16, 2015 Possible Bronchitis [facility] Mar 27, 2015 PT PICC LINE HURT [facility] Apr 06, 2015 Medication Refill Request [facility] Apr 06 15 Problems Problem Type Condition ICD-9 Code Onset Dates Condition Statu s Problem Chronic pain syndrome 338.4 Active Problem Abnormal immunological finding in serum, unspecified R 76.9 Active Problem Fibromyalgia 729.1 Active Problem Nausea R11.0 Active Problem Other chronic pain G89.29 Active Problem Bronchitis, not specified as acute or chronic J40 Active Problem Abnormal results of liver function studies R94.5 Active Problem Encounter for gynecological examination (general) (routine) without abnormal findings Z01.419 Active Problem Right upper quadrant pain R10.11 Ac tive Problem Osteomyelitis, unspecified M86.9 A ctive Problem Granuloma and granuloma-like lesions of oral mucosa K1 3.4 Active Problem Essential (primary) hypertension I10 Active Problem Other specified abnormal immunological findings in ser um R76.8 Active Problem Gastro-esophageal reflux disease with esophagitis K21. 0 Active Problem mouth ulcer Other and unspecified diseas es of the oral soft tissues 528.9 Active Problem Insomnia, unspecified G47.00 Active Problem Personal history of nicotine dependence Z87.891 Active Problem Pain in joint, multiple sites 719.49 Active Problem MIRA Positive - Other and unspecified non specific immunological findings 795.79 Active Problem MIRA Positive - Other and unspecified non specific immunological findings 795.79 Active Problem Other depressive episodes F32.8 Ac tive Problem Nonspecific elevation of lev els of transaminase or lactic acid dehydrogenase (LDH) 790.4 Active Problem HTN 401.9 Active Social History Social History Element Qualifiers Date 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 30 July 16, 2015 Home . lives with July 16, 2015 Do you have pets? yes. July 16, 2015 Home Smoke Detector yes. July 16, 2015 Marital Status: . July 16, 2015 Caffeine intake? normal. July 16, 2015 Use of recreational / street drugs? no. Apri 2015 exercise: no. July 16, 2015 Alchohol: yes. Alcohol Intake Current Drinker, Wh at type? Wine July 16, 2015 Travel outside [place]: no. July 16, 2015 Family HX of Skin Cancer no. July 16, 2015 Occup. exposure: none. July 16, 2015 Summary Purpose eClinicalWorks Submission
--- OUTSIDE RECORDS SUMMARY | 2019-08-19 05:28 | XMS REPORT ---
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 Snaker Tractor Driver Name Role Phone Wil Bustamante CP Unavailable [...] Other visual disturbances H53.8 Ac tive Problem Radiculopathy, lumbar region M54.16 Active Problem [...]
--- OUTSIDE RECORDS SUMMARY | 2019-08-19 05:28 | XMS REPORT ---
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 Laboratory Assistant Name Role Phone Wil Bustamante Unavailable Allergies [...] Start Date End Date Status Dosage Ativan [facility] [place] 96[place]30 2 MG Orally as directed Acti ve 1 tablet as needed Results No Known Results Summary Purpose eClinicalWorks Submission
--- OUTSIDE RECORDS SUMMARY | 2019-08-19 05:28 | XMS REPORT ---
Author Author Nadiya Bustamante [facility] [place] eClinicalWorks Address Unknown Phone Unavailable Care Team Providers Care Infrastructure Design Engineer Name Role Phone Wil Bustamante Unavailable Encounters Encounter Location Date mth f/u [facility] Jan 14, 2015 Chantix Refill Request [facility] May 27, 2015 Medication Request [facility] May 04, 2015 Medication Refill Request [facility] Apr 29 16 Other [facility] June 16, 2015 Infusion [facility] Feb 26, 2015 R/S Appt for 09/11/15 [facility] June 24, 2015 Medication Refill Request [facility] Mar 02 15 Chantix Refill [facility] June 11, 2015 4 Wk Follow-Up [facility] Feb 19, 2015 Medication Refills [facility] June 12, 2015 bacterial in bone [facility] Feb 26, 2015 Referral Questions [facility] Feb 05, 2015 Medication/Referral [facility] Feb 09, 2015 Mammo / Breast US Order [facility] Jan 19, 2015 4 week follow up [facility] Feb 04, 2015 Unknown [facility] Feb 26, 2015 Approval On (Percocet 10-325 MG Tablet) Urgent [facility] Nov 28, 2014 Medical Records [facility] Dec 18, 2014 Infection in face [facility] Dec 18, 2014 Walk in: Mouth ulcers [facility] Jan 07, [address] 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 Jo Ann Oconnell [facility] Jan 08, 015 Unknown [facility] Apr 12, 2015 called pt to check on [facility] Apr 09, 2015 FUP / after iv Last dose 1.1.16 [facility] Apr ! - Referral - Dr. 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
--- OUTSIDE RECORDS SUMMARY | 2019-08-19 05:28 | XMS REPORT ---
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 Ssis Ssrs Developer Name Role Phone Wil Bustamante Unavailable [...] Z87.891 Active Problem Cough R05 Active Assessment Adjustment disorder with anxiety F43.22 Active Problem Epigastric pain R10.13 Active Problem Acute bronchitis, unspecified J20.9 Active Problem Bariatric surgery status Z98.84 Act keila Assessment Acute bronchitis, unspecified J20.9 Active Problem Acute embolism and thrombosi s of unspecified deep veins of unspecified lower extremity I82.409 Active Problem Radiculopathy, lumbar region M54.16 Active Problem Calculus of kidney N20.0 Active Medications Medication Code System Code Instructions Start Date End Date Status Dosage BusPIRone HCl [facility] 64364432852 7.5 MG Orally Twice a day Jun 05, 2017 Active 1 tablet OxyContin [facility] [address]-46 40 MG Orally every 12 hrs Active 1 tablet Dilaudid [facility] [address]-56 Active not defin ed Multivitamins [facility] 35571419322 Orally twice a day (bid) Active 1 tablet Zolpidem Tartrate [facility] 05590641577 10 mg Orally Once a day Active 1 tablet at bedtime as needed Zofran ODT [facility] 88088489064 8 MG Orally every 8 hours as needed for nausea Dec 02, 2016 Active as directed Chewable [facility] 81585042627 Orally Act keila not defined Gabapentin [facility] 11237861980 600 MG Orally Three times a day Feb 082014 Active 1 tablet Biotin [facility] 23522977320 5000 MCG Orally Once a day A ctive 1 capsule Sertraline HCl [facility] 61295828759 100 MG Orally daily A ctive take 1 tablet daily Chantix [facility] [address]-06 1MG Orally Twice a day Act keila TAKE 1 TABLET TWICE A DAY Ativan [facility] 62548546897 2 MG Orally as directed Acti ve 1 tablet as needed Clonazepam [facility] 02455866788 0.5 MG Orally once a day as needed Active 1 tablet Pantoprazole Sodium [facility] 80478183430 40 mg Orally daily Active take 1 tablet daily OxyCODONE HCl ER [facility] [address]-35 15 MG Orally as needed (prn) Active 1 tablet Clindamycin HCl [facility] 23817022255 300 MG Orally every 8 hrs Jun 05, 2017 June 15, 2017 Active 1 capsule Vital Signs Date/Time: Jun 05, 2017 BMI 32.95 Index Weight 198 lbs Blood Pressure Systolic 120 mm Hg Respiratory Rate 16 /min Cardiac Monitoring Heart Rate 73 /min Temperature 98.0 F Blood Pressure Diastolic 80 mm Hg Results No Known Results Summary Purpose eClinicalWorks Submission
--- OUTSIDE RECORDS SUMMARY | 2019-08-19 05:28 | XMS REPORT ---
Author Author Nadiya Bustamante [facility] eClinicalWorks Address Unknown Phone Unavailable Care Team Providers Care Roller Gold Leaf Name Role Phone Wil Bustamante Unavailable Encounters Encounter Location Date mth f/u [facility] Jan 14, 2015 Medication Request [facility] May 04, 2015 Medication Refill Request [facility] Apr 29 16 Infusion [facility] Feb 26, 2015 Medication Refill Request [facility] Mar 02 15 4 Wk Follow-Up [facility] Feb 19, 2015 bacterial in bone [facility] Feb 26, 2015 Referral Questions [facility] Feb 05, 2015 Medication/Referral [facility] Feb 09, 2015 Mammo / Breast US Order [facility] Jan 19, 2015 4 week follow up [facility] Feb 04, 2015 Unknown [facility] Feb 26, 2015 Approval On (Percocet 10-325 MG Tablet) Urgent [facility] Nov 28, 2014 Medical Records [facility] Dec 18, 2014 Infection in face [facility] Dec 18, 2014 Walk in: Mouth ulcers [facility] Jan 07, [address] 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 Jo Ann Oconnell [facility] Jan 08, 015 Unknown [facility] Apr 12, 2015 called pt to check on [facility] Apr 09, 2015 FUP / after iv Last dose 1.1.16 [facility] Apr ! - Referral - Dr. 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
--- OUTSIDE RECORDS SUMMARY | 2019-08-19 05:28 | XMS REPORT ---
Author Author Nadiya Herman Organization eClinicalWorks Address Unknown Phone Unavailable Care Team Providers Care Hand Laminator Name Role Phone Rand Herman CP Unavailable Encounters Encounter Location Date mth f/u [facility] Jan 14, 2015 Chantix Refill Request [facility] May 27, 2015 Medication Request [facility] May 04, 2015 Medication Refill Request [facility] Apr 29 16 Other [facility] June 16, 2015 Infusion [facility] Feb 26, 2015 R/S Appt for 09/11/15 [facility] June 24, 2015 Medication Refill Request [facility] Mar 02 15 Chantix Refill [facility] June 11, 2015 4 Wk Follow-Up [facility] Feb 19, 2015 Medication Refills [facility] June 12, 2015 bacterial in bone [facility] Feb 26, 2015 Referral Questions [facility] Feb 05, 2015 Medication/Referral [facility] Feb 09, 2015 Refill? [facility] July 06, 2015 Mammo / Breast US Order [facility] Jan 19, 2015 4 week follow up [facility] Feb 04, 2015 Unknown [facility] Feb 26, 2015 Approval On (Percocet 10-325 MG Tablet) Urgent [facility] Nov 28, 2014 Medical Records [facility] Dec 18, 2014 Infection in face [facility] Dec 18, 2014 Walk in: Mouth ulcers [facility] Jan 07, [address] Bustamante disease of oral soft tissue [facility] Nov 24, 2014 Needs referral [facility] Nov 24, 2014 talk about referrals [facility] Nov 28, 2014 IV MEDS ORDER [facility] Mar 02, 2015 Unknown [facility] Mar 04, 2015 referral [facility] Jan 07, 2015 Referral - Dr. J oAnn Oconnell [facility] Jan 08, 015 Unknown [facility] Apr 12, 2015 called pt to check on [facility] Apr 09, 2015 FUP / after iv Last dose 1.1.16 [facility] Apr ! - Referral - Dr. 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
--- OUTSIDE RECORDS SUMMARY | 2019-08-19 05:28 | XMS REPORT ---
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 Slot Machine Floor Person Name Role Phone Wil Bustamante Unavailable Allergies No Known Allergies Problems Problem Type Condition Code Onset Dates Condition Statu s Assessment Insomnia, unspecified G47.00 Active Problem Gastro-esophageal [...] Date End Date Status Dosage Zolpidem Tartrate [facility] 74922234799 10 mg Orally Once a day Active 1 tablet at bedtime as needed Results No Known Results Summary Purpose eClinicalWorks Submission
--- OUTSIDE RECORDS SUMMARY | 2019-08-19 05:29 | XMS REPORT ---
Author Author Nadiya Herman Organization eClinicalWorks Address Unknown Phone Unavailable Care Team Providers Care Gas Golf Cart Repairer Name Role Phone Rand Herman CP Unavailable Allergies, Adverse Reactions, Alerts Substance Reaction Event Type Erythromycin rash Drug Allergy Sulfa rash Drug Allergy Tapentadol HCl headaches and hallucinations Drug Allerg y Zyban rash Drug Allergy Wellbutrin rash Drug Allergy Vancomycin HCl rash Drug Allergy Tramadol HCl headaches and hallucinations Drug Allerg y Effexor rash Drug Allergy Encounters Encounter Location Date mth f/u [facility] Jan 14, 2015 Chantix Refill Request [facility] May 27, 2015 Medication Request [facility] May 04, 2015 Medication Refill Request [facility] Apr 29 16 Other [facility] June 16, 2015 Infusion [facility] Feb 26, 2015 R/S Appt for 09/11/15 [facility] June 24, 2015 Medication Refill Request [facility] Mar 02 15 Chantix Refill [facility] June 11, 2015 4 Wk Follow-Up [facility] Feb 19, 2015 Medication Refills [facility] June 12, 2015 bacterial in bone [facility] Feb 26, 2015 Referral Questions [facility] Feb 05, 2015 Medication/Referral [facility] Feb 09, 2015 Refill? 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 Jo Ann Oconnell [facility] Jan 08, 2 015 Unknown [facility] Apr 12, 2015 called pt to check on [facility] Apr 09, 2015 FUP / after iv Last dose 1.1.16 [facility] Apr ! - Referral - Dr. Bruno <Pending Authorizat ion> [facility] Apr 20, 2015 FUP/ [facility] [phone] [facility], 2015 Possible Bronchitis [facility] Mar 27, 2015 PT PICC LINE HURT [facility] Apr 06, 2015 Medication Refill Request [facility] Apr 06 15 Problems Problem Type [...] End Date Status Dosage OxyCODONE HCl [facility] [address]-98 15 MG Orally every 12 hrs Active 1 tablet Chantix [facility] [address]-80 1 MG Orally Twice a day May 04, 2015 Active 1 tablet Zofran [facility] [address]-38 8 MG Orally every 8 hours a s needed June 12, 2015 Active 1 tablet ProAir HFA [facility] [address]-67 108 (90 Base) MC G/ACT Inhalation every 4-6 hrs as needed for persistant cough Mar 27, 2015 Active 2 puffs as needed Oxycodone HCl [facility] [address]-87 15 MG Orally twice a day (bid) Active 1 tablet as needed Gabapentin [facility] [address]-06 600 MG Orally Three times a day N 2014 Active 1 tablet Progesterone [facility] [address]-96 1000 MG/60GM Externally Active Unknown Clonazepam [facility] [address]-97 0.5 MG Orally as needed (prn) Active 1 tablet Zoloft [facility] [address]-26 50 mg Orally Once a day A ctive 1 tablet Losartan Potassium-HCTZ [facility] [address]-88 50-12.5 MG Orall y Once a day Dec 30, 2014 Active 1 tablet Biotin [facility] 75076-18512 5000 MCG Orally Once a day Active 1 capsule Amoxicillin [facility] [address]-27 500 mg Orally every 12 hrs AprOctober 10, 2015 Active 1 tablet Pantoprazole Sodium [facility] [address]-76 40 MG Orally Once a day Active 1 tablet Zolpidem Tartrate [facility] [address]-31 10 MG Orally Once a day Active 1 tablet at bedtime as needed Social History Social History Element Qualifiers Date 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 exposure: none. July 16, 2015 Vital Signs Date/Time: July 14, 2015 Weight 230 lbs Height 65 in Blood Pressure Systolic 125 mm Hg Respiratory Rate 16 /min Cardiac Monitoring Heart Rate 84 /min Temperature 98.2 F Blood Pressure Diastolic 81 mm Hg Summary Purpose eClinicalWorks Submission
--- OUTSIDE RECORDS SUMMARY | 2019-08-19 05:29 | XMS REPORT ---
Author Author Nadiya Bustamante [facility] eClinicalWorks Address Unknown Phone Unavailable Care Team Providers Care Creative Services Writer Name Role Phone Wil Bustamante Unavailable Encounters Encounter Location Date mth f/u [facility] Jan 14, 2015 Unknown [facility] Nov 18, 2015 Infusion [facility] Feb 26, 2015 Low BP [facility] Dec 15, 2015 Medication Refill Request [facility] Mar 02 15 update referral [facility] Dec 16, 2015 4 Wk Follow-Up [facility] Feb 19, 2015 bacterial in bone [facility] Feb 26, 2015 Referral Questions [facility] Feb 05, 2015 Medication/Referral [facility] Feb 09, 2015 Mammo / Breast US Order [facility] Jan 19, 2015 8/3 referral rqsted [facility] Nov 11, 2015 4 week follow up [facility] Feb 04, 2015 Unknown [facility] Feb 26, 2015 Approval On (Percocet 10-325 MG Tablet) Urgent [facility] Nov 28, 2014 Medical Records [facility] Dec 18, 2014 Infection in face [facility] Dec 18, 2014 Walk in: Mouth ulcers [facility] Jan 07, [address] 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 Jo Ann Oconnell [facility] Jan 08, 015 Unknown [facility] Apr 12, 2015 called pt to check on [facility] Apr 09, 2015 FUP / after iv Last dose 1.1.16 [facility] Apr ! - Referral - Dr. Bruno <Pending Authorizat ion> [facility] Apr 20, 2015 FUP/ IV FROM [facility] [phone] [facility] Mar 16, 2015 Possible Bronchitis [facility] Mar 27, 2015 PT PICC LINE HURT [facility] Apr 06, 2015 Medication Refill Request [facility] Apr 06 15 Chantix Refill Request [facility] May 27, 2015 Medication Request [facility] May 04, 2015 Medication Refill Request [facility] Apr 29 16 Other [facility] June 16, 2015 R/S Appt for 09/11/15 [facility] June 24, 2015 Chantix Refill [facility] June 11, 2015 Medication Refills [facility] June 12, 2015 3 month follow up [facility] July 14, 2015 Refill? [facility] July 06, 2015 f/u from hosp [facility] / Large Liver [facility] Jul pt came by the office [facility] August 06, 2015 retro referral [facility] July 14, 2015 N/S to appt. [facility] September 28, 2015 Referral needed by Monday, 09/17 [facility] September 16, 2015 referral notes [facility] September 30, 2015 Referral Requests [facility] September 24, 2015 Lab Order [facility] September 29, 2015 Refill req. [facility] October 20, 2015 Pharm. 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 Active Problem Abnormal immunological finding in serum, unspecified R 76.9 Active Problem Right upper quadrant pain R10.11 Ac tive Problem Insomnia, unspecified G47.00 Active Problem Nausea R11.0 Active Problem Other chronic pain G89.29 Active Problem Abnormal results of liver function studies R94.5 Active Problem Adjustment disorder with anxiety F43.22 Active Problem Other specified abnormal immunological findings in ser um R76.8 Active Problem Osteomyelitis, unspecified M86.9 A ctive Problem Bronchitis, not specified as acute or chronic J40 Active Problem Essential (primary) hypertension I10 Active Problem mouth ulcer Other and unspecified diseas es of the oral soft tissues 528.9 Active Problem MIRA Positive - Other and unspecified non specific immunological findings 795.79 Active Problem Personal history of nicotine dependence Z87.891 Active Problem Gastro-esophageal reflux disease with esophagitis K21. 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 Patient is a: former smok er, How many packs did Pt smoke per day? .5, What age did you quit smoking? 40 11/04/2015 Dec 16, 2015 Home . lives with Dec 16, 2015 Do you have pets? yes. Dec 16, 2015 Home Smoke Detector yes. Dec 16, 2015 Marital Status: . Dec 16, 2015 Caffeine intake? normal. Dec 16, 2015 Use of recreational / street drugs? no. Dec 16, 2015 exercise: no. Dec 16, 2015 Alchohol: yes. Alcohol Intake Current Drinker, Wh at type? Wine Dec 16, 2015 Travel outside [place]: no. Dec 16, 2015 Family HX of Skin Cancer no. Dec 16, 2015 Occup. exposure: none. Dec 16, 2015 Summary Purpose eClinicalWorks Submission
--- OUTSIDE RECORDS SUMMARY | 2019-08-19 05:29 | XMS REPORT ---
Author Author Nadiya Herman Organization [employer] Address Unknown Phone Unavailable Care Team Providers Care Engineer Booster And Exhauster Name Role Phone Rand Herman CP Unavailable Encounters Encounter Location Date mth f/u [facility] Jan 14, 2015 cancel appt [facility] Jan 13, 2016 Unknown [facility] Nov 18, 2015 Infusion [facility] Feb 26, 2015 Low BP [facility] Dec 15, 2015 Medication Refill Request [facility] Mar 02 15 update referral [facility] Dec 16, 2015 4 Wk Follow-Up [facility] Feb 19, 201501/07 pending auth [facility] Jan 06, 2016 bacterial in bone [facility] Feb 26, 2015 Referral Questions [facility] Feb 05, 2015 Medication/Referral [facility] Feb 09, 2015 Mammo / Breast US Order [facility] Jan 19, 2015 8/3 referral rqsted [facility] Nov 11, 2015 4 week follow up [facility] Feb 04, 2015 Unknown [facility] Feb 26, 2015 Approval On (Percocet 10-325 MG Tablet) Urgent [facility] Nov 28, 2014 Medical Records [facility] Dec 18, 2014 Infection in face [facility] Dec 18, 2014 Walk in: Mouth ulcers [facility] Jan 07, [address] Bustamante disease of oral soft tissue [facility] Nov 24, 2014 Needs referral [facility] Nov 24, 2014 talk about referrals [facility] Nov 28, 2014 IV MEDS ORDER [facility] Mar 02, 2015 Unknown [facility] Mar 04, 2015 referral [facility] Jan 07, 2015 Referral - Dr. Jo Ann Oconnell [facility] Jan 08, 2 015 Unknown [facility] Apr 12, 2015 called pt to check on [facility] Apr 09, 2015 FUP / after iv Last dose 1.1.16 [facility] Apr ! - Referral - Dr. Bruno <Pending Authorizat ion> [facility] Apr 20, 2015 FUP/ IV FROM [facility] [phone] [facility] Mar 16, 2015 Possible Bronchitis [facility] Mar 27, 2015 PT PICC LINE HURT [facility] Apr 06, 2015 Medication Refill Request [facility] Apr 06 15 [facility] Refill Request [facility] May 27, 2015 Medication Request [facility] May 04, 2015 Medication Refill Request [facility] Apr 29 16 Other [facility] June 16, 2015 R/S Appt for 09/11/15 [facility] June 24, 2015 [facility] Refill [facility] June 11, 2015 Medication Refills [facility] June 12, 2015 3 month follow up [facility] July 14, 2015 Refill? [facility] July 06, 2015 f/u from hosp [facility] / Large Liver [facility] Jul pt came by the office [facility] August 06, 2015 retro referral [facility] July 14, 2015 N/S to appt. [facility] September 28, 2015 Referral needed by Monday, 09/17 [facility] September 16, 2015 referral notes [facility] September 30, 2015 Referral Requests [facility] September 24, 2015 Lab Order [facility] September 29, 2015 Refill req. [facility] October 20, 2015 Pharm. needs C/B [facility] November 04, 2015 f/u [facility] November 04, 2015 Problems Problem Type Condition ICD-9 Code Onset Dates Condition Statu s Problem Insomnia, unspecified G47.00 Active Problem Gastro-esophageal reflux disease with esophagitis K21. 0 Active Problem Personal history of nicotine dependence Z87.891 Active Problem Abnormal results of liver function studies R94.5 Active Problem Other chronic pain G89.29 Active Problem Encounter for screening mammogram for ma lignant neoplasm of breast Z12.31 Active Problem Other specified abnormal immunological findings in ser um R76.8 Active Problem Adjustment disorder with anxiety F43.22 Active Problem Abnormal immunological finding in serum, unspecified R 76.9 Active Problem Other depressive episodes F32.8 Ac tive Problem Osteomyelitis, unspecified M86.9 A ctive Problem Granuloma and granuloma-like lesions of oral mucosa K1 3.4 Active Social History Social History Element Qualifiers Date 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 Patient is a: former smok er, How many packs did Pt smoke per day? .5, What age did you quit smoking? 40 11/04/2015 Feb 03, 2016 Home . lives with Feb 03, 2016 Do you have pets? yes. Feb 03, 2016 Home Smoke Detector yes. Feb 03, 2016 Marital Status: . Feb 03, 2016 Caffeine intake? normal. Feb 03, 2016 Use of recreational / street drugs? no. Feb 03, 2016 exercise: no. Feb 03, 2016 Alchohol: yes. Alcohol Intake Current Drinker, Wh at type? Wine Feb 03, 2016 Travel outside [place]: no. Feb 03, 2016 Family HX of Skin Cancer no. Feb 03, 2016 Occup. exposure: none. Feb 03, 2016 Summary Purpose [employer] Submission
--- OUTSIDE RECORDS SUMMARY | 2019-08-19 05:29 | XMS REPORT ---
Author Author Nadiya Bustamante [facility] [employer] Address Unknown Phone Unavailable Care Team Providers Care Recreation Program Specialist Name Role Phone Wil Bustamante Unavailable Allergies, Adverse Reactions, Alerts Substance Reaction Event Type Erythromycin rash Drug Allergy Sulfa rash Drug Allergy Tapentadol HCl headaches and hallucinations Drug Allerg y Zyban rash Drug Allergy Wellbutrin rash Drug Allergy Vancomycin HCl rash Drug Allergy Tramadol HCl headaches and hallucinations Drug Allerg y Effexor rash Drug Allergy Encounters Encounter Location Date mth f/u [facility] Jan 14, 2015 Chantix Refill Request [facility] May 27, 2015 Medication Request [facility] May 04, 2015 Medication Refill Request [facility] Apr 29 16 Other [facility] June 16, 2015 Infusion [facility] Feb 26, 2015 R/S Appt for 09/11/15 [facility] June 24, 2015 Medication Refill Request [facility] Mar 02 15 Chantix Refill [facility] June 11, 2015 4 Wk Follow-Up [facility] Feb 19, 2015 Medication Refills [facility] June 12, 2015 bacterial in bone [facility] Feb 26, 2015 f/u from hosp [facility] / Large Liver [facility] Jul Referral Questions [facility] Feb 05, 2015 Medication/Referral [facility] Feb 09, 2015 Refill? 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 Jo Ann Oconnell [facility] Jan 08, 015 Unknown [facility] Apr 12, 2015 called pt to check on [facility] Apr 09, 2015 FUP / after iv Last dose 1.1.16 [facility] Apr ! - Referral - Dr. Bruno <Pending Authorizat ion> [facility] Apr 20, 2015 FUP/ IV FROM [facility] [phone] [facility] Mar 16, 2015 Possible Bronchitis [facility] Mar 27, 2015 PT PICC LINE HURT [facility] Apr 06, 2015 Medication Refill Request [facility] Apr 06 15 Problems Problem Type Condition ICD-9 Code Onset Dates Condition Statu s Problem Other depressive episodes F32.8 Ac tive Assessment Abnormal results of liver function studies R94.5 Active Problem HTN 401.9 Active Assessment Right upper quadrant pain R10.11 Ac tive Problem Chronic pain syndrome 338.4 Active Problem Abnormal immunological finding in serum, unspecified R 76.9 Active Problem Fibromyalgia 729.1 Active Problem Nausea R11.0 Active Problem Bronchitis, not specified as acute or chronic J40 Active Problem Other chronic pain G89.29 Active Problem Abnormal results of liver function studies R94.5 Active Problem Right upper quadrant pain R10.11 Ac tive Problem Encounter for gynecological examination (general) (routine) without abnormal findings Z01.419 Active Problem Osteomyelitis, unspecified M86.9 A ctive [...] or lactic acid dehydrogenase (LDH) 790.4 Active Medications Medication Code System Code Instructions Start Date End Date Status Dosage Zoloft MEDISPAN [address]-99 50 mg Orally Once a day A ctive 1 tablet Zofran [facility] [address]-88 8 MG Orally every 8 hours a s needed June 12, 2015 Active 1 tablet Pantoprazole Sodium [facility] [address]-41 40 MG Orally Once a day Active 1 tablet OxyContin [facility] [address]-59 15 MG Orally every 12 hrs Active 1 tablet Progesterone [facility] [address]-66 1000 MG/60GM Externally Active Unknown Zolpidem Tartrate [facility] [address]-66 10 MG Orally Once a day Active 1 tablet at bedtime as needed Gabapentin [facility] [address]-83 600 MG Orally Three times a day N 2014 Active 1 tablet Losartan Potassium-HCTZ [facility] [address]-44 50-12.5 MG Orall y Once a day Dec 30, 2014 Active 1 tablet Biotin [facility] 89278-01870 5000 MCG Orally Once a day Active 1 capsule ProAir HFA [facility] [address]-37 108 (90 Base) MC G/ACT Inhalation every 4-6 hrs as needed for persistant cough Mar 27, 2015 Active 2 puffs as needed Motrin [facility] [address]-92 300 MG Orally Active Un known OxyCODONE HCl ER [facility] [address]-15 15 MG Orally as needed (prn) Active 1 tablet Clonazepam [facility] [address]-26 0.5 MG Orally as needed (prn) Active 1 tablet Chantix [facility] [address]-10 1 MG Orally Twice a day May 04, 2015 Active 1 tablet Amoxicillin [facility] [address]-02 500 mg Orally every 12 hrs AprOctober 10, 2015 Active 1 tablet Social History Social History Element Qualifiers Date 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 Apri l 2015 exercise: no. July 16, 2015 Alchohol: yes. Alcohol Intake Current Drinker, Wh at type? Wine July 16, 2015 Travel outside [place]: no. July 16, 2015 Family HX of Skin Cancer no. July 16, 2015 Occup. exposure: none. July 16, 2015 Vital Signs Date/Time: July 16, 2015 Weight 225 lbs Height 65 in Blood Pressure Systolic 120 mm Hg Respiratory Rate 16 /min Cardiac Monitoring Heart Rate 79 /min Temperature 97.8 F Blood Pressure Diastolic 82 mm Hg Summary Purpose [employer]ClinicalWorks Submission
--- OUTSIDE RECORDS SUMMARY | 2019-08-19 05:29 | XMS REPORT ---
Author Author Nadiya Bustamante [facility] [employer] Address Unknown Phone Unavailable Care Team Providers Care Mud Mixer Name Role Phone Wil Bustamante Unavailable Encounters Encounter Location Date mth f/u [facility] Jan 14, 2015 Ch[facility]ix Refill Request [facility] May 27, 2015 Medication Request [facility] May 04, 2015 Medication Refill Request [facility] Apr 29 16 Other [facility] June 16, 2015 Infusion [facility] Feb 26, 2015 R/S Appt for 09/11/15 [facility] June 24, 2015 Medication Refill Request [facility] Mar 02 15 Ch[facility]ix Refill [facility] June 11, 2015 4 Wk Follow-Up [facility] Feb 19, 2015 Medication Refills [facility] June 12, 2015 bacterial in bone [facility] Feb 26, 2015 3 month follow up [facility] July 14, 2015 Referral Questions [facility] Feb 05, 2015 Medication/Referral [facility] Feb 09, 2015 Refill? [facility] July 06, 2015 Mammo / Breast US Order [facility] Jan 19, 2015 f/u from hosp [facility] / Large Liver [facility] Jul 4 week follow up [facility] Feb 04, 2015 Unknown [facility] Feb 26, 2015 Approval On (Percocet 10-325 MG Tablet) Urgent [facility] Nov 28, 2014 Medical Records [facility] Dec 18, 2014 Infection in face [facility] Dec 18, 2014 Walk in: Mouth ulcers [facility] Jan 07, [address] Bustamante disease of oral soft tissue [facility] Nov 24, 2014 Needs referral [facility] Nov 24, 2014 talk about referrals [facility] Nov 28, 2014 IV MEDS ORDER [facility] Mar 02, 2015 Unknown [facility] Mar 04, 2015 pt came by the office [facility] August 06, 2015 referral [facility] Jan 07, 2015 retro referral [facility] July 14, 2015 Referral - Dr. Jo Ann Oconnell [facility] Jan 08, 015 N/S to appt. [facility] September 28, 2015 Referral needed by Monday, 09/17 [facility] September 16, 2015 referral notes [facility] September 30, 2015 Unknown [facility] Apr 12, 2015 Referral Requests [facility] September 24, 2015 called pt to check on [facility] Apr 09, 2015 Lab Order [facility] September 29, 2015 FUP / after iv Last dose 1.1.16 [facility] Apr ! - Referral - Dr. Bruno <Pending Authorizat ion> [facility] Apr 20, 2015 FUP/ IV FROM [facility] [phone] [facility] Mar 16, 2015 Possible Bronchitis [facility] Mar 27, 2015 PT PICC LINE HURT [facility] Apr 06, 2015 Medication Refill Request [facility] Apr 06 15 Problems Problem Type [...] Other depressive episodes F32.8 Ac tive Assessment Osteomyelitis, unspecified M86.9 A ctive Problem Nonspecific elevation of lev els of transaminase or lactic acid dehydrogenase (LDH) 790.4 Active Problem HTN 401.9 Active Social History Social History Element Qualifiers Date 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
--- OUTSIDE RECORDS SUMMARY | 2019-08-19 05:29 | XMS REPORT ---
Author Author Nadiya Bustamante [facility] [employer] Address Unknown Phone Unavailable Care Team Providers Care Allergist/Immunologist Physician Name Role Phone Wil Bustamante Unavailable Encounters Encounter Location Date mth f/u [facility] Jan 14, 2015 Ch[facility]ix Refill Request [facility] May 27, 2015 Medication Request [facility] May 04, 2015 Medication Refill Request [facility] Apr 29 16 Other [facility] June 16, 2015 Infusion [facility] Feb 26, 2015 R/S Appt for 09/11/15 [facility] June 24, 2015 Medication Refill Request [facility] Mar 02 15 [facility] Refill [facility] June 11, 2015 4 Wk Follow-Up [facility] Feb 19, 2015 Medication Refills [facility] June 12, 2015 bacterial in bone [facility] Feb 26, 2015 3 month follow up [facility] July 14, 2015 Referral Questions [facility] Feb 05, 2015 Medication/Referral [facility] Feb 09, 2015 Refill? 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 Jo Ann Oconnell [facility] Jan 08, 2 015 Referral needed by Monday, 6/10 [facility] September 16, 2015 Unknown [facility] Apr 12, 2015 called pt to check on [facility] Apr 09, 2015 FUP / after iv Last dose 1.1.16 [facility] Apr ! - Referral - Dr. Bruno <Pending Authorizat ion> [facility] Apr 20, 2015 FUP/ [facility] [phone] 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
--- OUTSIDE RECORDS SUMMARY | 2019-08-19 05:29 | XMS REPORT ---
Author Author Nadiya Bustamante [facility] [employer]ClinicalWorks Address Unknown Phone Unavailable Care Team Providers Care Affirmative Action Officer Name Role Phone Wil Bustamante Unavailable Encounters Encounter Location Date mth f/u [facility] Jan 14, 2015 Unknown [facility] Nov 18, 2015 Infusion [facility] Feb 26, 2015 Low BP [facility] Dec 15, 2015 Medication Refill Request [facility] Mar 02 15 update referral [facility] Dec 16, 2015 4 Wk Follow-Up [facility] Feb 19, 201501/07 pending auth [facility] Jan 06, 2016 bacterial in bone [facility] Feb 26, 2015 Referral Questions [facility] Feb 05, 2015 Medication/Referral [facility] Feb 09, 2015 Mammo / Breast US Order [facility] Jan 19, 2015/ referral rqsted [facility] Nov 11, 2015 4 week follow up [facility] Feb 04, 2015 Unknown [facility] Feb 26, 2015 Approval On (Percocet 10-325 MG Tablet) Urgent [facility] Nov 28, 2014 Medical Records [facility] Dec 18, 2014 Infection in face [facility] Dec 18, 2014 Walk in: Mouth ulcers [facility] Jan 07, [address] 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 Jo Ann Oconnell [facility] Jan 08, 2 015 Unknown [facility] Apr 12, 2015 called pt to check on [facility] Apr 09, 2015 FUP / after iv Last dose 1.1.16 [facility] Apr ! - Referral - Dr. Bruno <Pending Authorizat ion> [facility] Apr 20, 2015 FUP/ IV [facility] [phone] [facility] Mar 16, 2015 Possible Bronchitis [facility] Mar 27, 2015 PT PICC LINE HURT [facility] Apr 06, 2015 Medication Refill Request [facility] Apr 06 15 [facility] Refill Request [facility] May 27, 2015 Medication Request [facility] May 04, 2015 Medication Refill Request [facility] Apr 29 16 Other [facility] June 16, 2015 R/S Appt for 09/11/15 [facility] June 24, 2015 [facility] Refill [facility] June 11, 2015 Medication Refills [facility] June 12, 2015 3 month follow up [facility] July 14, 2015 Refill? [facility] July 06, 2015 f/u from hosp [facility] / Large Liver [facility] Jul pt came by the office [facility] August 06, 2015 retro referral [facility] July 14, 2015 N/S to appt. [facility] September 28, 2015 Referral needed by Monday, 09/17 [facility] September 16, 2015 referral notes [facility] September 30, 2015 Referral Requests [facility] September 24, 2015 Lab Order [facility] September 29, 2015 Refill req. [facility] October 20, 2015 Pharm. 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 Patient [...]
--- OUTSIDE RECORDS SUMMARY | 2019-08-19 05:29 | XMS REPORT ---
Author Author Nadiya Bustamante [facility] eClinicalWorks Address Unknown Phone Unavailable Care Team Providers Care Videogame Designer Name Role Phone Wil Bustamante Unavailable Encounters Encounter Location Date mth f/u [facility] Jan 14, 2015 Infusion [facility] Feb 26, 2015 Medication Refill Request [facility] Mar 02 15 4 Wk Follow-Up [facility] Feb 19, 2015 bacterial in bone [facility] Feb 26, 2015 Referral Questions [facility] Feb 05, 2015 Medication/Referral [facility] Feb 09, 2015 Mammo / Breast US Order [facility] Jan 19, 2015 8/3 referral rqsted [facility] Nov 11, 2015 4 week follow up [facility] Feb 04, 2015 Unknown [facility] Feb 26, 2015 Approval On (Percocet 10-325 MG Tablet) Urgent [facility] Nov 28, 2014 Medical Records [facility] Dec 18, 2014 Infection in face [facility] Dec 18, 2014 Walk in: Mouth ulcers [facility] Jan 07, [address] 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 Jo Ann Oconnell [facility] Jan 08, 015 Unknown [facility] Apr 12, 2015 called pt to check on [facility] Apr 09, 2015 FUP / after iv Last dose 1.1.16 [facility] Apr ! - Referral - Dr. Bruno <Pending Authorizat ion> [facility] Apr 20, 2015 FUP/ IV [facility] [phone] [facility] Mar 16, 2015 Possible Bronchitis [facility] Mar 27, 2015 PT PICC LINE HURT [facility] Apr 06, 2015 Medication Refill Request [facility] Apr 06 15 Chantix Refill Request [facility] May 27, 2015 Medication Request [facility] May 04, 2015 Medication Refill Request [facility] Apr 29 16 Other [facility] June 16, 2015 R/S Appt for 09/11/15 [facility] June 24, 2015 Chantix Refill [facility] June 11, 2015 Medication Refills [facility] June 12, 2015 3 month follow up [facility] July 14, 2015 Refill? [facility] July 06, 2015 f/u from hosp [facility] / Large Liver [facility] Jul pt came by the office [facility] August 06, 2015 retro referral [facility] July 14, 2015 N/S to appt. [facility] September 28, 2015 Referral needed by Monday, 09/17 [facility] September 16, 2015 referral notes [facility] September 30, 2015 Referral Requests [facility] September 24, 2015 Lab Order [facility] September 29, 2015 Refill req. [facility] October 20, 2015 Pharm. 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 30 November 04, 2015 Home . lives with November 04, 2015 Do you have pets? yes. November 04, 2015 Home Smoke Detector yes. November 04, 2015 Marital Status: . November 04, 2015 Caffeine intake? normal. November 04, 2015 Use of recreational / street drugs? no. November 04, 2015 exercise: no. November 04, 2015 Alchohol: yes. Alcohol Intake Current Drinker, Wh at type? Wine November 04, 2015 Travel outside [place]: no. November 04, 2015 Family HX of Skin Cancer no. November 04, 2015 Occup. exposure: none. November 04, 2015 Summary Purpose eClinicalWorks Submission
--- OUTSIDE RECORDS SUMMARY | 2019-08-19 05:29 | XMS REPORT ---
Author Author Nadiya Bustamante [facility] eClinicalWorks Address Unknown Phone Unavailable Care Team Providers Care Speech Professor Name Role Phone Wil Bustamante Unavailable Allergies, Adverse Reactions, Alerts Substance Reaction Event Type Morphine Info Not Available Drug Allergy Erythromycin rash Drug Allergy Sulfa rash Drug Allergy Tapentadol HCl headaches and hallucinations Drug Allerg y Zyban rash Drug Allergy Wellbutrin rash Drug Allergy Vancomycin HCl rash Drug Allergy Tramadol HCl headaches and hallucinations Drug Allerg y Effexor rash Drug Allergy Encounters Encounter Location Date mth f/u [facility] Jan 14, 2015 3 Month Follow Up [facility] Feb 03, 2016 cancel appt [facility] Jan 13, 2016 Unknown [facility] Nov 18, 2015 Infusion [facility] Feb 26, 2015 Low BP [facility] Dec 15, 2015 Medication Refill Request [facility] Mar 02 15 update referral [facility] Dec 16, 2015 4 Wk Follow-Up [facility] Feb 19, 201501/07 pending auth [facility] Jan 06, 2016 bacterial in bone [facility] Feb 26, 2015 Referral Questions [facility] Feb 05, 2015 Medication/Referral [facility] Feb 09, 2015 Mammo / Breast US Order [facility] Jan 19, 2015 8/3 referral rqsted [facility] Nov 11, 2015 4 week follow up [facility] Feb 04, 2015 Unknown [facility] Feb 26, 2015 Approval On (Percocet 10-325 MG Tablet) Urgent [facility] Nov 28, 2014 Medical Records [facility] Dec 18, 2014 Infection in face [facility] Dec 18, 2014 Walk in: Mouth ulcers [facility] Jan 07, [address] Bustamante disease of oral soft tissue [facility] Nov 24, 2014 Needs referral [facility] Nov 24, 2014 talk about referrals [facility] Nov 28, 2014 IV MEDS ORDER [facility] Mar 02, 2015 Unknown [facility] Mar 04, 2015 referral [facility] Jan 07, 2015 Referral - Dr. Jo Ann Oconnell [facility] Jan 08, 2 015 Unknown [facility] Apr 12, 2015 called pt to check on [facility] Apr 09, 2015 FUP / after iv Last dose 1.1.16 [facility] Apr ! - Referral - Dr. Bruno <Pending Authorizat ion> [facility] Apr 20, 2015 FUP/ IV [facility] [phone] [facility] Mar 16, 2015 Possible Bronchitis [facility] Mar 27, 2015 PT PICC LINE HURT [facility] Apr 06, 2015 Medication Refill Request [facility] Apr 06 15 Chantix Refill Request [facility] May 27, 2015 Medication Request [facility] May 04, 2015 Medication Refill Request [facility] Apr 29 16 Other [facility] June 16, 2015 R/S Appt for 09/11/15 [facility] June 24, 2015 Chantix Refill [facility] June 11, 2015 Medication Refills [facility] June 12, 2015 3 month follow up [facility] July 14, 2015 Refill? [facility] July 06, 2015 f/u from hosp [facility] / Large Liver [facility] Jul pt came by the office [facility] August 06, 2015 retro referral [facility] July 14, 2015 N/S to appt. [facility] September 28, 2015 Referral needed by Monday, 09/17 [facility] September 16, 2015 referral notes [facility] September 30, 2015 Referral Requests [facility] September 24, 2015 Lab Order [facility] September 29, 2015 Refill req. [facility] October 20, 2015 Pharm. needs C/B [facility] November 04, 2015 f/u [facility] November 04, 2015 Problems Problem Type Condition ICD-9 Code Onset Dates Condition Statu s Problem Insomnia, unspecified G47.00 Active Problem Gastro-esophageal reflux disease with esophagitis K21. 0 Active Problem Personal history of nicotine dependence Z87.891 Active Problem Encounter for screening mammogram for [...] lesions of oral mucosa K1 3.4 Active Assessment Insomnia, unspecified G47.00 Active Assessment Adjustment disorder with anxiety F43.22 Active Assessment Encounter for screening mammogram for ma lignant neoplasm of breast Z12.31 Active Problem Abnormal results of liver function studies R94.5 Active Assessment Personal history of nicotine dependence Z87.891 Active Problem Other chronic pain G89.29 Active Medications Medication Code System Code Instructions Start Date End Date Status Dosage Chantix [facility] [address]-55 1 MG Orally Twice a day May 04, 016 August 01, 2016 Active 1 tablet Pantoprazole Sodium [facility] [address]-32 40 MG Orally Once a day Active 1 tablet OxyCODONE HCl ER [facility] [address]-31 15 MG Orally as needed (prn) Active 1 tablet Sertraline HCl [facility] [address]-69 50 MG Active TA KE 1 TABLET DAILY Gabapentin [facility] [address]-80 600 MG Orally Three times a day N 2014 Active 1 tablet Losartan Potassium-HCTZ [facility] 03866019743 50/12.5 A ctive TAKE 1 TABLET DAILY Motrin [facility] [address]-29 300 MG Orally Active Un known Biotin [facility] 40809-[address]24 5000 MCG Orally Once a day Active 1 capsule Zolpidem Tartrate [facility] [address]-20 10 MG Orally Once a day Active 1 tablet at bedtime as needed Clonazepam [facility] [address]-54 0.5 MG Orally as needed (prn) Active 1 tablet Chewable [facility] [address]-06 Orally Active Unknown ProAir HFA [facility] 26865440138 108 (90 Base) MCG/ACT Active INHALE 2 PUFFS BY MOUTH EVERY 4 TO 6 HOUR NEEDED FOR PERSISTANT COUGH FOR 30 DAYS OxyContin [facility] [address]-90 15 MG Orally every 12 hrs Active 1 tablet Multivitamins [facility] 70276-45046 Orally twice a day (bid) Active 1 tablet Zofran [facility] [address]-69 8 MG Orally every 8 hours a s needed June 12, 2015 Active 1 tablet Progesterone [facility] [address]-01 1000 MG/60GM Externally Active Unknown Social History Social History Element Qualifiers Date 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 Patient is a: former smok er, How many packs did Pt smoke per day? .5, What age did you quit smoking? 40 11/04/2015 Feb 22, 2016 Home . lives with Feb 22, 2016 Do you have pets? yes. 2 dogs Feb 22, 2016 Home Smoke Detector yes. Feb 22, 2016 Marital Status: . Feb 22, 2016 Caffeine intake? normal. Feb 22, 2016 Use of recreational / street drugs? no. Feb 22, 2016 exercise: no. Feb 22, 2016 Alchohol: yes. Alcohol Intake Current Drinker, Wh at type? Wine Feb 22, 2016 Travel outside [place]: no. Feb 22, 2016 Family HX of Skin Cancer no. Feb 22, 2016 Occup. exposure: none. Feb 22, 2016 Vital Signs Date/Time: Feb 03, 2016 Weight 194 lbs Blood Pressure Systolic 118 mm Hg Respiratory Rate 16 /min Cardiac Monitoring Heart Rate 90 /min Temperature 98.6 F Blood Pressure Diastolic 80 mm Hg Summary Purpose eClinicalWorks Submission
--- OUTSIDE RECORDS SUMMARY | 2019-08-19 05:29 | XMS REPORT ---
Author Author Nadiya Bustamante [facility] eClinicalWorks Address Unknown Phone Unavailable Care Team Providers Care Time Clock Mechanic Name Role Phone Wil Bustamante Unavailable Allergies, Adverse Reactions, Alerts Substance Reaction Event Type Erythromycin rash Drug Allergy Sulfa rash Drug Allergy Tapentadol HCl headaches and hallucinations Drug Allerg y Zyban rash Drug Allergy Wellbutrin rash Drug Allergy Vancomycin HCl rash Drug Allergy Tramadol HCl headaches and hallucinations Drug Allerg y Effexor rash Drug Allergy Encounters Encounter Location Date mth f/u [facility] Jan 14, 2015 Infusion [facility] Feb 26, 2015 Medication Refill Request [facility] Mar 02 15 4 Wk Follow-Up [facility] Feb 19, 2015 bacterial in bone [facility] Feb 26, 2015 Referral Questions [facility] Feb 05, 2015 Medication/Referral [facility] Feb 09, 2015 Mammo / Breast US Order [facility] Jan 19, 2015 4 week follow up [facility] Feb 04, 2015 Unknown [facility] Feb 26, 2015 Approval On (Percocet 10-325 MG Tablet) Urgent [facility] Nov 28, 2014 Medical Records [facility] Dec 18, 2014 Infection in face [facility] Dec 18, 2014 Walk in: Mouth ulcers [facility] Jan 07, [address] Bustamante disease of oral soft tissue [facility] Nov 24, 2014 Needs referral [facility] Nov 24, 2014 talk about referrals [facility] Nov 28, 2014 IV MEDS ORDER [facility] Mar 02, 2015 Unknown [facility] Mar 04, 2015 referral [facility] Jan 07, 2015 Referral - Dr. Jo Ann Oconnell [facility] Jan 08, 2 015 Unknown [facility] Apr 12, 2015 called pt to check on [facility] Apr 09, 2015 FUP / after iv Last dose 1.1.16 [facility] Apr ! - Referral - Dr. Bruno <Pending Authorizat ion> [facility] Apr 20, 2015 FUP/ IV [facility] [phone] [facility] Mar 16, 2015 Possible Bronchitis [facility] Mar 27, 2015 PT PICC LINE HURT [facility] Apr 06, 2015 Medication Refill Request [facility] Apr 06 15 Chantix Refill Request [facility] May 27, 2015 Medication Request [facility] May 04, 2015 Medication Refill Request [facility] Apr 29 16 Other [facility] June 16, 2015 R/S Appt for 09/11/15 [facility] June 24, 2015 Chantix Refill [facility] June 11, 2015 Medication Refills [facility] June 12, 2015 3 month follow up [facility] July 14, 2015 Refill? [facility] July 06, 2015 f/u from hosp [facility] / Large Liver [facility] Jul pt came by the office [facility] August 06, 2015 retro referral [facility] July 14, 2015 N/S to appt. [facility] September 28, 2015 Referral needed by Monday, 09/17 [facility] September 16, 2015 referral notes [facility] September 30, 2015 Referral Requests [facility] September 24, 2015 Lab Order [facility] September 29, 2015 Refill req. [facility] October 20, 2015 Pharm. needs C/B [facility] November 04, 2015 f/u [facility] November 04, 2015 Problems Problem Type Condition ICD-9 Code Onset Dates Condition Statu s Problem Other depressive episodes F32.8 Ac tive Assessment Other depressive episodes F32.8 Ac tive Problem HTN 401.9 Active Assessment Insomnia, unspecified G47.00 Active Problem Chronic pain syndrome 338.4 Active [...] Start Date End Date Status Dosage Clonazepam [facility] [address]-43 0.5 MG Orally as needed (prn) Active 1 tablet OxyCODONE HCl ER [facility] [address]-59 15 MG Orally as needed (prn) Active 1 tablet ProAir HFA [facility] [id number] 108 (90 Base) MCG/ACT Active INHALE 2 PUFFS BY MOUTH EVERY 4 TO 6 HOUR NEEDED FOR PERSISTANT COUGH FOR 30 DAYS Motrin [facility] [address]-13 300 MG Orally Active Un known Chantix [facility] [address]-27 1 MG Orally Twice a day May 04, 2015 Active 1 tablet Gabapentin [facility] [address]-48 600 MG Orally Three times a day N 2014 Active 1 tablet Progesterone [facility] [address]-54 1000 MG/60GM Externally Active Unknown Sertraline HCl [facility] 71138397570 50MG Active TAKE 1 TABLET DAILY Biotin [facility] 46051-35595 5000 MCG Orally Once a day Active 1 capsule Zoloft [facility] [address]-90 50 mg Orally Once a day A ctive 1 tablet Zolpidem Tartrate [facility] [address]-16 10 mg Orally Once a day Active 1 tablet at bedtime as needed Zofran [facility] [address]-66 8 MG Orally every 8 hours a s needed June 12, 2015 Active 1 tablet Chewable [facility] [address]-82 Orally Active Unknown Pantoprazole Sodium [facility] [address]-30 40 MG Orally Once a day Active 1 tablet Losartan Potassium-HCTZ [facility] [address]-96 50-12.5 MG Orall y Once a day Dec 30, 2014 Active 1 tablet OxyContin [facility] [address]-59 15 MG Orally every 12 hrs Active 1 tablet Social History Social History Element Qualifiers Date 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 Additional Findings: [employer] branch [...] 2015 Occup. exposure: none. November 04, 2015 Vital Signs Date/Time: November 04, 2015 Weight 222 lbs Height 65 in Blood Pressure Systolic 112 mm Hg Respiratory Rate 16 /min Cardiac Monitoring Heart Rate 79 /min Temperature 96.8 F Blood Pressure Diastolic 84 mm Hg Summary Purpose eClinicalWorks Submission
--- OUTSIDE RECORDS SUMMARY | 2019-08-19 05:29 | XMS REPORT ---
Author Author Nadiya Bustamante [facility] eClinicalWorks Address Unknown Phone Unavailable Care Team Providers Care Clothing Manager Name Role Phone Wil Bustamante Unavailable Encounters Encounter Location Date mth f/u [facility] Jan 14, 2015 Chantix Refill Request [facility] May 27, 2015 Medication Request [facility] May 04, 2015 Medication Refill Request [facility] Apr 29 16 Other [facility] June 16, 2015 Infusion [facility] Feb 26, 2015 R/S Appt for 09/11/15 [facility] June 24, 2015 Medication Refill Request [facility] Mar 02 15 Chantix Refill [facility] June 11, 2015 4 Wk Follow-Up [facility] Feb 19, 2015 Medication Refills [facility] June 12, 2015 bacterial in bone [facility] Feb 26, 2015 3 month follow up [facility] July 14, 2015 Referral Questions [facility] Feb 05, 2015 Medication/Referral [facility] Feb 09, 2015 Refill? [facility] July 06, 2015 Mammo / Breast US Order [facility] Jan 19, 2015 f/u from hosp [facility] / Large Liver [facility] Jul 4 week follow up [facility] Feb 04, 2015 Unknown [facility] Feb 26, 2015 Approval On (Percocet 10-325 MG Tablet) Urgent [facility] Nov 28, 2014 Medical Records [facility] Dec 18, 2014 Infection in face [facility] Dec 18, 2014 Walk in: Mouth ulcers [facility] Jan 07, [address] Bustamante disease of oral soft tissue [facility] Nov 24, 2014 Needs referral [facility] Nov 24, 2014 talk about referrals [facility] Nov 28, 2014 IV MEDS ORDER [facility] Mar 02, 2015 Unknown [facility] Mar 04, 2015 pt came by the office [facility] August 06, 2015 referral [facility] Jan 07, 2015 retro referral [facility] July 14, 2015 Referral - Dr. Jo Ann Oconnell [facility] Jan 08, 015 N/S to appt. [facility] September 28, 2015 Referral needed by Monday, 09/17 [facility] September 16, 2015 referral notes [facility] September 30, 2015 Unknown [facility] Apr 12, 2015 Referral Requests [facility] September 24, 2015 called pt to check on [facility] Apr 09, 2015 FUP / after iv Last dose 1.1.16 [facility] Apr ! - Referral - Dr. 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
--- OUTSIDE RECORDS SUMMARY | 2019-08-19 05:29 | XMS REPORT ---
Author Author Nadyia Bustamante [facility] eClinicalWorks Address Unknown Phone Unavailable Care Team Providers Care Telecom Field Technician Name Role Phone Wil Bustamante Unavailable Encounters Encounter Location Date mth f/u [facility] Jan 14, 2015 3 Month Follow Up [facility] Feb 03, 2016 cancel appt [facility] Jan 13, 2016 Refill [facility] Mar 21, 2016 Refill requests [facility] Mar 11, 2016 Unknown [facility] Nov 18, 2015 Infusion [facility] Feb 26, 2015 Low BP [facility] Dec 15, 2015 Medication Refill Request [facility] Mar 02 15 update referral [facility] Dec 16, 2015 4 Wk Follow-Up [facility] Feb 19, 201501/07 pending auth [facility] Jan 06, 2016 bacterial in bone [facility] Feb 26, 2015 Referral Questions [facility] Feb 05, 2015 Medication/Referral [facility] Feb 09, 2015 Mammo / Breast US Order [facility] Jan 19, 2015 8/3 referral rqsted [facility] Nov 11, 2015 4 week follow up [facility] Feb 04, 2015 Unknown [facility] Feb 26, 2015 Approval On (Percocet 10-325 MG Tablet) Urgent [facility] Nov 28, 2014 Medical Records [facility] Dec 18, 2014 Infection in face [facility] Dec 18, 2014 Walk in: Mouth ulcers [facility] Jan 07, [address] Bustamante disease of oral soft tissue [facility] Nov 24, 2014 Needs referral [facility] Nov 24, 2014 talk about referrals [facility] Nov 28, 2014 IV MEDS ORDER [facility] Mar 02, 2015 Unknown [facility] Mar 04, 2015 referral [facility] Jan 07, 2015 Referral - Dr. Jo Ann Oconnell [facility] Jan 08, 2 015 Unknown [facility] Apr 12, 2015 called pt to check on [facility] Apr 09, 2015 FUP / after iv Last dose 1.1.16 [facility] Apr ! - Referral - Dr. Bruno <Pending Authorizat ion> [facility] Apr 20, 2015 FUP/ IV FROM [facility] [phone] [facility] Mar 16, 2015 Possible Bronchitis [facility] Mar 27, 2015 PT PICC LINE HURT [facility] Apr 06, 2015 Medication Refill Request [facility] Apr 06 15 Chantix Refill Request [facility] May 27, 2015 Medication Request [facility] May 04, 2015 Medication Refill Request [facility] Apr 29 16 Other [facility] June 16, 2015 R/S Appt for 09/11/15 [facility] June 24, 2015 Chantix Refill [facility] June 11, 2015 Medication Refills [facility] June 12, 2015 3 month follow up [facility] July 14, 2015 Refill? [facility] July 06, 2015 f/u from hosp [facility] / Large Liver [facility] Jul pt came by the office [facility] August 06, 2015 retro referral [facility] July 14, 2015 N/S to appt. [facility] September 28, 2015 Referral needed by 09/17 [facility] September 16, 2015 referral notes [facility] September 30, 2015 Referral Requests [facility] September 24, 2015 Lab Order [facility] September 29, 2015 Refill req. [facility] October 20, 2015 Pharm. 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 Problem Infection and inflammatory r eaction due to internal fixation device of spine, subsequent encounter T84.63XD Active Problem Other specified abnormal immunological findings in ser um R76.8 Active Problem Osteomyelitis, unspecified M86.9 A ctive Problem Adjustment disorder with anxiety F43.22 Active Problem Encounter for screening mammogram for ma lignant neoplasm of breast Z12.31 Active Assessment Insomnia, unspecified G47.00 Active Problem Other chronic pain G89.29 Active Problem Insomnia, unspecified G47.00 Active Assessment Adjustment disorder with anxiety F43.22 Active Problem Personal history of nicotine dependence Z87.891 Active Problem Abnormal results of liver function studies R94.5 Active Problem Gastro-esophageal reflux disease with esophagitis K21. 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 Patient is a: former [...] Intake Current Drinker, Wh at type? Wine May 05, 2016 Travel outside [place]: no. May 05, 2016 Family HX of Skin Cancer no. May 05, 2016 Occup. exposure: none. May 05, 2016 Summary Purpose eClinicalWorks Submission
--- OUTSIDE RECORDS SUMMARY | 2019-08-19 05:29 | XMS REPORT ---
Author Author Nadiya Bustamante [facility] eClinicalWorks Address Unknown Phone Unavailable Care Team Providers Care Double Spindle Shaper Operator Name Role Phone Wil Bustamante Unavailable Encounters Encounter Location Date mth f/u [facility] Jan 14, 2015 Chantix Refill Request [facility] May 27, 2015 Medication Request [facility] May 04, 2015 Medication Refill Request [facility] Apr 29 16 Other [facility] June 16, 2015 Infusion [facility] Feb 26, 2015 R/S Appt for 09/11/15 [facility] June 24, 2015 Medication Refill Request [facility] Mar 02 15 Chantix Refill [facility] June 11, 2015 4 Wk Follow-Up [facility] Feb 19, 2015 Medication Refills [facility] June 12, 2015 bacterial in bone [facility] Feb 26, 2015 3 month follow up [facility] July 14, 2015 Referral Questions [facility] Feb 05, 2015 Medication/Referral [facility] Feb 09, 2015 Refill? [facility] July 06, 2015 Mammo / Breast US Order [facility] Jan 19, 2015 f/u from hosp [facility] / Large Liver [facility] Jul 4 week follow up [facility] Feb 04, 2015 Unknown [facility] Feb 26, 2015 Approval On (Percocet 10-325 MG Tablet) Urgent [facility] Nov 28, 2014 Medical Records [facility] Dec 18, 2014 Infection in face [facility] Dec 18, 2014 Walk in: Mouth ulcers [facility] Jan 07, [address] Bustamante disease of oral soft tissue [facility] Nov 24, 2014 Needs referral [facility] Nov 24, 2014 talk about referrals [facility] Nov 28, 2014 IV MEDS ORDER [facility] Mar 02, 2015 Unknown [facility] Mar 04, 2015 pt came by the office [facility] August 06, 2015 referral [facility] Jan 07, 2015 retro referral [facility] July 14, 2015 Referral - Dr. Jo Ann Oconnell [facility] Jan 08, 015 N/S to appt. [facility] September 28, 2015 Referral needed by Monday, 09/17 [facility] September 16, 2015 referral notes [facility] September 30, 2015 Unknown [facility] Apr 12, 2015 called pt to check on [facility] Apr 09, 2015 FUP / after iv Last dose 1.1.16 [facility] Apr ! - Referral - Dr. 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
--- OUTSIDE RECORDS SUMMARY | 2019-08-19 05:29 | XMS REPORT ---
Author Author Nadiya Bustamante [facility] eClinicalWorks Address Unknown Phone Unavailable Care Team Providers Care Decorating Machine Operator Name Role Phone Wil Bustamante Unavailable Encounters Encounter Location Date mth f/u [facility] Jan 14, 2015 3 Month Follow Up [facility] Feb 03, 2016 cancel appt [facility] Jan 13, 2016 Refill requests [facility] Mar 11, 2016 Unknown [facility] Nov 18, 2015 Infusion [facility] Feb 26, 2015 Low BP [facility] Dec 15, 2015 Medication Refill Request [facility] Mar 02 15 update referral [facility] Dec 16, 2015 4 Wk Follow-Up [facility] Feb 19, 201501/07 pending auth [facility] Jan 06, 2016 bacterial in bone [facility] Feb 26, 2015 Referral Questions [facility] Feb 05, 2015 Medication/Referral [facility] Feb 09, 2015 Mammo / Breast US Order [facility] Jan 19, 2015 8/3 referral rqsted [facility] Nov 11, 2015 4 week follow up [facility] Feb 04, 2015 Unknown [facility] Feb 26, 2015 Approval On (Percocet 10-325 MG Tablet) Urgent [facility] Nov 28, 2014 Medical Records [facility] Dec 18, 2014 Infection in face [facility] Dec 18, 2014 Walk in: Mouth ulcers [facility] Jan 07, [address] Bustamante disease of oral soft tissue [facility] Nov 24, 2014 Needs referral [facility] Nov 24, 2014 talk about referrals [facility] Nov 28, 2014 IV MEDS ORDER [facility] Mar 02, 2015 Unknown [facility] Mar 04, 2015 referral [facility] Jan 07, 2015 Referral - Dr. Jo Ann Oconnell [facility] Jan 08, 015 Unknown [facility] Apr 12, 2015 called pt to check on [facility] Apr 09, 2015 FUP / after iv Last dose 1.1.16 [facility] Apr ! - Referral - Dr. Bruno <Pending Authorizat ion> [facility] Apr 20, 2015 FUP/ IV FROM [facility] [phone] [facility] Mar 16, 2015 Possible Bronchitis [facility] Mar 27, 2015 PT PICC LINE HURT [facility] Apr 06, 2015 Medication Refill Request [facility] Apr 06 15 Chantix Refill Request [facility] May 27, 2015 Medication Request [facility] May 04, 2015 Medication Refill Request [facility] Apr 29 16 Other [facility] June 16, 2015 R/S Appt for 09/11/15 [facility] June 24, 2015 Chantix Refill [facility] June 11, 2015 Medication Refills [facility] June 12, 2015 3 month follow up [facility] July 14, 2015 Refill? [facility] July 06, 2015 f/u from hosp [facility] / Large Liver [facility] Jul pt came by the office [facility] August 06, 2015 retro referral [facility] July 14, 2015 N/S to appt. [facility] September 28, 2015 Referral needed by Monday, 09/17 [facility] September 16, 2015 referral notes [facility] September 30, 2015 Referral Requests [facility] September 24, 2015 Lab Order [facility] September 29, 2015 Refill req. [facility] October 20, 2015 Pharm. needs C/B [facility] November 04, 2015 f/u [facility] November 04, 2015 Problems Problem Type [...] neoplasm of breast Z12.31 Active Problem Other chronic pain G89.29 Active Problem Insomnia, unspecified G47.00 Active Problem Personal history of nicotine dependence Z87.891 Active Problem Abnormal results of liver function studies R94.5 Active Problem Gastro-esophageal reflux disease with esophagitis K21. 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 Patient is a: former smok er, How many packs did Pt smoke per day? .5, What age did you quit smoking? 40 11/04/2015 Apr 18, 2016 Home . lives with Apr 18, 2016 Do you have pets? yes. 2 dogs Apr 18, 2016 Home Smoke Detector yes. Apr 18, 2016 Marital Status: . Apr 18, 2016 Caffeine intake? normal. Apr 18, 2016 Use of recreational / street drugs? no. Apr 18, 2016 exercise: no. Apr 18, 2016 Alchohol: yes. Alcohol Intake Current Drinker, Wh at type? Wine Apr 18, 2016 Travel outside [place]: no. Apr 18, 2016 Family HX of Skin Cancer no. Apr 18, 2016 Occup. exposure: none. Apr 18, 2016 Summary Purpose eClinicalWorks Submission
--- OUTSIDE RECORDS SUMMARY | 2019-08-19 05:29 | XMS REPORT ---
Author Author Nadiya Bustamante [facility] eClinicalWorks Address Unknown Phone Unavailable Care Team Providers Care Legal Associate Name Role Phone Wil Bustamante Unavailable Encounters Encounter Location Date mth f/u [facility] Jan 14, 2015 Chantix Refill Request [facility] May 27, 2015 Medication Request [facility] May 04, 2015 Medication Refill Request [facility] Apr 29 16 Other [facility] June 16, 2015 Infusion [facility] Feb 26, 2015 R/S Appt for 09/11/15 [facility] June 24, 2015 Medication Refill Request [facility] Mar 02 15 Chantix Refill [facility] June 11, 2015 4 Wk Follow-Up [facility] Feb 19, 2015 Medication Refills [facility] June 12, 2015 bacterial in bone [facility] Feb 26, 2015 3 month follow up [facility] July 14, 2015 Referral Questions [facility] Feb 05, 2015 Medication/Referral [facility] Feb 09, 2015 Refill? [facility] July 06, 2015 Mammo / Breast US Order [facility] Jan 19, 2015 f/u from hosp [facility] / Large Liver [facility] Jul 4 week follow up [facility] Feb 04, 2015 Unknown [facility] Feb 26, 2015 Approval On (Percocet 10-325 MG Tablet) Urgent [facility] Nov 28, 2014 Medical Records [facility] Dec 18, 2014 Infection in face [facility] Dec 18, 2014 Walk in: Mouth ulcers [facility] Jan 07, [address] Bustamante disease of oral soft tissue [facility] Nov 24, 2014 Needs referral [facility] Nov 24, 2014 talk about referrals [facility] Nov 28, 2014 IV MEDS ORDER [facility] Mar 02, 2015 Unknown [facility] Mar 04, 2015 pt came by the office [facility] August 06, 2015 referral [facility] Jan 07, 2015 retro referral [facility] July 14, 2015 Referral - Dr. Jo Ann Oconnell [facility] Jan 08, 015 N/S to appt. [facility] September 28, 2015 Referral needed by Monday, 09/17 [facility] September 16, 2015 referral notes [facility] September 30, 2015 Unknown [facility] Apr 12, 2015 Referral Requests [facility] September 24, 2015 called pt to check on [facility] Apr 09, 2015 [facility] [place], 2015 FUP / after iv Last dose 1.1.16 [facility] Apr Refill req. [facility] October 20, 2015 ! - Referral - Dr. Bruno <Pending Authorizat ion> [facility] Apr 20, 2015 Pharm. 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
--- OUTSIDE RECORDS SUMMARY | 2019-08-19 05:29 | XMS REPORT ---
Author Author Nadiya Bustamante [facility] eClinicalWorks Address Unknown Phone Unavailable Care Team Providers Care Certified Low Vision Therapist Name Role Phone Wil Bustamante Unavailable Encounters Encounter Location Date mth f/u [facility] Jan 14, 2015 Unknown [facility] Nov 18, 2015 Infusion [facility] Feb 26, 2015 Medication Refill Request [facility] Mar 02 15 4 Wk Follow-Up [facility] Feb 19, 2015 bacterial in bone [facility] Feb 26, 2015 Referral Questions [facility] Feb 05, 2015 Medication/Referral [facility] Feb 09, 2015 Mammo / Breast US Order [facility] Jan 19, 2015 8/3 referral rqsted [facility] Nov 11, 2015 4 week follow up [facility] Feb 04, 2015 Unknown [facility] Feb 26, 2015 Approval On (Percocet 10-325 MG Tablet) Urgent [facility] Nov 28, 2014 Medical Records [facility] Dec 18, 2014 Infection in face [facility] Dec 18, 2014 Walk in: Mouth ulcers [facility] Jan 07, [address] Bustamante disease of oral soft tissue [facility] Nov 24, 2014 Needs referral [facility] Nov 24, 2014 talk about referrals [facility] Nov 28, 2014 IV MEDS ORDER [facility] Mar 02, 2015 Unknown [facility] Mar 04, 2015 referral [facility] Jan 07, 2015 Referral - Dr. Jo Ann Oconnell [facility] Jan 08, 2 015 Unknown [facility] Apr 12, 2015 called pt to check on [facility] Apr 09, 2015 FUP / after iv Last dose 1.1.16 [facility] Apr ! - Referral - Dr. Bruno <Pending Authorizat ion> [facility] Apr 20, 2015 FUP/ IV FROM [facility] [phone] [facility] Mar 16, 2015 Possible Bronchitis [facility] Mar 27, 2015 PT PICC LINE HURT [facility] Apr 06, 2015 Medication Refill Request [facility] Apr 06 15 Chantix Refill Request [facility] May 27, 2015 Medication Request [facility] May 04, 2015 Medication Refill Request [facility] Apr 29 16 Other [facility] June 16, 2015 R/S Appt for 09/11/15 [facility] June 24, [address] [facility] June 11, [address] [facility] June 12, [address] [facility] July 14, 2015 Refill? [facility] July 06, 2015 f/u from hosp [facility] / Large Liver [facility] Jul pt came by the office [facility] August 06, [address] [facility] July 14, 2015 N/S to appt. [facility] September 28, 2015 Referral needed by Monday, 09/17 [facility] September 16, [address] [facility] September 30, [address] [facility] September 24, [address] [facility] September 29, [address] [facility] October 20, 2015 Pharm. needs C/B [facility] November 04, 2015 f/u 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
--- OUTSIDE RECORDS SUMMARY | 2019-08-19 05:29 | XMS REPORT ---
Author Author Nadiya Bustamante [facility] eClinicalWorks Address Unknown Phone Unavailable Care Team Providers Care Compliance Review Officer Name Role Phone Wil Bustamante Unavailable Encounters Encounter Location Date mth f/u [facility] Jan 14, 2015 Chantix Refill Request [facility] May 27, 2015 Medication Request [facility] May 04, 2015 Medication Refill Request [facility] Apr 29 16 Other [facility] June 16, 2015 Infusion [facility] Feb 26, 2015 R/S Appt for 09/11/15 [facility] June 24, 2015 Medication Refill Request [facility] Mar 02 15 Chantix Refill [facility] June 11, 2015 4 Wk Follow-Up [facility] Feb 19, 2015 Medication Refills [facility] June 12, 2015 bacterial in bone [facility] Feb 26, 2015 3 month follow up [facility] July 14, 2015 Referral Questions [facility] Feb 05, 2015 Medication/Referral [facility] Feb 09, 2015 Refill? 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 Jo Ann Oconnell [facility] Jan 08, 015 N/S to appt. [facility] September 28, 2015 Referral needed by Monday, 09/17 [facility] September 16, 2015 referral notes [facility] September 30, 2015 Unknown [facility] Apr 12, 2015 Referral Requests [facility] September 24, 2015 called pt to check on [facility] Apr 09, 2015 Lab Order [facility] September 29, 2015 FUP / after iv Last dose 1.1.16 [facility] Apr Refill req. [facility] October 20, 2015 ! - Referral - Dr. Bruno <Pending Authorizat ion> [facility] Apr 20, 2015 FUP/ IV FROM [facility] [phone] [facility] Mar 16, 2015 Possible Bronchitis [facility] Mar 27, 2015 PT PICC LINE HURT [facility] Apr 06, 2015 Medication Refill Request [facility] Apr 06 15 Problems Problem Type [...] (LDH) 790.4 Active Problem HTN 401.9 Active Medications Medication Code System Code Instructions Start Date End Date Status Dosage Chantix MEDISPAN [address]-15 1 MG Orally Twice a day May 04, 2015 Active 1 tablet Social History Social History Element Qualifiers Date 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
--- OUTSIDE RECORDS SUMMARY | 2019-08-19 05:29 | XMS REPORT ---
Author Author Nadiya Herman Organization [employer] Address Unknown Phone Unavailable Care Team Providers Care Shot Hole Driller Name Role Phone Rand Herman CP Unavailable Allergies, Adverse Reactions, Alerts Substance Reaction Event Type Erythromycin rash Drug Allergy Sulfa rash Drug Allergy Tapentadol HCl headaches and hallucinations Drug Allerg y Zyban rash Drug Allergy Wellbutrin rash Drug Allergy Vancomycin HCl rash Drug Allergy Tramadol HCl headaches and hallucinations Drug Allerg y Effexor rash Drug Allergy Encounters Encounter Location Date mth f/u [facility] Jan 14, 2015 Chantix Refill Request [facility] May 27, 2015 Medication Request [facility] May 04, 2015 Medication Refill Request [facility] Apr 29 16 Other [facility] June 16, 2015 Infusion [facility] Feb 26, 2015 R/S Appt for 09/11/15 [facility] June 24, 2015 Medication Refill Request [facility] Mar 02 15 Chantix Refill [facility] June 11, 2015 4 Wk Follow-Up [facility] Feb 19, 2015 Medication Refills [facility] June 12, 2015 bacterial in bone [facility] Feb 26, 2015 3 month follow up [facility] July 14, 2015 Referral Questions [facility] Feb 05, 2015 Medication/Referral [facility] Feb 09, 2015 Refill? [facility] July 06, 2015 Mammo / Breast US Order [facility] Jan 19, 2015 f/u from hosp [facility] / Large Liver [facility] Jul 4 week follow up [facility] Feb 04, 2015 Unknown [facility] Feb 26, 2015 Approval On (Percocet 10-325 MG Tablet) Urgent [facility] Nov 28, 2014 Medical Records [facility] Dec 18, 2014 Infection in face [facility] Dec 18, 2014 Walk in: Mouth ulcers [facility] Jan 07, [address] Bustamante disease of oral soft tissue [facility] Nov 24, 2014 Needs referral [facility] Nov 24, 2014 talk about referrals [facility] Nov 28, 2014 IV MEDS ORDER [facility] Mar 02, 2015 Unknown [facility] Mar 04, 2015 referral [facility] Jan 07, 2015 retro referral [facility] July 14, 2015 Referral - Dr. Jo Ann Oconnell [facility] Jan 08, 015 Unknown [facility] Apr 12, 2015 called pt to check on [facility] Apr 09, 2015 FUP / after iv Last dose 1.1.16 [facility] Apr ! - Referral - Dr. Bruno <Pending Authorizat ion> [facility] Apr 20, 2015 FUP/ IV [facility] [phone] [facility] Mar 16, 2015 Possible Bronchitis [facility] Mar 27, 2015 PT PICC LINE HURT [facility] Apr 06, 2015 Medication Refill Request [facility] Apr 06 15 Problems Problem Type [...] End Date Status Dosage OxyCODONE HCl ER [facility] [address]-18 15 MG Orally every 12 hrs Active 1 tablet Chantix [facility] [address]-63 1 MG Orally Twice a day May 04, 2015 Active 1 tablet Zofran [facility] [address]-22 8 MG Orally every 8 hours a s needed June 12, 2015 Active 1 tablet ProAir HFA [facility] [address]-27 108 (90 Base) [facility] G/ACT Inhalation every 4-6 hrs as needed for persistant cough Mar 27, 2015 Active 2 puffs as needed Oxycodone HCl [facility] [address]-04 15 MG Orally twice a day (bid) Active 1 tablet as needed Gabapentin [facility] [address]-36 600 MG Orally Three times a day N ov 2014 Active 1 tablet Progesterone [facility] [address]-56 1000 MG/60GM Externally Active Unknown Clonazepam [facility] [address]-79 0.5 MG Orally as needed (prn) Active 1 tablet Zoloft [facility] [address]-58 50 mg Orally Once a day A ctive 1 tablet Losartan Potassium-HCTZ [facility] [address]-50 50-12.5 MG Orall y Once a day Dec 30, 2014 Active 1 tablet Biotin [facility] 41573-72512 5000 MCG Orally Once a day Active 1 capsule Amoxicillin [facility] [address]-78 500 mg Orally every 12 hrs AprOctober 10, 2015 Active 1 tablet Pantoprazole Sodium [facility] [address]-92 40 MG Orally Once a day Active 1 tablet Zolpidem Tartrate [facility] [address]-04 10 MG Orally Once a day Active 1 tablet at bedtime as needed Social History Social History Element Qualifiers Date 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
--- OUTSIDE RECORDS SUMMARY | 2019-08-19 05:29 | XMS REPORT ---
Author Author Nadiya Bustamante [facility] [employer] Address Unknown Phone Unavailable Care Team Providers Care Plastic Eye Technician Name Role Phone Wil Bustamante Unavailable Encounters Encounter Location Date mth f/u [facility] Jan 14, 2015 Unknown [facility] Nov 18, 2015 Infusion [facility] Feb 26, 2015 Low BP [facility] Dec 15, 2015 Medication Refill Request [facility] Mar 02 15 4 Wk Follow-Up [facility] Feb 19, 2015 bacterial in bone [facility] Feb 26, 2015 Referral Questions [facility] Feb 05, 2015 Medication/Referral [facility] Feb 09, 2015 Mammo / Breast US Order [facility] Jan 19, 2015 8/3 referral rqsted [facility] Nov 11, 2015 4 week follow up [facility] Feb 04, 2015 Unknown [facility] Feb 26, 2015 Approval On (Percocet 10-325 MG Tablet) Urgent [facility] Nov 28, 2014 Medical Records [facility] Dec 18, 2014 Infection in face [facility] Dec 18, 2014 Walk in: Mouth ulcers [facility] Jan 07, [address] 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 Jo Ann Oconnell [facility] Jan 08, 015 Unknown [facility] Apr 12, 2015 called pt to check on [facility] Apr 09, 2015 FUP / after iv Last dose 1.1.16 [facility] Apr ! - Referral - Dr. Bruno <Pending Authorizat ion> [facility] Apr 20, 2015 FUP/ IV [facility] [phone] [facility] Mar 16, 2015 Possible Bronchitis [facility] Mar 27, 2015 PT PICC LINE HURT [facility] Apr 06, 2015 Medication Refill Request [facility] Apr 06 15 Ch[facility]ix Refill Request [facility] May 27, 2015 Medication Request [facility] May 04, 2015 Medication Refill Request [facility] Apr 29 16 Other [facility] June 16, 2015 R/S Appt for 09/11/15 [facility] June 24, 2015 Chantix Refill [facility] June 11, 2015 Medication Refills [facility] June 12, 2015 3 month follow up [facility] July 14, 2015 Refill? [facility] July 06, 2015 f/u from hosp [facility] / Large Liver [facility] Jul pt came by the office [facility] August 06, 2015 retro referral [facility] July 14, 2015 N/S to appt. [facility] September 28, 2015 Referral needed by Monday, 09/17 [facility] September 16, 2015 referral notes [facility] September 30, 2015 Referral Requests [facility] September 24, 2015 Lab Order [facility] September 29, 2015 Refill req. [facility] October 20, 2015 Pharm. 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
--- OUTSIDE RECORDS SUMMARY | 2019-08-19 05:29 | XMS REPORT ---
Author Author Nadiya Turner Organization [employer] Address Unknown Phone Unavailable Care Team Providers Care Software Deployment Engineer Name Role Phone Cipriano Turner CP Unavailable Allergies, Adverse Reactions, Alerts Substance Reaction Event Type NSAIDS cant take anything with NSAIDS d/t gastr ic sleeve Drug Allergy Morphine rash Drug Allergy Erythromycin rash Drug Allergy Sulfa rash Drug Allergy Tapentadol HCl headaches and hallucinations Drug Allerg y Zyban rash Drug Allergy Wellbutrin rash Drug Allergy Vancomycin HCl rash Drug Allergy Tramadol HCl headaches and hallucinations Drug Allerg y Effexor rash Drug Allergy Encounters Encounter Location Date mth f/u [facility] Jan 14, 2015 4 wk f/u CT [facility] Mar 21, 2016 3 Month Follow Up [facility] Feb 03, 2016 cancel appt [facility] Jan 13, 2016 Refill [facility] Mar 21, 2016 Refill requests [facility] Mar 11, 2016 Unknown [facility] Nov 18, 2015 Infusion [facility] Feb 26, 2015 Low BP [facility] Dec 15, 2015 Medication Refill Request [facility] Mar 02 15 update referral [facility] Dec 16, 2015 4 Wk Follow-Up [facility] Feb 19, 201501/07 pending auth [facility] Jan 06, 2016 bacterial in bone [facility] Feb 26, 2015 Referral Questions [facility] Feb 05, 2015 Medication/Referral [facility] Feb 09, 2015 Mammo / Breast US Order [facility] Jan 19, 2015 8/3 referral rqsted [facility] Nov 11, 2015 4 week follow up [facility] Feb 04, 2015 Unknown [facility] Feb 26, 2015 Approval On (Percocet 10-325 MG Tablet) Urgent [facility] Nov 28, 2014 Medical Records [facility] Dec 18, 2014 Infection in face [facility] Dec 18, 2014 Walk in: Mouth ulcers [facility] Jan 07, [address] 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 Jo Ann Oconnell [facility] Jan 08, 015 Unknown [facility] Apr 12, 2015 called pt to check on [facility] Apr 09, 2015 FUP / after iv Last dose 1.1.16 [facility] Apr ! - Referral - Dr. Bruno <Pending Authorizat ion> [facility] Apr 20, 2015 f/u r/s from 01/13/16 Dr. Herman [facility] Feb 082015 FUP/ IV [facility] [phone] [facility] Mar 16, 2015 Possible Bronchitis [facility] Mar 27, 2015 PT PICC LINE HURT [facility] Apr 06, 2015 Medication Refill Request [facility] Apr 06 15 Chantix Refill Request [facility] May 27, 2015 Medication Request [facility] May 04, 2015 Medication Refill Request [facility] Apr 29 16 Other [facility] June 16, 2015 R/S Appt for 09/11/15 [facility] June 24, 2015 Chantix Refill [facility] June 11, 2015 Medication Refills [facility] June 12, 2015 3 month follow up [facility] July 14, 2015 Refill? [facility] July 06, 2015 f/u from hosp [facility] / Large Liver [facility] Jul pt came by the office [facility] August 06, 2015 retro referral [facility] July 14, 2015 N/S to appt. [facility] September 28, 2015 Referral needed by Monday, 09/17 [facility] September 16, 2015 referral notes [facility] September 30, 2015 Referral Requests [facility] September 24, 2015 Lab Order [facility] September 29, 2015 Refill req. [facility] October 20, 2015 Pharm. needs C/B [facility] November 04, 2015 f/u [facility] November 04, 2015 Problems Problem Type [...] Active Problem Insomnia, unspecified G47.00 Active Assessment Osteomyelitis, unspecified M86.9 A ctive Problem Personal history of nicotine dependence Z87.891 Active Problem Abnormal results of liver function studies R94.5 Active Problem Gastro-esophageal reflux disease with esophagitis K21. 0 Active Medications Medication Code System Code Instructions Start Date End Date Status Dosage Gabapentin [facility] [address]-95 600 MG Orally Three times a day N 2014 Active 1 tablet OxyCODONE HCl ER [facility] [address]-51 15 MG Orally as needed (prn) Active 1 tablet Progesterone [facility] [address]-61 1000 MG/60GM Externally Active Unknown OxyContin [facility] [address]-93 15 MG Orally every 12 hrs Active 1 tablet Zolpidem Tartrate [facility] [address]-39 10 MG Orally Once a day Active 1 tablet at bedtime as needed Keflex [facility] [address]-77 500 MG Orally Twice a day Mar 21, 2016 June 19, 2016 Active 1 capsule Chantix [facility] [address]-82 1 MG Orally Twice a day May 04, 016 August 01, 2016 Active 1 tablet Zofran [facility] [address]-45 8 MG Orally every 8 hours a s needed June 12, 2015 Active 1 tablet ProAir HFA [facility] 62622447335 108 (90 Base) MCG/ACT Active INHALE 2 PUFFS BY MOUTH EVERY 4 TO 6 HOUR NEEDED FOR PERSISTANT COUGH FOR 30 DAYS Pantoprazole Sodium [facility] [address]-24 40 MG Orally Once a day Active 1 tablet Multivitamins [facility] 74210-13892 Orally twice a day (bid) Active 1 tablet Clonazepam [facility] [address]-58 0.5 MG Orally as needed (prn) Active 1 tablet Amoxicillin [facility] [address]-93 500 MG Orally every 12 hrs Active 1 capsule Chewable [facility] [address]-99 Orally Active Unknown Losartan Potassium-HCTZ [facility] 20410905921 50/12.5 A ctive TAKE 1 TABLET DAILY Sertraline HCl [facility] [address]-74 50 MG Active TA KE 1 TABLET DAILY Biotin [facility] 85593-27001 5000 MCG Orally Once a day Active 1 capsule Motrin [facility] [address]-12 300 MG Orally Active Un known Social History Social History Element Qualifiers Date 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 Patient is [...] 2016 Occup. exposure: none. May 05, 2016 Vital Signs Date/Time: Mar 21, 2016 Weight 188 lbs Blood Pressure Systolic 127 mm Hg Respiratory Rate 16 /min Cardiac Monitoring Heart Rate 67 /min Temperature 98.1 F Blood Pressure Diastolic 92 mm Hg Summary Purpose eClinicalWorks Submission
--- OUTSIDE RECORDS SUMMARY | 2019-08-19 05:29 | XMS REPORT ---
Author Author Nadiya Turner Organization [employer] Address Unknown Phone Unavailable Care Team Providers Care Graduate Internship Name Role Phone Cipriano Turner CP Unavailable [...] Allergy Encounters Encounter Location Date mth f/u [facility] Jan 14, 2015 4 wk f/u CT [facility] Mar 21, 2016 3 Month Follow Up [facility] Feb 03, 2016 cancel appt [facility] Jan 13, 2016 Refill [facility] Mar 21, 2016 Refill requests [facility] Mar 11, 2016 Unknown [facility] Nov 18, 2015 Infusion [facility] Feb 26, 2015 Low BP [facility] Dec 15, 2015 Medication Refill Request [facility] Mar 02 15 update referral [facility] Dec 16, 2015 4 Wk Follow-Up [facility] Feb 19, 201501/07 pending auth [facility] Jan 06, 2016 bacterial in bone [facility] Feb 26, 2015 Referral Questions [facility] Feb 05, 2015 Medication/Referral [facility] Feb 09, 2015 Mammo / Breast US Order [facility] Jan 19, 2015 8/3 referral rqsted [facility] Nov 11, 2015 4 week follow up [facility] Feb 04, 2015 Unknown [facility] Feb 26, 2015 Approval On (Percocet 10-325 MG Tablet) Urgent [facility] Nov 28, 2014 Medical Records [facility] Dec 18, 2014 Infection in face [facility] Dec 18, 2014 Walk in: Mouth ulcers [facility] Jan 07, [address] Bustamante disease of oral soft tissue [facility] Nov 24, 2014 Needs referral [facility] Nov 24, 2014 talk about referrals [facility] Nov 28, 2014 IV MEDS ORDER [facility] Mar 02, 2015 Unknown [facility] Mar 04, 2015 referral [facility] Jan 07, 2015 Referral - Dr. Jo Ann Oconnell [facility] Jan 08, 015 Unknown [facility] Apr 12, 2015 called pt to check on [facility] Apr 09, 2015 FUP / after iv Last dose 1.1.16 [facility] Apr ! - Referral - Dr. Bruno <Pending Authorizat ion> [facility] Apr 20, 2015 f/u r/s from 01/13/16 Dr. Herman [facility] Feb 082015 FUP/ IV [facility] [phone] [facility] Mar 16, 2015 Possible Bronchitis [facility] Mar 27, 2015 PT PICC LINE HURT [facility] Apr 06, 2015 Medication Refill Request [facility] Apr 06 15 Chantix Refill Request [facility] May 27, 2015 Medication Request [facility] May 04, 2015 Medication Refill Request [facility] Apr 29 16 Other [facility] June 16, 2015 R/S Appt for 09/11/15 [facility] June 24, 2015 Chantix Refill [facility] June 11, 2015 Medication Refills [facility] June 12, 2015 3 month follow up [facility] July 14, 2015 Refill? [facility] July 06, 2015 f/u from hosp [facility] / Large Liver [facility] Jul pt came by the office [facility] August 06, 2015 retro referral [facility] July 14, 2015 N/S to appt. [facility] September 28, 2015 Referral needed by Monday, 09/17 [facility] September 16, 2015 referral notes [facility] September 30, 2015 Referral Requests [facility] September 24, 2015 Lab Order [facility] September 29, 2015 Refill req. [facility] October 20, 2015 Pharm. needs C/B [facility] November 04, 2015 f/u [facility] November 04, 2015 Problems Problem Type Condition ICD-9 Code Onset Dates Condition Statu s Problem Personal history of nicotine dependence Z87.891 Active Problem Other depressive episodes F32.8 Ac tive Problem Gastro-esophageal reflux disease with esophagitis K21. 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 Active Problem Abnormal immunological finding in serum, unspecified R 76.9 Active Problem Other specified abnormal immunological findings in ser um R76.8 Active Problem Osteomyelitis, unspecified M86.9 A ctive Assessment Osteomyelitis, unspecified M86.9 A ctive Problem Abnormal results of liver function studies R94.5 Active Problem Other chronic pain G89.29 Active Assessment 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 Problem Insomnia, unspecified G47.00 Active Medications Medication Code System Code Instructions Start Date End Date Status Dosage OxyCODONE HCl ER [facility] [address]-80 15 MG Orally as needed (prn) Active 1 tablet Gabapentin [facility] [address]-39 600 MG Orally Three times a day N 2014 Active 1 tablet Zofran [facility] [address]-51 8 MG Orally every 8 hours a s needed June 12, 2015 Active 1 tablet OxyContin [facility] [address]-24 15 MG Orally every 12 hrs Active 1 tablet ProAir HFA [facility] 33574783560 108 (90 Base) MCG/ACT Active INHALE 2 PUFFS BY MOUTH EVERY 4 TO 6 HOUR NEEDED FOR PERSISTANT COUGH FOR 30 DAYS Sertraline HCl [facility] [address]-72 50 MG Active TA KE 1 TABLET DAILY Losartan Potassium-HCTZ [facility] 05504398712 50/12.5 A ctive TAKE 1 TABLET DAILY Progesterone [facility] [address]-66 1000 MG/60GM Externally Active Unknown Chewable [facility] [address]-46 Orally Active Unknown Biotin [facility] 84690-21496 5000 MCG Orally Once a day Active 1 capsule Amoxicillin [facility] [address]-93 500 MG Orally every 12 hrs Active 1 capsule Clonazepam [facility] [address]-89 0.5 MG Orally as needed (prn) Active 1 tablet Pantoprazole Sodium [facility] [address]-80 40 MG Orally Once a day Active 1 tablet Motrin [facility] [address]-04 300 MG Orally Active Un known Chantix [facility] [address]-79 1 MG Orally Twice a day May 04, 016 August 01, 2016 Active 1 tablet Zolpidem Tartrate [facility] [address]-01 10 MG Orally Once a day Active 1 tablet at bedtime as needed Multivitamins [facility] 52942-67551 Orally twice a day (bid) Active 1 tablet Social History Social History Element Qualifiers Date 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 Patient is [...] none. May 05, 2016 Vital Signs Date/Time: Feb 22, 2016 Weight 189.6 lbs Blood Pressure Systolic 113 mm Hg Respiratory Rate 16 /min Cardiac Monitoring Heart Rate 66 /min Temperature 98.2 F Blood Pressure Diastolic 86 mm Hg Summary Purpose eClinicalWorks Submission
--- OUTSIDE RECORDS SUMMARY | 2019-08-19 05:29 | XMS REPORT ---
Author Author Nadiya Bustamante [facility] eClinicalWorks Address Unknown Phone Unavailable Care Team Providers Care Human Resources Benefits Assistant Name Role Phone Wil Bustamante Unavailable Encounters Encounter Location Date mth f/u [facility] Jan 14, 2015 [facility] Refill Request [facility] May 27, 2015 Medication Request [facility] May 04, 2015 Medication Refill Request [facility] Apr 29 16 Other [facility] June 16, 2015 Infusion [facility] Feb 26, 2015 R/S Appt for 09/11/15 [facility] June 24, 2015 Medication Refill Request [facility] Mar 02 15 [facility] Refill [facility] June 11, 2015 4 Wk Follow-Up [facility] Feb 19, 2015 Medication Refills [facility] June 12, 2015 bacterial in bone [facility] Feb 26, 2015 3 month follow up [facility] July 14, 2015 Referral Questions [facility] Feb 05, 2015 Medication/Referral [facility] Feb 09, 2015 Refill? [facility] July 06, 2015 Mammo / Breast US Order [facility] Jan 19, 2015 f/u from hosp [facility] / Large Liver [facility] Jul 4 week follow up [facility] Feb 04, 2015 Unknown [facility] Feb 26, 2015 Approval On (Percocet 10-325 MG Tablet) Urgent [facility] Nov 28, 2014 Medical Records [facility] Dec 18, 2014 Infection in face [facility] Dec 18, 2014 Walk in: Mouth ulcers [facility] Jan 07, [address] Bustamante disease of oral soft tissue [facility] Nov 24, 2014 Needs referral [facility] Nov 24, 2014 talk about referrals [facility] Nov 28, 2014 IV MEDS ORDER [facility] Mar 02, 2015 Unknown [facility] Mar 04, 2015 pt came by the office [facility] August 06, 2015 referral [facility] Jan 07, 2015 retro referral [facility] July 14, 2015 Referral - Dr. Jo Ann Oconnell [facility] Jan 08, 015 N/S to appt. [facility] September 28, 2015 Referral needed by Monday, 09/17 [facility] September 16, 2015 Unknown [facility] Apr 12, 2015 called pt to check on [facility] Apr 09, 2015 FUP / after iv Last dose 1.1.16 [facility] Apr ! - Referral - Dr. 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
--- OUTSIDE RECORDS SUMMARY | 2019-08-19 05:29 | XMS REPORT ---
Author Author Nadiya Bustamante [facility] eClinicalWorks Address Unknown Phone Unavailable Care Team Providers Care Photo Technologist Name Role Phone Wil Bustamante Unavailable Encounters Encounter Location Date mth f/u [facility] Jan 14, 2015 [facility] Refill Request [facility] May 27, 2015 Medication Request [facility] May 04, 2015 Medication Refill Request [facility] Apr 29 16 Other [facility] June 16, 2015 Infusion [facility] Feb 26, 2015 R/S Appt for 09/11/15 [facility] June 24, 2015 Medication Refill Request [facility] Mar 02 15 [facility] Refill [facility] June 11, 2015 4 Wk Follow-Up [facility] Feb 19, 2015 Medication Refills [facility] June 12, 2015 bacterial in bone [facility] Feb 26, 2015 3 month follow up [facility] July 14, 2015 Referral Questions [facility] Feb 05, 2015 Medication/Referral [facility] Feb 09, 2015 Refill? 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 Jo Ann Oconnell [facility] Jan 08, 2 015 Unknown [facility] Apr 12, 2015 called pt to check on [facility] Apr 09, 2015 FUP / after iv Last dose 1.1.16 [facility] Apr ! - Referral - Dr. 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
--- OUTSIDE RECORDS SUMMARY | 2019-08-19 05:29 | XMS REPORT ---
Author Author Nadiya Turner [facility] eClinicalWorks Address Unknown Phone Unavailable Care Team Providers Care It Support Engineer Name Role Phone Cipriano Turner Unavailable Encounters Encounter Location Date mth f/u [facility] Jan 14, 2015 4 wk f/u CT [facility] Mar 21, 2016 3 Month Follow Up [facility] Feb 03, 2016 cancel appt [facility] Jan 13, 2016 Refill [facility] Mar 21, 2016 Refill requests [facility] Mar 11, 2016 Unknown [facility] Nov 18, 2015 Infusion [facility] Feb 26, 2015 Low BP [facility] Dec 15, 2015 Medication Refill Request [facility] Mar 02 15 update referral [facility] Dec 16, 2015 4 Wk Follow-Up [facility] Feb 19, 201501/07 pending auth [facility] Jan 06, 2016 bacterial in bone [facility] Feb 26, 2015 Referral Questions [facility] Feb 05, 2015 Medication/Referral [facility] Feb 09, 2015 Mammo / Breast US Order [facility] Jan 19, 2015 8/3 referral rqsted [facility] Nov 11, 2015 4 week follow up [facility] Feb 04, 2015 Unknown [facility] Feb 26, 2015 Approval On (Percocet 10-325 MG Tablet) Urgent [facility] Nov 28, 2014 Medical Records [facility] Dec 18, 2014 Infection in face [facility] Dec 18, 2014 Walk in: Mouth ulcers [facility] Jan 07, [address] Bustamante disease of oral soft tissue [facility] Nov 24, 2014 Needs referral [facility] Nov 24, 2014 talk about referrals [facility] Nov 28, 2014 IV MEDS ORDER [facility] Mar 02, 2015 Unknown [facility] Mar 04, 2015 referral [facility] Jan 07, 2015 Referral - Dr. Jo Ann Oconnell [facility] Jan 08, 2 015 Unknown [facility] Apr 12, 2015 called pt to check on [facility] Apr 09, 2015 FUP / after iv Last dose 1.1.16 [facility] Apr ! - Referral - Dr. Bruno <Pending Authorizat ion> [facility] Apr 20, 2015 f/u r/s from 01/13/16 Dr. Herman [facility] Feb 082015 FUP/ IV FROM [facility] [phone] [facility] Mar 16, 2015 Unknown [facility] Mar 30, 2016 Possible Bronchitis [facility] Mar 27, 2015 PT PICC LINE HURT [facility] Apr 06, 2015 Medication Refill Request [facility] Apr 06 15 [facility] Refill Request [facility] May 27, 2015 Medication Request [facility] May 04, 2015 Medication Refill Request [facility] Apr 29 16 Other [facility] June 16, 2015 R/S Appt for 09/11/15 [facility] June 24, 2015 [facility] Refill [facility] June 11, 2015 Medication Refills [facility] June 12, 2015 3 month follow up [facility] July 14, 2015 Refill? [facility] July 06, 2015 f/u from hosp [facility] / Large Liver [facility] Jul pt came by the office [facility] August 06, 2015 retro referral [facility] July 14, 2015 N/S to appt. [facility] September 28, 2015 Referral needed by Monday, 09/17 [facility] September 16, 2015 referral notes [facility] September 30, 2015 Referral Requests [facility] September 24, 2015 Lab Order [facility] September 29, 2015 Refill req. [facility] October 20, 2015 Pharm. 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 Patient is [...]
--- OUTSIDE RECORDS SUMMARY | 2019-08-19 05:30 | XMS REPORT ---
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 Front End Assistant Name Role Phone Wil Bustamante CP Unavailable [...] Adjustment disorder with anxiety F43.22 Active Assessment Other depressive episodes F32.8 Ac tive Assessment Pain in right shoulder M25.511 Activ e Assessment Adjustment disorder with anxiety F43.22 Active [...] Date End Date Status Dosage Zolpidem Tartrate [facility] [address]-64 10 MG Orally Once a day Active 1 tablet at bedtime as needed Clonazepam [facility] [address]-06 0.5 MG Orally as needed (prn) Active 1 tablet Gabapentin [facility] [address]-57 300 MG Orally Three times a day Feb 19, 2015 Active 1 tablet Chewable [facility] [address]-72 Orally A ctive not defined Multivitamins [facility] [address]16 Orally twice a day (bid) Active 1 tablet Chantix [facility] [address]-20 1 MG Orally Twice a day May 04, 2015 August 01, 2016 Active 1 tablet Sertraline HCl [facility] [address]-65 100 MG Orally daily Active take 1 tablet daily Biotin [facility] [address] 5000 MCG Orally Once a day A ctive 1 capsule OxyCODONE HCl ER [facility] [address]-55 15 MG Orally as needed (prn) Active 1 tablet OxyContin [facility] [address]-93 20 MG Orally every 12 hrs Active 1 tablet Pantoprazole Sodium [facility] [address]-67 40 MG Orally Once a day Active 1 tablet Keflex [facility] [address]-62 500 MG Orally Twice a day Mar 21June 19, 2016 Active 1 capsule Vital Signs Date/Time: May 05, 2016 BMI 29.45 Index Weight 177 lbs Blood Pressure Systolic 115 mm Hg Respiratory Rate 16 /min Cardiac Monitoring Heart Rate 72 /min Temperature 97.9 F Blood Pressure Diastolic 81 mm Hg Results No Known Results Summary Purpose eClinicalWorks Submission
--- OUTSIDE RECORDS SUMMARY | 2019-08-19 05:30 | XMS REPORT ---
Author Author Nadiya Turner Organization eClinicalWorks Address Unknown Phone Unavailable Care Team Providers Care Dining Room Helper Name Role Phone Cipriano Turner CP Unavailable [...] Allergy Encounters Encounter Location Date mth f/u [facility] Jan 14, 2015 4 wk f/u CT [facility] Mar 21, 2016 3 Month Follow Up [facility] Feb 03, 2016 cancel appt [facility] Jan 13, 2016 Refill [facility] Mar 21, 2016 Refill requests [facility] Mar 11, 2016 Unknown [facility] Nov 18, 2015 Infusion [facility] Feb 26, 2015 Low BP [facility] Dec 15, 2015 Medication Refill Request [facility] Mar 02 15 update referral [facility] Dec 16, 2015 4 Wk Follow-Up [facility] Feb 19, 201501/07 pending auth [facility] Jan 06, 2016 bacterial in bone [facility] Feb 26, 2015 Referral Questions [facility] Feb 05, 2015 Medication/Referral [facility] Feb 09, 2015 Mammo / Breast US Order [facility] Jan 19, 2015 8/3 referral rqsted [facility] Nov 11, 2015 4 week follow up [facility] Feb 04, 2015 Unknown [facility] Feb 26, 2015 Approval On (Percocet 10-325 MG Tablet) [facility]gent [facility] Nov 28, 2014 Medical Records [facility] Dec 18, 2014 Infection in face [facility] Dec 18, 2014 Walk in: Mouth ulcers [facility] Jan 07, [address] 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 Jo Ann Oconnell [facility] Jan 08, 2 015 Unknown [facility] Apr 12, 2015 called pt to check on [facility] Apr 09, 2015 4 wk f/u [facility] Apr 18, 2016 FUP / after iv Last dose 1.1.16 [facility] Apr ! - Referral - Dr. Bruno <Pending Authorizat ion> [facility] Apr 20, 2015 f/u r/s from 01/13/16 Dr. Herman [facility] Feb 082015 FUP/ IV FROM [facility] [phone] [facility] Mar 16, 2015 Unknown [facility] Mar 30, 2016 Possible Bronchitis [facility] Mar 27, 2015 PT PICC LINE HURT [facility] Apr 06, 2015 Medication Refill Request [facility] Apr 06 15 [facility] Refill Request [facility] May 27, 2015 Medication Request [facility] May 04, 2015 Medication Refill Request [facility] Apr 29 16 Other [facility] June 16, 2015 R/S Appt for 09/11/15 [facility] June 24, 2015 [facility] Refill [facility] June 11, 2015 Medication Refills [facility] June 12, 2015 3 month follow up [facility] July 14, 2015 Refill? [facility] July 06, 2015 f/u from hosp [facility] / Large Liver [facility] Jul pt came by the office [facility] August 06, 2015 retro referral [facility] July 14, 2015 N/S to appt. [facility] September 28, 2015 Referral needed by Monday, 09/17 [facility] September 16, 2015 referral notes [facility] September 30, 2015 Referral Requests [facility] September 24, 2015 Lab Order [facility] September 29, 2015 Refill req. [facility] October 20, 2015 Pharm. needs C/B [facility] November 04, 2015 f/u [facility] November 04, 2015 Problems Problem Type [...] Instructions Start Date End Date Status Dosage Sertraline HCl [facility] [address]-59 50 MG Active TA KE 1 TABLET DAILY Clonazepam [facility] [address]-64 0.5 MG Orally as needed (prn) Active 1 tablet Chewable [facility] [address]-33 Orally Active Unknown Keflex [facility] [address]-96 500 MG Orally Twice a day Mar 21, 2016 June 19, 2016 Active 1 capsule Chantix [facility] [address]-36 1 MG Orally Twice a day May 04, 016 August 01, 2016 Active 1 tablet Multivitamins [facility] [address] Orally twice a day (bid) Active 1 tablet Amoxicillin [facility] [address]-78 500 MG Orally every 12 hrs Active 1 capsule Biotin [facility] [address] 5000 MCG Orally Once a day Active 1 capsule OxyContin [facility] [address]-63 15 MG Orally every 12 hrs Active 1 tablet OxyCODONE HCl ER [facility] [address]-47 15 MG Orally as needed (prn) Active 1 tablet Pantoprazole Sodium [facility] [address]-84 40 MG Orally Once a day Active 1 tablet Zolpidem Tartrate [facility] [address]-10 10 MG Orally Once a day Active 1 tablet at bedtime as needed Gabapentin [facility] [address]-40 600 MG Orally Three times a day N ov 2014 Active 1 tablet Social History Social History Element Qualifiers Date 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 Patient is [...] none. May 05, 2016 Vital Signs Date/Time: Apr 18, 2016 Weight 178 lbs Blood Pressure Systolic 122 mm Hg Respiratory Rate 16 /min Cardiac Monitoring Heart Rate 62 /min Temperature 97.5 F Blood Pressure Diastolic 82 mm Hg Summary Purpose eClinicalWorks Submission
--- OUTSIDE RECORDS SUMMARY | 2019-08-19 05:30 | XMS REPORT ---
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 Waiter/Waitress Informal Name Role Phone Wil Bustamante CP Unavailable [...]
--- OUTSIDE RECORDS SUMMARY | 2019-08-19 05:30 | XMS REPORT ---
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 Change Management Consultant Name Role Phone Wil Bustamante Unavailable Allergies [...] Date End Date Status Dosage Zolpidem Tartrate [facility] [address]-11 10 MG Orally Once a day Active 1 tablet at bedtime as needed Clonazepam [facility] [address]-46 0.5 MG Orally as needed (prn) Active 1 tablet Results No Known Results Summary Purpose eClinicalWorks Submission
--- OUTSIDE RECORDS SUMMARY | 2019-08-19 05:31 | XMS REPORT ---
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 status exam) a dequate hygiene, appropriate dress, looks like stated age, neat, casual, tainted blonde hair, glasses Andrea Valderramaijos mental status assessment, judgment good GeovanyChyna Moreos " insight (mental status exam) good Nba emigdio Meeks " Mental Status Exam: intelligence adequat e fund of information, intact memory processes, oriented to person, oriented to place, oriented to time, oriented to situation, oriented to reality GeovanyChyna Moreos " hallucinations none Geovany Lorena kitchen " thought content (mental status exam) (E&M) lucid Andrea Meeks " mental status assessment, process able to abstra ct, goal-directed, logical GeovanyChyna Moreos " mental status assessment, sensorium alert, atten tive, clear GeovanyChyna Meeks " affect (mental status exam) congruent, normal in tensity, normal range GeovanyChyna Moreos " mood (mental status exam) anxious, depressed, wo rried GeovanyChyna Moreos " mental status assessment, speech activit y normal flow, normal pace, normal pressure, normal rate, normal tone, normal volume, spontaneous, - GeovanyChyna Moreos " mental status assessment, motor activity normal gait, normal posture GeovanyChyna Meeks " behavior (mental status exam) appropriat e, cooperative, good eye contact, polite, responsive, tearful, sits in chair GeovanyChyna Meeks " mental appearance (mental status exam) a dequate hygiene, appropriate dress, looks like stated age, neat, casual, tainted blonde hair, glasses Geovany Constantino mental status assessment, judgment good Geovany Constantino " insight (mental status exam) good Nba emigdio Meeks " Mental Status Exam: intelligence adequat e fund of information, intact memory processes, oriented to person, oriented to place, oriented to time, oriented to situation, oriented to reality GeovanyChyna Moreos " hallucinations none Andrea kitchen " thought content (mental status exam) (E&M) lucid Andrea Meeks " mental status assessment, process able to abstra ct, goal-directed, logical GeovanyChyna Moreos " mental status assessment, sensorium alert, atten tive, clear GeovanyChyna Moreos " affect (mental status exam) congruent, normal in tensity, normal range Geovany Constantino " mood (mental status exam) anxious, depressed, wo rried GeovanyChyna Moreos " mental status assessment, speech activit y normal flow, normal pace, normal pressure, normal rate, normal tone, normal volume, spontaneous GeovanyChyna Moreos " mental status assessment, motor activity normal gait, normal posture GeovanyChyna Moreos " behavior (mental status exam) appropriat e, cooperative, good eye contact, polite, responsive, tearful Andrea Meeks " mental appearance (mental status exam) a dequate hygiene, appropriate dress, looks like stated age, marietta Valderramaijos mental status assessment, judgment good Andrea Meeks " insight (mental status exam) good Nba emigdio Meeks " Mental Status Exam: intelligence adequat e fund of information, intact memory processes, oriented to person, oriented to place, oriented to time, oriented to situation, oriented to reality Andrea Meeks " hallucinations none Andrea kitchen " thought content (mental status exam) (E&M) lucid Andrea Meeks " mental status assessment, process able to abstra ct, goal-directed, logical GeovanyChyna Moreos " mental status assessment, sensorium alert, atten tive, clear Andrea Valderramaijos " affect (mental status exam) congruent, normal in tensity, normal range Andrea Meeks " mood (mental status exam) anxious, depressed, wo rried Andrea Clemente Constantino " mental status assessment, speech activit y normal flow, normal pace, normal pressure, normal rate, normal tone, normal volume, spontaneous GeovanyChyna Moreos " mental status assessment, motor activity normal gait, normal posture Andrea Meeks " behavior (mental status exam) appropriat e, cooperative, good eye contact, polite, responsive Andrea Meeks " mental appearance (mental status exam) a dequate hygiene, appropriate dress, looks like stated age, marietta Valderramaijos mental status assessment, judgment good Andrea Meeks " insight (mental status exam) good Nba emigdio Meeks " Mental Status Exam: intelligence adequat e fund of information, intact memory processes, oriented to person, oriented to place, oriented to time, oriented to situation, oriented to reality Andrea Meeks " hallucinations none Andrea kitchen " thought content (mental status exam) (E&M) lucid Andrea Meeks " mental status assessment, process able to abstra ct, goal-directed, logical Andrea Meeks " mental status assessment, sensorium alert, atten tive, clear Andrea Meeks " affect (mental status exam) congruent, n ormal intensity, normal range, constricted Andrea Meeks " mood (mental status exam) anxious, depressed, wo rried Andrea Meeks " mental status assessment, speech activit y normal flow, normal pace, normal pressure, normal rate, normal tone, normal volume, spontaneous Andrae Meeks " mental status assessment, motor activity normal gait, normal posture Andrea Meeks " behavior (mental status exam) appropriat e, cooperative, good eye contact, polite, responsive Andrea Meeks" mental appearance (mental status exam) a dequate hygiene, appropriate dress, looks like stated age, neat Andrea Meeks mental status assessment, judgment good Andrea Meeks " insight (mental status exam) good Nba e Chyna Meeks " Mental Status Exam: intelligence adequat e fund of information, intact memory processes, oriented to person, oriented to place, oriented to time, oriented to situation, oriented to reality Andrea Meeks " hallucinations none Andrea kitchen " thought content (mental status exam) (E&M) lucid Andrea Meeks " mental status assessment, process able to abstra ct, goal-directed, logical Andrea Meeks " mental status assessment, sensorium alert, atten tive, clear Andrea Meeks " affect (mental status exam) congruent, e uthymic, normal intensity, normal range Andrea Meeks " mood (mental status exam) anxious, worried Andrea Meeks " mental status assessment, speech activit y normal flow, normal pace, normal pressure, normal rate, normal tone, normal volume, spontaneous Andrea Meeks " mental status assessment, motor activity normal gait, normal posture Andrea Meeks " behavior (mental status exam) appropriat e, cooperative, good eye contact, polite, responsive Andrea Meeks " mental appearance (mental status exam) a dequate hygiene, appropriate dress, looks like stated age, neat Andrea Meeks mental status assessment, judgment good Andrea Meeks " insight (mental status exam) good NbaIsmael Meeks " Mental Status Exam: intelligence adequat e fund of information, intact memory processes, oriented to person, oriented to place, oriented to time, oriented to situation, oriented to reality Andrea Meeks " hallucinations none Andrea kitchen " thought content (mental status exam) (E&M) lucid Andrea Meeks " mental status assessment, process able to abstra ct, goal-directed, logical Andrea Meeks " mental status assessment, sensorium alert, atten tive, clear Andrea Meeks " affect (mental status exam) congruent, e uthymic, normal intensity, normal range Andrea Meeks " mood (mental status exam) anxious Andrea Meeks " mental status assessment, speech activit y normal flow, normal pace, normal pressure, normal rate, normal tone, normal volume, spontaneous Andrea Meeks " mental status assessment, motor activity normal gait, normal posture Andrea Meeks " behavior (mental status exam) appropriat e, cooperative, good eye contact, polite, responsive Andrea Meeks " mental appearance (mental status exam) a dequate hygiene, appropriate dress, looks like stated age, marietta Meeks mental status assessment, judgment good Yanet Jennings " insight (mental status exam) good Ashley morocho Reyna Jennings " Mental Status Exam: intelligence adequat e fund of information, intact memory processes, oriented to person, oriented to place, oriented to time, oriented to situation, oriented to reality Yanet Jennings " hallucinations none Yanet Girma oz " thought content (mental status exam) (E&M) lucid Yanet Jennings " mental status assessment, process able to abstra ct, goal-directed, logical Yanet Jennings " mental status assessment, sensorium alert, atten tive, clear Yanet Jennings " affect (mental status exam) congruent, e uthymic, normal intensity, normal range Yanet Jennings " mood (mental status exam) anxious, sad Chyna Jennings " mental status assessment, speech activit y normal flow, normal pace, normal pressure, normal rate, normal tone, normal volume, spontaneous Chyna Jennings " mental status assessment, motor activity normal gait, normal posture Chyna Jennings " behavior (mental status exam) appropriat e, cooperative, good eye contact, polite, responsive Yanet Munoz " mental appearance (mental status exam) a dequate hygiene, appropriate dress, looks like stated age, neat Chyna Jennings mental status assessment, judgment good Andrea Meeks " insight (mental status exam) good Nba e Chyna Meeks " Mental Status Exam: intelligence adequat e fund of information, intact memory processes, oriented to person, oriented to place, oriented to time, oriented to situation, oriented to reality Andrea Meeks " hallucinations none Andrea kitchen " thought content (mental status exam) (E&M) lucid Andrea Meeks " mental status assessment, process able to abstra ct, goal-directed, logical Geovany Constantino " mental status assessment, sensorium alert, atten tive, clear Geovany Constantino " affect (mental status exam) congruent, e uthymic, normal intensity, normal range Andrea Meeks " mood (mental status exam) anxious, sad Andrea stahl Constantino " mental status assessment, speech activit y normal flow, normal pace, normal pressure, normal rate, normal tone, normal volume, spontaneous Geovany Constantino " mental status assessment, motor activity normal gait, normal posture Andrea Clemente Constantino " behavior (mental status exam) appropriat e, cooperative, good eye contact, polite, responsive Andrea Clemente Constantino " mental appearance (mental status exam) a dequate hygiene, appropriate dress, looks like stated age, neat Andrea Meeks " anxiety worry a lot, sleep disturbance, panic attacks, muscle tension Andrea Meeks mental status assessment, judgment good Chyna Jennings " insight (mental status exam) good Ashley morocho Reynajayne Jennings " Mental Status Exam: intelligence adequat e fund of information, intact memory processes, oriented to person, oriented to place, oriented to time, oriented to situation, oriented to reality Yanet Jennings " hallucinations none Yanet Girma oz " thought content (mental status exam) (E&M) lucid Chyna Rayooz " mental status assessment, process able to abstra ct, goal-directed, logical Yanet Jennings " mental status assessment, sensorium alert, atten tive, clear Yanet Jennings " affect (mental status exam) congruent, e uthymic, normal intensity, normal range Yanet Jennings " mood (mental status exam) depressed, sad Yanet Jennings " mental status assessment, speech activit y normal flow, normal pace, normal pressure, normal rate, normal tone, normal volume, spontaneous Yanet Jennings " mental status assessment, motor activity normal gait, normal posture Yanet Jennings " behavior (mental status exam) appropriat e, candid, cooperative, good eye contact, polite, responsive Yanet Jennings " mental appearance (mental status exam) a dequate hygiene, appropriate dress, looks like stated age, neat Chyna Jennings mood (mental status exam) depressed, sad Chyna Rayooz " mental status assessment, judgment good Chyna Rayooz " insight (mental status exam) good Mar bailee Reyna Jennings " Mental Status Exam: intelligence adequat e fund of information, intact memory processes, oriented to person, oriented to place, oriented to time, oriented to situation, oriented to reality Chyna Rayooz " hallucinations none Yanet Girma oz " thought content (mental status exam) (E&M) lucid Chyna Rayooz " mental status assessment, process able to abstra ct, goal-directed, logical Yanet Jennings " mental status assessment, sensorium alert, atten tive, clear Yanet Jennings " affect (mental status exam) congruent, e uthymic, normal intensity, normal range Yanet Jennings " mental status assessment, speech activit y normal flow, normal pace, normal pressure, normal rate, normal tone, normal volume, spontaneous Yanet Jennings " mental status assessment, motor activity normal gait, normal posture Yanet Jennings " behavior (mental status exam) appropriat e, candid, cooperative, good eye contact, polite, responsive Yanet Jennings " mental appearance (mental status exam) a dequate hygiene, appropriate dress, looks like stated age, neat Chyna Jennings " anxiety worry a lot, sleep d isturbance, restlessness, irritability, many physical complaints, phobias, panic attacks, muscle tension Chyna Jennings MEDICAL EQUIPMENT No Information Available FAMILY HISTORY No Information Available INSURANCE PROVIDERS No Information Available ADVANCE DIRECTIVES No Information Available TREATMENT PLAN Date Name Lipid Panel TSH Comp. Metabolic Panel (14) CBC With Differential/Platel et Est Patient Detailed - 04127 Est Patient Exp Problem - 99 213 Family Psychotherapy w/ [place] ent - 49749 Est Patient Exp Problem - 99 213 Est Patient Exp Problem - 99 213 Est Patient Exp Problem - 99 213 Est Patient Exp Problem - 99 213 Est Patient Exp Problem - 99 213 Est Patient Exp Problem - 99 213 Est Patient Detailed - 67169 Est Patient Exp Problem - 99 213 Est Patient Exp Problem - 99 213 Psychotherapy 45 (38-52*) mi n - [id number] (with patient and/or family member) Diagnostic evaluation with m edical - 85708 Psychotherapy 45 (38-52*) mi n - [id number] (with patient and/or family member) Diagnostic evaluation (no me dical) - 89120 HISTORY OF PROCEDURES Procedure Date Procedure Name Provider Procedure Notes Status Family Psychotherapy w/ Patient - 66977 Myla Dickerson completed Psychotherapy 45 (38-52*) mi n - [id number] (with patient and/or family member) Chyna Jennings completed Diagnostic evaluation with medical - 08877 Andrea Meeks completed Psychotherapy 45 (38-52*) mi n - [id number] (with patient and/or family member) Chyna Jennings completed Diagnostic evaluation (no medical) - 95156 Chyna Jennings completed GOALS No Information Available HEALTH CONCERNS No Information Available
--- OUTSIDE RECORDS SUMMARY | 2019-08-19 05:31 | XMS REPORT ---
[...] Encounter Andrea Clemente To rrnamitaos Andrea Meeks [facility] UNK - Ambulatory Encounter Andrea Clemente To rrnaimtaos Andrea Meeks [facility] UNK - Ambulatory Encounter Andrea Clemente To rrnamitaos Andrea Meeks [facility] UNK - Ambulatory Encounter Andrea Clemente To rrnamitaos Andrea Meeks [facility] UNK - Ambulatory Encounter Andrea Clemente To rrnamitaos Andrea Meeks [facility] UNK - Ambulatory Encounter Andrea Clemente To lamontos Andrea Meeks [facility] UNK - Ambulatory Encounter Andrea Clemente To rrnamitaos Andrea Bautista [facility] UNK - Ambulatory Encounter Myla Dickerson [facility] UNK - Ambulatory Encounter Elsy Galeana [facility] UNK - Ambulatory Encounter Andrea Clemente To rrjeff Meeks [facility] UNK - Ambulatory Encounter Andrea Clemente To rrnamitaos Andrea Clemente Constantino Rivers [facility] UNK - Ambulatory Encounter Andrea Clemente To rrijos GeovanyChyna Bautista [facility] INSOMNIA DISORDER, OTHER SPECIFIED - Ambulatory Encounter Andrea Clemente [facility] UNK - Ambulatory Encounter Andrea Clemente To rrnamitaos GeovanyChyna Bautista [facility] UNK - Ambulatory Encounter Andrea Clemente To rrnamitaos Andrea Meeks [facility] UNK - Ambulatory Encounter Andrea Clemente To rrijos GeovanyChyna Meeks [facility] UNK - Ambulatory Encounter Andrea Clemente To rrijos GeovanyChyna Meeks [facility] UNK - Ambulatory Encounter Andrea Clemente To rrnamitaos GeovanyChyna Gabriel [facility] Encounter for therapeuti c drug monitoringScreening for lipid disorder - Ambulatory Encounter Andrea Clemente To rrnamitaos [facility] UNK - Ambulatory Encounter Andrea Clemente To rrnamitaos Andrea Meeks [facility] UNK - Ambulatory Encounter Andrea Clemente To rrjeff Bautista [facility] UNK - Ambulatory Encounter Andrea Clemente To rrjeff Meeks [facility] UNK - Ambulatory Encounter Andrea Clemente To rrijos Andrea Valderramaijos [facility] UNK - Ambulatory Encounter Andrea Clemente To rrijos GeovanyChyna Meeks [facility] UNK - Ambulatory Encounter Andrea Clemente To rrijos Andrea Valderramajeff Bautista [facility] UNK - Ambulatory Encounter Andrea Clemente To rrijos Andrea Clemente Constantino Bautista [facility] UNK - Ambulatory Encounter Andrea Clemente To rrijos GeovanyChyna Meeks [facility] UNK - Ambulatory Encounter Andrea Clemente To rrijos Andrea Valderramajeff Rivers [facility] UNK - Ambulatory Encounter [facility] UNK - Ambulatory Encounter Andrea Clemente To rrijos GeovanyChyna Bautista [facility] Contact [facility] UNK - Ambulatory Encounter Andrea Clemente To rrijos GeovanyChyna Meeks [facility] UNK - Ambulatory Encounter Andrea Clemente To rrijos Andrea Valderramajeff Ochoa [facility] UNK - Ambulatory Encounter Andrea Clemente To rrijos GeovanyChyna Sullivan [facility] UNK - Ambulatory Encounter Andrea Clemente To rrijos GeovanyChyna Meeks [facility] UNK - Ambulatory Encounter Andrea Clemente To rrijos GeovanyChyna Bautista [facility] DEPRESSIVE DISORDER, UNSPECIFIED - Ambulatory Encounter Andrea Clemente To rrijos GeovanyChyna Cooper [facility] UNK - Ambulatory Encounter Chyna Jennings [facility] UNK - Ambulatory Encounter Andrea Clemente To rrnamitaos Andrea Meeks Gabriela [facility] UNK - Ambulatory Encounter Andrea Clemente To rrijos Andrea Valderramajeff [place] Contact Center UNK - Ambulatory Encounter Andrea Clemente To rrijos Andrea Meeks [facility] UNK - Ambulatory Encounter Andrea Clemente To rrijos Andrea Meeks [facility] UNK - Ambulatory Encounter Andrea Clemente To rros Andrea Meeks Elsy Rivers [facility] DEPRESSIVE DISORDER, ROSALINA OR, RECURRENT EPISODE, PARTIAL REMISSION - Ambulatory Encounter Chyna Jennings [facility] UNK - Ambulatory Encounter Elsy Silvestre Galeana [facility] [employer] UNK - Ambulatory Encounter Chyna Jennings Stormy Lee [facility] Center UNK - Ambulatory Encounter Chyna Jennings [facility] ANXIETY DISORDER, UNSPEC IFIEDDEPRESSIVE DISORDER, UNSPECIFIED - Ambulatory Encounter Jenniffer Soto [facility] Contact Center UNK VITAL [...] " height in centimeters E&M 162.56 cm [facility] method used to obtain blood [...] height in centimeters E&M 162.56 cm Jennienilamaciel [facility] method used to obtain [...] " height in centimeters E&M 162.56 cm [facility] pulse rate E&M 86 /min Nery Cooper [...] height in centimeters E&M 162.56 cm [facility] method used to obtain blood pressure automatic [...] " height in centimeters E&M 162.56 cm Elyscindy Rivers " height E&M 64 [in_i] Elsy [...] 26 y/o son. Not homeless. Born in [facility]. City: [place]. State: [place]. Pt lives in [place], in a home with son (26) and . Unemployed. Highest education level: obtained GED after dropping out senior year. 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 Supported by . [...] 26 y/o son. Not homeless. Born in [facility]. City: [place]. State: [place]. Pt lives in [place], in a home with son (26) and . Unemployed. Highest education level: obtained GED after dropping out senior year. 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 Supported by . [...] status current every day smoker Andrea phan Constantnio " Exercise Program Referral T Andrea Meeks [...] home/family situation, assessment Pt agus es in [place], in a home with son (26) and [...] 26 y/o son. Not homeless. Born in [facility]. City: [place]. State: [place]. Pt lives in [place], in a home with son (26) and . Unemployed. Highest education level: obtained GED after dropping out senior year. 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 Supported by . [...] sister (41, 38) Not homeless. Born in [facility]. City: [place]. State: [place]. [place] lives in [place], in a home with son (26) and . Unemployed. Highest education level: obtained GED. Pt shared, she enjoys going to the beach and swimming Chyna Jennings " home/family situation, assessment [place], in a home with son (26) and [...] Dickerson " hallucinations none Myla Lorisharee u Andersonshukricleo " thought content (mental status exam) (E&M) [...] With Differential/Platel et Est Patient Detailed - 30297 Est Patient Exp Problem - 99 213 Family Psychotherapy w/ [place] ent - 56202 Est Patient Exp Problem - 99 213 Est Patient Exp Problem - 99 213 Est Patient Exp Problem - 99 213 Est Patient Exp Problem - 99 213 Est Patient Exp Problem - 99 213 Est Patient Exp Problem - 99 213 Est Patient Detailed - 09095 Est Patient Exp Problem - 99 213 Est Patient Exp Problem - 99 213 Psychotherapy 45 (38-52*) mi n - [id number] (with patient and/or family member) Diagnostic evaluation with m edical - 30337 Psychotherapy 45 (38-52*) mi n - [id number] (with patient and/or family member) Diagnostic evaluation (no me dical) - 84982 HISTORY OF PROCEDURES Procedure Date Procedure Name Provider Procedure Notes Status Family Psychotherapy w/ Patient - 49835 Myla Dickerson completed Psychotherapy 45 (38-52*) mi n - [id number] (with patient and/or family member) Chyna Jennings completed Diagnostic evaluation with medical - 37506 Andrea Meeks completed Psychotherapy 45 (38-52*) mi n - [id number] (with patient and/or family member) Chyna Jennings completed Diagnostic evaluation (no medical) - 27165 Chyna Jennings completed GOALS No Information Available HEALTH CONCERNS No Information Available
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
[2019-08-19] MEDS ORDERED: CEFAZOLIN SOD 1 GM/NS 50ML 100 ML IV ONE (05:46)
[2019-08-19] MEDS ORDERED: BUPIVACAINE 0.25% 30ML SDV INJ ONE (06:43)
[2019-08-19] MEDS ORDERED: SCOPOLAMINE 1.5 MG PATCH ONE (06:52)
[2019-08-19] MEDS ORDERED: LIDOCAINE HCL (LTA) 4 ML SOLN ONE (06:52)
[2019-08-19] MEDS ORDERED: ACETAMINOPHEN 1000 MG/100 ML 100 ML IV ONE (06:52)
[2019-08-19] MEDS ORDERED: SUGAMMADEX SODIUM 200 MG/2 ML VIAL IV ONE (06:52)
[2019-08-19] MEDS: SCOPOLAMINE 1.5 MG PATCH TOP SCH (10:15)
[2019-08-19] MEDS ORDERED: FENTANYL CITRATE/PF 100MCG/2 ML INJ ONE ×2 (10:34→18:40)
[2019-08-19] MEDS ORDERED: METOCLOPRAMIDE HCL 10 MG/2ML VIAL ONE (11:15)
--- NOTE | 2019-08-19 11:19 | Operative Report ---
DATE OF PROCEDURE: 08/19/2019 SURGEON: Jaquan Andrew MD PREOPERATIVE DIAGNOSES: 1. Morbid obesity, BMI 40. 2. Hypertension. 3. Hiatal hernia. 4. Chronic gastroesophageal reflux disease. POSTOPERATIVE DIAGNOSES: 1. Morbid obesity, BMI 40. 2. Hypertension. 3. Hiatal hernia. 4. Chronic gastroesophageal reflux disease. PREOPERATIVE INDICATION: 1. Treat disease, prevent complications related to comorbid conditions of obesity. 2. Decreased complications related to hiatal hernia. PROCEDURES PERFORMED: 1. Laparoscopic Flaca-en-Y gastric bypass (CPT 62291). 2. Laparoscopic hiatal hernia repair (CPT 09826). ANESTHESIA: General. ACCESS TECH: Mehrdad Moon, community assistant (needed due to complexity of case). FLUIDS: 1 L of crystalloid. ESTIMATED BLOOD LOSS: 50 mL. DRAINS: A 19-Macedonian round JENNY. COMPLICATIONS: None. SPECIMENS: 1. A portion of small intestine. 2. A portion of stomach. GRAFTS: None. FINDINGS: 1. Moderate-sized hiatal hernia. 2. Negative intraoperative leak test. PROCEDURE IN DETAIL: The patient was brought to the operating room and was intubated under general endotracheal anesthesia. She was sterilely prepped and draped in the usual fashion. A preprocedure pause was performed identifying the patient, use of perioperative antibiotics, intended procedure, and staff surgeon. Access was gained via a 5 mm left subcostal incision using a Veress needle. The abdomen was insufflated. Four additional trocars were placed in the standard positions. A liver retractor was placed to expose the stomach and hiatus. There were some adhesions, which were lysed with the [place] LigaSure device. I then used the Harmonic Scalpel and entered the gastrohepatic ligament via the pars flaccida technique and reduced a moderate-sized hiatal hernia from the right and left fabiola of the diaphragm as well as anterior fabiola. I then repaired the hiatal hernia with 2-0 Surgidac suture in interrupted fashion. Next, we divided the descending branches of the left gastric vessels using the [place] LigaSure device, all the way up to the level of the sleeve. She had a previous laparoscopic sleeve gastrectomy performed by me many years ago. I then stapled across the sleeve just distal to the takeoff of the left gastric vessels. However, upon our firing, I had noted that we had included the orogastric tube with inner firing. I then was able to dissect out the orogastric tube from the gastric pouch and Anesthesia was able to remove it. I then re-resected a portion of the stomach to get fresh healthy tissue, still being distal to the takeoff of the left gastric vessels in the gastric remnant. I then removed the portion of the remaining orogastric tube and then fired a stapler across the cut edge in order to get fresh healthy tissue. We confirmed removal of the orogastric tube in its entirety. I then resected the small bowel 50 cm distal to the ligament of Treitz for biliopancreatic limb and then 150 cm distal to this, and performed an end-to-side jejunojejunostomy between the biliopancreatic and the Flaca limb with a single firing of a almendarez load 60 mm [employer] stapling device. I fired another stapler across the common enterotomy site. Anti-obstruction sutures were placed on either end of the anastomosis. I then closed the mesentery defect with 2-0 Surgidac suture in a continuous fashion. The anastomosis appeared patent, well vascularized, and without any undue tension. I then split the greater omentum to release pressure on the Flaca limb. The Flaca limb was brought up and a posterior layer between the Flaca limb and the gastric pouch was done with 2-0 Surgidac suture in a continuous fashion, in a Lembert fashion. I then performed a gastrojejunostomy between the pouch and the Flaca limb with a purple load 60 mm stapling device, which was measured about 3.5 cm. I then oversewed the common enterotomy site with 2-0 Polysorb suture beginning on either end of the anastomosis and tying it in the middle over an adult sized endoscope, which was passed through as the bougie. I then oversewed the suture line with 2-0 Surgidac suture in a Lembert fashion. A leak test was performed, no leaks were identified. I then placed an omental patch over the anastomosis for further protection. Next, I closed Lieberman defect with 2-0 Surgidac suture in a continuous fashion. I then introduced a 19-Macedonian round JENNY and placed this along the gastrojejunostomy anastomosis and brought this out through the right flank port site where the liver retractor port was placed. This was then sutured to the skin with 2-0 nylon suture. We then verified hemostasis, closed the large port site with 0 Vicryl suture using the Doyle-Elo technique and desufflated the abdomen. The trocars were removed. Incision sites were closed with 4-0 Monocryl suture in a subcuticular fashion. Dermabond dressings were applied. A 0.25% bupivacaine was used both at the preperitoneal incision sites. The patient tolerated the procedure well. Type of wound was type 3, contaminated. All surgical sponge and instrument counts were correct. MD LETA Varela/JONNATHAN /[id number]
--- OUTSIDE RECORDS SUMMARY | 2019-08-19 11:31 | XMS REPORT | Clinical Summary ---
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
[2019-08-19] MEDS ORDERED: PROMETHAZINE HCL (IM) 25 MG/ML VIAL ONE (11:33)
--- OUTSIDE RECORDS SUMMARY | 2019-08-19 11:33 | XMS REPORT | Continuity of Care Document ---
Author Author Delphine [employer] MEGGAN [employer] Address Unknown Phone Unavailable Care Team Providers Care Court Attendant Name Role Phone [employer] Unavailable Un available Problems Problem Status Onset Date Classification Date Reported Comments Source Nausea & vomiting Active 03/09/2019 05/22/2019 [facility] Vomiting Active 03/08/2019 05/22/2019 [facility] Hematemesis Active 03/08/2019 05/22/2019 [facility] Abdominal pain Active 07/26/2018 05/22/2019 [facility] Dysphagia Active 07/26/2018 05/22/2019 [facility] GERD (gastroesophageal reflux disease) Active 07/26/2018 05/22/2019 [facility] Anxiety Active 07/26/2018 05/22/2019 [facility] Depression Active 07/26/2018 05/22/2019 [facility] HTN (hypertension) Active 07/26/2018 05/22/2019 [facility] Obesity (BMI 30-39.9) Active 07/26/2018 05/22/2019 [facility] Granuloma and granuloma-like lesions of oral mucosa Active Problem 07/19/2019 [facility] Other specified abnormal immunological f indings in serum Active Prob deepa 07/19/2019 [facility] Osteomyelitis, unspecified Act keila Problem 01/2020 [facility] Pain in right shoulder Active Problem 03/20/2019 [facility] Infection and inflammatory reaction due to internal fixation device of spine, subsequent encounter Active Problem 07/19/2019 [facility] Epigastric pain Active Problem 03/20/2019 [facility] Adjustment disorder with anxiety Active Problem 01/2020 [facility] Encounter for screening mammogram for ma lignant neoplasm of breast Active Prob deepa 07/19/2019 [facility] Methicillin susceptible Staphylococcus a ureus infection as the cause of diseases classified elsewhere Active Problem 07/19/2019 [facility] Alveolitis of jaws Active Problem 07/19/2019 [facility] Abnormal results of liver function studies Active Problem 07/19/2019 [facility] Personal history of nicotine dependence Active Problem 07/19/2019 [facility] Gastro-esophageal reflux disease with esophagitis Active Problem 07/19/2019 [facility] Other chronic pain Active Problem 07/19/2019 [facility] Other depressive episodes Acti ve Problem 01/2020 [facility] Insomnia, unspecified Active Problem 07/19/2019 [facility] Abnormal immunological finding in serum, unspecified Active Problem 07/19/2019 [facility] Radiculopathy, cervical region Active Problem 01/2020 [facility] Carpal tunnel syndrome, unspecified upper limb Active Problem 07/19/2019 [facility] Other abnormality of red blood cells Active Problem 01/2020 [facility] Essential (primary) hypertension Active Problem 01/2020 [facility] Carpal tunnel syndrome, bilateral upper limbs Active Problem 07/19/2019 [facility] Transient cerebral ischemic attack, unspecified Active Problem 07/19/2019 [facility] Aphasia Active Problem 07/19/2019 [facility] Secondary polycythemia Active Problem 07/19/2019 [facility] Encounter for general adult medical exam ination with abnormal findings Active Prob deepa 07/19/2019 [facility] Other visual disturbances Acti ve Problem 01/2020 [facility] Other intervertebral disc displacement, lumbar region Active Problem 07/19/2019 [facility] Shortness of breath Active Problem 03/20/2019 [facility] Cough Active Problem 03/20/2019 [facility] Acute bronchitis, unspecified Active Problem 02/2019 [facility] Bariatric surgery status Active Problem 07/19/2019 [facility] Acute embolism and thrombosis of unspeci fied deep veins of unspecified lower extremity Active Problem 07/19/2019 [facility] Radiculopathy, lumbar region A ctive Problem 01/2020 [facility] Calculus of kidney Active Problem 07/19/2019 [facility] Chronic pain syndrome Active Problem 01/23/2016 [facility] HTN Active Problem 01/23/2016 [facility] Encounter for gynecological examination (general) (routine) without abnormal findings Active Problem 01/23/2016 [facility] Bronchitis, not specified as acute or chronic Active Problem 01/23/2016 [facility] Fibromyalgia Active Problem 01/23/2016 [facility] MIRA Positive - Other and unspecified non specific immunological findings Active Prob deepa 01/23/2016 [facility] Nonspecific elevation of levels of trans aminase or lactic acid dehydrogenase (LDH) Active Problem 01/23/2016 [facility] Pain in joint, multiple sites Active Problem [facility] mouth ulcer Other and unspecified diseas es of the oral soft tissues Active Prob deepa 01/23/2016 [facility] Nausea Active Problem 01/23/2016 [facility] Right upper quadrant pain Acti ve Problem [facility] Hepatomegaly, not elsewhere classified Active Diagnosis 07/22/2015 [facility] Unspecified open wound of right little f lv without damage to nail, sequela Active Problem 07/19/2019 [facility] Acute vaginitis Active Problem 03/20/2019 [facility] Nondisplaced unspecified fracture of lef t lesser toe(s), initial encounter for closed fracture Active Problem 07/19/2019 [facility] Dental caries Active 11/06/2018 [facility] Chronic dental infection Active 11/06/2018 [facility] Chest pain, unspecified type A ctive 11/19/2018 [facility] Dysphagia, unspecified type Ac tive 11/19/2018 [facility] Medications Medication Details Route Status Patient Instructions Ordering Provider Order Date Source HYDROcodone-acetaminophen 10-325 mg tablet Take 1 tablet by mouth every 6 (six) hours as needed for Pain (scale 4-6). Oral Active 03/10/2019 [facility] fluconazole 200 mg tablet Take 1 tablet by mouth daily for 1 dose. Oral Active 11/20/2018 [facility] oxyCODONE (OXYCONTIN) 15 mg TR12 Take by mouth. Oral No Longer Active 11/19/2018 [facility] sucralfate 100 mg/mL suspension Take 10 mL by mouth before meals and at bedtime for 7 days. Oral Active 11/19/2018 [facility] amoxicillin-clavulanate 875-125 mg per tablet Take 1 tablet by mouth every 12 (twelve) hours for 10 days. Oral Active 11/05/2018 [facility] BusPIRone HCl 1 tablet Orally Active 7.5 MG Orally Twice a d ay Amer 06/05/2017 [facility] Clindamycin HCl 1 capsule Orally Active 300 MG Orally every 8 h rs Amer 06/05/2017 [facility] Lidocaine Viscous 1 teaspoon Mouth/Throat Active 2 % Mouth/Throat every six to eight hours Amer 03/29/2017 [facility] Zofran ODT as directed Orally Active 8 MG Orally every 8 shakila rs as needed for nausea Amer 12/02/2016 [facility] Keflex 1 capsule Orally Active 500 MG Orally Twice a d ay Amer 03/21/2016 [facility] Zofran 1 tablet Orally Active 8 MG Orally every 8 shakila rs as needed Johnny 06/12/2015 [facility] Chantix 1 tablet Orally Active 1 MG Orally Twice a day Amer 05/04/2015 [facility] Amoxicillin 1 tablet Orally Active 500 mg Orally every 12 hrs Nseir 04/13/2015 [facility] ProAir HFA 2 puffs as needed Inhalation Active 108 (90 Base) MCG/ACT Inhalation every 4-6 hrs as needed for persistant cough Nseir 03/27/2015 [facility] Gabapentin 1 tablet Orally Active 400 MG Orally Three janel es a day Amer 02/19/2015 [facility] Gabapentin 1 tablet Orally Active 600 MG Orally four time s a day Amer 02/19/2015 [facility] Gabapentin 1 tablet Orally Active 600 MG Orally Three janel es a day Johnny 02/19/2015 [facility] Gabapentin 1 tablet Orally Active 300 MG Orally Three janel es a day Amer 02/19/2015 [facility] Losartan Potassium-HCTZ 1 tabl et Orally Active 50-12.5 MG Orally Once a day Amer 12/30/2014 [facility] Zolpidem Tartrate 1 tablet at bedtime as needed Orally Active 10 mg Orally Once a [facility] OxyC[facility] ER 1 tablet Orally Active 15 MG Orally as needed (prn) [facility] Biotin 1 capsule Orally Active 5000 MCG Orally Once a day [facility] Pantoprazole Sodium 1 tablet Orally Active 40 MG Orally Once a day [facility] Dilaudid not defined NA Active [facility] Clonazepam 1 tablet Orally Active 0.5 MG Orally as needed (prn) [facility] OxyContin 1 tablet Orally Active 20 MG Orally every 12 h rs [facility] Chewable [facility] not de fined Orally Active Orally [facility] Sertraline HCl take 1 tablet d aily Orally Active 100 MG Orally daily [facility] Zolpidem Tartrate 1 tablet at bedtime as needed Orally Active 10 MG Orally Once a day [facility] Pantoprazole Sodium TAKE 1 TAB LET DAILY NA Active 40 MG [facility] Multivitamins 1 tablet Orally Active Orally twice a day (bid ) [facility] Clonazepam [facility] tablet Orally Active 0.5 MG Orally bid as ne eded for anxiety [facility] Sertraline HCl take 1 tablet d aily Orally Active 100 MG Orally daily [facility] OxyContin 1 tablet Orally Active 30 MG Orally every 12 h rs [facility] Multivitamins 1 tablet Orally Active Orally twice a day (bid ) [facility] Pantoprazole Sodium take 1 tab let daily Orally Active 40 mg Orally daily [facility] Chewable [facility] not de fined Orally Active Orally [facility] Biotin 1 capsule Orally Active 5000 MCG Orally Once a day [facility] Chantix TAKE 1 TABLET TWICE A DAY NA Active 1M G [facility] OxyContin 1 tablet Orally Active 40 MG Orally every 12 h rs [facility] Ativan 1 tablet as needed Orally Active 2 MG Orally as directed [facility] Dilaudid not defined NA Active [facility] Chantix TAKE 1 TABLET TWICE A DAY Orally Active 1MG Orally Twice a day [facility] BusPIRone HCl 1 tablet Orally Active 7.5 MG Orally Twice a d ay [facility] OxyContin 1 tablet Orally Active 40 MG Orally every 12 h rs [facility] Zoloft 1 tablet Orally Active 50 mg Orally Once a day [facility] OxyCODONE HCl ER 1 tablet Orally Active 15 MG Orally every 12 h rs [facility] Progesterone Unknown Externally Active 1000 MG/60GM Externally [facility] Oxycodone HCl 1 tablet as need ed Orally Active 15 MG Orally twice a day (bid) [facility] OxyContin 1 tablet Orally Active 15 MG Orally every 12 h rs [facility] Motrin Unknown Orally Active 300 MG Orally [facility] ProAir HFA INHALE 2 PUFFS BY M OUTH EVERY 4 TO 6 HOUR NEEDED FOR PERSISTANT COUGH FOR 30 DAYS NA Active 108 (90 Base) MCG/ACT [facility] Progesterone Unknown Externally Active 1000 MG/60GM Externally [facility] Sertraline HCl TAKE 1 TABLET D AILY NA Active 50 MG [facility] Sertraline HCl TAKE 1 TABLET D AILY NA Active 50 MG [facility] Losartan Potassium-HCTZ TAKE 1 TABLET DAILY NA Active 50 /12.5 [facility] Amoxicillin 1 capsule Orally Active 500 MG Orally every 12 hrs [facility] Sertraline HCl 1 tablet by mouth Active 100MG by mouth daily Amer [facility] pantoprazole (PROTONIX) 40 mg EC tablet Take 40 mg by mouth 2 (two) times daily. Oral Active [facility] losartan-hydrochlorothiazide (HYZAAR) 50 -12.5 mg per tablet Take 1 Tab by mouth daily. Ora l Active [facility] SERTraline (ZOLOFT) 100 mg tablet Take 100 mg by mouth daily. Oral Active [facility] gabapentin (NEURONTIN) 600 mg tablet Take 800 mg by mouth 4 (four) times daily. Oral Active [facility] oxyCODONE (OXYCONTIN) 15 mg TR12 Take by mouth. Oral Active [facility] Biotin (APPEAREX) 2,500 mcg Tab Take 2 Tabs by mouth daily. Oral Active [facility] busPIRone 10 mg tablet Take 10 mg by mouth 3 (three) times daily. Oral Active [facility] cyclobenzaprine HCl (FLEXERIL ORAL) Take by mouth. Oral Active [facility] atorvastatin calcium (LIPITOR ORAL) Take by mouth. Oral Active [facility] aripiprazole (ABILIFY ORAL) Ta ke by mouth. Oral Active [facility] h ondansetron (ZOFRAN ODT ORAL) Take 8 mg by mouth 3 (three) times daily as needed for [facility]ausea and Vomiting (N/V). [facility] (AMBIEN ORAL) Take 10 mg by mouth. Oral Active [facility] diazepam (VALIUM ORAL) Take b y mouth. [facility] hydromorph[facility] HCl (DILAUDID ORAL) Take by mouth. Oral Active [facility] oxyCODONE CR (OXYCONTIN) 40 mg 12 hr tablet Take 40 mg by mouth every 12 (twelve) hours. Oral Active [facility] brexpiprazole (REXULTI) 1 mg Tab Take 3 mg by mouth daily. Oral Active [facility] clonazePAM (KLONOPIN) 1 mg tablet Take 2 mg by mouth daily. Oral Active [facility] morphine IR 15 mg tablet Take 15 mg by mouth as needed for Pain (scale 7-10) (every 6 hours PRN). Oral Active [facility] lisinopril 10 mg tablet Take 1 0 mg by mouth daily. Oral Active [facility] vilazodone (VIIBRYD) 40 mg tablet Take 40 mg by mouth daily. Oral Active [facility] topiramate (TROKENDI XR) 50 mg Cp24 Take by mouth. Oral Active [facility] Allergies, Adverse Reactions, Alerts Substance Category Reaction Severity Reaction type Status Date Reported Comments Source Erythromycin Rash High Propensity to adverse leyda ctions Active 05/04/2015 [facility] Venlafaxine Hcl Other - See comments Propensity to adverse reactions Active 05/04/2015 [facility] Tapentadol Hallucinations High Propensity to adverse leyda ctions Active 05/04/2015 [facility] Sulfa (Sulfonamide Antibiotics) Rash High Pr opensity to adverse reactions Active 05/04/2015 [facility] Tramadol [place] llucinations High Propensity to adverse leyda ctions Active 05/04/2015 [facility] Vancomycin Rash High Propensity to adverse leyda ctions Active 05/04/2015 [facility] Bupropion Hcl Rash High Propensity to adverse leyda ctions Active 05/04/2015 [facility] Morphine Adverse Reaction rash Adverse Reaction Active 02/22/2016 [facility] NSAIDS Adverse Reaction cant take anything with NSAIDS d/t gastric sleeve Adverse Reaction Active 05/04/2017 [facility] Sulfa Adverse Reaction rash Adverse Reaction Active 05/04/2017 [facility] Tapentadol HCl Adverse Reaction headaches and hallucinations Adverse Reaction Active 08/25/2017 [facility] Zyban Adverse Reaction rash Adverse Reaction Active 08/25/2017 [facility] Wellbutrin Adverse Reaction rash Adverse Reaction Active 08/25/2017 [facility] Vancomycin HCl Adverse Reaction rash Adverse Reaction Active 08/25/2017 [facility] Tramadol HCl Adverse Reaction headaches and hallucinations Adverse Reaction Active 08/25/2017 [facility] Effexor Adverse Reaction rash Adverse Reaction Active 08/25/2017 [facility] Hydrocodone Bitartrate Rash High Propensity to adverse leyda ctions Active 07/26/2018 [facility] Bupropion Hcl (Smoking Deter) Rash High Propensity to adverse reactions Active 07/26/2018 [facility] Avocado Hiv es Propensity to adverse reacti ons Active 07/27/2018 [facility] Ketorolac H allucinations High Propensity to adverse leyda ctions Active 11/05/2018 [facility] [place] [facility] Propensity to adverse reacti ons Active 03/10/2019 [facility] Immunizations Immunization Date Given Site Status Last Updated Comments Source Influenza Virus Vaccine Quad .5 mL IM 6+ MO 03/10/2019 completed Edwin [facility] Influenza Virus Vaccine - Whole 02/07/2018 completed [facility] Results Order Name Results Value Reference Range Date Interpretation Comments Source Chest 2 Views <p> </p><p>No ac [place] cardiopulmonary process. No radiopaque foreign body identified.</p><p> </p><p> </p> No acute cardiopulmonary process. No radiopaque foreign body identified. 11/17/2018 [facility] Chest 2 Views <p>* * * * [...] the small bowelwithin the upper abdomen. 11/17/2018 [facility] Chest 2 Views <p styleCode="he ader">Ctmb, Radiant Results Inft User - 11/17/2018 6:03 [...] process. No radiopaque foreign body identified. 11/17/2018 [facility] h Troponin I TROPONIN I 0.000 <=0.034 11/17/2018 [facility] Troponin I <p>Equal or Less th [...] relative to patient's use of biotin. 11/17/2018 [facility] Troponin I Lab Interpretation Elsy l 11/17/2018 [facility] Basic Metabolic Panel (NA, K, CL, CO2, G LUCOSE, BUN, CREATININE, CA) NA 138 135 - 145 11/17/2018 [facility] Basic Metabolic Panel (NA, K, CL, CO2, G LUCOSE, BUN, CREATININE, CA) K 4.8 3.5 - 5 11/17/2018 Slight hemolysis [facility] Basic Metabolic Panel (NA, K, CL, CO2, G LUCOSE, BUN, CREATININE, CA) CL 101 98 - 108 11/17/2018 [facility] Basic Metabolic Panel (NA, K, CL, CO2, G LUCOSE, BUN, CREATININE, CA) CO2 TOTAL 27 23 - 31 11/17/2018 [facility] Basic Metabolic Panel (NA, K, CL, CO2, G LUCOSE, BUN, CREATININE, CA) AGAP 10 2 - 16 11/17/2018 [facility] Basic Metabolic Panel (NA, K, CL, CO2, G LUCOSE, BUN, CREATININE, CA) BUN 12 7 - 23 11/17/2018 Slight hemolysis [facility] Basic Metabolic Panel (NA, K, CL, CO2, G LUCOSE, BUN, CREATININE, CA) GLUCOSE 82 70 - 110 11/17/2018 [facility] Basic Metabolic Panel (NA, K, CL, CO2, G LUCOSE, BUN, CREATININE, CA) CREATININE 0.80 0.5 - 1.04 11/17/2018 [facility] Basic Metabolic Panel (NA, K, CL, CO2, G LUCOSE, BUN, CREATININE, CA) CALCIUM 9.8 8.6 - 10.6 11/17/2018 [facility] Basic Metabolic Panel (NA, K, CL, CO2, G LUCOSE, BUN, CREATININE, CA) eGFR Calculation (Non-) 77.6 mL/min/1.73m2 11/17/2018 [facility] Basic Metabolic Panel (NA, K, CL, CO2, G LUCOSE, BUN, CREATININE, CA) eGFR Calculation () 94.0 mL/min/1.73m2 11/17/2018 [facility] Basic Metabolic Panel (NA, K, CL, CO2, [...] urine or abnormalities in imaging tests). 11/17/2018 [facility] aPTT <td ID="[id number]">APTT Patient</td><td>29</td><td>26 - 36 Seconds</td><td>[facility]</td><td ID="[id number]"/> 29 26 - 36 11/17/2018 [facility]alt h aPTT Lab Interpretation Normal 11/17/2018 [facility] Prothrombin Time (PT) / INR <t d ID="[id number]">PROTIME PATIENT</td><td><span style="flagData">10.0</span><span style="flagData"> (L)</span></td><td>10.1 - 12.6 Seconds</td><td>[facility]</td><td ID="[id number]"/> 10.0 10.1 - 12.6 11/17/2018 [facility] Prothrombin Time (PT) / INR <t d ID="[id number]">INR</td><td><span>0.9</span><span style="allIndent"><span style="cellHeader">Comment: </span><span ID="[id number]">Normal INR <1.1; Warfarin Therapeutic range 2.0 to 3.0 or 2.5 to 3.5, depending upon the indications.</span></span></td><td> </td><td>[facility]</td><td ID="[id number]"/> 0.9 11/17/2018 Normal INR <1.1; Warfarin Therapeutic range 2.0 to 3.0 or 2.5 to 3.5, depending upon the indications. [facility] Prothrombin Time (PT) / INR Lab Inte rpretation Abnormal 11/17/2018 [facility]alt [facility] CBC WITH DIFFERENTIAL <td ID="[id number]">WBC</td><td><span style="flagData">11.85</span><span style="flagData"> (H)</span></td><td>4.30 - 11.10 10*3/L</td><td>[facility]</td><td ID="[id number]"/> 11.85 4.30 - 11.90497 11/17/2018 [facility] CBC WITH DIFFERENTIAL <td ID="[id number]">RBC</td><td>4.75</td><td>3.93 - 5.25 10*6/L</td>< td>[facility]</td><td ID="[id number]"/> 4.75 3.93 - 5.87810 11/17/2018 [facility] CBC WITH DIFFERENTIAL <td ID="[id number]">HGB</td><td><span style="flagData">15.1</span><span style="flagData"> (H)</span></td><td>11.6 - 15.0 g/dL</td><td>[facility]</td><td ID="[id number]"/> 15.1 11.6 - 15 11/17/2018 [facility] CBC WITH DIFFERENTIAL <td ID="[id number]">HCT</td><td>43.0</td><td>35.7 - 45.2 %</td><td>[facility]</td><td ID="[id number]"/> 43.0 35.7 - 45.2 11/17/2018 [facility] CBC WITH DIFFERENTIAL <td ID="[id number]">MCV</td><td>90.5</td><td>80.6 - 95.5 fL</td><td>[facility]</td><td ID="[id number]"/> 90.5 80.6 - 95.5 11/17/2018 [facility] CBC WITH DIFFERENTIAL <td ID="[id number]">MCH</td><td>31.8</td><td>25.9 - 32.8 pg</td><td>[facility]</td><td ID="[id number]"/> 31.8 25.9 - 32.8 11/17/2018 [facility] CBC WITH DIFFERENTIAL <td ID="[id number]">MCHC</td><td>35.1</td><td>31.6 - 35.1 g/dL</td><td>[facility]</td><td ID="[id number]"/> 35.1 31.6 - 35.1 11/17/2018 [facility] CBC WITH DIFFERENTIAL <td ID="[id number]">RDW-SD</td><td>40.8</td><td>39.0 - 49.9 fL</td><td>[facility]</td><td ID="[id number]"/> 40.8 39 - 49.9 11/17/2018 [facility] CBC WITH DIFFERENTIAL <td ID="[id number]">RDW-CV</td><td>12.4</td><td>12.0 - 15.5 %</td><td>[facility]</td><td ID="[id number]"/> 12.4 12 - 15.5 11/17/2018 [facility] CBC WITH DIFFERENTIAL <td ID="[id number]">PLT</td><td>214</td><td>166 - 358 10*3/L</td><td >[facility]</td><td ID="[id number]"/> 214 166 - [id number] 11/17/2018 [facility] CBC WITH DIFFERENTIAL <td ID="[id number]">MPV</td><td>9.9</td><td>9.5 - 12.9 fL</td><td>[facility]</td><td ID="[id number]"/> 9.9 9.5 - 12.9 11/17/2018 [facility] CBC WITH DIFFERENTIAL NRBC/100 WBC 0.0 0.0 - 10.0100 11/17/2018 [facility] CBC WITH DIFFERENTIAL NRBC x10^3 <0.01 10*3/L 11/17/2018 [facility] CBC WITH DIFFERENTIAL <td ID="[id number]">GRAN MAT (NEUT) %</td><td>62.8</td><td>%</td><td>[facility]</td><td ID="[id number]"/> 62.8 11/17/2018 [facility] CBC WITH DIFFERENTIAL IMM GRAN % 0.30 11/17/2018 [facility] CBC WITH DIFFERENTIAL <td ID="[id number]">LYMPH %</td><td>26.1</td><td>%</td><td>[facility]</td><td ID="[id number]"/> 26.1 11/17/2018 [facility] CBC WITH DIFFERENTIAL <td ID="[id number]">MONO %</td><td>7.0</td><td>%</td><td>[facility]</td><td ID="[id number]"/> 7.0 11/17/2018 [facility] CBC WITH DIFFERENTIAL <td ID="[id number]">EOS %</td><td>3.2</td><td>%</td><td>[facility]</td><td ID="[id number]"/> 3.2 11/17/2018 [facility] CBC WITH DIFFERENTIAL <td ID="[id number]">BASO %</td><td>0.6</td><td>%</td><td>[facility]</td><td ID="[id number]"/> 0.6 11/17/2018 [facility] CBC WITH DIFFERENTIAL GRAN MAT x10^3 (ANC) 7.44 1.88 - 7.09 11/17/2018 [facility] CBC WITH DIFFERENTIAL IMM GRAN x10^3 0.04 0 - 0.06 11/17/2018 [facility] CBC WITH DIFFERENTIAL <td ID="[id number]">LYMPH x10^3</td><td>3.09</td><td>1.32 - 3.29 10*3/uL</td><td>[facility]</td><td ID="[id number]"/> 3.09 1.32 - 3.29 11/17/2018 [facility] CBC WITH DIFFERENTIAL <td ID="[id number]">MONO x10^3</td><td>0.83</td><td>0.33 - 0.92 10*3/uL</td><td>[facility]</td><td ID="[id number]"/> 0.83 0.33 - 0.92 11/17/2018 [facility] CBC WITH DIFFERENTIAL <td ID="[id number]">EOS x10^3</td><td>0.38</td><td>0.03 - 0.39 10*3/uL</td><td>[facility]</td><td ID="[id number]"/> 0.38 0.03 - 0.39 11/17/2018 [facility] CBC WITH DIFFERENTIAL <td ID="[id number]">BASO x10^3</td><td>0.07</td><td>0.01 - 0.07 10*3/uL</td><td>[facility]</td><td ID="[id number]"/> 0.07 0.01 - 0.07 11/17/2018 [facility] CBC WITH DIFFERENTIAL Lab Interpreta tion Abnormal 11/17/2018 [facility] Urinalysis APPEARANCE Clear Clear 11/05/2018 [facility] Urinalysis COLOR Straw Yellow 11/05/2018 [facility] Urinalysis PH 7.0 4.8 - 8.0 11/05/2018 [facility] Urinalysis SP GRAVITY 1.004 1.003 - 1.030 11/05/2018 [facility] Urinalysis GLU U QUAL Normal Normal 11/05/2018 [facility] Urinalysis BLOOD Negative Negative 11/05/2018 [facility] Urinalysis KETONES Negative Negative 11/05/2018 [facility] Urinalysis <td ID="[id number]">PROTEIN</td><td>Negative</td><td>Negative</td><td> [facility]</td><td ID="[id number]"/> Negative Negative 11/05/2018 [facility] Urinalysis UROBILIN Normal Normal 11/05/2018 [facility] Urinalysis BILIRUBIN Negative Negative 11/05/2018 [facility] Urinalysis NITRITE Negative Negative 11/05/2018 [facility] Urinalysis LEUK ANGELI 75/uL Negative 11/05/2018 [facility] Urinalysis RBC/HPF 2 0 - 3 11/05/2018 [facility] Urinalysis WBC/HPF 7 0 - 5 11/05/2018 [facility] Urinalysis BACTERIA Negative Negative 11/05/2018 [facility] Urinalysis SQ EPITH 2 <=2 HPF 11/05/2018 [facility] Urinalysis Lab Interpretation Abnor mal 11/05/2018 [facility] Basic Metabolic Panel (NA, K, CL, CO2, G LUCOSE, BUN, CREATININE, CA) NA 140 135 - 145 11/05/2018 [facility] Basic Metabolic Panel (NA, K, CL, CO2, G LUCOSE, BUN, CREATININE, CA) K 4.2 3.5 - 5 11/05/2018 [facility] Basic Metabolic Panel (NA, K, CL, CO2, G LUCOSE, BUN, CREATININE, CA) CL 105 98 - 108 11/05/2018 [facility] Basic Metabolic Panel (NA, K, CL, CO2, G LUCOSE, BUN, CREATININE, CA) CO2 TOTAL 27 23 - 31 11/05/2018 [facility] Basic Metabolic Panel (NA, K, CL, CO2, G LUCOSE, BUN, CREATININE, CA) AGAP 8 2 - 16 11/05/2018 [facility] Basic Metabolic Panel (NA, K, CL, CO2, G LUCOSE, BUN, CREATININE, CA) BUN 10 7 - 23 11/05/2018 [facility] Basic Metabolic Panel (NA, K, CL, CO2, G LUCOSE, BUN, CREATININE, CA) GLUCOSE 83 70 - 110 11/05/2018 [facility] Basic Metabolic Panel (NA, K, CL, CO2, G LUCOSE, BUN, CREATININE, CA) CREATININE 0.85 0.5 - 1.04 11/05/2018 [facility] Basic Metabolic Panel (NA, K, CL, CO2, G LUCOSE, BUN, CREATININE, CA) CALCIUM 9.6 8.6 - 10.6 11/05/2018 [facility] Basic Metabolic Panel (NA, K, CL, CO2, G LUCOSE, BUN, CREATININE, CA) eGFR Calculation (Non-) 72.3 mL/min/1.73m2 11/05/2018 [facility] Basic Metabolic Panel (NA, K, CL, CO2, G LUCOSE, BUN, CREATININE, CA) eGFR Calculation () 87.7 mL/min/1.73m2 11/05/2018 [facility] Basic Metabolic Panel (NA, K, CL, CO2, [...] urine or abnormalities in imaging tests). 11/05/2018 [facility] CBC WITH DIFFERENTIAL <td ID="[id number]">WBC</td><td><span style="flagData">12.40</span><span style="flagData"> (H)</span></td><td>4.30 - 11.10 10*3/L</td><td>[facility]</td><td ID="[id number]"/> 12.40 4.30 - 11.70897 11/05/2018 [facility] CBC WITH DIFFERENTIAL <td ID="[id number]">RBC</td><td>4.48</td><td>3.93 - 5.25 10*6/L</td>< td>[facility]</td><td ID="[id number]"/> 4.48 3.93 - 5.36463 11/05/2018 [facility] CBC WITH DIFFERENTIAL <td ID="[id number]">HGB</td><td>14.4</td><td>11.6 - 15.0 g/dL</td><td>[facility]</td><td ID="[id number]"/> 14.4 11.6 - 15 11/05/2018 [facility] CBC WITH DIFFERENTIAL <td ID="[id number]">HCT</td><td>41.7</td><td>35.7 - 45.2 %</td><td>[facility]</td><td ID="[id number]"/> 41.7 35.7 - 45.2 11/05/2018 [facility] CBC WITH DIFFERENTIAL <td ID="[id number]">MCV</td><td>93.1</td><td>80.6 - 95.5 fL</td><td>[facility]</td><td ID="[id number]"/> 93.1 80.6 - 95.5 11/05/2018 [facility] CBC WITH DIFFERENTIAL <td ID="[id number]">MCH</td><td>32.1</td><td>25.9 - 32.8 pg</td><td>[facility]</td><td ID="[id number]"/> 32.1 25.9 - 32.8 11/05/2018 [facility] CBC WITH DIFFERENTIAL <td ID="[id number]">MCHC</td><td>34.5</td><td>31.6 - 35.1 g/dL</td><td>[facility]</td><td ID="[id number]"/> 34.5 31.6 - 35.1 11/05/2018 [facility] CBC WITH DIFFERENTIAL <td ID="[id number]">RDW-SD</td><td>42.6</td><td>39.0 - 49.9 fL</td><td>[facility]</td><td ID="[id number]"/> 42.6 39 - 49.9 11/05/2018 [facility] CBC WITH DIFFERENTIAL <td ID="[id number]">RDW-CV</td><td>12.8</td><td>12.0 - 15.5 %</td><td>[facility]</td><td ID="[id number]"/> 12.8 12 - 15.5 11/05/2018 [facility] CBC WITH DIFFERENTIAL <td ID="[id number]">PLT</td><td>188</td><td>166 - 358 10*3/L</td><td >[facility]</td><td ID="[id number]"/> 188 166 - 948674 11/05/2018 [facility] CBC WITH DIFFERENTIAL <td ID="[id number]">MPV</td><td>9.7</td><td>9.5 - 12.9 fL</td><td>[facility]</td><td ID="[id number]"/> 9.7 9.5 - 12.9 11/05/2018 [facility] CBC WITH DIFFERENTIAL NRBC/100 WBC 0.0 0.0 - 10.0100 11/05/2018 [facility] CBC WITH DIFFERENTIAL NRBC x10^3 <0.01 10*3/L 11/05/2018 [facility] CBC WITH DIFFERENTIAL <td ID="[id number]">GRAN MAT (NEUT) %</td><td>60.2</td><td>%</td><td>[facility]</td><td ID="[id number]"/> 60.2 11/05/2018 [facility] CBC WITH DIFFERENTIAL IMM GRAN % 0.20 11/05/2018 [facility] CBC WITH DIFFERENTIAL <td ID="[id number]">LYMPH %</td><td>28.9</td><td>%</td><td>[facility]</td><td ID="[id number]"/> 28.9 11/05/2018 [facility] CBC WITH DIFFERENTIAL <td ID="[id number]">MONO %</td><td>7.6</td><td>%</td><td>[facility]</td><td ID="[id number]"/> 7.6 11/05/2018 [facility] CBC WITH DIFFERENTIAL <td ID="[id number]">EOS %</td><td>2.7</td><td>%</td><td>[facility]</td><td ID="[id number]"/> 2.7 11/05/2018 [facility] CBC WITH DIFFERENTIAL <td ID="[id number]">BASO %</td><td>0.4</td><td>%</td><td>[facility]</td><td ID="[id number]"/> 0.4 11/05/2018 [facility] CBC WITH DIFFERENTIAL GRAN MAT x10^3 (ANC) 7.47 1.88 - 7.09 11/05/2018 [facility] CBC WITH DIFFERENTIAL IMM GRAN x10^3 0.03 0 - 0.06 11/05/2018 [facility] CBC WITH DIFFERENTIAL <td ID="[id number]">LYMPH x10^3</td><td><span style="flagData">3.58</span><span style="flagData"> (H)</span></td><td>1.32 - 3.29 10*3/uL</td><td>[facility]</td><td ID="[id number]"/> 3.58 1.32 - 3.29 11/05/2018 [facility] CBC WITH DIFFERENTIAL <td ID="[id number]">MONO x10^3</td><td><span style="flagData">0.94</span><span style="flagData"> (H)</span></td><td>0.33 - 0.92 10*3/uL</td><td[facility]td><td ID="[id number]"/> 0.94 0.33 - 0.92 11/05/2018 [facility] CBC WITH DIFFERENTIAL <td ID="[id number]">EOS x10^3</td><td>0.33</td><td>0.03 - 0.39 10*3/uL</td><td>[facility]td><td ID="[id number]"/> 0.33 0.03 - 0.39 11/05/2018 [facility] CBC WITH DIFFERENTIAL <td ID="[id number]">BASO x10^3</td><td>0.05</td><td>0.01 - 0.07 10*3/uL</td><td>[facility]</td><td ID="[id number]"/> 0.05 0.01 - 0.07 11/05/2018 [facility] CBC WITH DIFFERENTIAL Lab Interpreta tion Abnormal 11/05/2018 [facility] Pathology Reports No Data Provided for This Section Diagnostic Reports Report Value Date Source XR NECK SOFT TISSUE No radiop aque foreign body identified. Soft tissue thickening in the base of the epiglottis and in thearyepiglottic folds. This could be related to swallowing motion, butsupraglottitis could be in the differential. RL: 460 AFC: [id number] physician: PAM JOHNSON INDICATION: Swallowed foreign body COMPARISON: None FINDINGS: AP and lateral soft tissue views of neck. No radiopaque foreignbody is appreciated. There is apparent thickening of the base of theepiglottis and the aryepiglottic folds. [facility], Radiant Results Inft User - 11/17/2018 9:23 [...] be in the differential. RL: 460 AF: [id number] 11/18/2018 [facility] Health Consultation Notes No Data Provided for This Section Discharge Summaries No Data Provided for This Section History and Physicals No Data Provided for This Section Vital Signs Vital Sign Value Date Comments Source Systolic (mm Hg) 117 11/19/2018 [facility] Diastolic (mm Hg) 75 11/19/2018 [facility] Heart Rate 67 11/19/2018 [facility] Temperature Oral (F) 36.67 Lucia 11/19/2018 [facility] Health Respitory Rate 18 11/19/2018 [facility] Height 162.6 cm 11/17/2018 [facility] Weight 97.523 11/17/2018 [facility] Systolic (mm Hg) 137 11/06/2018 [facility] Health Diastolic (mm Hg) 86 11/06/2018 [facility] Heart Rate 75 11/06/2018 [facility] Temperature Oral (F) 36.67 Lucia 11/06/2018 [facility] Health Respitory Rate 16 11/06/2018 [facility] Height 162.6 cm 11/05/2018 [facility] Weight 100.245 11/05/2018 [facility] Health Systolic (mm Hg) 136 11/05/2018 [facility] Health Diastolic (mm Hg) 95 11/05/2018 [facility] Health Heart Rate 102 11/05/2018 [facility] Health Temperature Oral (F) 36.06 Lucia 11/05/2018 [facility] Health Respitory Rate 18 11/05/2018 [facility] Health Weight 84.369 11/05/2018 [facility] Health Weight 191 08/25/2017 [facility] Systolic (mm Hg) 122 08/25/2017 [facility] Respitory Rate 16 08/25/2017 [facility] Heart Rate 99 08/25/2017 [facility] Temperature Oral (F) 97.8 F 08/25/2017 [facility] Diastolic (mm Hg) 80 08/25/2017 [facility] Weight 194 07/21/2017 [facility] Systolic (mm Hg) 122 07/21/2017 [facility] Respitory Rate 16 07/21/2017 [facility] Heart Rate 77 07/21/2017 [facility] Temperature Oral (F) 98.1 F 07/21/2017 [facility] Diastolic (mm Hg) 80 07/21/2017 [facility] Weight 198 06/05/2017 [facility] Systolic (mm Hg) 120 06/05/2017 [facility] Respitory Rate 16 06/05/2017 [facility] Heart Rate 73 06/05/2017 [facility] Temperature Oral (F) 98.0 F 06/05/2017 [facility] Diastolic (mm Hg) 80 06/05/2017 [facility] Weight 195 05/04/2017 [facility] Systolic (mm Hg) 120 05/04/2017 [facility] Respitory Rate 16 05/04/2017 [facility] Heart Rate 71 05/04/2017 [facility] Temperature Oral (F) 98.0 F 05/04/2017 [facility] Diastolic (mm Hg) 80 05/04/2017 [facility] Weight 198 03/14/2017 [facility] Systolic (mm Hg) 120 03/14/2017 [facility] Respitory Rate 16 03/14/2017 [facility] Heart Rate 72 03/14/2017 [facility] Temperature Oral (F) 98.5 F 03/14/2017 [facility] Diastolic (mm Hg) 70 03/14/2017 [facility] Weight 201 12/02/2016 [facility] Systolic (mm Hg) 112 12/02/2016 [facility] Respitory Rate 16 12/02/2016 [facility] Heart Rate 77 12/02/2016 [facility] Temperature Oral (F) 97.9 F 12/02/2016 [facility] Diastolic (mm Hg) 64 12/02/2016 [facility] Weight 195 08/22/2016 [facility] Systolic (mm Hg) 110 08/22/2016 [facility] Respitory Rate 16 08/22/2016 [facility] Heart Rate 81 08/22/2016 [facility] Temperature Oral (F) 98.1 F 08/22/2016 [facility] Diastolic (mm Hg) 75 08/22/2016 [facility] Weight 191 08/05/2016 [facility] Systolic (mm Hg) 120 08/05/2016 [facility] Respitory Rate 16 08/05/2016 [facility] Heart Rate 74 08/05/2016 [facility] Temperature Oral (F) 97.9 F 08/05/2016 [facility] Diastolic (mm Hg) 85 08/05/2016 [facility] Weight 177 05/05/2016 [facility] Systolic (mm Hg) 115 05/05/2016 [facility] Respitory Rate 16 05/05/2016 [facility] Heart Rate 72 05/05/2016 [facility] Temperature Oral (F) 97.9 F 05/05/2016 [facility] Diastolic (mm Hg) 81 05/05/2016 [facility] Weight 178 04/18/2016 [facility] Systolic (mm Hg) 122 04/18/2016 [facility] Respitory Rate 16 04/18/2016 [facility] Heart Rate 62 04/18/2016 [facility] Temperature Oral (F) 97.5 F 04/18/2016 [facility] Diastolic (mm Hg) 82 04/18/2016 [facility] Weight 188 03/21/2016 [facility] Systolic (mm Hg) 127 03/21/2016 [facility] Respitory Rate 16 03/21/2016 [facility] Heart Rate 67 03/21/2016 [facility] Temperature Oral (F) 98.1 F 03/21/2016 [facility] Diastolic (mm Hg) 92 03/21/2016 [facility] Weight 189.6 02/22/2016 [facility] Systolic (mm Hg) 113 02/22/2016 [facility] Respitory Rate 16 02/22/2016 [facility] Heart Rate 66 02/22/2016 [facility] Temperature Oral (F) 98.2 F 02/22/2016 [facility] Diastolic (mm Hg) 86 02/22/2016 [facility] Weight 194 02/03/2016 [facility] Systolic (mm Hg) 118 02/03/2016 [facility] Respitory Rate 16 02/03/2016 [facility] Heart Rate 90 02/03/2016 [facility] Temperature Oral (F) 98.6 F 02/03/2016 [facility] Diastolic (mm Hg) 80 02/03/2016 [facility] Weight 222 11/04/2015 [facility] Height 65 0 11/04/2015 [facility] Systolic (mm Hg) 112 11/04/2015 [facility] Respitory Rate 16 11/04/2015 [facility] Heart Rate 79 11/04/2015 [facility] Temperature Oral (F) 96.8 F 11/04/2015 [facility] Diastolic (mm Hg) 84 11/04/2015 [facility] Weight 225 07/16/2015 [facility] Height 65 0 07/16/2015 [facility] Systolic (mm Hg) 120 07/16/2015 [facility] Respitory Rate 16 07/16/2015 [facility] Heart Rate 79 07/16/2015 [facility] Temperature Oral (F) 97.8 F 07/16/2015 [facility] Diastolic (mm Hg) 82 07/16/2015 [facility] Weight 230 07/14/2015 [facility] Height 65 0 07/14/2015 [facility] Systolic (mm Hg) 125 07/14/2015 [facility] Respitory Rate 16 07/14/2015 [facility] Heart Rate 84 07/14/2015 [facility] Temperature Oral (F) 98.2 F 07/14/2015 [facility] Diastolic (mm Hg) 81 07/14/2015 [facility] Weight 225 06/12/2015 [facility] Height 65 0 06/12/2015 [facility] Systolic (mm Hg) 128 06/12/2015 [facility] Respitory Rate 16 06/12/2015 [facility] Heart Rate 99 06/12/2015 [facility] Temperature Oral (F) 97.9 F 06/12/2015 [facility] Diastolic (mm Hg) 86 06/12/2015 [facility] Encounters Location Location Details Encounter Type Encounter Number Reason For Visit Attending Provider ADM Date DC Date Status Source [facility] Referred by Dr Bustamante disease of oral soft tissue [id number] 11/24/2014 11/24/2014 [facility] Referred by Dr Bustamante disease of oral soft tissue [id number] 11/24/2014 11/24/2014 [facility] Referred by Dr Bustamante disease of oral soft tissue [id number] 11/24/2014 11/24/2014 [facility] Referred by Dr Bustamante disease of oral soft tissue [id number] 11/24/2014 11/24/2014 [facility] Referred by Dr Bustamante disease of oral soft tissue [id number] 11/24/2014 11/24/2014 [facility] Referred by Dr Bustamante disease of oral soft tissue [id number] 11/24/2014 11/24/2014 [facility] Referred by Dr Bustamante disease of oral soft tissue [id number] 11/24/2014 11/24/2014 [facility] Referred by Dr Bustamante disease of oral soft tissue [id number] 11/24/2014 11/24/2014 [facility] Referred by Dr Bustamante disease of oral soft tissue [id number] 11/24/2014 11/24/2014 [facility] Referred by Dr Bustamante disease of oral soft tissue [id number] 11/24/2014 11/24/2014 [facility] Referred by Dr Bustamante disease of oral soft tissue [id number] 11/24/2014 11/24/2014 [facility] Referred by Dr Bustamante disease of oral soft tissue [id number] 11/24/2014 11/24/2014 [facility] Referred by Dr Bustamante disease of oral soft tissue [id number] 11/24/2014 11/24/2014 [facility] Referred by Dr Bustamante disease of oral soft tissue [id number] 11/24/2014 11/24/2014 [facility] Referred by Dr Bustamante disease of oral soft tissue [id number] 11/24/2014 11/24/2014 [facility] Referred by Dr Bustamante disease of oral soft tissue [id number] 11/24/2014 11/24/2014 [facility] Referred by Dr Bustamante disease of oral soft tissue [id number] 11/24/2014 11/24/2014 [facility] Referred by Dr Bustamante disease of oral soft tissue [id number] 11/24/2014 11/24/2014 [facility] Referred by Dr Bustamante disease of oral soft tissue [id number] 11/24/2014 11/24/2014 [facility] Referred by Dr Bustamante disease of oral soft tissue [id number] 11/24/2014 11/24/2014 [facility] Referred by Dr Bustamante disease of oral soft tissue [id number] 11/24/2014 11/24/2014 [facility] Referred by Dr Bustamante disease of oral soft tissue [id number] 11/24/2014 11/24/2014 [facility] [employer] Referred by [facility] Bust[place] disease of oral soft tissue [id number] 11/24/2014 11/24/2014 [facility] Referred by [facility] B[place] disease of oral soft tissue [id number] 11/24/2014 11/24/2014 [facility] Referred by [facility] Bust[place] disease of oral soft tissue [id number] 11/24/2014 11/24/2014 [employer]erred by [facility] Bust[place] disease of oral soft tissue [id number] 11/24/2014 11/24/2014 [facility] [employer] Referred by [facility] Bust[place] disease of oral soft tissue [id number] 11/24/2014 11/24/2014 [facility] [employer] Referred by [facility] Bust[place] disease of oral soft tissue [id number] 11/24/2014 11/24/2014 [facility] [employer] Referred by [facility] Bust[place] disease of oral soft tissue [id number] 11/24/2014 11/24/2014 [facility] Referred by [facility] [place] disease of oral soft tissue [id number] 11/24/2014 11/24/2014 [facility] [employer] Referred by [facility] Bust[place] disease of oral soft tissue [id number] 11/24/2014 11/24/2014 [facility] Referred by Dr Bustamante disease of oral soft tissue [id number] 11/24/2014 11/24/2014 [facility]erred by Dr Bustamante disease of oral soft tissue [id number] 11/24/2014 11/24/2014 [facility]erred by Dr Bustamante disease of oral soft tissue [id number] 11/24/2014 11/24/2014 [facility]erred by Dr Bustamante disease of oral soft tissue [id number] 11/24/2014 11/24/2014 [facility]erred by Dr Bustamante disease of oral soft tissue [id number] 11/24/2014 11/24/2014 [facility] Needs referral [id number] 11/25/19 15 11/24/2014 [facility] Needs referral [id number] 11/25/19 15 11/24/2014 [facility] Needs referral [id number] 11/25/19 15 11/24/2014 [facility] Needs referral [id number] 11/25/19 15 11/24/2014 [facility] Needs referral [id number] 11/25/19 15 11/24/2014 [facility] Needs referral [id number] 11/25/19 15 11/24/2014 [facility] Needs referral [id number] 11/25/19 15 11/24/2014 [facility] Needs referral [id number] 11/25/19 15 11/24/2014 [facility] Needs referral [id number] 11/25/19 15 11/24/2014 [facility] Needs referral [id number] 11/25/19 15 11/24/2014 [facility] Needs referral [id number] 11/25/19 15 11/24/2014 [facility] Needs referral [id number] 11/25/19 15 11/24/2014 [facility] Needs referral [id number] 11/25/19 15 11/24/2014 [facility] Needs referral [id number] 11/25/19 15 11/24/2014 [facility] Needs referral [id number] 11/25/19 15 11/24/2014 [facility] Needs referral [id number] 11/25/19 15 11/24/2014 [facility] Needs referral [id number] 11/25/19 15 11/24/2014 [facility] Needs referral [id number] 11/25/19 15 11/24/2014 [facility] Needs referral [id number] 11/25/19 15 11/24/2014 [facility] Needs referral [id number] 11/25/19 15 11/24/2014 [facility] Needs referral [id number] 11/25/19 15 11/24/2014 [facility] Needs referral [id number] 11/25/19 15 11/24/2014 [facility] Needs referral [id number] 11/25/19 15 11/24/2014 [facility] Needs referral [id number] 11/25/19 15 11/24/2014 [facility] Needs referral [id number] 11/25/19 15 11/24/2014 [facility] Needs referral [id number] 11/25/19 15 11/24/2014 [facility] Needs referral [id number] 11/25/19 15 11/24/2014 [facility] Needs referral [id number] 11/25/19 15 11/24/2014 [facility] Needs referral [id number] 11/25/19 15 11/24/2014 [facility] Needs referral [id number] 11/25/19 15 11/24/2014 [facility] Needs referral [id number] 11/25/19 15 11/24/2014 [facility] Needs referral [id number] 11/25/19 15 11/24/2014 [facility] Needs referral [id number] 11/25/19 15 11/24/2014 [facility] Needs referral [id number] 11/25/19 15 11/24/2014 [facility] Needs referral [id number] 11/25/19 15 11/24/2014 [facility] Needs referral [id number] 11/25/1911/24/2014 [facility] talk about referrals [id number] 11/28/2014 11/28/2014 [facility] talk about referrals [id number] 11/28/2014 11/28/2014 [facility] talk about referrals [id number] 11/28/2014 11/28/2014 [facility] talk about referrals [id number] 11/28/2014 11/28/2014 [facility] talk about referrals [id number] 11/28/2014 11/28/2014 [facility] talk about referrals [id number] 11/28/2014 11/28/2014 [facility] talk about referrals [id number] 11/28/2014 11/28/2014 [facility] talk about referrals [id number] 11/28/2014 11/28/2014 [facility] talk about referrals [id number] 11/28/2014 11/28/2014 [facility] talk about referrals [id number] 11/28/2014 11/28/2014 [facility] talk about referrals [id number] 11/28/2014 11/28/2014 [facility] talk about referrals [id number] 11/28/2014 11/28/2014 [facility] talk about referrals [id number] 11/28/2014 11/28/2014 [facility] talk about referrals [id number] 11/28/2014 11/28/2014 [facility] talk about referrals [id number] 11/28/2014 11/28/2014 [facility] talk about referrals [id number] 11/28/2014 11/28/2014 [facility] talk about referrals [id number] 11/28/2014 11/28/2014 [facility] talk about referrals [id number] 11/28/2014 11/28/2014 [facility] talk about referrals [id number] 11/28/2014 11/28/2014 [facility] talk about referrals [id number] 11/28/2014 11/28/2014 [facility] talk about referrals [id number] 11/28/2014 11/28/2014 [facility] talk about referrals [id number] 11/28/2014 11/28/2014 [facility] talk about referrals [id number] 11/28/2014 11/28/2014 [facility] talk about referrals [id number] 11/28/2014 11/28/2014 [facility] talk about referrals [id number] 11/28/2014 11/28/2014 [facility] talk about referrals [id number] 11/28/2014 11/28/2014 [facility] talk about referrals [id number] 11/28/2014 11/28/2014 [facility] talk about referrals [id number] 11/28/2014 11/28/2014 [facility] talk about referrals [id number] 11/28/2014 11/28/2014 [facility] talk about referrals [id number] 11/28/2014 11/28/2014 [facility] talk about referrals [id number] 11/28/2014 11/28/2014 [facility] talk about referrals [id number] 11/28/2014 11/28/2014 [facility] talk about referrals [id number] 11/28/2014 11/28/2014 [facility] talk about referrals [id number] 11/28/2014 11/28/2014 [facility] talk about referrals [id number] 11/28/2014 11/28/2014 [facility] talk about referrals [id number] 11/28/2014 11/28/2014 [facility] Approval On (Percocet 10-325 MG Tablet) Urgent [id number] 11/28/2014 11/28/2014 [facility] Approval On (Percocet 10-325 MG Tablet) Urgent [id number] 11/28/2014 11/28/2014 [facility] Approval On (Percocet 10-325 MG Tablet) Urgent [id number] 11/28/2014 11/28/2014 [facility] Approval On (Percocet 10-325 MG Tablet) Urgent [id number] 11/28/2014 11/28/2014 [facility] Approval On (Percocet 10-325 MG Tablet) Urgent [id number] 11/28/2014 11/28/2014 [facility] Approval On (Percocet 10-325 MG Tablet) Urgent [id number] 11/28/2014 11/28/2014 [facility] Approval On (Percocet 10-325 MG Tablet) Urgent [id number] 11/28/2014 11/28/2014 [facility] Approval On (Percocet 10-325 MG Tablet) Urgent [id number] 11/28/2014 11/28/2014 [facility] Approval On (Percocet 10-325 MG Tablet) Urgent [id number] 11/28/2014 11/28/2014 [facility] Approval On (Percocet 10-325 MG Tablet) Urgent [id number] 11/28/2014 11/28/2014 [facility] Approval On (Percocet 10-325 MG Tablet) Urgent [id number] 11/28/2014 11/28/2014 [facility] Approval On (Percocet 10-325 MG Tablet) Urgent [id number] 11/28/2014 11/28/2014 [facility] Approval On (Percocet 10-325 MG Tablet) Urgent [id number] 11/28/2014 11/28/2014 [facility] Approval On (Percocet 10-325 MG Tablet) Urgent [id number] 11/28/2014 11/28/2014 [facility] Approval On (Percocet 10-325 MG Tablet) Urgent [id number] 11/28/2014 11/28/2014 [facility] Approval On (Percocet 10-325 MG Tablet) Urgent [id number] 11/28/2014 11/28/2014 [facility] Approval On (Percocet 10-325 MG Tablet) Urgent [id number] 11/28/2014 11/28/2014 [facility] Approval On (Percocet 10-325 MG Tablet) Urgent [id number] 11/28/2014 11/28/2014 [facility] Approval On (Percocet 10-325 MG Tablet) Urgent [id number] 11/28/2014 11/28/2014 [facility] Approval On (Percocet 10-325 MG Tablet) Urgent [id number] 11/28/2014 11/28/2014 [facility] Approval On (Percocet 10-325 MG Tablet) Urgent [id number] 11/28/2014 11/28/2014 [facility] Approval On (Percocet 10-325 MG Tablet) Urgent [id number] 11/28/2014 11/28/2014 [facility] Approval On (Percocet 10-325 MG Tablet) Urgent [id number] 11/28/2014 11/28/2014 [facility] Approval On (Percocet 10-325 MG Tablet) Urgent [id number] 11/28/2014 11/28/2014 [facility] Approval On (Percocet 10-325 MG Tablet) Urgent [id number] 11/28/2014 11/28/2014 [facility] Approval On (Percocet 10-325 MG Tablet) Urgent [id number] 11/28/2014 11/28/2014 [facility] Approval On (Percocet 10-325 MG Tablet) Urgent [id number] 11/28/2014 11/28/2014 [facility] Approval On (Percocet 10-325 MG Tablet) Urgent [id number] 11/28/2014 11/28/2014 [facility] Approval On (Percocet 10-325 MG Tablet) Urgent [id number] 11/28/2014 11/28/2014 [facility] Approval On (Percocet 10-325 MG Tablet) Urgent [id number] 11/28/2014 11/28/2014 [facility] Approval On (Percocet 10-325 MG Tablet) Urgent [id number] 11/28/2014 11/28/2014 [facility] Approval On (Percocet 10-325 MG Tablet) Urgent [id number] 11/28/2014 11/28/2014 [facility] Approval On (Percocet 10-325 MG Tablet) Urgent [id number] 11/28/2014 11/28/2014 [facility] Approval On (Percocet 10-325 MG Tablet) Urgent [id number] 11/28/2014 11/28/2014 [facility] Appro[facility] On (Percocet 10-325 MG Tablet) Urgent [id number] 11/28/2014 11/28/2014 [facility] Approval On (Percocet 10-325 MG Tablet) Urgent [id number] 11/28/2014 11/28/2014 [facility] [id number] 12/19/19 15 12/18/2014 [facility] [id number] 12/19/1912/18/2014 [facility] [id number] 12/19/19 15 12/18/2014 [facility] [id number] 12/19/19 15 12/18/2014 [facility] [id number] 12/19/19 15 12/18/2014 [facility] [id number] 12/19/19 15 12/18/2014 [facility] [id number] 12/19/19 15 12/18/2014 [facility] [id number] 12/19/19 15 12/18/2014 [facility] [id number] 12/19/19 15 12/18/2014 [facility] [id number] 12/19/19 15 12/18/2014 [facility] [id number] 12/19/19 15 12/18/2014 [facility] [id number] 12/19/19 15 12/18/2014 [facility] [id number] 12/19/19 15 12/18/2014 [facility] [id number] 12/19/19 15 12/18/2014 [facility] [id number] 12/19/19 15 12/18/2014 [facility] [id number] 12/19/19 15 12/18/2014 [facility] [id number] 12/19/19 15 12/18/2014 [facility] [id number] 12/19/19 15 12/18/2014 [facility] [id number] 12/19/19 15 12/18/2014 [facility] [id number] 12/19/19 15 12/18/2014 [facility] [id number] 12/19/19 15 12/18/2014 [facility] [id number] 12/19/19 15 12/18/2014 [facility] Records [id number] 12/19/19 15 12/18/2014 [facility] [id number] 12/19/19 15 12/18/2014 [facility] [id number] 12/19/19 15 12/18/2014 [facility] Records [id number] 12/19/19 15 12/18/2014 [facility] Records [id number] 12/19/19 15 12/18/2014 [facility] [id number] 12/19/19 15 12/18/2014 [facility] Records [id number] 12/19/19 15 12/18/2014 [facility] [id number] 12/19/19 15 12/18/2014 [facility] [id number] 12/19/19 15 12/18/2014 [facility] Records [id number] 12/19/19 15 12/18/2014 [facility] [id number] 12/19/19 15 12/18/2014 [facility] [id number] 12/19/19 15 12/18/2014 [facility] Records [id number] 12/19/19 15 12/18/2014 [facility] Records [id number] 12/19/19 15 12/18/2014 [facility] Infection in face [id number] 12/18/2014 12/18/2014 [facility] Infection in face [id number] 12/18/2014 12/18/2014 [facility] Infection in face [id number] 12/18/2014 12/18/2014 [facility] Infection in face [id number] 12/18/2014 12/18/2014 [facility] Infection in face [id number] 12/18/2014 12/18/2014 [facility] Infection in face [id number] 12/18/2014 12/18/2014 [facility] Infection in face [id number] 12/18/2014 12/18/2014 [facility] [employer] Infection in face [id number] 12/18/2014 12/18/2014 [facility] [employer] Infection in face [id number] 12/18/2014 12/18/2014 [facility] [employer] Infection in face [id number] 12/18/2014 12/18/2014 [facility] [employer] Infection in face [id number] 12/18/2014 12/18/2014 [facility] [employer] Infection in face [id number] 12/18/2014 12/18/2014 [facility] [employer] Infection in face [id number] 12/18/2014 12/18/2014 [facility] [employer] Infection in face [id number] 12/18/2014 12/18/2014 [facility] [employer] Infection in face [id number] 12/18/2014 12/18/2014 [facility] [employer] Infection in face [id number] 12/18/2014 12/18/2014 [facility] [employer] Infection in face [id number] 12/18/2014 12/18/2014 [facility] [employer] Infection in face [id number] 12/18/2014 12/18/2014 [facility] [employer] Infection in face [id number] 12/18/2014 12/18/2014 [facility] [employer] Infection in face [id number] 12/18/2014 12/18/2014 [facility] [employer] Infection in face [id number] 12/18/2014 12/18/2014 [facility] [employer] Infection in face [id number] 12/18/2014 12/18/2014 [facility] [employer] Infection in face [id number] 12/18/2014 12/18/2014 [facility] [employer] Infection in face [id number] 12/18/2014 12/18/2014 [facility] [employer] Infection in face [id number] 12/18/2014 12/18/2014 [facility] [employer] Infection in face [id number] 12/18/2014 12/18/2014 [facility] [employer] Infection in face [id number] 12/18/2014 12/18/2014 [facility] [employer] Infection in face [id number] 12/18/2014 12/18/2014 [facility] [employer] Infection in face [id number] 12/18/2014 12/18/2014 [facility] [employer] Infection in face [id number] 12/18/2014 12/18/2014 [facility] [employer] Infection in face [id number] 12/18/2014 12/18/2014 [facility] [employer] Infection in face [id number] 12/18/2014 12/18/2014 [facility] [employer] Infection in face [id number] 12/18/2014 12/18/2014 [facility] [employer] Infection in face [id number] 12/18/2014 12/18/2014 [facility] Infection in face [id number] 12/18/2014 12/18/2014 [facility] Infection in face [id number] 12/18/2014 12/18/2014 [facility] Walk in: Mouth ulcers [id number] 01/08/20 15 01/07/2015 [facility] Walk in: Mouth ulcers [id number] 01/08/20 15 01/07/2015 [facility] Walk in: Mouth ulcers [id number] 01/08/20 15 01/07/2015 [facility] Walk in: Mouth ulcers [id number] 01/08/20 15 01/07/2015 [facility] Walk in: Mouth ulcers [id number] 01/08/20 15 01/07/2015 [facility] Walk in: Mouth ulcers [id number] 01/08/20 15 01/07/2015 [facility] Walk in: Mouth ulcers [id number] 01/08/20 15 01/07/2015 [facility] Walk in: Mouth ulcers [id number] 01/08/20 15 01/07/2015 [facility] Walk in: Mouth ulcers [id number] 01/08/20 15 01/07/2015 [facility] Walk in: Mouth ulcers [id number] 01/08/20 15 01/07/2015 [facility] Walk in: Mouth ulcers [id number] 01/08/20 15 01/07/2015 [facility] Walk in: Mouth ulcers [id number] 01/08/20 15 01/07/2015 [facility] Walk in: Mouth ulcers [id number] 01/08/20 15 01/07/2015 [facility] Walk in: Mouth ulcers [id number] 01/08/20 15 01/07/2015 [facility] Walk in: Mouth ulcers [id number] 01/08/20 15 01/07/2015 [facility] Walk in: Mouth ulcers [id number] 01/08/20 15 01/07/2015 [facility] Walk in: Mouth ulcers [id number] 01/08/20 15 01/07/2015 [facility] Walk in: Mouth ulcers [id number] 01/08/20 15 01/07/2015 [facility] Walk in: Mouth ulcers [id number] 01/08/20 15 01/07/2015 [facility] Walk in: Mouth ulcers [id number] 01/08/20 15 01/07/2015 [facility] Walk in: Mouth ulcers [id number] 01/08/20 15 01/07/2015 [facility] Walk in: Mouth ulcers [id number] 01/08/20 15 01/07/2015 [facility] Walk in: Mouth ulcers [id number] 01/08/20 15 01/07/2015 [facility] Walk in: Mouth ulcers [id number] 01/08/20 15 01/07/2015 [facility] Walk in: Mouth ulcers [id number] 01/08/20 15 01/07/2015 [facility] Walk in: Mouth ulcers [id number] 01/08/20 15 01/07/2015 [facility] Walk in: Mouth ulcers [id number] 01/08/20 15 01/07/2015 [facility] Walk in: Mouth ulcers [id number] 01/08/20 15 01/07/2015 [facility] Walk in: Mouth ulcers [id number] 01/08/20 15 01/07/2015 [facility] Walk in: Mouth ulcers [id number] 01/08/20 15 01/07/2015 [facility] Walk in: Mouth ulcers [id number] 01/08/20 15 01/07/2015 [facility] Walk in: Mouth ulcers [id number] 01/08/20 15 01/07/2015 [facility] Walk in: Mouth ulcers [id number] 01/08/20 15 01/07/2015 [facility] Walk in: Mouth ulcers [id number] 01/08/20 15 01/07/2015 [facility] Walk in: Mouth ulcers [id number] 01/08/20 15 01/07/2015 [facility] Walk in: Mouth ulcers [id number] 01/08/20 15 01/07/2015 [facility] referral [id number] 01/08/20 15 01/07/2015 [facility] referral [id number] 01/08/20 15 01/07/2015 [facility] referral [id number] 01/08/20 15 01/07/2015 [facility] referral [id number] 01/08/20 15 01/07/2015 [facility] referral [id number] 01/08/20 15 01/07/2015 [facility] referral [id number] 01/08/20 15 01/07/2015 [facility] referral [id number] 01/08/20 15 01/07/2015 [facility] referral [id number] 01/08/20 15 01/07/2015 [facility] referral [id number] 01/08/20 15 01/07/2015 [facility] referral [id number] 01/08/20 15 01/07/2015 [facility] referral [id number] 01/08/20 15 01/07/2015 [facility] referral [id number] 01/08/20 15 01/07/2015 [facility] referral [id number] 01/08/20 15 01/07/2015 [facility] referral [id number] 01/08/20 15 01/07/2015 [facility] referral [id number] 01/08/20 15 01/07/2015 [facility] referral [id number] 01/08/20 15 01/07/2015 [facility] referral [id number] 01/08/20 15 01/07/2015 [facility] referral [id number] 01/08/20 15 01/07/2015 [facility] referral [id number] 01/08/20 15 01/07/2015 [facility] referral [id number] 01/08/20 15 01/07/2015 [facility] referral [id number] 01/08/20 15 01/07/2015 [facility] referral [id number] 01/08/20 15 01/07/2015 [facility] referral [id number] 01/08/20 15 01/07/2015 [facility] referral [id number] 01/08/20 15 01/07/2015 [facility] referral [id number] 01/08/20 15 01/07/2015 [facility] referral [id number] 01/08/20 15 01/07/2015 [facility] referral [id number] 01/08/20 15 01/07/2015 [facility] referral [id number] 01/08/20 15 01/07/2015 [facility] referral [id number] 01/08/20 15 01/07/2015 [facility] referral [id number] 01/08/20 15 01/07/2015 [facility] referral [id number] 01/08/20 15 01/07/2015 [facility] referral [id number] 01/08/20 15 01/07/2015 [facility] referral [id number] 01/08/20 15 01/07/2015 [facility] referral [id number] 01/08/20 15 01/07/2015 [facility] referral [id number] 01/08/20 15 01/07/2015 [facility] referral [id number] 01/08/20 15 01/07/2015 [facility] Ref[facility] - Dr. Jo Ann Oconnell [id number] 01/08/2015 01/08/2015 [facility] Ref[facility] - Dr. Jo Ann Oconnell [id number] 01/08/2015 01/08/2015 [facility] Ref[facility] - Dr. Jo Ann Oconnell [id number] 01/08/2015 01/08/2015 [facility] Ref[facility] - Dr. Jo Ann Oconnell [id number] 01/08/2015 01/08/2015 [facility] Ref[facility] - Dr. Jo Ann Oconnell [id number] 01/08/2015 01/08/2015 [facility] Ref[facility] - Dr. Jo Ann Oconnell [id number] 01/08/2015 01/08/2015 [facility] Ref[facility] - Dr. Jo Ann Oconnell [id number] 01/08/2015 01/08/2015 [facility] Referral - Dr. Jo Ann Oconnell [id number] 01/08/2015 01/08/2015 [facility] Referral - Dr. Jo Ann Oconnell [id number] 01/08/2015 01/08/2015 [facility] Referral - Dr. Jo Ann Oconnell [id number] 01/08/2015 01/08/2015 [facility] Referral - Dr. Jo Ann Oconnell [id number] 01/08/2015 01/08/2015 [facility] Ref[facility] - Dr. Jo Ann Oconnell [id number] 01/08/2015 01/08/2015 [facility] Referral - Dr. Jo Ann Oconnell [id number] 01/08/2015 01/08/2015 [facility] Referral - Dr. Jo Ann Oconnell [id number] 01/08/2015 01/08/2015 [facility] Referral - Dr. Jo Ann Oconnell [id number] 01/08/2015 01/08/2015 [facility] Referral - Dr. Jo Ann Oconnell [id number] 01/08/2015 01/08/2015 [facility] Referral - Dr. Jo Ann Oconnell [id number] 01/08/2015 01/08/2015 [facility] Referral - Dr. Jo Ann Oconnell [id number] 01/08/2015 01/08/2015 [facility] Referral - Dr. Jo Ann Oconnell [id number] 01/08/2015 01/08/2015 [facility] Ref[facility] - Dr. Jo Ann Oconnell [id number] 01/08/2015 01/08/2015 [facility] Referral - Dr. Jo Ann Oconnell [id number] 01/08/2015 01/08/2015 [facility] Referral - Dr. Jo Ann Oconnell [id number] 01/08/2015 01/08/2015 [facility] Referral - Dr. Jo Ann Oconnell [id number] 01/08/2015 01/08/2015 [facility] Referral - Dr. Jo Ann Oconnell [id number] 01/08/2015 01/08/2015 [facility] Referral - Dr. Jo Ann Oconnell [id number] 01/08/2015 01/08/2015 [facility] Referral - Dr. Jo Ann Oconnell [id number] 01/08/2015 01/08/2015 [facility] Referral - Dr. Jo Ann Oconnell [id number] 01/08/2015 01/08/2015 [facility] Referral - Dr. Jo Ann Oconnell [id number] 01/08/2015 01/08/2015 [facility] Referral - Dr. Jo Ann Oconnell [id number] 01/08/2015 01/08/2015 [facility] Referral - Dr. Jo Ann Oconnell [id number] 01/08/2015 01/08/2015 [facility] Referral - Dr. Jo Ann Oconnell [id number] 01/08/2015 01/08/2015 [facility] Referral - Dr. Jo Ann Oconnell [id number] 01/08/2015 01/08/2015 [facility] Referral - Dr. Jo Ann Oconnell [id number] 01/08/2015 01/08/2015 [facility] Referral - Dr. Jo Ann Oconnell [id number] 01/08/2015 01/08/2015 [facility] Referral - Dr. Jo Ann Oconnell [id number] 01/08/2015 01/08/2015 [facility] Referral - Dr. Jo Ann Oconnell [id number] 01/08/2015 01/08/2015 [facility] mth f/u [id number] 01/15/20 15 01/14/2015 [facility] mth f/u [id number] 01/15/20 15 01/14/2015 [facility] mth f/u [id number] 01/15/20 15 01/14/2015 [facility] mth f/u [id number] 01/15/20 15 01/14/2015 [facility] mth f/u [id number] 01/15/20 15 01/14/2015 [facility] mth f/u [id number] 01/15/20 15 01/14/2015 [facility] m[facility] f/u [id number] 01/15/20 15 01/14/2015 [facility] mth f/u [id number] 01/15/20 15 01/14/2015 [facility] mth f/u [id number] 01/15/20 15 01/14/2015 [facility] mth f/u [id number] 01/15/20 15 01/14/2015 [facility] f/u [id number] 01/15/20 15 01/14/2015 [facility]th f/u [id number] 01/15/20 15 01/14/2015 [facility] mth f/u [id number] 01/15/20 15 01/14/2015 [facility] mth f/u [id number] 01/15/20 15 01/14/2015 [facility] f/u [id number] 01/15/20 15 01/14/2015 [facility] f/u [id number] 01/15/20 15 01/14/2015 [facility] m[facility] f/u [id number] 01/15/20 15 01/14/2015 [facility] mth f/u [id number] 01/15/20 15 01/14/2015 [facility] f/u [id number] 01/15/20 15 01/14/2015 [facility] f/u [id number] 01/15/20 15 01/14/2015 [facility] f/u [id number] 01/15/20 15 01/14/2015 [facility] f/u [id number] 01/15/20 15 01/14/2015 [facility] f/u [id number] 01/15/20 15 01/14/2015 [facility] mth f/u [id number] 01/15/20 15 01/14/2015 [facility] f/u [id number] 01/15/20 15 01/14/2015 [facility] m[facility] f/u [id number] 01/15/20 15 01/14/2015 [facility] mth f/u [id number] 01/15/20 15 01/14/2015 [facility] m[facility] f/u [id number] 01/15/20 15 01/14/2015 [facility] f/u [id number] 01/15/20 15 01/14/2015 [facility] f/u [id number] 01/15/20 15 01/14/2015 [facility] f/u [id number] 01/15/20 15 01/14/2015 [facility] f/u [id number] 01/15/20 15 01/14/2015 [facility] f/u [id number] 01/15/20 15 01/14/2015 [facility] f/u [id number] 01/15/20 15 01/14/2015 [facility] f/u [id number] 01/15/20 15 01/14/2015 [facility] f/u [id number] 01/15/20 15 01/14/2015 [facility] Mammo / Breast US Order [id number] 01/19/2015 01/19/2015 [facility] Mammo / Breast US Order [id number] 01/19/2015 01/19/2015 [facility] Mammo / Breast US Order [id number] 01/19/2015 01/19/2015 [facility] Mammo / Breast US Order [id number] 01/19/2015 01/19/2015 [facility] Mammo / Breast US Order [id number] 01/19/2015 01/19/2015 [facility] Mammo / Breast US Order [id number] 01/19/2015 01/19/2015 [facility] Mammo / Breast US Order [id number] 01/19/2015 01/19/2015 [facility] Mammo / Breast US Order [id number] 01/19/2015 01/19/2015 [facility] Mammo / Breast US Order [id number] 01/19/2015 01/19/2015 [facility] Mammo / Breast US Order [id number] 01/19/2015 01/19/2015 [facility] Mammo / Breast US Order [id number] 01/19/2015 01/19/2015 [employer] [facility] [employer] [facility] [facility] / Breast [facility] Order [id number] 01/19/2015 01/19/2015 [employer] [employer] [facility] [facility] / Breast [facility] Order [id number] 01/19/2015 01/19/2015 [employer] [employer] [facility] [facility] / Breast [facility] Order [id number] 01/19/2015 01/19/2015 [employer] [facility] [employer] [facility] [facility] / Breast [facility] Order [id number] 01/19/2015 01/19/2015 [employer] [facility] [employer] [facility] [facility] / Breast US Order [id number] 01/19/2015 01/19/2015 [employer] [facility] [employer] [facility] [facility] / Breast US Order [id number] 01/19/2015 01/19/2015 [employer] [facility] [employer] [facility] / Breast US Order [id number] 01/19/2015 01/19/2015 [employer] [facility] [employer] [facility] / Breast US Order [id number] 01/19/2015 01/19/2015 [employer] [facility] [employer] [facility] [facility] / Breast US Order [id number] 01/19/2015 01/19/2015 [employer] [facility] [employer] [facility] / Breast [facility] Order [id number] 01/19/2015 01/19/2015 [employer] [facility] [employer] [facility] / Breast US Order [id number] 01/19/2015 01/19/2015 [employer] [facility] [employer] [facility] [facility] / Breast US Order [id number] 01/19/2015 01/19/2015 [employer] [employer] [facility] [facility] / Breast US Order [id number] 01/19/2015 01/19/2015 [employer] [facility] [employer] [facility] [facility] / Breast US Order [id number] 01/19/2015 01/19/2015 [employer] [facility] [employer] [facility] [facility] / Breast US Order [id number] 01/19/2015 01/19/2015 [employer] [facility] [employer] [facility] / Breast [facility] Order [id number] 01/19/2015 01/19/2015 [employer] [facility] [employer] [facility] / Breast US Order [id number] 01/19/2015 01/19/2015 [employer] [facility] [employer] [facility] / Breast US Order [id number] 01/19/2015 01/19/2015 [employer] [facility] [employer] [facility] / Breast US Order [id number] 01/19/2015 01/19/2015 [employer] [facility] [employer] [facility] / Breast US Order [id number] 01/19/2015 01/19/2015 [employer] [facility] [employer] [facility] / Breast US Order [id number] 01/19/2015 01/19/2015 [employer] [facility] [employer] [facility] / Breast US Order [id number] 01/19/2015 01/19/2015 [employer] [facility] [employer] [facility] / Breast US Order [id number] 01/19/2015 01/19/2015 [employer] [facility] [employer] [facility] / Breast US Order [id number] 01/19/2015 01/19/2015 [employer] [facility] [employer] [facility] / Breast US Order [id number] 01/19/2015 01/19/2015 [employer] [facility] [employer] 4 week follow up [id number] 02/05/20 15 02/04/2015 [employer] [facility] [employer] 4 week follow up [id number] 02/05/20 15 02/04/2015 [employer] [facility] [employer] [facility] 4 week follow up [id number] 02/05/20 15 02/04/2015 [employer] [facility] [employer] [facility] 4 week follow up [id number] 02/05/20 15 02/04/2015 [employer] [facility] [employer] [facility] 4 week follow up [id number] 02/05/20 15 02/04/2015 [employer] [facility] [employer] [facility] 4 week follow up [id number] 02/05/20 15 02/04/2015 [employer] [facility] [employer] [facility] 4 week follow up [id number] 02/05/20 15 02/04/2015 [employer] [facility] [facility] 4 week follow up [id number] 02/05/20 15 02/04/2015 [facility] 4 week follow up [id number] 02/05/20 15 02/04/2015 [facility] 4 week follow up [id number] 02/05/20 15 02/04/2015 [facility] 4 week follow up [id number] 02/05/20 15 02/04/2015 [facility] 4 week follow up [id number] 02/05/20 15 02/04/2015 [facility] 4 week follow up [id number] 02/05/20 15 02/04/2015 [facility] 4 week follow up [id number] 02/05/20 15 02/04/2015 [facility] 4 week follow up [id number] 02/05/20 15 02/04/2015 [facility] 4 week follow up [id number] 02/05/20 15 02/04/2015 [facility] 4 week follow up [id number] 02/05/20 15 02/04/2015 [facility] 4 week follow up [id number] 02/05/20 15 02/04/2015 [facility] 4 week follow up [id number] 02/05/20 15 02/04/2015 [facility] 4 week follow up [id number] 02/05/20 15 02/04/2015 [facility] 4 week follow up [id number] 02/05/20 15 02/04/2015 [facility] 4 week follow up [id number] 02/05/20 15 02/04/2015 [facility] 4 week follow up [id number] 02/05/20 15 02/04/2015 [facility] 4 week follow up [id number] 02/05/20 15 02/04/2015 [facility] 4 week follow up [id number] 02/05/20 15 02/04/2015 [facility] 4 week follow up [id number] 02/05/20 15 02/04/2015 [facility] 4 week follow up [id number] 02/05/20 15 02/04/2015 [facility] 4 week follow up [id number] 02/05/20 15 02/04/2015 [facility] 4 week follow up [id number] 02/05/20 15 02/04/2015 [facility] 4 week follow up [id number] 02/05/20 15 02/04/2015 [facility] 4 week follow up [id number] 02/05/20 15 02/04/2015 [facility] 4 week follow up [id number] 02/05/20 15 02/04/2015 [facility] 4 week follow up [id number] 02/05/20 15 02/04/2015 [facility] 4 week follow up [id number] 02/05/20 15 02/04/2015 [facility] 4 week follow up [id number] 02/05/20 15 02/04/2015 [facility] 4 week follow up [id number] 02/05/20 15 02/04/2015 [facility] Referral Questions [id number] 02/06/20 15 02/05/2015 [facility] Referral Questions [id number] 02/06/20 15 02/05/2015 [facility] Referral Questions [id number] 02/06/20 15 02/05/2015 [facility] Referral Questions [id number] 02/06/20 15 02/05/2015 [facility] Referral Questions [id number] 02/06/20 15 02/05/2015 [facility] Referral Questions [id number] 02/06/20 15 02/05/2015 [facility] Referral Questions [id number] 02/06/20 15 02/05/2015 [facility] Referral Questions [id number] 02/06/20 15 02/05/2015 [facility] Referral Questions [id number] 02/06/20 15 02/05/2015 [facility] Referral Questions [id number] 02/06/20 15 02/05/2015 [facility] Referral Questions [id number] 02/06/20 15 02/05/2015 [facility] Referral Questions [id number] 02/06/20 15 02/05/2015 [facility] Referral Questions [id number] 02/06/20 15 02/05/2015 [facility] Referral Questions [id number] 02/06/20 15 02/05/2015 [facility] Referral Questions [id number] 02/06/20 15 02/05/2015 [facility] Referral Questions [id number] 02/06/20 15 02/05/2015 [facility] Referral Questions [id number] 02/06/20 15 02/05/2015 [facility] Referral Questions [id number] 02/06/20 15 02/05/2015 [facility] Referral Questions [id number] 02/06/20 15 02/05/2015 [facility] Referral Questions [id number] 02/06/20 15 02/05/2015 [facility] Referral Questions [id number] 02/06/20 15 02/05/2015 [facility] Referral Questions [id number] 02/06/20 15 02/05/2015 [facility] Referral Questions [id number] 02/06/20 15 02/05/2015 [facility] Referral Questions [id number] 02/06/20 15 02/05/2015 [facility] Referral Questions [id number] 02/06/20 15 02/05/2015 [facility] Referral Questions [id number] 02/06/20 15 02/05/2015 [facility] Referral Questions [id number] 02/06/20 15 02/05/2015 [facility] Referral Questions [id number] 02/06/20 15 02/05/2015 [facility] Referral Questions [id number] 02/06/20 15 02/05/2015 [facility] Referral Questions [id number] 02/06/20 15 02/05/2015 [facility] Referral Questions [id number] 02/06/20 15 02/05/2015 [facility] Referral Questions [id number] 02/06/20 15 02/05/2015 [facility] Referral Questions [id number] 02/06/20 15 02/05/2015 [facility] Referral Questions [id number] 02/06/20 15 02/05/2015 [facility] Referral Questions [id number] 02/06/20 15 02/05/2015 [facility] Referral Questions [id number] 02/06/20 15 02/05/2015 [facility] Medication/Referral [id number] 02/09/2015 02/09/2015 [facility] Medication/Referral [id number] 02/09/2015 02/09/2015 [facility] Medication/Referral [id number] 02/09/2015 02/09/2015 [facility] Medication/Referral [id number] 02/09/2015 02/09/2015 [facility] Medication/Referral [id number] 02/09/2015 02/09/2015 [facility] Medication/Referral [id number] 02/09/2015 02/09/2015 [facility] Medication/Referral [id number] 02/09/2015 02/09/2015 [facility] Medication/Referral [id number] 02/09/2015 02/09/2015 [facility] Medication/Referral [id number] 02/09/2015 02/09/2015 [facility] Medication/Referral [id number] 02/09/2015 02/09/2015 [facility] Medication/Referral [id number] 02/09/2015 02/09/2015 [facility] Medication/Referral [id number] 02/09/2015 02/09/2015 [facility] Medication/Referral [id number] 02/09/2015 02/09/2015 [facility] Medication/Referral [id number] 02/09/2015 02/09/2015 [facility] Medication/Referral [id number] 02/09/2015 02/09/2015 [facility] Medication/Referral [id number] 02/09/2015 02/09/2015 [facility] Medication/Referral [id number] 02/09/2015 02/09/2015 [facility] Medication/Referral [id number] 02/09/2015 02/09/2015 [facility] Medication/Referral [id number] 02/09/2015 02/09/2015 [facility] Medication/Referral [id number] 02/09/2015 02/09/2015 [facility] Medication/Referral [id number] 02/09/2015 02/09/2015 [facility] Medication/Referral [id number] 02/09/2015 02/09/2015 [facility] Medication/Referral [id number] 02/09/2015 02/09/2015 [facility] Medication/Referral [id number] 02/09/2015 02/09/2015 [facility] Medication/Referral [id number] 02/09/2015 02/09/2015 [facility] Medication/Referral [id number] 02/09/2015 02/09/2015 [facility] Medication/Referral [id number] 02/09/2015 02/09/2015 [facility] Medication/Referral [id number] 02/09/2015 02/09/2015 [facility] Medication/Referral [id number] 02/09/2015 02/09/2015 [facility] Medication/Referral [id number] 02/09/2015 02/09/2015 [facility] Medication/Referral [id number] 02/09/2015 02/09/2015 [facility] Medication/Referral [id number] 02/09/2015 02/09/2015 [facility] Medication/Referral [id number] 02/09/2015 02/09/2015 [facility] Medication/Referral [id number] 02/09/2015 02/09/2015 [facility] Medication/Referral [id number] 02/09/2015 02/09/2015 [facility] Medication/Referral [id number] 02/09/2015 02/09/2015 [facility] 4 Wk Follow-Up [id number] 02/20/20 15 02/19/2015 [facility] 4 Wk Follow-Up [id number] 02/20/20 15 02/19/2015 [facility] 4 Wk Follow-Up [id number] 02/20/20 15 02/19/2015 [facility] 4 Wk Follow-Up [id number] 02/20/20 15 02/19/2015 [facility] 4 Wk Follow-Up [id number] 02/20/20 15 02/19/2015 [facility] 4 Wk Follow-Up [id number] 02/20/20 15 02/19/2015 [facility] 4 Wk Follow-Up [id number] 02/20/20 15 02/19/2015 [facility] 4 Wk Follow-Up [id number] 02/20/20 15 02/19/2015 [facility] 4 Wk Follow-Up [id number] 02/20/20 15 02/19/2015 [facility] 4 Wk Follow-Up [id number] 02/20/20 15 02/19/2015 [facility] 4 Wk Follow-Up [id number] 02/20/20 15 02/19/2015 [facility] 4 Wk Follow-Up [id number] 02/20/20 15 02/19/2015 [facility] 4 Wk Follow-Up [id number] 02/20/20 15 02/19/2015 [facility] 4 Wk Follow-Up [id number] 02/20/20 15 02/19/2015 [facility] 4 Wk Follow-Up [id number] 02/20/20 15 02/19/2015 [facility] 4 Wk Follow-Up [id number] 02/20/20 15 02/19/2015 [facility] 4 Wk Follow-Up [id number] 02/20/20 15 02/19/2015 [facility] 4 Wk Follow-Up [id number] 02/20/20 15 02/19/2015 [facility] 4 Wk Follow-Up [id number] 02/20/20 15 02/19/2015 [facility] 4 Wk Follow-Up [id number] 02/20/20 15 02/19/2015 [facility] 4 Wk Follow-Up [id number] 02/20/20 15 02/19/2015 [facility] 4 Wk Follow-Up [id number] 02/20/20 15 02/19/2015 [facility] 4 Wk Follow-Up [id number] 02/20/20 15 02/19/2015 [facility] 4 Wk Follow-Up [id number] 02/20/20 15 02/19/2015 [facility] 4 Wk Follow-Up [id number] 02/20/20 15 02/19/2015 [facility] 4 Wk Follow-Up [id number] 02/20/20 15 02/19/2015 [facility] 4 Wk Follow-Up [id number] 02/20/20 15 02/19/2015 [facility] 4 Wk Follow-Up [id number] 02/20/20 15 02/19/2015 [facility] 4 Wk Follow-Up [id number] 02/20/20 15 02/19/2015 [facility] 4 Wk Follow-Up [id number] 02/20/20 15 02/19/2015 [facility] 4 Wk Follow-Up [id number] 02/20/20 15 02/19/2015 [facility] 4 Wk Follow-Up [id number] 02/20/20 15 02/19/2015 [facility] 4 Wk Follow-Up [id number] 02/20/20 15 02/19/2015 [facility] 4 Wk Follow-Up [id number] 02/20/20 15 02/19/2015 [facility] 4 Wk Follow-Up [id number] 02/20/20 15 02/19/2015 [facility] 4 Wk Follow-Up [id number] 02/20/20 15 02/19/2015 [facility] bacterial in bone [id number] 02/26/2015 02/26/2015 [facility] bacterial in bone [id number] 02/26/2015 02/26/2015 [facility] bacterial in bone [id number] 02/26/2015 02/26/2015 [facility] bacterial in bone [id number] 02/26/2015 02/26/2015 [facility] bacterial in bone [id number] 02/26/2015 02/26/2015 [facility] bacterial in bone [id number] 02/26/2015 02/26/2015 [facility] bacterial in bone [id number] 02/26/2015 02/26/2015 [facility] bacterial in bone [id number] 02/26/2015 02/26/2015 [facility] bacterial in bone [id number] 02/26/2015 02/26/2015 [facility] bacterial in bone [id number] 02/26/2015 02/26/2015 [facility] bacterial in bone [id number] 02/26/2015 02/26/2015 [facility] bacterial in bone [id number] 02/26/2015 02/26/2015 [facility] bacterial in bone [id number] 02/26/2015 02/26/2015 [facility] bacterial in bone [id number] 02/26/2015 02/26/2015 [facility] bacterial in bone [id number] 02/26/2015 02/26/2015 [facility] bacterial in bone [id number] 02/26/2015 02/26/2015 [facility] bacterial in bone [id number] 02/26/2015 02/26/2015 [facility] bacterial in bone [id number] 02/26/2015 02/26/2015 [facility] bacterial in bone [id number] 02/26/2015 02/26/2015 [facility] bacterial in bone [id number] 02/26/2015 02/26/2015 [facility] bacterial in bone [id number] 02/26/2015 02/26/2015 [facility] bacterial in bone [id number] 02/26/2015 02/26/2015 [facility] bacterial in bone [id number] 02/26/2015 02/26/2015 [facility] bacterial in bone [id number] 02/26/2015 02/26/2015 [facility] bacterial in bone [id number] 02/26/2015 02/26/2015 [employer] [facility] [employer] [facility] bacterial in bone [id number] 02/26/2015 02/26/2015 [employer] [facility] [employer] [facility] bacterial in bone [id number] 02/26/2015 02/26/2015 [employer] [facility] [employer] [facility] bacterial in bone [id number] 02/26/2015 02/26/2015 [employer] [facility] [employer] [facility] bacterial in bone [id number] 02/26/2015 02/26/2015 [employer] [facility] [employer] [facility] bacterial in bone [id number] 02/26/2015 02/26/2015 [employer] [facility] [employer] [facility] bacterial in bone [id number] 02/26/2015 02/26/2015 [employer] [facility] [employer] [facility] bacterial in bone [id number] 02/26/2015 02/26/2015 [employer] [facility] [employer] [facility] bacterial in bone [id number] 02/26/2015 02/26/2015 [employer] [facility] [employer] [facility] bacterial in bone [id number] 02/26/2015 02/26/2015 [employer] [facility] [employer] [facility] bacterial in bone [id number] 02/26/2015 02/26/2015 [employer] [facility] [employer] [facility] bacterial in bone [id number] 02/26/2015 02/26/2015 [employer] [facility] [employer] [facility] Unknown [id number] 02/27/20 15 02/26/2015 [employer] [facility] [employer] [facility] Unknown [id number] 02/27/20 15 02/26/2015 [employer] [facility] [employer] [facility] Unknown [id number] 02/27/20 15 02/26/2015 [employer] [facility] [employer] [facility] Unknown [id number] 02/27/20 15 02/26/2015 [employer] [facility] [employer] [facility] Unknown [id number] 02/27/20 15 02/26/2015 [employer] [facility] [employer] [facility] Unknown [id number] 02/27/20 15 02/26/2015 [employer] [facility] [employer] [facility] Unknown [id number] 02/27/20 15 02/26/2015 [employer] [facility] [employer] [facility] Unknown [id number] 02/27/20 15 02/26/2015 [employer] [facility] [employer] [facility] Unknown [id number] 02/27/20 15 02/26/2015 [employer] [employer] [facility] Unknown [id number] 02/27/20 15 02/26/2015 [employer] [facility] [employer] [facility] Unknown [id number] 02/27/20 15 02/26/2015 [employer] [facility] [employer] [facility] Unknown [id number] 02/27/20 15 02/26/2015 [employer] [facility] [employer] [facility] Unknown [id number] 02/27/20 15 02/26/2015 [employer] [facility] [employer] [facility] Unknown [id number] 02/27/20 15 02/26/2015 [employer] [facility] [employer] [facility] Unknown [id number] 02/27/20 15 02/26/2015 [employer] [facility] [employer] [facility] Unknown [id number] 02/27/20 15 02/26/2015 [employer] [facility] [employer] [facility] Unknown [id number] 02/27/20 15 02/26/2015 [employer] [facility] [employer] [facility] Unknown [id number] 02/27/20 15 02/26/2015 [employer] [facility] [employer] [facility] Unknown [id number] 02/27/20 15 02/26/2015 [employer] [facility] [employer] [facility] Unknown [id number] 02/27/20 15 02/26/2015 [facility] [facility] [id number] 02/27/20 15 02/26/2015 [facility] [id number] 02/27/20 15 02/26/2015 [facility] [id number] 02/27/20 15 02/26/2015 [facility] [id number] 02/27/20 15 02/26/2015 [facility] Unknown [id number] 02/27/20 15 02/26/2015 [facility] Unknown [id number] 02/27/20 15 02/26/2015 [facility] [id number] 02/27/20 15 02/26/2015 [facility] Unknown [id number] 02/27/20 15 02/26/2015 [facility] [id number] 02/27/20 15 02/26/2015 [facility] [id number] 02/27/20 15 02/26/2015 [facility] [id number] 02/27/20 15 02/26/2015 [facility] Unknown [id number] 02/27/20 15 02/26/2015 [facility] [id number] 02/27/20 15 02/26/2015 [facility] [id number] 02/27/20 15 02/26/2015 [facility] [id number] 02/27/20 15 02/26/2015 [facility] Unknown [id number] 02/27/20 15 02/26/2015 [facility] [id number] 02/27/20 15 02/26/2015 [facility] [id number] 02/27/20 15 02/26/2015 [facility] [id number] 02/27/20 15 02/26/2015 [facility] [id number] 02/27/20 15 02/26/2015 [facility] [id number] 02/27/20 15 02/26/2015 [facility] [id number] 02/27/20 15 02/26/2015 [facility] [id number] 02/27/20 15 02/26/2015 [facility] [id number] 02/27/20 15 02/26/2015 [facility] [id number] 02/27/20 15 02/26/2015 [facility] [id number] 02/27/20 15 02/26/2015 [facility] [id number] 02/27/20 15 02/26/2015 [facility] [id number] 02/27/20 15 02/26/2015 [facility] [id number] 02/27/20 15 02/26/2015 [facility] [id number] 02/27/20 15 02/26/2015 [facility] [id number] 02/27/20 15 02/26/2015 [facility] [id number] 02/27/20 15 02/26/2015 [facility] [id number] 02/27/20 15 02/26/2015 [facility] [id number] 02/27/20 15 02/26/2015 [facility] [id number] 02/27/20 15 02/26/2015 [facility] [id number] 02/27/20 15 02/26/2015 [facility] [id number] 02/27/20 15 02/26/2015 [facility] [id number] 02/27/20 15 02/26/2015 [facility] [id number] 02/27/20 15 02/26/2015 [facility] [id number] 02/27/20 15 02/26/2015 [facility] [id number] 02/27/20 15 02/26/2015 [facility] [id number] 02/27/20 15 02/26/2015 [facility] [id number] 02/27/20 15 02/26/2015 [facility] [id number] 02/27/20 15 02/26/2015 [facility] [id number] 02/27/20 15 02/26/2015 [facility] [id number] 02/27/20 15 02/26/2015 [facility] [id number] 02/27/20 15 02/26/2015 [facility] [id number] 02/27/20 15 02/26/2015 [facility] [id number] 02/27/20 15 02/26/2015 [facility] [id number] 02/27/20 15 02/26/2015 [facility] [id number] 02/27/20 15 02/26/2015 [facility] [id number] 02/27/20 15 02/26/2015 [facility] ORDER [id number] 03/02/20 15 03/02/2015 [facility] ORDER [id number] 03/02/20 15 03/02/2015 [facility] ORDER [id number] 03/02/20 15 03/02/2015 [facility] ORDER [id number] 03/02/20 15 03/02/2015 [facility] ORDER [id number] 03/02/20 15 03/02/2015 [facility] ORDER [id number] 03/02/20 15 03/02/2015 [facility] ORDER [id number] 03/02/20 15 03/02/2015 [facility] ORDER [id number] 03/02/20 15 03/02/2015 [facility] ORDER [id number] 03/02/20 15 03/02/2015 [facility] ORDER [id number] 03/02/20 15 03/02/2015 [facility] ORDER [id number] 03/02/20 15 03/02/2015 [facility] ORDER [id number] 03/02/20 15 03/02/2015 [facility] ORDER [id number] 03/02/20 15 03/02/2015 [facility] ORDER [id number] 03/02/20 15 03/02/2015 [facility] ORDER [id number] 03/02/20 15 03/02/2015 [facility] ORDER [id number] 03/02/20 15 03/02/2015 [facility] ORDER [id number] 03/02/20 15 03/02/2015 [facility] ORDER [id number] 03/02/20 15 03/02/2015 [facility] ORDER [id number] 03/02/20 15 03/02/2015 [facility] ORDER [id number] 03/02/20 15 03/02/2015 [facility] ORDER [id number] 03/02/20 15 03/02/2015 [facility] ORDER [id number] 03/02/20 15 03/02/2015 [facility] ORDER [id number] 03/02/20 15 03/02/2015 [facility] ORDER [id number] 03/02/20 15 03/02/2015 [facility] ORDER [id number] 03/02/20 15 03/02/2015 [facility] ORDER [id number] 03/02/20 15 03/02/2015 [facility] ORDER [id number] 03/02/20 15 03/02/2015 [facility] ORDER [id number] 03/02/20 15 03/02/2015 [facility] ORDER [id number] 03/02/20 15 03/02/2015 [facility] ORDER [id number] 03/02/20 15 03/02/2015 [facility] ORDER [id number] 03/02/20 15 03/02/2015 [facility] ORDER [id number] 03/02/20 15 03/02/2015 [facility] ORDER [id number] 03/02/20 15 03/02/2015 [facility] ORDER [id number] 03/02/20 15 03/02/2015 [facility] ORDER [id number] 03/02/20 15 03/02/2015 [facility] ORDER [id number] 03/02/20 15 03/02/2015 [facility] Medication Refill Request [id number] 03/02/2015 03/02/2015 [facility] Refill Request [id number] 03/02/2015 03/02/2015 [facility] Refill Request [id number] 03/02/2015 03/02/2015 [facility] Refill Request [id number] 03/02/2015 03/02/2015 [facility] Refill Request [id number] 03/02/2015 03/02/2015 [facility] Refill Request [id number] 03/02/2015 03/02/2015 [facility] Refill Request [id number] 03/02/2015 03/02/2015 [facility] Refill Request [id number] 03/02/2015 03/02/2015 [facility] Med[facility] Refill Request [id number] 03/02/2015 03/02/2015 [facility]ication Refill Request [id number] 03/02/2015 03/02/2015 [facility] Med[facility] Refill Request [id number] 03/02/2015 03/02/2015 [facility] Med[facility] Refill Request [id number] 03/02/2015 03/02/2015 [facility] Med[facility] Refill Request [id number] 03/02/2015 03/02/2015 [facility] Refill Request [id number] 03/02/2015 03/02/2015 [facility] Med[facility] Refill Request [id number] 03/02/2015 03/02/2015 [facility] Medication Refill Request [id number] 03/02/2015 03/02/2015 [facility] Medication Refill Request [id number] 03/02/2015 03/02/2015 [facility] Medication Refill Request [id number] 03/02/2015 03/02/2015 [facility] Medication Refill Request [id number] 03/02/2015 03/02/2015 [facility] Medication Refill Request [id number] 03/02/2015 03/02/2015 [facility] Refill Request [id number] 03/02/2015 03/02/2015 [facility] Med[facility] Refill Request [id number] 03/02/2015 03/02/2015 [facility] Med[facility] Refill Request [id number] 03/02/2015 03/02/2015 [facility] Med[facility] Refill Request [id number] 03/02/2015 03/02/2015 [facility] Refill Request [id number] 03/02/2015 03/02/2015 [facility] Med[facility] Refill Request [id number] 03/02/2015 03/02/2015 [facility] Med[facility] Refill Request [id number] 03/02/2015 03/02/2015 [facility] Refill Request [id number] 03/02/2015 03/02/2015 [facility] Refill Request [id number] 03/02/2015 03/02/2015 [facility] Med[facility] Refill Request [id number] 03/02/2015 03/02/2015 [facility] Refill Request [id number] 03/02/2015 03/02/2015 [facility] Med[facility] Refill Request [id number] 03/02/2015 03/02/2015 [facility] Refill Request [id number] 03/02/2015 03/02/2015 [facility] Med[facility] Refill Request [id number] 03/02/2015 03/02/2015 [facility] Medication Refill Request [id number] 03/02/2015 03/02/2015 [facility] Med[facility] Refill Request [id number] 03/02/2015 03/02/2015 [facility] Unknown [id number] 03/04/20 15 03/04/2015 [facility] [id number] 03/04/20 15 03/04/2015 [facility] Unknown [id number] 03/04/20 15 03/04/2015 [facility] Unknown [id number] 03/04/20 15 03/04/2015 [facility] [id number] 03/04/20 15 03/04/2015 [facility] [id number] 03/04/20 15 03/04/2015 [facility] Unknown [id number] 03/04/20 15 03/04/2015 [facility] Unknown [id number] 03/04/20 15 03/04/2015 [facility] Unknown [id number] 03/04/20 15 03/04/2015 [facility] Unknown [id number] 03/04/20 15 03/04/2015 [facility] Unknown [id number] 03/04/20 15 03/04/2015 [facility] Unknown [id number] 03/04/20 15 03/04/2015 [facility] Unknown [id number] 03/04/20 15 03/04/2015 [facility] Unknown [id number] 03/04/20 15 03/04/2015 [facility] Unknown [id number] 03/04/20 15 03/04/2015 [facility] Unknown [id number] 03/04/20 15 03/04/2015 [facility] Unknown [id number] 03/04/20 15 03/04/2015 [facility] Unknown [id number] 03/04/20 15 03/04/2015 [facility] [id number] 03/04/20 15 03/04/2015 [facility] Unknown [id number] 03/04/20 15 03/04/2015 [facility] Unknown [id number] 03/04/20 15 03/04/2015 [facility] Unknown [id number] 03/04/20 15 03/04/2015 [facility] Unknown [id number] 03/04/20 15 03/04/2015 [facility] [id number] 03/04/20 15 03/04/2015 [facility] Unknown [id number] 03/04/20 15 03/04/2015 [facility] Unknown [id number] 03/04/20 15 03/04/2015 [facility] Unknown [id number] 03/04/20 15 03/04/2015 [facility] Unknown [id number] 03/04/20 15 03/04/2015 [facility] Unknown [id number] 03/04/20 15 03/04/2015 [facility] Unknown [id number] 03/04/20 15 03/04/2015 [facility] [id number] 03/04/20 15 03/04/2015 [facility] Unknown [id number] 03/04/20 15 03/04/2015 [facility] Unknown [id number] 03/04/20 15 03/04/2015 [facility] Unknown [id number] 03/04/20 15 03/04/2015 [facility] Unknown [id number] 03/04/20 15 03/04/2015 [facility] Unknown [id number] 03/04/20 15 03/04/2015 [facility]/ IV [facility] [phone] [id number] 03/16/2015 03/16/2015 [facility]/ IV [facility] [phone] [id number] 03/16/2015 03/16/2015 [facility]/ IV [facility] [phone] [id number] 03/16/2015 03/16/2015 [facility]/ IV [facility] [phone] [id number] 03/16/2015 03/16/2015 [facility]/ IV [facility] [phone] [id number] 03/16/2015 03/16/2015 [facility]/ IV [facility] [phone] [id number] 03/16/2015 03/16/2015 [employer] [facility]/ IV FROM [facility] [phone] [id number] 03/16/2015 03/16/2015 [employer] [facility]/ IV FROM [facility] [phone] [id number] 03/16/2015 03/16/2015 [employer] [facility]/ IV FROM [facility] [phone] [id number] 03/16/2015 03/16/2015 [employer] [facility]/ IV FROM [facility] [phone] [id number] 03/16/2015 03/16/2015 [employer] [facility]/ IV FROM [facility] [phone] [id number] 03/16/2015 03/16/2015 [employer] [facility]/ IV FROM [facility] [phone] [id number] 03/16/2015 03/16/2015 [employer] [facility]/ IV FROM [facility] [phone] [id number] 03/16/2015 03/16/2015 [employer] [facility]/ IV FROM [facility] [phone] [id number] 03/16/2015 03/16/2015 [employer] [facility]/ IV FROM [facility] [phone] [id number] 03/16/2015 03/16/2015 [employer] [facility]/ IV FROM [facility] [phone] [id number] 03/16/2015 03/16/2015 [employer] [facility]/ IV FROM [facility] [phone] [id number] 03/16/2015 03/16/2015 [employer] [facility]/ IV FROM [facility] [phone] [id number] 03/16/2015 03/16/2015 [employer] [facility]/ IV FROM [facility] [phone] [id number] 03/16/2015 03/16/2015 [employer] [facility]/ IV [facility] [phone] [id number] 03/16/2015 03/16/2015 [employer] [facility]/ IV FROM [facility] [phone] [id number] 03/16/2015 03/16/2015 [employer] [facility]/ IV FROM [facility] [phone] [id number] 03/16/2015 03/16/2015 [employer] [facility]/ IV FROM [facility] [phone] [id number] 03/16/2015 03/16/2015 [employer] [facility]/ IV FROM [facility] [phone] [id number] 03/16/2015 03/16/2015 [employer] [facility]/ IV [facility] [phone] [id number] 03/16/2015 03/16/2015 [employer] [facility]/ IV [facility] [phone] [id number] 03/16/2015 03/16/2015 [employer] [facility]/ IV FROM [facility] [phone] [id number] 03/16/2015 03/16/2015 [employer] [facility]/ IV FROM [facility] [phone] [id number] 03/16/2015 03/16/2015 [employer] [facility]/ IV FROM [facility] [phone] [id number] 03/16/2015 03/16/2015 [employer] FUP/ IV FROM [facility] [phone] [id number] 03/16/2015 03/16/2015 [employer] FUP/ IV FROM [facility] [phone] [id number] 03/16/2015 03/16/2015 [employer] FUP/ IV FROM [facility] [phone] [id number] 03/16/2015 03/16/2015 [employer] FUP/ IV FROM [facility] [phone] [id number] 03/16/2015 03/16/2015 [employer] FUP/ IV FROM [facility] [phone] [id number] 03/16/2015 03/16/2015 [employer] FUP/ IV FROM [facility] [phone] [id number] 03/16/2015 03/16/2015 [employer] FUP/ IV FROM [facility] [phone] [id number] 03/16/2015 03/16/2015 [employer] [employer] Possible Bronchitis [id number] 03/27/20 15 03/27/2015 [employer] Possible Bronchitis [id number] 03/27/20 15 03/27/2015 [employer] Possible Bronchitis [id number] 03/27/20 15 03/27/2015 [employer] [employer] Possible Bronchitis [id number] 03/27/20 15 03/27/2015 [employer] [employer] [facility] Possible Bronchitis [id number] 03/27/20 15 03/27/2015 [employer] [facility] Possible Bronchitis [id number] 03/27/20 15 03/27/2015 [employer] [employer] [facility] Possible Bronchitis [id number] 03/27/20 15 03/27/2015 [employer] [employer] [facility] Possible Bronchitis [id number] 03/27/20 15 03/27/2015 [employer] [facility] [employer] [facility] Possible Bronchitis [id number] 03/27/20 15 03/27/2015 [employer] [employer] [facility] Possible Bronchitis [id number] 03/27/20 15 03/27/2015 [employer] [facility] [employer] [facility] Possible Bronchitis [id number] 03/27/20 15 03/27/2015 [employer] [facility] [employer] [facility] Possible Bronchitis [id number] 03/27/20 15 03/27/2015 [employer] [employer] [facility] Possible Bronchitis [id number] 03/27/20 15 03/27/2015 [employer] [facility] [employer] [facility] Possible Bronchitis [id number] 03/27/20 15 03/27/2015 [employer] [employer] [facility] Possible Bronchitis [id number] 03/27/20 15 03/27/2015 [employer] [facility] [employer] [facility] Possible Bronchitis [id number] 03/27/20 15 03/27/2015 [employer] [facility] [employer] [facility] Possible Bronchitis [id number] 03/27/20 15 03/27/2015 [employer] [facility] [employer] [facility] Possible Bronchitis [id number] 03/27/20 15 03/27/2015 [employer] [facility] [employer] [facility] Possible Bronchitis [id number] 03/27/20 15 03/27/2015 [employer] [facility] [employer] [facility] Possible Bronchitis [id number] 03/27/20 15 03/27/2015 [employer] [facility] [employer] [facility] Possible Bronchitis [id number] 03/27/20 15 03/27/2015 [employer] [facility] [employer] Possible Bronchitis [id number] 03/27/20 15 03/27/2015 [employer] [facility] [employer] [facility] Possible Bronchitis [id number] 03/27/20 15 03/27/2015 [employer] [facility] [employer] [facility] Possible Bronchitis [id number] 03/27/20 15 03/27/2015 [employer] [facility] [employer] [facility] Possible Bronchitis [id number] 03/27/20 15 03/27/2015 [employer] [facility] [employer] [facility] Possible Bronchitis [id number] 03/27/20 15 03/27/2015 [employer] [facility] [employer] [facility] Possible Bronchitis [id number] 03/27/20 15 03/27/2015 [employer] [facility] [employer] [facility] Possible Bronchitis [id number] 03/27/20 15 03/27/2015 [employer] [facility] [employer] [facility] Possible Bronchitis [id number] 03/27/20 15 03/27/2015 [employer] [facility] [employer] [facility] Possible Bronchitis [id number] 03/27/20 15 03/27/2015 [employer] [facility] [employer] Possible Bronchitis [id number] 03/27/20 15 03/27/2015 [employer] [facility] [employer] [facility] Possible Bronchitis [id number] 03/27/20 15 03/27/2015 [employer] [facility] [employer] Possible Bronchitis [id number] 03/27/20 15 03/27/2015 [employer] [employer] Possible Bronchitis [id number] 03/27/20 15 03/27/2015 [employer] [facility] [employer] Possible Bronchitis [id number] 03/27/20 15 03/27/2015 [employer] [employer] Possible Bronchitis [id number] 03/27/20 15 03/27/2015 [employer] [facility] [employer] PT PICC LINE HURT [id number] 04/06/20 15 04/06/2015 [employer] [facility] [employer] PT PICC LINE HURT [id number] 04/06/20 15 04/06/2015 [employer] [employer] PT PICC LINE HURT [id number] 04/06/20 15 04/06/2015 [employer] [employer] PT PICC LINE HURT [id number] 04/06/20 15 04/06/2015 [employer] [employer] PT PICC LINE HURT [id number] 04/06/20 15 04/06/2015 [employer] [employer] PT PICC LINE HURT [id number] 04/06/20 15 04/06/2015 [employer] [employer] PT PICC LINE HURT [id number] 04/06/20 15 04/06/2015 [employer] [employer] PT PICC LINE HURT [id number] 04/06/20 15 04/06/2015 [employer] [employer] PT PICC LINE HURT [id number] 04/06/20 15 04/06/2015 [employer] [employer] PT PICC LINE HURT [id number] 04/06/20 15 04/06/2015 [employer] [employer] PT PICC LINE HURT [id number] 04/06/20 15 04/06/2015 [facility] [employer] [employer] PT PICC LINE HURT [id number] 04/06/20 15 04/06/2015 [facility] [employer] [employer] PT PICC LINE HURT [id number] 04/06/20 15 04/06/2015 [facility] [employer] [employer] PT PICC LINE HURT [id number] 04/06/20 15 04/06/2015 [employer] [employer] PT PICC LINE HURT [id number] 04/06/20 15 04/06/2015 [facility] [employer] [employer] PT PICC LINE HURT [id number] 04/06/20 15 04/06/2015 [facility] [employer] PT PICC LINE HURT [id number] 04/06/20 15 04/06/2015 [facility] [employer] PT PICC LINE HURT [id number] 04/06/20 15 04/06/2015 [facility] [employer] PT PICC LINE HURT [id number] 04/06/20 15 04/06/2015 [facility] [employer] PT PICC LINE HURT [id number] 04/06/20 15 04/06/2015 [facility] [employer] PT PICC LINE HURT [id number] 04/06/20 15 04/06/2015 [facility] [employer] Medication Refill Request [id number] 04/06/2015 04/06/2015 [facility] [employer] Medication Refill Request [id number] 04/06/2015 04/06/2015 [facility] Med[facility] Refill Request [id number] 04/06/2015 04/06/2015 [facility] Medication Refill Request [id number] 04/06/2015 04/06/2015 [facility] Medication Refill Request [id number] 04/06/2015 04/06/2015 [facility] Medication Refill Request [id number] 04/06/2015 04/06/2015 [facility] Medication Refill Request [id number] 04/06/2015 04/06/2015 [facility] Medication Refill Request [id number] 04/06/2015 04/06/2015 [facility] Medication Refill Request [id number] 04/06/2015 04/06/2015 [facility] Medication Refill Request [id number] 04/06/2015 04/06/2015 [facility] Medication Refill Request [id number] 04/06/2015 04/06/2015 [facility] Medication Refill Request [id number] 04/06/2015 04/06/2015 [facility] Medication Refill Request [id number] 04/06/2015 04/06/2015 [facility] Medication Refill Request [id number] 04/06/2015 04/06/2015 [facility] Medication Refill Request [id number] 04/06/2015 04/06/2015 [facility] Medication Refill Request [id number] 04/06/2015 04/06/2015 [facility] Medication Refill Request [id number] 04/06/2015 04/06/2015 [facility] Medication Refill Request [id number] 04/06/2015 04/06/2015 [facility] Medication Refill Request [id number] 04/06/2015 04/06/2015 [facility] Medication Refill Request [id number] 04/06/2015 04/06/2015 [facility] Medication Refill Request [id number] 04/06/2015 04/06/2015 [facility] PT PICC LINE HURT [id number] 04/06/20 15 04/06/2015 [facility] PT PICC LINE HURT [id number] 04/06/20 15 04/06/2015 [facility] PT PICC LINE HURT [id number] 04/06/20 15 04/06/2015 [facility] PT PICC LINE HURT [id number] 04/06/20 15 04/06/2015 [facility] PT PICC LINE HURT [id number] 04/06/20 15 04/06/2015 [facility] PT PICC LINE HURT [id number] 04/06/20 15 04/06/2015 [facility] PT PICC LINE HURT [id number] 04/06/20 15 04/06/2015 [facility] PT PICC LINE HURT [id number] 04/06/20 15 04/06/2015 [facility] PT PICC LINE HURT [id number] 04/06/20 15 04/06/2015 [facility] PT PICC LINE HURT [id number] 04/06/20 15 04/06/2015 [facility] PT PICC LINE HURT [id number] 04/06/20 15 04/06/2015 [facility] PT PICC LINE HURT [id number] 04/06/20 15 04/06/2015 [facility] PT PICC LINE HURT [id number] 04/06/20 15 04/06/2015 [facility] PT PICC LINE HURT [id number] 04/06/20 15 04/06/2015 [facility] PT PICC LINE HURT [id number] 04/06/20 15 04/06/2015 [facility] Medication Refill Request [id number] 04/06/2015 04/06/2015 [facility] Medication Refill Request [id number] 04/06/2015 04/06/2015 [facility] Medication Refill Request [id number] 04/06/2015 04/06/2015 [facility] Medication Refill Request [id number] 04/06/2015 04/06/2015 [facility] Medication Refill Request [id number] 04/06/2015 04/06/2015 [facility] Medication Refill Request [id number] 04/06/2015 04/06/2015 [facility] Medication Refill Request [id number] 04/06/2015 04/06/2015 [facility] Medication Refill Request [id number] 04/06/2015 04/06/2015 [facility] Medication Refill Request [id number] 04/06/2015 04/06/2015 [facility] Medication Refill Request [id number] 04/06/2015 04/06/2015 [facility] Medication Refill Request [id number] 04/06/2015 04/06/2015 [facility] Medication Refill Request [id number] 04/06/2015 04/06/2015 [facility] Medication Refill Request [id number] 04/06/2015 04/06/2015 [facility] Medication Refill Request [id number] 04/06/2015 04/06/2015 [facility] Medication Refill Request [id number] 04/06/2015 04/06/2015 [facility] called pt to check on [id number] 04/09/2015 04/09/2015 [facility] called pt to check on [id number] 04/09/2015 04/09/2015 [facility] called pt to check on [id number] 04/09/2015 04/09/2015 [facility] called pt to check on [id number] 04/09/2015 04/09/2015 [facility] called pt to check on [id number] 04/09/2015 04/09/2015 [facility] called pt to check on [id number] 04/09/2015 04/09/2015 [facility] called pt to check on [id number] 04/09/2015 04/09/2015 [facility] called pt to check on [id number] 04/09/2015 04/09/2015 [facility] called pt to check on [id number] 04/09/2015 04/09/2015 [facility] called pt to check on [id number] 04/09/2015 04/09/2015 [facility] called pt to check on [id number] 04/09/2015 04/09/2015 [facility] called pt to check on [id number] 04/09/2015 04/09/2015 [facility] called pt to check on [id number] 04/09/2015 04/09/2015 [facility] called pt to check on [id number] 04/09/2015 04/09/2015 [facility] called pt to check on [id number] 04/09/2015 04/09/2015 [facility] called pt to check on [id number] 04/09/2015 04/09/2015 [facility] called pt to check on [id number] 04/09/2015 04/09/2015 [facility] called pt to check on [id number] 04/09/2015 04/09/2015 [facility] called pt to check on [id number] 04/09/2015 04/09/2015 [facility] called pt to check on [id number] 04/09/2015 04/09/2015 [facility] called pt to check on [id number] 04/09/2015 04/09/2015 [facility] called pt to check on [id number] 04/09/2015 04/09/2015 [facility] called pt to check on [id number] 04/09/2015 04/09/2015 [facility] called pt to check on [id number] 04/09/2015 04/09/2015 [facility] called pt to check on [id number] 04/09/2015 04/09/2015 [facility] called pt to check on [id number] 04/09/2015 04/09/2015 [facility] called pt to check on [id number] 04/09/2015 04/09/2015 [facility] called pt to check on [id number] 04/09/2015 04/09/2015 [facility] called pt to check on [id number] 04/09/2015 04/09/2015 [facility] called pt to check on [id number] 04/09/2015 04/09/2015 [facility] called pt to check on [id number] 04/09/2015 04/09/2015 [facility] called pt to check on [id number] 04/09/2015 04/09/2015 [facility] called pt to check on [id number] 04/09/2015 04/09/2015 [facility] called pt to check on [id number] 04/09/2015 04/09/2015 [facility] called pt to check on [id number] 04/09/2015 04/09/2015 [facility] called pt to check on [id number] 04/09/2015 04/09/2015 [facility] Unknown [id number] 04/12/19 16 04/12/2015 [facility] Unknown [id number] 04/12/19 16 04/12/2015 [facility] Unknown [id number] 04/12/19 16 04/12/2015 [facility] Unknown [id number] 04/12/19 16 04/12/2015 [facility] Unknown [id number] 04/12/19 16 04/12/2015 [facility] Unknown [id number] 04/12/19 16 04/12/2015 [facility] Unknown [id number] 04/12/19 16 04/12/2015 [facility] [employer] Unknown [id number] 04/12/19 16 04/12/2015 [facility] Unknown [id number] 04/12/19 16 04/12/2015 [facility] Unknown [id number] 04/12/19 16 04/12/2015 [facility] [employer] Unknown [id number] 04/12/19 16 04/12/2015 [facility] Unknown [id number] 04/12/19 16 04/12/2015 [facility] Unknown [id number] 04/12/19 16 04/12/2015 [facility] Unknown [id number] 04/12/19 16 04/12/2015 [facility] Unknown [id number] 04/12/19 16 04/12/2015 [facility] Unknown [id number] 04/12/19 16 04/12/2015 [facility] Unknown [id number] 04/12/19 16 04/12/2015 [facility] [employer] Unknown [id number] 04/12/19 16 04/12/2015 [facility] Unknown [id number] 04/12/19 16 04/12/2015 [facility] Unknown [id number] 04/12/19 16 04/12/2015 [facility] Unknown [id number] 04/12/19 16 04/12/2015 [facility] [id number] 04/12/19 16 04/12/2015 [facility] [id number] 04/12/19 16 04/12/2015 [facility] Unknown [id number] 04/12/19 16 04/12/2015 [facility] Unknown [id number] 04/12/19 16 04/12/2015 [facility] Unknown [id number] 04/12/19 16 04/12/2015 [facility] Unknown [id number] 04/12/19 16 04/12/2015 [facility] Unknown [id number] 04/12/19 16 04/12/2015 [facility] Unknown [id number] 04/12/19 16 04/12/2015 [facility] Unknown [id number] 04/12/19 16 04/12/2015 [facility] Unknown [id number] 04/12/19 16 04/12/2015 [facility] [id number] 04/12/19 16 04/12/2015 [facility] Unknown [id number] 04/12/19 16 04/12/2015 [facility] Unknown [id number] 04/12/19 16 04/12/2015 [facility] Unknown [id number] 04/12/19 16 04/12/2015 [facility] Unknown [id number] 04/12/19 16 04/12/2015 [facility] FUP / after iv Last dose 1.1.16 [id number] 04/13/2015 04/13/2015 [facility] / after iv Last dose 1.1.16 [id number] 04/13/2015 04/13/2015 [facility] / after iv Last dose 1.1.16 [id number] 04/13/2015 04/13/2015 [facility] / after iv Last dose 1.1.16 [id number] 04/13/2015 04/13/2015 [facility] / after iv Last dose 1.1.16 [id number] 04/13/2015 04/13/2015 [facility] / after iv Last dose 1.1.16 [id number] 04/13/2015 04/13/2015 [facility] / after iv Last dose 1.1.16 [id number] 04/13/2015 04/13/2015 [facility] / after iv Last dose 1.1.16 [id number] 04/13/2015 04/13/2015 [facility] / after iv Last dose 1.1.16 [id number] 04/13/2015 04/13/2015 [facility] / after iv Last dose 1.1.16 [id number] 04/13/2015 04/13/2015 [facility] / after iv Last dose 1.1.16 [id number] 04/13/2015 04/13/2015 [facility] / after iv Last dose 1.1.16 [id number]-[id number] 04/13/2015 04/13/2015 [facility] / after iv Last dose 1.1.16 [id number] 04/13/2015 04/13/2015 [facility] / after iv Last dose 1.1.16 [id number] 04/13/2015 04/13/2015 [facility] / after iv Last dose 1.1.16 [id number] 04/13/2015 04/13/2015 [facility] / after iv Last dose 1.1.16 [id number] 04/13/2015 04/13/2015 [facility] / after iv Last dose 1.1.16 [id number] 04/13/2015 04/13/2015 [facility] / after iv Last dose 1.1.16 [id number] 04/13/2015 04/13/2015 [facility] / after iv Last dose 1.1.16 [id number] 04/13/2015 04/13/2015 [facility] / after iv Last dose 1.1.16 [id number] 04/13/2015 04/13/2015 [facility] / after iv Last dose 1.1.16 [id number] 04/13/2015 04/13/2015 [facility] / after iv Last dose 1.1.16 [id number] 04/13/2015 04/13/2015 [facility] / after iv Last dose 1.1.16 [id number] 04/13/2015 04/13/2015 [facility] / after iv Last dose 1.1.16 [id number] 04/13/2015 04/13/2015 [facility] / after iv Last dose 1.1.16 [id number] 04/13/2015 04/13/2015 [facility] / after iv Last dose 1.1.16 [id number] 04/13/2015 04/13/2015 [facility] / after iv Last dose 1.1.16 [id number] 04/13/2015 04/13/2015 [facility] / after iv Last dose 1.1.16 [id number] 04/13/2015 04/13/2015 [facility] / after iv Last dose 1.1.16 [id number] 04/13/2015 04/13/2015 [facility] / after iv Last dose 1.1.16 [id number] 04/13/2015 04/13/2015 [facility] / after iv Last dose 1.1.16 [id number] 04/13/2015 04/13/2015 [facility] / after iv Last dose 1.1.16 [id number] 04/13/2015 04/13/2015 [facility] / after iv Last dose 1.1.16 [id number] 04/13/2015 04/13/2015 [facility] / after iv Last dose 1.1.16 [id number] 04/13/2015 04/13/2015 [facility] / after iv Last dose 1.1.16 [id number] 04/13/2015 04/13/2015 [facility] / after iv Last dose 1.1.16 [id number] 04/13/2015 04/13/2015 [facility] ! - Referral - Dr. Bruno <Pending Authorization> [id number] 04/20/2015 04/20/2015 [facility] ! - Referral - Dr. Bruno <Pending Authorization> [id number] 04/20/2015 04/20/2015 [facility] ! - Referral - Dr. Bruno <Pending Authorization> [id number] 04/20/2015 04/20/2015 [facility] ! - Referral - Dr. Bruno <Pending Authorization> [id number] 04/20/2015 04/20/2015 [facility] ! - Referral - Dr. Burno <Pending Authorization> [id number] 04/20/2015 04/20/2015 [facility] ! - Referral - Dr. Bruno <Pending Authorization> [id number] 04/20/2015 04/20/2015 [facility] ! - Referral - Dr. Bruno <Pending Authorization> [id number] 04/20/2015 04/20/2015 [facility] ! - Referral - Dr. Bruno <Pending Authorization> [id number] 04/20/2015 04/20/2015 [facility] ! - Referral - Dr. Bruno <Pending Authorization> [id number] 04/20/2015 04/20/2015 [facility] ! - Referral - Dr. Bruno <Pending Authorization> [id number] 04/20/2015 04/20/2015 [facility] ! - Referral - Dr. Bruno <Pending Authorization> [id number] 04/20/2015 04/20/2015 [facility] ! - Referral - Dr. Bruno <Pending Authorization> [id number] 04/20/2015 04/20/2015 [facility] ! - Referral - Dr. Bruno <Pending Authorization> [id number] 04/20/2015 04/20/2015 [facility] ! - Referral - Dr. Bruno <Pending Authorization> [id number] 04/20/2015 04/20/2015 [facility] ! - Referral - Dr. Bruno <Pending Authorization> [id number] 04/20/2015 04/20/2015 [facility] ! - Referral - Dr. Bruno <Pending Authorization> [id number] 04/20/2015 04/20/2015 [facility] ! - Referral - Dr. Bruno <Pending Authorization> [id number] 04/20/2015 04/20/2015 [facility] ! - Referral - Dr. Bruno <Pending Authorization> [id number] 04/20/2015 04/20/2015 [facility] ! - Referral - Dr. Bruno <Pending Authorization> [id number] 04/20/2015 04/20/2015 [facility] ! - Referral - Dr. Bruno <Pending Authorization> [id number] 04/20/2015 04/20/2015 [facility] ! - Referral - Dr. Bruno <Pending Authorization> [id number] 04/20/2015 04/20/2015 [facility] ! - Referral - Dr. Bruno <Pending Authorization> [id number] 04/20/2015 04/20/2015 [facility] ! - Referral - Dr. Bruno <Pending Authorization> [id number] 04/20/2015 04/20/2015 [facility] ! - Referral - Dr. Bruno <Pending Authorization> [id number] 04/20/2015 04/20/2015 [facility] ! - Referral - Dr. Bruno <Pending Authorization> [id number] 04/20/2015 04/20/2015 [facility] ! - Referral - Dr. Bruno <Pending Authorization> [id number] 04/20/2015 04/20/2015 [facility] ! - Referral - Dr. Bruno <Pending Authorization> [id number] 04/20/2015 04/20/2015 [facility] ! - Referral - Dr. Bruno <Pending Authorization> [id number] 04/20/2015 04/20/2015 [facility] ! - Referral - Dr. Bruno <Pending Authorization> [id number] 04/20/2015 04/20/2015 [facility] ! - Referral - Dr. Bruno <Pending Authorization> [id number] 04/20/2015 04/20/2015 [facility] ! - Referral - Dr. Bruno <Pending Authorization> [id number] 04/20/2015 04/20/2015 [facility] ! - Referral - Dr. Bruno <Pending Authorization> [id number] 04/20/2015 04/20/2015 [facility] ! - Referral - Dr. Bruno <Pending Authorization> [id number] 04/20/2015 04/20/2015 [facility] ! - Referral - Dr. Bruno <Pending Authorization> [id number] 04/20/2015 04/20/2015 [facility] ! - Referral - Dr. Bruno <Pending Authorization> [id number] 04/20/2015 04/20/2015 [facility] ! - Referral - Dr. Bruno <Pending Authorization> [id number] 04/20/2015 04/20/2015 [facility] Refill Request [id number] 04/29/2015 04/29/2015 [facility] Refill Request [id number] 04/29/2015 04/29/2015 [facility] Refill Request [id number] 04/29/2015 04/29/2015 [facility] Refill Request [id number] 04/29/2015 04/29/2015 [facility] Refill Request [id number] 04/29/2015 04/29/2015 [facility] Refill Request [id number] 04/29/2015 04/29/2015 [facility] Refill Request [id number] 04/29/2015 04/29/2015 [facility] Refill Request [id number] 04/29/2015 04/29/2015 [facility] Refill Request [id number] 04/29/2015 04/29/2015 [facility] Refill Request [id number] 04/29/2015 04/29/2015 [facility] Refill Request [id number] 04/29/2015 04/29/2015 [facility] Refill Request [id number] 04/29/2015 04/29/2015 [facility] Refill Request [id number] 04/29/2015 04/29/2015 [facility] Refill Request [id number] 04/29/2015 04/29/2015 [facility] Refill Request [id number] 04/29/2015 04/29/2015 [facility] Refill Request [id number] 04/29/2015 04/29/2015 [facility] Refill Request [id number] 04/29/2015 04/29/2015 [facility] Refill Request [id number] 04/29/2015 04/29/2015 [facility] Refill Request [id number] 04/29/2015 04/29/2015 [facility] Refill Request [id number] 04/29/2015 04/29/2015 [facility] Refill Request [id number] 04/29/2015 04/29/2015 [facility] Refill Request [id number] 04/29/2015 04/29/2015 [facility] Refill Request [id number] 04/29/2015 04/29/2015 [facility] Refill Request [id number] 04/29/2015 04/29/2015 [facility] Refill Request [id number] 04/29/2015 04/29/2015 [facility] Refill Request [id number] 04/29/2015 04/29/2015 [facility] Refill Request [id number] 04/29/2015 04/29/2015 [facility] Refill Request [id number] 04/29/2015 04/29/2015 [facility] Refill Request [id number] 04/29/2015 04/29/2015 [facility] Refill Request [id number] 04/29/2015 04/29/2015 [facility] Refill Request [id number] 04/29/2015 04/29/2015 [facility] Refill Request [id number] 04/29/2015 04/29/2015 [facility] Refill Request [id number] 04/29/2015 04/29/2015 [facility] Refill Request [id number] 04/29/2015 04/29/2015 [facility] Refill Request [id number] 04/29/2015 04/29/2015 [facility] Refill Request [id number] 04/29/2015 04/29/2015 [facility] Request [id number] 05/04/2015 05/04/2015 [facility] Med[facility] Request [id number] 05/04/2015 05/04/2015 [facility] Request [id number] 05/04/2015 05/04/2015 [facility] Request [id number] 05/04/2015 05/04/2015 [facility] Request [id number] 05/04/2015 05/04/2015 [facility] Med[facility] Request [id number] 05/04/2015 05/04/2015 [facility] Med[facility] Request [id number] 05/04/2015 05/04/2015 [facility] Med[facility] Request [id number] 05/04/2015 05/04/2015 [facility] Med[facility] Request [id number] 05/04/2015 05/04/2015 [facility] Med[facility] Request [id number] 05/04/2015 05/04/2015 [facility] Med[facility] Request [id number] 05/04/2015 05/04/2015 [facility] Med[facility] Request [id number] 05/04/2015 05/04/2015 [facility] Med[facility] Request [id number] 05/04/2015 05/04/2015 [facility] Med[facility] Request [id number] 05/04/2015 05/04/2015 [facility] Med[facility] Request [id number] 05/04/2015 05/04/2015 [facility] Med[facility] Request [id number] 05/04/2015 05/04/2015 [facility] Medication Request [id number] 05/04/2015 05/04/2015 [facility] Medication Request [id number] 05/04/2015 05/04/2015 [facility] Medication Request [id number] 05/04/2015 05/04/2015 [facility] Medication Request [id number] 05/04/2015 05/04/2015 [facility] Medication Request [id number] 05/04/2015 05/04/2015 [facility] Medication Request [id number] 05/04/2015 05/04/2015 [facility] Medication Request [id number] 05/04/2015 05/04/2015 [facility] Medication Request [id number] 05/04/2015 05/04/2015 [facility] Medication Request [id number] 05/04/2015 05/04/2015 [facility] Medication Request [id number] 05/04/2015 05/04/2015 [facility] Medication Request [id number] 05/04/2015 05/04/2015 [facility] Medication Request [id number] 05/04/2015 05/04/2015 [facility] Medication Request [id number] 05/04/2015 05/04/2015 [facility] Medication Request [id number] 05/04/2015 05/04/2015 [facility] Medication Request [id number] 05/04/2015 05/04/2015 [facility] Medication Request [id number] 05/04/2015 05/04/2015 [facility] Medication Request [id number] 05/04/2015 05/04/2015 [facility] Medication Request [id number] 05/04/2015 05/04/2015 [facility] Medication Request [id number] 05/04/2015 05/04/2015 [facility] Medication Request [id number] 05/04/2015 05/04/2015 [facility] Refill Request [id number] 05/27/2015 05/27/2015 [facility] Refill Request [id number] 05/27/2015 05/27/2015 [facility] Refill Request [id number] 05/27/2015 05/27/2015 [facility] Refill Request [id number] 05/27/2015 05/27/2015 [facility] Refill Request [id number] 05/27/2015 05/27/2015 [facility] Refill Request [id number] 05/27/2015 05/27/2015 [facility] Refill Request [id number] 05/27/2015 05/27/2015 [facility] Refill Request [id number] 05/27/2015 05/27/2015 [facility] Refill Request [id number] 05/27/2015 05/27/2015 [facility] Refill Request [id number] 05/27/2015 05/27/2015 [facility] Refill Request [id number] 05/27/2015 05/27/2015 [facility] Request [id number] 05/27/2015 05/27/2015 [employer] [employer] Request [id number] 05/27/2015 05/27/2015 [employer] [facility] [employer] [facility] Ref[facility] Request [id number] 05/27/2015 05/27/2015 [employer] [facility] [employer] [facility] Request [id number] 05/27/2015 05/27/2015 [employer] [facility] [employer] [facility] Request [id number] 05/27/2015 05/27/2015 [employer] [employer] [facility] Request [id number] 05/27/2015 05/27/2015 [employer] [employer] Request [id number] 05/27/2015 05/27/2015 [employer] [facility] [employer] [facility] Request [id number] 05/27/2015 05/27/2015 [employer] [employer] [facility] Ref[facility] Request [id number] 05/27/2015 05/27/2015 [employer] [facility] [employer] [facility] [facility] Request [id number] 05/27/2015 05/27/2015 [employer] [facility] [employer] [facility] Request [id number] 05/27/2015 05/27/2015 [employer] [facility] [employer] [facility] Request [id number] 05/27/2015 05/27/2015 [employer] [employer] [facility] Request [id number] 05/27/2015 05/27/2015 [employer] [employer] [facility] Request [id number] 05/27/2015 05/27/2015 [employer] [employer] [facility] Request [id number] 05/27/2015 05/27/2015 [employer] [employer] [facility] Request [id number] 05/27/2015 05/27/2015 [employer] [facility] [employer] [facility] Request [id number] 05/27/2015 05/27/2015 [employer] [facility] [employer] [facility] Request [id number] 05/27/2015 05/27/2015 [employer] [employer] [facility] Request [id number] 05/27/2015 05/27/2015 [employer] [employer] [facility] Request [id number] 05/27/2015 05/27/2015 [employer] [employer] [facility] Request [id number] 05/27/2015 05/27/2015 [employer] [employer] [facility] Request [id number] 05/27/2015 05/27/2015 [employer] [facility] [employer] [facility]ill [id number] 06/11/19 16 06/11/2015 [employer] [employer] [facility] [facility] [id number] 06/11/19 16 06/11/2015 [employer] [facility] [employer] [facility] [facility] [id number] 06/11/19 16 06/11/2015 [employer] [facility] [employer] [facility] [employer] [facility] [id number] 06/11/19 16 06/11/2015 [employer] [facility] [employer] [id number] 06/11/19 16 06/11/2015 [facility] [id number] 06/11/19 16 06/11/2015 [facility] [id number] 06/11/19 16 06/11/2015 [facility] [id number] 06/11/19 16 06/11/2015 [facility] [id number] 06/11/19 16 06/11/2015 [facility] [id number] 06/11/19 16 06/11/2015 [facility] [id number] 06/11/19 16 06/11/2015 [facility] [id number] 06/11/19 16 06/11/2015 [facility] [id number] 06/11/19 16 06/11/2015 [facility] [id number] 06/11/19 16 06/11/2015 [facility] [id number] 06/11/19 16 06/11/2015 [facility] [id number] 06/11/19 16 06/11/2015 [facility] [id number] 06/11/19 16 06/11/2015 [facility] [id number] 06/11/19 16 06/11/2015 [facility] [id number] 06/11/19 16 06/11/2015 [facility] [id number] 06/11/19 16 06/11/2015 [facility] [id number] 06/11/19 16 06/11/2015 [facility] [id number] 06/11/19 16 06/11/2015 [facility] [id number] 06/11/19 16 06/11/2015 [facility] [id number] 06/11/19 16 06/11/2015 [facility] [id number] 06/11/19 16 06/11/2015 [facility] [id number] 06/11/19 16 06/11/2015 [facility] [id number] 06/11/19 16 06/11/2015 [facility] [id number] 06/11/19 16 06/11/2015 [facility] [id number] 06/11/19 16 06/11/2015 [facility] [id number] 06/11/19 16 06/11/2015 [facility] [id number] 06/11/19 16 06/11/2015 [facility] [id number] 06/11/19 16 06/11/2015 [facility] Refills [id number] 06/12/2015 06/12/2015 [facility] [id number] 06/12/2015 06/12/2015 [facility] [id number] 06/12/2015 06/12/2015 [facility] Ref[facility] [id number] 06/12/2015 06/12/2015 [facility] [id number] 06/12/2015 06/12/2015 [facility] Ref[facility] [id number] 06/12/2015 06/12/2015 [facility] Ref[facility] [id number] 06/12/2015 06/12/2015 [facility] Ref[facility] [id number] 06/12/2015 06/12/2015 [facility] Ref[facility] [id number] 06/12/2015 06/12/2015 [facility] Ref[facility] [id number] 06/12/2015 06/12/2015 [facility] Ref[facility] [id number] 06/12/2015 06/12/2015 [facility] Ref[facility] [id number] 06/12/2015 06/12/2015 [facility] Ref[facility] [id number] 06/12/2015 06/12/2015 [facility] Ref[facility] [id number] 06/12/2015 06/12/2015 [facility] Ref[facility] [id number] 06/12/2015 06/12/2015 [facility] Refills [id number] 06/12/2015 06/12/2015 [facility] Refills [id number] 06/12/2015 06/12/2015 [facility] Ref[facility] [id number] 06/12/2015 06/12/2015 [facility] Refills [id number] 06/12/2015 06/12/2015 [facility] Refills [id number] 06/12/2015 06/12/2015 [facility] [id number] 06/12/2015 06/12/2015 [facility] Ref[facility] [id number] 06/12/2015 06/12/2015 [facility] Refills [id number] 06/12/2015 06/12/2015 [facility] Refills [id number] 06/12/2015 06/12/2015 [facility] Ref[facility] [id number] 06/12/2015 06/12/2015 [facility] [id number] 06/12/2015 06/12/2015 [facility] Ref[facility] [id number] 06/12/2015 06/12/2015 [facility] Ref[facility] [id number] 06/12/2015 06/12/2015 [facility] Ref[facility] [id number] 06/12/2015 06/12/2015 [facility] Refills [id number] 06/12/2015 06/12/2015 [facility] Ref[facility] [id number] 06/12/2015 06/12/2015 [facility] Other [id number] 06/16/19 16 06/16/2015 [facility] Other [id number] 06/16/19 16 06/16/2015 [facility] Other [id number] 06/16/19 16 06/16/2015 [facility] Other [id number] 06/16/19 16 06/16/2015 [facility] Other [id number] 06/16/19 16 06/16/2015 [facility] Other [id number] 06/16/19 16 06/16/2015 [facility] Other [id number] 06/16/19 16 06/16/2015 [facility] Other [id number] 06/16/19 16 06/16/2015 [facility] Other [id number] 06/16/19 16 06/16/2015 [facility] Other [id number] 06/16/19 16 06/16/2015 [facility] Other [id number] 06/16/19 16 06/16/2015 [facility] Other [id number] 06/16/19 16 06/16/2015 [facility] Other [id number] 06/16/19 16 06/16/2015 [facility] Other [id number] 06/16/19 16 06/16/2015 [facility] Other [id number] 06/16/19 16 06/16/2015 [facility] Other [id number] 06/16/19 16 06/16/2015 [facility] Other [id number] 06/16/19 16 06/16/2015 [facility] Other [id number] 06/16/19 16 06/16/2015 [facility] Other [id number] 06/16/19 16 06/16/2015 [facility] Other [id number] 06/16/19 16 06/16/2015 [facility] Other [id number] 06/16/19 16 06/16/2015 [facility] Other [id number] 06/16/19 16 06/16/2015 [facility] Other [id number] 06/16/19 16 06/16/2015 [facility] Other [id number] 06/16/19 16 06/16/2015 [facility] Other [id number] 06/16/19 16 06/16/2015 [facility] Other [id number] 06/16/19 16 06/16/2015 [facility] Other [id number] 06/16/19 16 06/16/2015 [facility] Other [id number] 06/16/19 16 06/16/2015 [facility] Other [id number] 06/16/19 16 06/16/2015 [facility] Other [id number] 06/16/19 16 06/16/2015 [facility]t for 09/11/15 [id number] 06/24/19 16 06/24/2015 [facility]t for 09/11/15 [id number] 06/24/19 16 06/24/2015 [facility] for 09/11/15 [id number] 06/24/19 16 06/24/2015 [facility] for 09/11/15 [id number] 06/24/19 16 06/24/2015 [facility] for 09/11/15 [id number] 06/24/19 16 06/24/2015 [facility] for 09/11/15 [id number] 06/24/19 16 06/24/2015 [facility] for 09/11/15 [id number] 06/24/19 16 06/24/2015 [facility] for 09/11/15 [id number] 06/24/19 16 06/24/2015 [facility] for 09/11/15 [id number] 06/24/19 16 06/24/2015 [facility] for 09/11/15 [id number] 06/24/19 16 06/24/2015 [facility] for 09/11/15 [id number] 06/24/19 16 06/24/2015 [facility] for 09/11/15 [id number] 06/24/19 16 06/24/2015 [facility] for 09/11/15 [id number] 06/24/19 16 06/24/2015 [facility] for 09/11/15 [id number] 06/24/19 16 06/24/2015 [facility] for 09/11/15 [id number] 06/24/19 16 06/24/2015 [facility] for 09/11/15 [id number] 06/24/19 16 06/24/2015 [facility] for 09/11/15 [id number] 06/24/19 16 06/24/2015 [facility] for 09/11/15 [id number] 06/24/19 16 06/24/2015 [facility] for 09/11/15 [id number] 06/24/19 16 06/24/2015 [facility] for 09/11/15 [id number] 06/24/19 16 06/24/2015 [facility] for 09/11/15 [id number] 06/24/19 16 06/24/2015 [facility] for 09/11/15 [id number] 06/24/19 16 06/24/2015 [facility] for 09/11/15 [id number] 06/24/19 16 06/24/2015 [facility] for 09/11/15 [id number] 06/24/19 16 06/24/2015 [facility] for 09/11/15 [id number] 06/24/19 16 06/24/2015 [facility] for 09/11/15 [id number] 06/24/19 16 06/24/2015 [facility] for 09/11/15 [id number] 06/24/19 16 06/24/2015 [facility] for 09/11/15 [id number] 06/24/19 16 06/24/2015 [facility] for 09/11/15 [id number] 06/24/19 16 06/24/2015 [facility] Refill? [id number] 07/06/19 16 07/06/2015 [facility] Refill? [id number] 07/06/19 16 07/06/2015 [facility] Refill? [id number] 07/06/19 16 07/06/2015 [facility] Refill? [id number] 07/06/19 16 07/06/2015 [facility] Refill? [id number] 07/06/19 16 07/06/2015 [facility] Refill? [id number] 07/06/19 16 07/06/2015 [facility] Refill? [id number] 07/06/19 16 07/06/2015 [facility] Refill? [id number] 07/06/19 16 07/06/2015 [facility] Refill? [id number] 07/06/19 16 07/06/2015 [facility] Refill? [id number] 07/06/19 16 07/06/2015 [facility] Refill? [id number] 07/06/19 16 07/06/2015 [facility] Refill? [id number] 07/06/19 16 07/06/2015 [facility] Refill? [id number] 07/06/19 16 07/06/2015 [facility] Refill? [id number] 07/06/19 16 07/06/2015 [facility] Refill? [id number] 07/06/19 16 07/06/2015 [facility] Refill? [id number] 07/06/19 16 07/06/2015 [facility] Refill? [id number] 07/06/19 16 07/06/2015 [facility] Refill? [id number] 07/06/19 16 07/06/2015 [facility] Refill? [id number] 07/06/19 16 07/06/2015 [facility] Refill? [id number] 07/06/19 16 07/06/2015 [facility] Refill? [id number] 07/06/19 16 07/06/2015 [facility] Refill? [id number] 07/06/19 16 07/06/2015 [facility] Refill? [id number] 07/06/19 16 07/06/2015 [facility] Refill? [id number] 07/06/19 16 07/06/2015 [facility] Refill? [id number] 07/06/19 16 07/06/2015 [facility] Refill? [id number] 07/06/19 16 07/06/2015 [facility] Refill? [id number] 07/06/19 16 07/06/2015 [facility] Refill? [id number] 07/06/19 16 07/06/2015 [facility] 3 month follow up [id number] 07/14/19 16 07/14/2015 [facility] 3 month follow up [id number] 07/14/19 16 07/14/2015 [facility] 3 month follow up [id number] 07/14/19 16 07/14/2015 [facility] 3 month follow up [id number] 07/14/19 16 07/14/2015 [facility] 3 month follow up [id number] 07/14/19 16 07/14/2015 [facility] 3 month follow up [id number] 07/14/19 16 07/14/2015 [facility] 3 month follow up [id number] 07/14/19 16 07/14/2015 [facility] 3 month follow up [id number] 07/14/19 16 07/14/2015 [facility] 3 month follow up [id number] 07/14/19 16 07/14/2015 [facility] 3 month follow up [id number] 07/14/19 16 07/14/2015 [facility] 3 month follow up [id number] 07/14/19 16 07/14/2015 [facility] 3 month follow up [id number] 07/14/19 16 07/14/2015 [facility] 3 month follow up [id number] 07/14/19 16 07/14/2015 [facility] 3 month follow up [id number] 07/14/19 16 07/14/2015 [facility] 3 month follow up [id number] 07/14/19 16 07/14/2015 [facility] 3 month follow up [id number] 07/14/19 16 07/14/2015 [facility] 3 month follow up [id number] 07/14/19 16 07/14/2015 [facility] [employer] [employer] 3 month follow up [id number] 07/14/19 16 07/14/2015 [employer] [employer] 3 month follow up [id number] 07/14/19 16 07/14/2015 [employer] [employer] retro referral [id number] 07/14/19 16 07/14/2015 [facility] [employer] [employer] retro referral [id number] 07/14/19 16 07/14/2015 [facility] [employer] [employer] retro referral [id number] 07/14/19 16 07/14/2015 [facility] [employer] [employer] retro referral [id number] 07/14/19 16 07/14/2015 [facility] [employer] [employer] retro referral [id number] 07/14/19 16 07/14/2015 [facility] [employer] [employer] retro referral [id number] 07/14/19 16 07/14/2015 [facility] [employer] [employer] retro referral [id number] 07/14/19 16 07/14/2015 [facility] [employer] [employer] retro referral [id number] 07/14/19 16 07/14/2015 [facility] [employer] [employer] retro referral [id number] 07/14/19 16 07/14/2015 [facility] [employer] [employer] retro referral [id number] 07/14/19 16 07/14/2015 [facility] [employer] [employer] retro referral [id number] 07/14/19 16 07/14/2015 [facility] [employer] [employer] retro referral [id number] 07/14/19 16 07/14/2015 [facility] [employer] [employer] retro referral [id number] 07/14/19 16 07/14/2015 [facility] [employer] [employer] retro referral [id number] 07/14/19 16 07/14/2015 [facility] [employer] [employer] retro referral [id number] 07/14/19 16 07/14/2015 [facility] [employer] [employer] retro referral [id number] 07/14/19 16 07/14/2015 [facility] [employer] 3 month follow up [id number] 07/14/19 16 07/14/2015 [facility] [employer] 3 month follow up [id number] 07/14/19 16 07/14/2015 [facility] 3 month follow up [id number] 07/14/19 16 07/14/2015 [facility] 3 month follow up [id number] 07/14/19 16 07/14/2015 [facility] [employer] 3 month follow up [id number] 07/14/19 16 07/14/2015 [facility] 3 month follow up [id number] 07/14/19 16 07/14/2015 [facility] [employer] 3 month follow up [id number] 07/14/19 16 07/14/2015 [facility] [employer] 3 month follow up [id number] 07/14/19 16 07/14/2015 [facility] [employer] [employer] retro referral [id number] 07/14/19 16 07/14/2015 [facility] [employer] [employer] retro referral [id number] 07/14/19 16 07/14/2015 [facility] [employer] [employer] retro referral [id number] 07/14/19 16 07/14/2015 [facility] [employer] [employer] retro referral [id number] 07/14/19 16 07/14/2015 [facility] [employer] retro referral [id number] 07/14/19 16 07/14/2015 [facility] [employer] [employer] retro referral [id number] 07/14/19 16 07/14/2015 [facility] [employer] [employer] retro referral [id number] 07/14/19 16 07/14/2015 [employer] [employer] retro referral [id number] 07/14/19 16 07/14/2015 [employer] [employer] f/u from hosp [facility] / Large Liver [id number] 07/16/2015 07/16/2015 [employer] [facility] [employer] f/u from hosp [facility] / Large Liver [id number] 07/16/2015 07/16/2015 [employer] [facility] [employer] [facility] [id number] 07/16/2015 07/16/2015 [employer] f[facility]u from hosp [facility] / Large Liver [id number] 07/16/2015 07/16/2015 [employer] [employer] [facility] f[facility]u from hosp [facility] / Large [facility] [id number] 07/16/2015 07/16/2015 [employer] [facility] [employer] [facility] f[facility]u from hosp [facility] / Large [facility] [id number] 07/16/2015 07/16/2015 [employer] [facility] [employer] [facility] f[facility]u from hosp [facility] / Large [facility] [id number] 07/16/2015 07/16/2015 [employer] [facility] f[facility]u from hosp [facility] / Large [facility] [id number] 07/16/2015 07/16/2015 [employer] [facility] [employer] [facility] f[facility]u from hosp [facility] / Large Liver [id number] 07/16/2015 07/16/2015 [employer] [employer] [facility] f[facility]u from hosp [facility] / Large Liver [id number] 07/16/2015 07/16/2015 [employer] [facility] [employer] [facility] f[facility]u from hosp [facility] / Large Liver [id number] 07/16/2015 07/16/2015 [employer] [facility] [employer] [facility] f[facility]u from hosp [facility] / Large Liver [id number] 07/16/2015 07/16/2015 [employer] [facility] [employer] [facility] f[facility]u from hosp [facility] / Large Liver [id number] 07/16/2015 07/16/2015 [employer] [employer] [facility] f[facility]u from hosp [facility] / Large Liver [id number] 07/16/2015 07/16/2015 [employer] [facility] [employer] [facility] f[facility]u from hosp [facility] / Large Liver [id number] 07/16/2015 07/16/2015 [employer] [facility] f[facility]u from hosp [facility] / Large Liver [id number] 07/16/2015 07/16/2015 [employer] [facility] [employer] [facility] f[facility]u from hosp [facility] / Large Liver [id number] 07/16/2015 07/16/2015 [employer] [facility] [employer] [facility] f[facility]u from hosp [facility] / Large Liver [id number] 07/16/2015 07/16/2015 [employer] [facility] [employer] [facility] f[facility]u from hosp [facility] / Large Liver [id number] 07/16/2015 07/16/2015 [employer] [facility] [employer] [facility] f[facility]u from hosp [facility] / Large Liver [id number] 07/16/2015 07/16/2015 [employer] [employer] [facility] f[facility]u from hosp [facility] / Large [facility] [id number] 07/16/2015 07/16/2015 [employer] [facility] [employer] [facility] f[facility]u from hosp [facility] / Large Liver [id number] 07/16/2015 07/16/2015 [employer] [employer] [facility] f[facility]u from hosp [facility] / Large [facility] [id number] 07/16/2015 07/16/2015 [employer] [facility] [employer] [facility] f[facility]u from hosp [facility] / Large Liver [id number] 07/16/2015 07/16/2015 [employer] [employer] [facility] f[facility]u from hosp [facility] / Large Liver [id number] 07/16/2015 07/16/2015 [employer] [facility] [employer] pt came by the office [id number] 08/06/19 16 08/06/2015 [employer] pt came by the office [id number] 08/06/19 16 08/06/2015 [employer] [employer] pt came by the office [id number] 08/06/19 16 08/06/2015 [employer] [employer] pt came by the office [id number] 08/06/19 16 08/06/2015 [facility] [employer] [employer] pt came by the office [id number] 08/06/19 16 08/06/2015 [employer] [employer] pt came by the office [id number] 08/06/19 16 08/06/2015 [facility] [employer] pt came by the office [id number] 08/06/19 16 08/06/2015 [facility] [employer] [employer] pt came by the office [id number] 08/06/19 16 08/06/2015 [facility] [employer] [employer] pt came by the office [id number] 08/06/19 16 08/06/2015 [facility] [employer] [employer] pt came by the office [id number] 08/06/19 16 08/06/2015 [employer] [employer] pt came by the office [id number] 08/06/19 16 08/06/2015 [facility] [employer] [employer] pt came by the office [id number] 08/06/19 16 08/06/2015 [facility] [employer] [employer] pt came by the office [id number] 08/06/19 16 08/06/2015 [facility] [employer] [employer] pt came by the office [id number] 08/06/19 16 08/06/2015 [facility] [employer] [employer] pt came by the office [id number] 08/06/19 16 08/06/2015 [facility] [employer] pt came by the office [id number] 08/06/19 16 08/06/2015 [facility] [employer] [employer] pt came by the office [id number] 08/06/19 16 08/06/2015 [facility] [employer] [employer] pt came by the office [id number] 08/06/19 16 08/06/2015 [facility] [employer] pt came by the office [id number] 08/06/19 16 08/06/2015 [facility] [employer] pt came by the office [id number] 08/06/19 16 08/06/2015 [facility] [employer] pt came by the office [id number] 08/06/19 16 08/06/2015 [facility] [employer] [employer] pt came by the office [id number] 08/06/19 16 08/06/2015 [employer] Referral needed by Monday, 09/17 [id number] 09/16/2015 09/16/2015 [employer] Referral needed by Monday, 09/17 [id number] 09/16/2015 09/16/2015 [facility] [employer] [employer] Referral needed by Monday, 09/17 [id number] 09/16/2015 09/16/2015 [facility] [employer] Referral needed by Monday, 09/17 [id number] 09/16/2015 09/16/2015 [facility] Referral needed by Monday, 09/17 [id number] 09/16/2015 09/16/2015 [facility] Referral needed by Monday, 09/17 [id number] 09/16/2015 09/16/2015 [facility] [employer] Referral needed by Monday, 09/17 [id number] 09/16/2015 09/16/2015 [facility] Referral needed by Monday, 09/17 [id number] 09/16/2015 09/16/2015 [facility] Referral needed by Monday, 09/17 [id number] 09/16/2015 09/16/2015 [facility] Referral needed by Monday, 09/17 [id number] 09/16/2015 09/16/2015 [facility] Referral needed by Monday, 09/17 [id number] 09/16/2015 09/16/2015 [facility] Referral needed by Monday, 09/17 [id number] 09/16/2015 09/16/2015 [facility] Referral needed by Monday, 09/17 [id number] 09/16/2015 09/16/2015 [facility] Referral needed by Monday, 09/17 [id number] 09/16/2015 09/16/2015 [facility] Referral needed by Monday, 09/17 [id number] 09/16/2015 09/16/2015 [facility] Referral needed by Monday, 09/17 [id number] 09/16/2015 09/16/2015 [facility] Referral needed by Monday, 09/17 [id number] 09/16/2015 09/16/2015 [facility] Referral needed by Monday, 09/17 [id number] 09/16/2015 09/16/2015 [facility] Referral needed by Monday, 09/17 [id number] 09/16/2015 09/16/2015 [facility] Referral needed by Monday, 09/17 [id number] 09/16/2015 09/16/2015 [facility] Referral needed by Monday, 09/17 [id number] 09/16/2015 09/16/2015 [facility] Referral Requests [id number] 09/24/19 16 09/24/2015 [facility] Referral Requests [id number] 09/24/19 16 09/24/2015 [facility] Referral Requests [id number] 09/24/19 16 09/24/2015 [facility] Referral Requests [id number] 09/24/19 16 09/24/2015 [facility] Referral Requests [id number] 09/24/19 16 09/24/2015 [facility] Referral Requests [id number] 09/24/19 16 09/24/2015 [facility] Referral Requests [id number] 09/24/19 16 09/24/2015 [facility] Referral Requests [id number] 09/24/19 16 09/24/2015 [facility] Referral Requests [id number] 09/24/19 16 09/24/2015 [facility] Referral Requests [id number] 09/24/19 16 09/24/2015 [facility] Referral Requests [id number] 09/24/19 16 09/24/2015 [facility] Referral Requests [id number] 09/24/19 16 09/24/2015 [facility] Referral Requests [id number] 09/24/19 16 09/24/2015 [facility] Referral Requests [id number] 09/24/19 16 09/24/2015 [facility] Referral Requests [id number] 09/24/19 16 09/24/2015 [facility] Referral Requests [id number] 09/24/19 16 09/24/2015 [facility] Referral Requests [id number] 09/24/19 16 09/24/2015 [facility] Referral Requests [id number] 09/24/19 16 09/24/2015 [facility] to appt. [id number] 09/28/19 16 09/28/2015 [facility] to appt. [id number] 09/28/19 16 09/28/2015 [facility] to appt. [id number] 09/28/19 16 09/28/2015 [facility] to appt. [id number] 09/28/19 16 09/28/2015 [facility] to appt. [id number] 09/28/19 16 09/28/2015 [facility] to appt. [id number] 09/28/19 16 09/28/2015 [facility] to appt. [id number] 09/28/19 16 09/28/2015 [facility] to appt. [id number] 09/28/19 16 09/28/2015 [facility] to appt. [id number] 09/28/19 16 09/28/2015 [facility] to appt. [id number] 09/28/19 16 09/28/2015 [facility] to appt. [id number] 09/28/19 16 09/28/2015 [facility] to appt. [id number] 09/28/19 16 09/28/2015 [facility] to appt. [id number] 09/28/19 16 09/28/2015 [facility] to appt. [id number] 09/28/19 16 09/28/2015 [facility] to appt. [id number] 09/28/19 16 09/28/2015 [facility] to appt. [id number] 09/28/19 16 09/28/2015 [facility] to appt. [id number] 09/28/19 16 09/28/2015 [facility] to appt. [id number] 09/28/19 16 09/28/2015 [facility] to appt. [id number] 09/28/19 16 09/28/2015 [facility] to appt. [id number] 09/28/19 16 09/28/2015 [facility] Order [id number] 09/29/19 16 09/29/2015 [facility] Order [id number] 09/29/19 16 09/29/2015 [facility] Order [id number] 09/29/19 16 09/29/2015 [facility] Order [id number] 09/29/19 16 09/29/2015 [facility] Order [id number] 09/29/19 16 09/29/2015 [facility] Order [id number] 09/29/19 16 09/29/2015 [facility] Order [id number] 09/29/19 16 09/29/2015 [facility] Order [id number] 09/29/19 16 09/29/2015 [facility] Order [id number] 09/29/19 16 09/29/2015 [facility] Order [id number] 09/29/19 16 09/29/2015 [facility] Order [id number] 09/29/19 16 09/29/2015 [facility] Order [id number] 09/29/19 16 09/29/2015 [facility] Order [id number] 09/29/19 16 09/29/2015 [facility] Order [id number] 09/29/19 16 09/29/2015 [facility] Order [id number] 09/29/19 16 09/29/2015 [facility] Order [id number] 09/29/19 16 09/29/2015 [facility] Order [id number] 09/29/19 16 09/29/2015 [facility] referral notes [id number] 09/30/19 16 09/30/2015 [facility] referral notes [id number] 09/30/19 16 09/30/2015 [facility] referral notes [id number] 09/30/19 16 09/30/2015 [facility] referral notes [id number] 09/30/19 16 09/30/2015 [facility] referral notes [id number] 09/30/19 16 09/30/2015 [facility] referral notes [id number] 09/30/19 16 09/30/2015 [facility] referral notes [id number] 09/30/19 16 09/30/2015 [facility] referral notes [id number] 09/30/19 16 09/30/2015 [facility] referral notes [id number] 09/30/19 16 09/30/2015 [facility] referral notes [id number] 09/30/19 16 09/30/2015 [facility] referral notes [id number] 09/30/19 16 09/30/2015 [facility] referral notes [id number] 09/30/19 16 09/30/2015 [facility] referral notes [id number] 09/30/19 16 09/30/2015 [facility] referral notes [id number] 09/30/19 16 09/30/2015 [facility] referral notes [id number] 09/30/19 16 09/30/2015 [facility] referral notes [id number] 09/30/19 16 09/30/2015 [facility] referral notes [id number] 09/30/19 16 09/30/2015 [facility] referral notes [id number] 09/30/19 16 09/30/2015 [facility] referral notes [id number] 09/30/19 16 09/30/2015 [facility] Refill req. [id number] 10/20/19 16 10/20/2015 [facility] Refill req. [id number] 10/20/19 16 10/20/2015 [facility] Refill req. [id number] 10/20/19 16 10/20/2015 [facility] Refill req. [id number] 10/20/19 16 10/20/2015 [facility] Refill req. [id number] 10/20/19 16 10/20/2015 [facility] Refill req. [id number] 10/20/19 16 10/20/2015 [facility] Refill req. [id number] 10/20/19 16 10/20/2015 [facility] Refill req. [id number] 10/20/19 16 10/20/2015 [facility] Refill req. [id number] 10/20/19 16 10/20/2015 [facility] Refill req. [id number] 10/20/19 16 10/20/2015 [facility] Refill req. [id number] 10/20/19 16 10/20/2015 [facility] Refill req. [id number] 10/20/19 16 10/20/2015 [facility] Refill req. [id number] 10/20/19 16 10/20/2015 [facility] Refill req. [id number] 10/20/19 16 10/20/2015 [facility] Refill req. [id number] 10/20/19 16 10/20/2015 [facility] req. [id number] 10/20/19 16 10/20/2015 [facility] f/u [id number] 11/04/2015 11/04/2015 [facility] f/u [id number] 11/04/2015 11/04/2015 [facility] f/u [id number] 11/04/2015 11/04/2015 [facility] f/u [id number] 11/04/2015 11/04/2015 [facility] f/u [id number] 11/04/2015 11/04/2015 [facility] f/u [id number] 11/04/2015 11/04/2015 [facility] f/u [id number] 11/04/2015 11/04/2015 [facility] f/u [id number] 11/04/2015 11/04/2015 [facility] f/u [id number] 11/04/2015 11/04/2015 [facility] f/u [id number] 11/04/2015 11/04/2015 [facility] f/u [id number] 11/04/2015 11/04/2015 [facility] f/u [id number] 11/04/2015 11/04/2015 [facility] f/u [id number] 11/04/2015 11/04/2015 [facility] f/u [id number] 11/04/2015 11/04/2015 [facility] needs C/B [id number] 11/04/19 16 11/04/2015 [facility] needs C/B [id number] 11/04/19 16 11/04/2015 [facility] needs C/B [id number] 11/04/19 16 11/04/2015 [facility] needs C/B [id number] 11/04/19 16 11/04/2015 [facility] needs C/B [id number] 11/04/19 16 11/04/2015 [facility] needs C/B [id number] 11/04/19 16 11/04/2015 [facility] needs C/B [id number] 11/04/19 16 11/04/2015 [facility] needs C/B [id number] 11/04/19 16 11/04/2015 [facility] needs C/B [id number] 11/04/19 16 11/04/2015 [facility] needs C/B [id number] 11/04/19 16 11/04/2015 [facility] needs C/B [id number] 11/04/19 16 11/04/2015 [facility] needs C/B [id number] 11/04/19 16 11/04/2015 [facility] needs C/B [id number] 11/04/19 16 11/04/2015 [facility] needs C/B [id number] 11/04/19 16 11/04/2015 [facility] needs C/B [id number] 11/04/19 16 11/04/2015 [facility] 8/3 referral rqsted [id number] 11/11/2015 11/11/2015 [facility] 8/3 referral rqsted [id number] 11/11/2015 11/11/2015 [employer] 8/3 referral rqsted [id number] 11/11/2015 11/11/2015 [employer] 8/3 referral rqsted [id number] 11/11/2015 11/11/2015 [employer] 8/3 referral rqsted [id number] 11/11/2015 11/11/2015 [employer] 8/3 referral rqsted [id number] 11/11/2015 11/11/2015 [employer] 8/3 referral rqsted [id number] 11/11/2015 11/11/2015 [employer] 8/3 referral rqsted [id number] 11/11/2015 11/11/2015 [employer] [employer] 8/3 referral rqsted [id number] 11/11/2015 11/11/2015 [employer] 8/3 referral rqsted [id number] 11/11/2015 11/11/2015 [employer] [employer] 8/3 referral rqsted [id number] 11/11/2015 11/11/2015 [employer] [employer] 8/3 referral rqsted [id number] 11/11/2015 11/11/2015 [employer] [employer] 8/3 referral rqsted [id number] 11/11/2015 11/11/2015 [employer] Unknown [id number] 11/18/19 16 11/18/2015 [employer] [employer] Unknown [id number] 11/18/19 16 11/18/2015 [employer] Unknown [id number] 11/18/19 16 11/18/2015 [employer] [employer] Unknown [id number] 11/18/19 16 11/18/2015 [employer] [employer] Unknown [id number] 11/18/19 16 11/18/2015 [employer] [employer] Unknown [id number] 11/18/19 16 11/18/2015 [employer] [employer] Unknown [id number] 11/18/19 16 11/18/2015 [employer] [employer] Unknown [id number] 11/18/19 16 11/18/2015 [employer] [employer] Unknown [id number] 11/18/19 16 11/18/2015 [employer] [facility] [employer] Unknown [id number] 11/18/19 16 11/18/2015 [employer] [facility] [employer] [facility] Unknown [id number] 11/18/19 16 11/18/2015 [employer] [facility] [employer] Unknown [id number] 11/18/19 16 11/18/2015 [employer] [facility] [employer] [facility] Low BP [id number] 12/15/19 16 12/15/2015 [employer] [facility] [employer] [facility] Low BP [id number] 12/15/19 16 12/15/2015 [employer] [facility] [employer] [facility] Low BP [id number] 12/15/19 16 12/15/2015 [employer] [facility] [employer] [facility] Low BP [id number] 12/15/19 16 12/15/2015 [employer] [facility] [employer] [facility] Low BP [id number] 12/15/19 16 12/15/2015 [employer] [facility] [employer] [facility] Low BP [id number] 12/15/19 16 12/15/2015 [employer] [facility] [employer] [facility] Low BP [id number] 12/15/19 16 12/15/2015 [employer] [facility] [employer] [facility] Low BP [id number] 12/15/19 16 12/15/2015 [employer] [facility] [employer] [facility] Low BP [id number] 12/15/19 16 12/15/2015 [employer] [facility] [employer] [facility] Low BP [id number] 12/15/19 16 12/15/2015 [employer] [facility] [employer] [facility] Low BP [id number] 12/15/19 16 12/15/2015 [employer] [facility] [employer] [facility] update referral [id number] 12/16/19 16 12/16/2015 [employer] [facility] [employer] [facility] update referral [id number] 12/16/19 16 12/16/2015 [employer] [facility] [employer] [facility] update referral [id number] 12/16/19 16 12/16/2015 [employer] [facility] [employer] [facility] update referral [id number] 12/16/19 16 12/16/2015 [employer] [facility] [employer] [facility] update referral [id number] 12/16/19 16 12/16/2015 [employer] [facility] [employer] [facility] update referral [id number] 12/16/19 16 12/16/2015 [employer] [facility] [employer] [facility] update referral [id number] 12/16/19 16 12/16/2015 [employer] [facility] [employer] [facility] update referral [id number] 12/16/19 16 12/16/2015 [employer] [facility] [employer] [facility] update referral [id number] 12/16/19 16 12/16/2015 [employer] [facility] [employer] [facility] update referral [id number] 12/16/19 16 12/16/2015 [employer] [facility] [employer] [facility] 01/07 pending auth [id number] 01/06/20 16 01/06/2016 [employer] [facility] [employer] [facility] 01/07 pending auth [id number] 01/06/20 16 01/06/2016 [employer] [facility] [employer] [facility] 01/07 pending auth [id number] 01/06/20 16 01/06/2016 [employer] [facility] [employer] [facility] 01/07 pending auth [id number] 01/06/20 16 01/06/2016 [employer] [facility] [employer] [facility] 01/07 pending auth [id number] 01/06/20 16 01/06/2016 [employer] [facility] [employer] [facility] 01/07 pending auth [id number] 01/06/20 16 01/06/2016 [employer] [facility] [employer] [facility] 01/07 pending auth [id number] 01/06/20 16 01/06/2016 [employer] [facility] [employer] 01/07 pending auth [id number] 01/06/20 16 01/06/2016 [employer] [facility] [employer] [facility] 01/07 pending auth [id number] 01/06/20 16 01/06/2016 [employer] [facility] cancel appt [id number] 01/13/20 16 01/13/2016 [employer] [facility] cancel appt [id number] 01/13/20 16 01/13/2016 [facility] [employer] cancel appt [id number] 01/13/20 16 01/13/2016 [facility] [employer] cancel appt [id number] 01/13/20 16 01/13/2016 [facility] [employer] cancel appt [id number] 01/13/20 16 01/13/2016 [facility] [employer] cancel appt [id number] 01/13/20 16 01/13/2016 [facility] [employer] [employer] cancel appt [id number] 01/13/20 16 01/13/2016 [facility] [employer] cancel appt [id number] 01/13/20 16 01/13/2016 [employer] 3 Month Follow Up [id number] 02/03/20 16 02/03/2016 [facility] [employer] 3 Month Follow Up [id number] 02/03/20 16 02/03/2016 [facility] [employer] 3 Month Follow Up [id number] 02/03/20 16 02/03/2016 [facility] [employer] 3 Month Follow Up [id number] 02/03/20 16 02/03/2016 [facility] 3 Month Follow Up [id number] 02/03/20 16 02/03/2016 [facility] 3 Month Follow Up [id number] 02/03/20 16 02/03/2016 [facility] 3 Month Follow Up [id number] 02/03/20 16 02/03/2016 [facility] [employer] f/u r/s from 01/13/16 Dr. Herman [id number] 02/22/2016 02/22/2016 [facility] f/u r/s from 01/13/16 Dr. Herman [id number] 02/22/2016 02/22/2016 [facility] f/u r/s from 01/13/16 Dr. Herman [id number] 02/22/2016 02/22/2016 [facility] f/u r/s from 01/13/16 Dr. Herman [id number] 02/22/2016 02/22/2016 [facility] Refill requests [id number] 03/11/20 16 03/11/2016 [facility] Refill requests [id number] 03/11/20 16 03/11/2016 [facility] Refill requests [id number] 03/11/20 16 03/11/2016 [facility] Refill requests [id number] 03/11/20 16 03/11/2016 [facility] Refill requests [id number] 03/11/20 16 03/11/2016 [facility] Refill requests [id number] 03/11/20 16 03/11/2016 [facility] Refill [id number] 03/21/20 16 03/21/2016 [facility] Refill [id number] 03/21/20 16 03/21/2016 [facility] Refill [id number] 03/21/20 16 03/21/2016 [facility] Refill [id number] 03/21/20 16 03/21/2016 [facility] Refill [id number] 03/21/20 16 03/21/2016 [facility] [employer] 4 wk f/u CT [id number] 03/21/20 16 03/21/2016 [facility] 4 wk f/u CT [id number] 03/21/20 16 03/21/2016 [facility] [employer] 4 wk f/u CT [id number] 03/21/20 16 03/21/2016 [facility] 4 wk f/u CT [id number] 03/21/20 16 03/21/2016 [facility] [employer] Unknown [id number] 03/30/20 16 03/30/2016 [facility] [employer] Unknown [id number] 03/30/20 16 03/30/2016 [facility] 4 wk f/u [id number] 04/18/19 17 04/18/2016 [employer] -Emergency Department Emergency [id number] Yaelbelle Velazquez [employer] SPECIALIST 9 11/05/2018 [facility] CLC-Emergency Department Emergency [id number] Florin Yates [facility] 201811/06/2018 [facility] Medicine/Surgery CLC 7B Emergency [id number] Pam Johnson DNP 11/1711/19/2018 [facility] Orders Only [id number] No Doctor Unassigned 05/02/2019 [facility] Procedures Procedure Code Date Perfomer Comments Source AUTHORIZATION FOR RELEASE OF PHI 24625 05/02/2019 Doctor Unassigned [facility] ESOPHAGOGASTR[facility]ODENOS[facility]2842 11/18/2018 [facility] XR NECK SOFT TISSUE 56567 11/18/2018 [facility] BASIC METABOLIC PANEL (NA, K, CL, CO2, G LUCOSE, BUN, CREATININE, [place]) [address] 11/18/2018 [facility] CBC WITH DIFF 44711 11/18/2018 [facility] CBC WITH DIFFERENTIAL 98493 11/18/2018 [facility] TROPONIN I 61832 11/18/2018 [facility] PROTHROMBIN TIME / INR 42805 11/18/2018 [facility] ACTIVATED PARTIAL THRMPLAS JANEL 00404 11/18/2018 [facility] EKG-12 LEAD 4135 11/18/2018 [facility] URINALYSIS 28007 11/06/2018 [facility] EXTRA TUBE URINE CULTURE 32943 11/06/2018 [facility] EXTRA TUBE LT. BLUE 97139 11/06/2018 [facility] Assessment and Plan No Data Provided for This Section Plan of Care Plan of Care Date Source INFLUENZA VACCINE 12/09/2018 [facility] SURGICAL PATHOLOGY EXAM LAB Routine ONCE for 1 Occurrences starting 11/17/2018, 1 completed 11/19/2018 [facility] SURGICAL PATHOLOGY EXAM LAB STAT 11/17/2018 7:46 PM CDT 11/19/2018 [facility] MAMMOGRAM 2013 [facility] Breast Cancer Screening (MAMMOGRAM) 2013 [facility] PAP SMEAR 1994 [facility] PAP SMEAR 1994 [facility] DTaP,Tdap,and Td Vaccines (1 - Tdap) 1992 [facility] DTaP,Tdap,and Td Vaccines (1 - Tdap) 1984 [facility] PNEUMOCOCCAL 0-64 YEARS COMBINED SERIES (1 of 1 - PPSV23) 07/29/1979 [facility] Social History Social History Date Source Tobacco [...] available. 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 Patient [...] Occup. exposure: none. May 05, 2016 05/05/2016 [employer] Family History No Data Provided for This Section Advance Directives No Data Provided for This Section Functional Status No Data Provided for This Section
--- NOTE | 2019-08-19 11:38 | NUR ---
RECEIVED PATIENT FROM PACU. PATIENT A/O X3, EVEN RESPIRATIONS ON 2LNC. LUNG SOUNDS CLEAR. PATIENT NPO. 5 TROCAR SITES TO ABDOMEN C/D/I. RLQ JENNY DRAIN. SCD'S BILATERALLY. RIGHT HAND 20 GAUGE IV WITH LR @ 125 CC/HR. ORIENTED PATIENT TO ROOM AND CALL LIGHT. BED LOW, WHEELS LOCKED, SIDE RAILS X2. CALL LIGHT IN REACH WILL CONTINUE TO MONITOR PATIENT.
[2019-08-19 11:50] VITALS: BP 121/79
[2019-08-19] MEDS: LACTATED RINGER'S 1,000 ML IV SCH ×2 (12:10→20:31)
[2019-08-19 12:11] VITALS: BP 121/79
[2019-08-19 12:14] VITALS: BP 121/79
[2019-08-19] MEDS: ONDANSETRON HCL INJ 2MG/ML 2ML 2 MG/ML VIAL IV PRN ×2 (12:54→20:03)
[2019-08-19] MEDS: MORPHINE SULFATE 2 MG/ML SYR 1ML IV PRN ×5 (12:54→20:32)
[2019-08-19 16:21] VITALS: BP 143/89
--- NOTE | 2019-08-19 16:54 | NUR ---
RD received consult for bariatric diet education. Pt had Flaca en-y gastric bypass surgery today per operative report. RD provided pt with information regarding gastric bypass post-surgery diet guidelines. Pt was not interested in verbal education at time of visit and stated she will read provided materials at a later time. Encouraged pt to contact RD if she has questions.
[2019-08-19] MEDS ORDERED: MIDAZOLAM HCL 2 MG/2 ML VIAL ONE (18:40)
[2019-08-19] MEDS ORDERED: DEXAMETHASONE SOD PHOS INJ 4 MG/ML VIAL ONE (19:36)
[2019-08-19] MEDS ORDERED: ONDANSETRON HCL INJ 2MG/ML 2ML 2 MG/ML VIAL ONE (19:36)
[2019-08-19] MEDS ORDERED: LIDOCAINE HCL 2% JELLY 5 ML TUBE ONE (19:36)
[2019-08-19] MEDS ORDERED: PROPOFOL IV EMULSION 10 MG/ML 20 ML VIAL ONE (19:36)
[2019-08-19] MEDS ORDERED: SEVOFLURANE INHAL SOLN 250 ML PEN BTL ONE (19:36)
[2019-08-19] MEDS ORDERED: LIDOCAINE HCL 2% LOCAL INJ 5 ML SDV VIAL INJ ONE (19:36)
[2019-08-19] MEDS ORDERED: ROCURONIUM BROMIDE 10 MG/ML 5ML VIAL IV ONE (19:36)
[2019-08-19 20:00] VITALS: BP 147/96
[2019-08-19] MEDS: ENOXAPARIN SOD INJ 40 MG/0.4 ML SYR SC SCH (20:31)
[2019-08-20] MEDS: MORPHINE SULFATE 2 MG/ML SYR 1ML IV PRN ×5 (00:06→10:50)
[2019-08-20 00:53] VITALS: BP 139/89
[2019-08-20] MEDS: SCOPOLAMINE 1.5 MG PATCH TOP SCH (03:12)
[2019-08-20] MEDS: LACTATED RINGER'S 1,000 ML IV SCH ×2 (03:19→11:18)
[2019-08-20] MEDS: ONDANSETRON HCL INJ 2MG/ML 2ML 2 MG/ML VIAL IV PRN (03:31)
[2019-08-20 04:00] VITALS: BP 142/90
[2019-08-20 06:28] LABS: BASOPHILS # (AUTO) 0.1 (0.0-0.1); BASOPHILS % 0.3 % (0.0-1.0); EOSINOPHILS % 0.3 % (0.0-6.0); HEMATOCRIT 42.2 % (34.2-44.1); HEMOGLOBIN 14.7 g/dL (12.0-16.0); LYMPHOCYTES # (AUTO) 2.3 (1.0-3.2); LYMPHOCYTES % 14.8 % (18.0-39.1); MEAN CORPUSCULAR HEMOGLOBIN 31.9 pg (28-32); MEAN CORPUSCULAR HGB CONC 34.8 g/dL (31-35); MEAN CORPUSCULAR VOLUME 91.5 fL (81-99); MONOCYTES # (AUTO) 1.3 (0.2-0.8); MONOCYTES % 8.3 % (4.4-11.3); NEUTROPHILS # (AUTO) 11.6 (2.1-6.9); PLATELET COUNT 200 x10e3/uL (140-360); RED BLOOD COUNT 4.61 x10e6/uL (3.6-5.1); RED CELL DISTRIBUTION WIDTH 12.4 % (11.7-14.4)
[2019-08-20 06:54] LABS: ALANINE AMINOTRANSFERASE 60 IU/L (0-55); ALBUMIN 3.6 g/dL (3.5-5.0); ALBUMIN/GLOBULIN RATIO 0.9 (0.8-2.0); ALKALINE PHOSPHATASE 71 IU/L (40-150); ANION GAP 14.7 mmol/L (8-16); BLOOD UREA NITROGEN 10 mg/dL (7-26); BUN/CREATININE RATIO 11 (6-25); CALCIUM 9.5 mg/dL (8.4-10.2); CARBON DIOXIDE 24 mmol/L (22-29); CHLORIDE 105 mmol/L (98-107); CREATININE, SERUM 0.94 mg/dL (0.57-1.11); EST GLOMERULAR FILTRATION RATE > 60 ML/MIN (60-); GLUCOSE 124 mg/dL (74-118); MAGNESIUM 1.7 MG/DL (1.3-2.1); PHOSPHORUS 3.1 MG/DL (2.3-4.7); POTASSIUM 3.7 mmol/L (3.5-5.1); SODIUM 140 mmol/L (136-145)
--- NOTE | 2019-08-20 07:00 | NUR ---
RECEIVED PATIENT RESTING IN BED NO S/S OF DISTRESS. BED LOW, WHEELS LOCKED, SIDE RAILS X2. CALL LIGHT IN REACH WILL CONTINUE TO MONITOR PATIENT.
[2019-08-20] MEDS ORDERED: HYDROCODONE/APAP 7.5MG-325MG 1 EA TAB PO PRN (07:15)
[2019-08-20 07:58] VITALS: BP 139/90
[2019-08-20] MEDS: ENOXAPARIN SOD INJ 40 MG/0.4 ML SYR SC SCH (08:19)
[2019-08-20 08:35] VITALS: BP 139/90
--- NOTE | 2019-08-20 09:13 | NUR ---
Progress Note S: No major complaints O: AF, VSS General- no distress Abdomen- soft, incisions c/d/i A/P: POD 1, s/p Lap revision sleeve to gastric bypass -Clears, ambulate, IS, OOB to chair -DC home today -F/u with Dr. Andrew in 1 week
[2019-08-20 11:54] VITALS: BP 143/97
[2019-08-20] MEDS ORDERED: ONDANSETRON HCL 4 MG ORAL DISINTEGRATING TAB PO PRN (12:00)
[2019-08-20] MEDS ORDERED: TYLENOL WITH C1 EACH PO (12:23)
[2019-08-20] MEDS ORDERED: ZOFRAN4 MG PO (12:23)
--- NOTE | 2019-08-20 12:40 | NUR ---
REMOVED PATIENTS IV. CATHETER TIP INTACT AND PRESSURE DRESSING APPLIED.
--- NOTE | 2019-08-20 12:44 | NUR ---
PATIENT DISCHARGED FROM FACILITY. PATIENT GATHERED ALL PERSONAL BELONGINGS, DISCHARGE INSTRUCTIONS AND FOLLOW UP INFORMATION. PATIENT LEFT UNIT IN WHEELCHAIR AND WENT HOME VIA PRIVATE AUTO. NO S/S OF DISTRESS WHEN LEAVING FACILITY.
[2019-08-20] MEDS ORDERED: ENOXAPARIN SOD INJ 40 MG/0.4 ML SYR SC SCH (20:00)
== END 2019-08-20 12:50 | disposition home or self-care (01) | DRG 621 ==
LOC: OR 05:15 → PACU V 10:11 → OBSVTOIN 10:11 → MED/SURG 11:41
PROC: 0D164ZA Bypass Stomach to Jejunum, Percutaneous Endoscopic Approach (ICD-10-PCS; principal; 2019-08-19 07:30)
PROC: 0BQT4ZZ Repair Diaphragm, Percutaneous Endoscopic Approach (ICD-10-PCS; 2019-08-19 07:30)
DX: E66.01 Morbid (severe) obesity due to excess calories (principal); Z68.38 Body mass index [BMI] 38.0-38.9, adult; G47.33 Obstructive sleep apnea (adult) (pediatric); G89.4 Chronic pain syndrome; K21.9 Gastro-esophageal reflux disease without esophagitis; I10 Essential (primary) hypertension; K44.9 Diaphragmatic hernia without obstruction or gangrene; Z88.1 Allergy status to other antibiotic agents; Z88.2 Allergy status to sulfonamides; Z88.8 Allergy status to other drugs, medicaments and biological substances
CPT/HCPCS: 36415; 71046; 80053; 83735; 84100; 85025; 87635; 93005; J0690; J1100; J1650; J2001; J2250; J2270; J2405; J2550; J2765; J3010; J7121

== ENCOUNTER 2019-10-07 19:05 | Emergency (ER) | payer OTHER ==
[~2019-10-07] VITALS: Ht 162.6 cm; Wt 102.1 kg
[~2019-10-07 19:05] MED LIST changes: +TYLENOL WITH C1 EACH PO; +ZOFRAN4 MG PO
[2019-10-07] MEDS ORDERED: SODIUM CHLORIDE 0.9% 1000ML 1,000 ML IV STA (19:41)
[2019-10-07] MEDS ORDERED: ONDANSETRON HCL INJ 2MG/ML 2ML 2 MG/ML VIAL IV STA (19:41)
[2019-10-07] MEDS ORDERED: KETOROLAC TROMETHAMINE 30 MG/ML VIAL IV STA (19:41)
[2019-10-07] MEDS ORDERED: ASPIRIN 81 MG CHEW TAB PO ONE (19:45)
[2019-10-07 19:52] LABS: BASOPHILS # (AUTO) 0.1 (0.0-0.1); BASOPHILS % 0.6 % (0.0-1.0); EOSINOPHILS # (AUTO) 0.4 (0.0-0.4); EOSINOPHILS % 2.6 % (0.0-6.0); HEMATOCRIT 45.8 % (34.2-44.1); HEMOGLOBIN 15.5 g/dL (12.0-16.0); LYMPHOCYTES # (AUTO) 3.7 (1.0-3.2); MEAN CORPUSCULAR HEMOGLOBIN 29.7 pg (28-32); MEAN CORPUSCULAR HGB CONC 33.8 g/dL (31-35); MEAN CORPUSCULAR VOLUME 87.7 fL (81-99); MONOCYTES # (AUTO) 1.1 (0.2-0.8); NEUTROPHILS # (AUTO) 10.2 (2.1-6.9); NEUTROPHILS % 65.3 % (38.7-80.0); PLATELET COUNT 282 x10e3/uL (140-360); RED BLOOD COUNT 5.22 x10e6/uL (3.6-5.1); RED CELL DISTRIBUTION WIDTH 12.7 % (11.7-14.4)
[2019-10-07 20:06] LABS: ALANINE AMINOTRANSFERASE 22 IU/L (0-55); ALBUMIN 3.5 g/dL (3.5-5.0); ALBUMIN/GLOBULIN RATIO 0.7 (0.8-2.0); ALKALINE PHOSPHATASE 150 IU/L (40-150); ANION GAP 15.8 mmol/L (8-16); BLOOD UREA NITROGEN 5 mg/dL (7-26); BUN/CREATININE RATIO 5 (6-25); CALCIUM 9.9 mg/dL (8.4-10.2); CARBON DIOXIDE 20 mmol/L (22-29); CHLORIDE 106 mmol/L (98-107); CREATINE KINASE 34 IU/L (29-168); CREATININE, SERUM 0.97 mg/dL (0.57-1.11); EST GLOMERULAR FILTRATION RATE > 60 ML/MIN (60-); GLUCOSE 107 mg/dL (74-118); POTASSIUM 3.8 mmol/L (3.5-5.1); SODIUM 138 mmol/L (136-145)
[2019-10-07] MEDS ORDERED: SODIUM CHLORIDE 0.9% 50ML 50 ML ONE (20:36)
[2019-10-07] MEDS ORDERED: IOPAMIDOL 370 MG/ML 200 ML INFUS..BTL INJ ONE (20:36)
[2019-10-07] MEDS ORDERED: PIPER-TAZ 3.375 GM 50 ML IV ONE (20:45)
--- NOTE | 2019-10-07 20:49 | NUR ---
PT SPOKE WITH DR. NOEL. PT REQUESTING TO HAVE DILAUDID AND NO OTHER MEDICATION HELPS WITH THE PAIN. PT ADVISED IV PAIN MEDICATION CAN NOT BE GIVEN IN THE LOBBY DUE TO PT SAFETY.
--- NOTE | 2019-10-07 21:32 | Diagnostic Imaging Report ---
EXAMINATION: CHEST SINGLE (PORTABLE) INDICATION: ^Y ^ABD PAIN ^[id number] ^2100 COMPARISON: None FINDINGS: AP view TUBES and LINES: None. LUNGS: Lungs are well inflated. Lungs are clear. There is no evidence of pneumonia or pulmonary edema. PLEURA: No pleural effusion or pneumothorax. HEART AND MEDIASTINUM: The cardiomediastinal silhouette is unremarkable. BONES AND SOFT TISSUES: No acute osseous lesion. Soft tissues are unremarkable. UPPER ABDOMEN: No free air under the diaphragm. IMPRESSION: No acute thoracic radiographic abnormality. Signed by: Virgilio Gabriel MD on 10/07/2019 9:28 PM
--- NOTE | 2019-10-07 21:38 | Diagnostic Imaging Report ---
EXAM: CT Abdomen and Pelvis WITH contrast INDICATION: ^Y ^ABD PAIN ^[id number] ^2052 COMPARISON: 06/20/2019 TECHNIQUE: Abdomen and pelvis were scanned utilizing a multidetector helical scanner from the lung base to the pubic symphysis after administration of IV contrast. Coronal and sagittal reformations were obtained. Routine protocol was performed. Scan was performed when during portal venous phase. IV CONTRAST: 100 mL of Isovue 370 ORAL CONTRAST: Water COMPLICATIONS: None RADIATION DOSE: Total DLP: 642 mGy*cm Estimated effective dose: (DLP x 0.015 x size factor) mSv CTDIvol has been reviewed. It is below the limits set by the Radiation Protocol Committee (RPC). Dose modulation, iterative reconstruction, and/or weight based adjustment of the mA/kV was utilized to reduce the radiation dose to as low as reasonably achievable. FINDINGS: LINES and TUBES: None. LOWER THORAX: Unremarkable HEPATOBILIARY: No focal hepatic lesions. No biliary ductal dilation. GALLBLADDER: Surgically absent. SPLEEN: No splenomegaly. PANCREAS: No focal masses or ductal dilatation. ADRENALS: No adrenal nodules. KIDNEYS/URETERS: Kidneys enhance symmetrically. No hydronephrosis. Multiple bilateral nonobstructing intrarenal calculi, largest 5 mm on the right and 6 mm on the left. Probable 1 cm left angiomyolipoma (image 36). No concerning renal mass. GI TRACT: No abnormal distention, wall thickening, or evidence of bowel obstruction. Gastric bypass surgical change. Prominent formed stool within the colon. PELVIC ORGANS/BLADDER: The uterus is surgically absent. LYMPH NODES: No lymphadenopathy. Mildly prominent subcentimeter anterior mesenteric lymph nodes (image 25), likely reactive. VESSELS: Mild scattered atherosclerotic disease. PERITONEUM / RETROPERITONEUM: No free air or fluid. BONES: Unremarkable. SOFT TISSUES: Tiny fat-containing umbilical hernia. IMPRESSION: 1. No acute abdominal or pelvic abnormality. 2. Surgical changes of gastric bypass. No evidence of surgical complication. 3. Large amount of formed stool within the colon. Correlate for constipation. Signed by: Virgilio Gabriel MD on 10/07/2019 9:34 PM
--- NOTE | 2019-10-07 22:39 | Emergency Department Note ---
History of Present Illnes History of Present Illness Chief Complaint: Abdominal Complaints History of Present Illness This is a 44 year old female arrived to the ED with 2 weeks of abdominal pain. Patient states 7 weeks ago she had a gastric band that was converted to gastric bypass and has had trouble holding any solid food down since. Patient states she attempted to reach her bariatric surgeon today, however, is still waiting a return call.. Historian: Patient Arrival Mode: Car Onset (how long ago): week(s) Radiation: Reports non-radiation Severity: mild Onset quality: gradual Duration (how long): week(s) Timing of current episode: constant Progression: unchanged Chronicity: recurrent Relieving factors: none Treatments prior to arrival: none Past Medical/Family History Physician Review I have reviewed the patient's past medical and family history. Any updates have been documented here. Past Medical History Recent Fever: No Clinical Suspicion of Infectio: No New/Unexplained Change in Ment: No Past Medical History: Hypertension, Anxiety, Depression, Other Mental Illness, GERD Other Medical History: HIATAL HERNIA CHRONIC OSTEOMYELITIS IN HER MOUTH Past Surgical History: Bariatric Surgery Other Surgery: SLEEVE 2016 GASTRIC SLEEVE TO BYPASS 7 WEEKS AGO (10/07/2019) Social History Smoking Cessation: Former smoker Family History Family history of heart diseas: No Other Last Tetanus: UNK Review of Systems Review of Systems Constitutional: Reports no symptoms EENTM: Reports no symptoms Cardiovascular: Reports no symptoms Respiratory: Reports no symptoms Gastrointestinal: Reports as per HPI, Reports abdominal pain; Denies constipation, Denies diarrhea, Denies nausea, Denies vomiting Genitourinary: Reports no symptoms Musculoskeletal: Reports no symptoms Integumentary: Reports no symptoms Neurological: Reports no symptoms Psychological: Reports no symptoms Endocrine: Reports no symptoms Hematological/Lymphatic: Reports no symptoms Review of other systems: All other systems negative Physical Exam Related Data Allergies: Coded Allergies: NSAIDS (Non-Steroidal Anti-Inflamma (Verified Allergy, Unknown, 10/07/19) Sulfa (Sulfonamide Antibiotics) (Verified Allergy, Unknown, 10/07/19) bupropion (Verified Allergy, Unknown, 10/07/19) erythromycin base (Verified Allergy, Unknown, 10/07/19) tapentadol (Verified Allergy, Unknown, 10/07/19) tramadol (Verified Allergy, Unknown, 10/07/19) vancomycin (Verified Allergy, Unknown, 08/02/17) venlafaxine (Verified Allergy, Unknown, 08/02/17) Triage Vital Signs Vital Signs Date Time Temp Pulse Resp B/P (MAP) Pulse Ox O2 Delivery O2 Flow Rate FiO2 10/07/19 19:16 99.8 115 18 131/103 97 Vital signs reviewed: Yes Physical Exam CONSTITUTIONAL Constitutional: Present well-developed, Present well-nourished, Present obese HENT HENT: Present normocephalic, Present atraumatic, Present oropharynx clear/moist, Present nose normal HENT L/R: Present left ext ear normal, Present right ext ear normal EYES Eyes: Reports PERRL, Reports conjunctivae normal NECK Neck: Present ROM normal PULMONARY Pulmonary: Present effort normal, Present breath sounds normal CARDIOVASCULAR Cardiovascular: Present regular rhythm, Present heart sounds normal, Present capillary refill normal, Present normal rate GASTROINTESTINAL Abdominal: Present soft, Present nontender, Present bowel sounds normal GENITOURINARY Genitourinary: Present exam deferred SKIN Skin: Present warm, Present dry MUSCULOSKELETAL Musculoskeletal: Present ROM normal NEUROLOGICAL Neurological: Present alert, Present oriented x 3, Present no gross motor or sensory deficits PSYCHOLOGICAL Psychological: Present mood/affect normal, Present judgement normal Results Laboratory Result Diagram: 10/07/19191910/07/191919 Laboratory Laboratory Tests Test 10/07/19 20:37 10/07/19 19:20 Lactic Acid Level 1.3 mmol/L (0.5-2.0) White Blood Count 15.53 x10e3/uL (4.8-10.8) Red Blood Count 5.22 x10e6/uL (3.6-5.1) Hemoglobin 15.5 g/dL (12.0-16.0) Hematocrit 45.8 % (34.2-44.1) Mean Corpuscular Volume 87.7 fL (81-99) Mean Corpuscular Hemoglobin 29.7 pg (28-32) Mean Corpuscular Hemoglobin Concent 33.8 g/dL (31-35) Red Cell Distribution Width 12.7 % (11.7-14.4) Platelet Count 282 x10e3/uL (140-360) Neutrophils (%) (Auto) 65.3 % (38.7-80.0) Lymphocytes (%) (Auto) 24.0 % (18.0-39.1) Monocytes (%) (Auto) 7.0 % (4.4-11.3) Eosinophils (%) (Auto) 2.6 % (0.0-6.0) Basophils (%) (Auto) 0.6 % (0.0-1.0) Neutrophils # (Auto) 10.2 (2.1-6.9) Lymphocytes # (Auto) 3.7 (1.0-3.2) Monocytes # (Auto) 1.1 (0.2-0.8) Eosinophils # (Auto) 0.4 (0.0-0.4) Basophils # (Auto) 0.1 (0.0-0.1) Absolute Immature Granulocyte (auto 0.07 x10e3/uL (0-0.1) Sodium Level 138 mmol/L (136-145) Potassium Level 3.8 mmol/L (3.5-5.1) Chloride Level 106 mmol/L (98-107) Carbon Dioxide Level 20 mmol/L (22-29) Anion Gap 15.8 mmol/L (8-16) Blood Urea Nitrogen 5 mg/dL (7-26) Creatinine 0.97 mg/dL (0.57-1.11) Estimat Glomerular Filtration Rate > 60 ML/MIN (60-) BUN/Creatinine Ratio 5 (6-25) Glucose Level 107 mg/dL (74-118) Calcium Level 9.9 mg/dL (8.4-10.2) Total Bilirubin 0.3 mg/dL (0.2-1.2) Aspartate Amino Transf (AST/SGOT) 23 IU/L (5-34) Alanine Aminotransferase (ALT/SGPT) 22 IU/L (0-55) Alkaline Phosphatase 150 IU/L (40-150) Creatine Kinase 34 IU/L (29-168) Creatine Kinase MB 0.50 ng/mL (0-5.0) Troponin I 0.002 ng/mL (0-0.300) Total Protein 8.2 g/dL (6.5-8.1) Albumin 3.5 g/dL (3.5-5.0) Globulin 4.7 g/dL (2.3-3.5) Albumin/Globulin Ratio 0.7 (0.8-2.0) Lipase 20 U/L (8-78) Lab results reviewed: Yes Imaging Imaging results reviewed: Yes Impressions IMPRESSION: 1. No acute abdominal or pelvic abnormality. 2. Surgical changes of gastric bypass. No evidence of surgical complication. 3. Large amount of formed stool within the colon. Correlate for constipation. Assessment & Plan Medical Decision Making MDM 44-year-old female arrives to the ED with complaints of abdominal pain, postop 7 weeks ago gastric bypass. Patient well-appearing on exam, mucous membranes moist, patient patient unable to tolerate oral intake, states she has Zofran. I encouraged a small diet with frequent meals. Patient expressed understanding. Patient is able to the outpatient physician for follow-up. Patient did request Dilaudid multiple times the emergency department, patient states she has by mouth Dilaudid at home will make deformity emergency department. I encouraged nonnarcotic forms a pain management patient refused. Patient states she suffers some chronic pain and has a high pain tolerance. Patient did not want IV fluids, antibiotics- and wished to be discharged home. Assessment & Plan Final Impression: (1) Abdominal pain (2) Opiate dependence Depart Disposition: HOME, SELF-CARE Last Vital Signs Date Time Temp Pulse Resp B/P (MAP) Pulse Ox O2 Delivery O2 Flow Rate FiO2 10/07/19 22:30 98.8 105 20 133/97 97 Home Meds Reported Medications Ondansetron Hcl* (ZOFRAN*) 4 Mg Tablet, 4 MG PO Q6H PRN for Mild Pain (1-3) or Fever>100.8 08/20/19 Acetaminophen With Codeine (TYLENOL WITH CODEINE #3 TABLET) 1 Each Tablet, 300 MG PO Q4HR PRN for Mild Pain (1-3) or Fever>100.8, TAB 08/20/19 Zolpidem Tartrate (AMBIEN) 10 Mg Tablet, 10 MG PO PRN, #30 TAB 08/14/19 Lorazepam* (ATIVAN*) 0.5 Mg Tablet, 2 MG PO PRN, #60 TAB 08/14/19 Hydromorphone Hcl (DILAUDID) 2 Mg Tab, 4 MG PO PRN 08/14/19 [Vybrid] No Conflict Check, 40 MG PO HS 08/14/19 Buspirone Hcl (BUSPIRONE HCL) 5 Mg Tablet, 10 MG PO BID, #60 TAB 08/14/19 Brexpiprazole (Rexulti) 3 Mg Tablet, 3 MG PO DAILY 08/14/19 Oxycodone Hcl (OXYCONTIN) 20 Mg Tab.er.12h, 20 MG PO HS, TAB 08/14/19 Lisinopril (LISINOPRIL) 10 Mg Tablet, 20 MG PO DAILY, TAB 08/14/19 Gabapentin (GABAPENTIN) 400 Mg Capsule, 800 MG PO DAILY, #30 CAP 08/14/19 Pantoprazole Sodium* (PROTONIX) 40 Mg Tablet.dr, 40 MG PO BID, TAB 08/14/19 Medications in the ED Aspirin 81 mg PRN ONCE PO ; Start 10/07/19 at 19:45; Stop 10/07/19 at 19:46; Status UNV Sodium Chloride 1,000 ml @ 0 mls/hr Q0M STAT IV ; Start 10/07/19 at 19:41; Stop 10/07/19 at 19:45; Status DC Ondansetron HCl 4 mg NOW STAT IV Last administered on 10/07/19at 20:49; Admin Dose 4 MG; Start 10/07/19 at 19:41; Stop 10/07/19 at 20:08; Status DC Ketorolac Tromethamine 30 mg ONCE STAT IV ; Start 10/07/19 at 19:41; Stop 10/07/19 at 19:42; Status UNV Sodium Chloride 50 ml @ ud STK-MED ONCE .ROUTE ; Start 10/07/19 at 20:36; Stop 10/07/19 at 20:30; Status DC Iopamidol 74,000 mg STK-MED ONCE INJ ; Start 10/07/19 at 20:36; Stop 10/07/19 at 20:30; Status DC Piperacillin Sod/ Tazobactam Sod 50 ml @ 50 mls/hr NOW ONCE IV ; Start 10/07/19 at 20:45; Stop 10/07/19 at 21:44; Status DC FERNY NEOL, Oct 07, 2019 22:39
== END 2019-10-07 22:25 | disposition home or self-care (01) ==
LOC: ER 20:25
DX: R10.9 Unspecified abdominal pain (principal); R11.2 Nausea with vomiting, unspecified; F11.20 Opioid dependence, uncomplicated; Z98.84 Bariatric surgery status; I10 Essential (primary) hypertension; K21.9 Gastro-esophageal reflux disease without esophagitis; F41.9 Anxiety disorder, unspecified
CPT/HCPCS: 36415; 71045; 74177; 80053; 82550; 82553; 83605; 83690; 84484; 85025; 87040; 99283; J2405; J7030; Q9967